=== PATIENT | male | born 1940 | race Caucasian/White ===

== ENCOUNTER → 2021-06-18 12:19 | Outpatient (CLI) | payer MEDICARE, SELFPAY ==
--- NOTE | ~2021-06-18 | MR_ITS ---
EXAMINATION: MR lumbar spine wo con EXAM DATE: 06/18/2021 13:03 INDICATION: Radiculopathy, lumbar region radiculopathy, lumbar region. Low back pain. TECHNIQUE: Multi-sequential, multiplanar MR images of the lumbar spine were obtained without contrast . Sagittal T1, T2, T2 fat saturation images. Axial T2 weighted images. Correlation is made to CT ab domen 2016. FINDINGS: There is lower abdominal aortic aneurysm which may measure up to about 5 cm (was about 3.7 in 2016. Size may indicate prophylactic treatment. There are left renal lesions, imaged portions are fluid signal intensity consistent with cysts. Rudimentary S1-2 disc. Mild lumbar dextroscoliosis. There is severe disc disease L4-5 and L5-S1, mode rate to severe at the 2 levels above. The conus medullaris terminates at the L1/2 level and has meghan l signal intensity and morphology. There is nerve root redundancy above the severe central canal sten osis at the L3-4 level. There is 2 mm anterolisthesis L2 on L3. Level by level evaluation: T12-L1: Disc does not extend beyond the endplate margin. Facet arthropathy: Mild. Neural foraminal stenosis: No stenosis. Central canal stenosis: No stenosis. L1-L2: There is a mild diffuse disc bulge. Facet arthropathy: Mild. Neural foraminal stenosis: No stenosis. Central canal stenosis: No stenosis. L2-L3: There is a moderate diffuse disc bulge. Facet arthropathy: Mild to moderate. Neural foraminal stenosis: Moderate left, mild right. Central canal stenosis: Mild to moderate. L3-L4: There is a moderate to large diffuse disc bulge. Facet arthropathy: Severe. Neural foraminal stenosis: Moderate bilateral. Central canal stenosis: Severe, nerve root redundancy above this level. L4-L5: There is a moderate to large diffuse disc bulge. Facet arthropathy: Moderate. Neural foraminal stenosis: Mild to moderate bilateral. Central canal stenosis: Moderate. L5-S1: Partially fused. Mild to moderate diffuse disc bulge. Facet arthropathy: Mild to moderate. Neural foraminal stenosis: Moderate right, mild to moderate left. Central canal stenosis: Mild. IMPRESSION: 1. Increase in size of lower abdominal aortic aneurysm which may be up to 5 cm; consider CT angiogra m, vascular consult. 2. L3-4 severe central canal stenosis with nerve root redundancy above. 3. Mild dextroscoliosis. Reviewed, dictated and finalized at location A. IMPRESSION: 1. Increase in size of lower abdominal aortic aneurysm which may be up to 5 cm ; consider CT angiogram, vascular consult. 2. L3-4 severe central canal stenosis with nerve root redundancy above. 3. Mild dextroscoliosis.
== END ==
PROVIDERS: PCP Emergency Medicine; Visit Provider Nurse Practitioner Adult Health
DX: M54.16 Radiculopathy, lumbar region (principal); I71.4 Abdominal aortic aneurysm, without rupture
CPT/HCPCS: 72148

== ENCOUNTER → 2021-07-30 08:01 | Outpatient (CLI) | payer MEDICARE, SELFPAY ==
--- NOTE | ~2021-07-30 | US_ITS ---
EXAMINATION: US abdomen limited EXAM DATE: 07/30/2021 08:45 INDICATION: I71.4 - Abdominal aortic aneurysm, without rupture. TECHNIQUE: Multiple grayscale and Doppler images of the abdomen right upper quadrant were obtained (b y a technologist who performed the scan) and subsequently reviewed. There is no prior study for nanda dumont. FINDINGS: Mid abdominal aorta measures 5.4 cm. Please note that on a CT in 2016 this measured 3.5 cm . The pancreatic head and body are normal in appearance. The pancreatic tail is not visualized. There is echogenic liver parenchyma, hepatic steatosis. There are no focal liver lesions identified. Th ere is no evidence of intrahepatic biliary duct dilation. Portal venous flow was seen in the hepatop edal, normal direction and has normal Doppler waveform. No right-sided hydronephrosis. Common bile duct measures 6 mm, which is normal. The gallbladder fossa is unremarkable. IMPRESSION: 1. Abdominal aortic aneurysm measuring up to 5.4 cm. 2. Hepatic steatosis. Reviewed, dictated and finalized at location B.
== END ==
PROVIDERS: PCP Emergency Medicine; Visit Provider Emergency Medicine
DX: I71.4 Abdominal aortic aneurysm, without rupture (principal); K76.0 Fatty (change of) liver, not elsewhere classified
CPT/HCPCS: 76705

== ENCOUNTER 2021-08-23 10:06 | Outpatient (CLI) | payer MEDICARE, SELFPAY ==
--- NOTE | ~2021-08-23 | CT_ITS ---
EXAMINATION: CTA abdomen pelvis EXAM DATE: 08/23/2021 11:13 INDICATION: AAA w/o rupture . TECHNIQUE: Spiral CT of the abdomen and pelvis was performed following intravenous injection of 100 m L Omnipaque 350. Axial, coronal and sagittal images of the abdomen and pelvis were reviewed. Maximum intensity projection 3-D reconstructions of the arteries were created by the technologist on [employer] workstation. The dose-length product (DLP) for this examination was 1541.15 mGy-cm. The exposu re was tailored according to patient size (auto mA exposure control), and iterative reconstruction (A SIR) was used as additional dose reduction technique. Comparison is made to prior examination from . 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 The liver, spleen, adrenal glands and pancreas are unremarkable. Ga llbladder is unremarkable. No biliary obstruction. Portal and splenic veins are patent. Kidneys en mitzy symmetrically. There is no hydronephrosis. Left renal cysts. Mild bilateral renal atrophy. Th e prostate is unremarkable. The bladder is unremarkable. There is no retroperitoneal or pelvic lymp hadenopathy. Small umbilical fat-containing hernia. The appendix is normal. There is mild scattered colonic diverticulosis. There is no adjacent inflamm atory change to suggest diverticulitis. The stomach and small bowel are unremarkable. There is expec dina amount of colonic stool. No free intraperitoneal gas. Mild cardiomegaly. The lung bases are unremarkable. There are no osteoblastic or osteolytic lesions identified. IMPRESSION: 1. 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 2. Mild renal atrophy. 3. Small umbilical hernia. 4. Mild colonic diverticulosis. Reviewed, dictated and finalized at location B. IMPRESSION: 1. 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 2. Mild renal atrophy. 3. Small umbilical hernia. 4. Mild colonic diverticulosis.
[2021-08-23 10:55] LABS: Estimated Glomerular Filt Rate 45
== END 2021-08-23 10:07 | disposition home or self-care (01) ==
PROVIDERS: PCP Emergency Medicine; Visit Provider Specialist
DX: I71.4 Abdominal aortic aneurysm, without rupture (principal); K42.9 Umbilical hernia without obstruction or gangrene; K57.30 Diverticulosis of large intestine without perforation or abscess without bleeding
CPT/HCPCS: 74174; Q9967

== ENCOUNTER 2021-10-15 08:19 | Outpatient (CLI) | payer MEDICARE, SELFPAY ==
--- NOTE | ~2021-10-15 | NM_ITS ---
EXAMINATION: NM jim stress w perfusion DATE: 10/15/2021 12:52 INDICATION: Encounter for preprocedural cardiovascular exam. Atherosclerotic coronary artery calcific ations. TECHNIQUE: Rest images were obtained following intravenous administration of 10.7 mCi Tc99m tetrofosm in (Myoview). The patient was infused intravenously with Lexiscan (Regadenoson). Then, 33.6 mCi Tc99m tetrofosmin (Myoview) was administered intravenously, and stress images were obtained. Data was marlen nstructed into short axis and horizontal and vertical long axis SPECT images. Gated SPECT images were also obtained. COMPARISON: None. FINDINGS: There is no definite reversible or fixed perfusion abnormality to suggest ischemia or infar ction. There is normal left ventricular chamber size, wall motion and ejection fraction. Left ventr icular ejection fraction measures 68%. IMPRESSION: 1. Normal myocardial perfusion at rest and during stress. 2. Left ventricular ejection fraction measuring 68%. Reviewed, dictated and finalized at location A. Y MAN
--- NOTE | 2021-10-15 08:35 | EST_ITS ---
Patient Info Name: Mike Michel Age: 80 years : 1940 Gender: Male Ht: 67 in Wt: 303 lbs BSA: 2.63 m2 Exam Date: 10/15/2021 10:43 AM Exam Location: [facility] Stress Patient Status: Outpatient Admit Date: 10/15/2021 Staff Ordering Physician: Timur Sheldon DO Attending Provider: Timur Sheldon DO Exercise Technologist: Brie Mckeon RDCS Exercise Physician: Timur Sheldon DO Exam Type: CA stress jim w NM Study Info Indications Z01.810 - Encounter for preprocedural cardiovascular examination A regadenoson stress test was performed. Summary 1. 1. Negative lexiscan stress test for ischemic ST changes by ECG criteria. 2. 2. Stable hemodynamics throughout the test. 3. 3. Nuclear scan to follow and will be reported separately. Please correlate with it. 4. 4. Patient informed of the above results. Protocol: Lexiscan Stress ECG Details Stage: REST Duration (min): 1 min : 33 sec HR (bpm): 55 SBP (mmHg): 136 DBP (mmHg): 79 Stage: REST Duration (min): 13 min : 47 sec HR (bpm): 53 SBP (mmHg): 136 DBP (mmHg): 79 Stage: STAGE 1 Duration (min): 1 min : 0 sec HR (bpm): 49 SBP (mmHg): 136 DBP (mmHg): 79 Stage: RECOVERY Duration (min): 1 min : 0 sec HR (bpm): 63 SBP (mmHg): 121 DBP (mmHg): 63 Stage: RECOVERY Duration (min): 2 min : 0 sec HR (bpm): 63 SBP (mmHg): 121 DBP (mmHg): 63 Stage: RECOVERY Duration (min): 3 min : 0 sec HR (bpm): 63 SBP (mmHg): 126 DBP (mmHg): 58 Stage: RECOVERY Duration (min): 4 min : 0 sec HR (bpm): 63 SBP (mmHg): 126 DBP (mmHg): 58 Stage: RECOVERY Duration (min): 5 min : 0 sec HR (bpm): 63 SBP (mmHg): 122 DBP (mmHg): 71 Stage: RECOVERY Duration (min): 6 min : 0 sec HR (bpm): 62 SBP (mmHg): 122 DBP (mmHg): 71 Stage: RECOVERY Duration (min): 6 min : 51 sec HR (bpm): 62 SBP (mmHg): 132 DBP (mmHg): 75 Rest HR: 53 bpm Peak HR: 64 bpm Rest Sys BP: 136 mmHg Peak Sys BP: 132 mmHg Max Pred HR: 142 bpm % Max Pred HR: 45 % Target HR: 121 bpm Max RPP: 8,448 bpm*mmHg Termination Reason: Completed protocol Cardiac Symptoms: Shortness of breath Total Time: 1 min : 0 sec Rest Quijano BP: 79 mmHg Peak Quijano BP: 75 mmHg Total Dose: 0.4 mg Resting ECG Sinus rhythm. Stress ECG No ST changes. Arrhythmias None. Report Signatures
--- NOTE | 2021-10-15 08:35 | ECHO_ITS ---
Patient Info Name: Mike Michel Age: 80 years : 1940 Gender: Male Ht: 67 in Wt: 303 lbs BSA: 2.63 m2 HR: 60 bpm BP: 136 / 79 mmHg Technical Quality: Poor Exam Date: 10/15/2021 8:52 AM Exam Location: [facility] Patient Status: Outpatient Admit Date: 10/15/2021 Staff Ordering Physician: Timur Sheldon DO Flue Cleaner: Brie Mckeon RDCS Attending Provider: Timur Sheldon DO Referring Physician: Pito PUGH; Exam Type: CA echo dop color flow w con Study Info Indications Z01.810 - Encounter for preprocedural cardiovascular examination Complete two-dimensional, color flow and Doppler transthoracic echocardiogram is performed with contrast to opacify the left ventricle and to improve the deliniation of the left ventricle endocardial borders. Contrast/Agitated Saline Contrast/Ag. Saline: Definity Amount: 2.00 ml Administered By: Alexis Benoit RN New IV Access: Antecubital Space and Right Site Condition: No extravasation Reason for Poor Study: patient body habitus Summary 1. Technically suboptimal study due to poor sonographic images. 2. Definity contrast administered improved wall motion interpretation. 3. Left ventricular chamber dimension is normal. 4. Left ventricular systolic function is normal, estimated at 60-65%. 5. The left ventricular diastolic function is grade I diastolic dysfunction. 6. No pulmonary hypertension, estimated pulmonary arterial systolic pressure is 13 mmHg. Left Ventricle Technically suboptimal study due to poor sonographic images. Definity contrast administered improved wall motion interpretation. Left ventricular chamber dimension is normal. Left ventricular systolic function is normal, estimated at 60-65%. The left ventricular diastolic function is grade I diastolic dysfunction. Tissue doppler is not performed. Right Ventricle Right ventricular chamber dimension is not well visualized. Left Atria Left atrial chamber dimension is normal. Right Atria Right atrial chamber dimension is normal. Aortic Valve The aortic valve is trileaflet. There is no aortic valve stenosis. There is no aortic valve regurgitation. Pulmonic Valve There is no pulmonic regurgitation. Mitral Valve There is no mitral valve stenosis. There is no mitral valve regurgitation. Tricuspid Valve There is no tricuspid valve regurgitation. No pulmonary hypertension, estimated pulmonary arterial systolic pressure is 13 mmHg. Pericardium/Pleural There is no pericardial effusion. Inferior Vena Cava Normal inferior vena cava with >50% collapse upon inspiration consistent with normal right atrial pressure, 5 mmHg. Aorta The aortic root size at the sinus of Valsalva is not well visualized. Left Ventricular Outflow Tract Name Value Normal LVOT 2D LVOT Diameter 2.02 cm LVOT Doppler LVOT Peak Gradient 6 mmHg LVOT Mean Gradient 3 mmHg LVOT VTI 28.36 cm LVOT VTI/AV VTI Ratio 0.85 LVOT Stro
== END 2021-10-15 08:20 | disposition home or self-care (01) ==
LOC: ANHCARD 08:22
PROVIDERS: PCP Emergency Medicine; Visit Provider Internal Medicine Cardiovascular Disease
DX: Z01.810 Encounter for preprocedural cardiovascular examination (principal)
CPT/HCPCS: 78452; 93017; A9502; C8929; J2785

== ENCOUNTER 2021-10-19 14:19 | Inpatient (IN) | payer MEDICARE, SELFPAY ==
[2021-10-19] VITALS (39 sets, daily range): BP systolic 90–176; BP diastolic 53–102; PULSE 52–80; RESP 12–24; TEMP 37–37.1; O2SAT 90–100; BMI 43.1
--- NOTE | ~2021-10-19 | XR_ITS ---
EXAMINATION: XR chest 1V portable DATE: 11/02/2021 06:20 INDICATION: Respiratory failure TECHNIQUE: frontal view of the chest was obtained. COMPARISON: Chest radiograph dated 11/01/2021 FINDINGS: Endotracheal tube tip 5.5 cm above the shanti. Right upper extremity peripherally inserted central ve nous catheter (PICC) tip at the mid superior vena cava. No significant change in mild opacities in the bilateral lower lung zones. No pneumothorax or pleural effusion. The cardiomediastinal silhouette is normal. IMPRESSION: 1. No significant change in opacities in the bilateral lower lung zones consistent with atelectasis, pneumonia, pulmonary edema or some combination thereof. Reviewed, dictated and finalized at location A. ING MACHINE OPERATOR IMPRESSION: 1. No significant change in opacities in the bilateral lower lung zones consist ent with atelectasis, pneumonia, pulmonary edema or some combination thereof.
--- NOTE | ~2021-10-19 | XR_ITS ---
EXAMINATION: XR chest 1V portable EXAM DATE: 10/24/2021 05:16 INDICATION: Respiratory failure. TECHNIQUE: Portable AP frontal chest x-ray was obtained. Comparison is made to prior examination from 10/23/2021. FINDINGS: Endotracheal tube tip is 4 centimeters above the shanti, adequate. There is a nasogastric t ube seen with tip collimated off the study, but below the left hemidiaphragm. There is cardiomegaly and pulmonary vascular congestion. Moderate amount of bilateral airspace diseas e, could be edema, ARDS, pneumonia or combination thereof. Please clinically correlate. Small to mode rate pleural effusions. There is no pneumothorax suspected. The bones and soft tissues are unremar kable. There is no significant interval change. IMPRESSION: 1. ET, NG tube in position. 2. Findings consistent with CHF exacerbation. Pneumonia not excludable. ER PROFESSIONAL Reviewed, dictated and finalized at location A.
--- NOTE | ~2021-10-19 | XR_ITS ---
EXAMINATION: XR chest 1V portable EXAM DATE: 10/21/2021 05:54 INDICATION: Respiratory failure . TECHNIQUE: Portable AP frontal chest x-ray was obtained. Comparison is made to prior examination from 10/20. FINDINGS: Endotracheal tube tip is 5 centimeters above the shanti, adequate. There is a nasogastric tube seen with tip collimated off the study, but below the left hemidiaphragm. There is cardiomegaly and pulmonary vascular congestion. Moderate amount of bilateral airspace diseas e, could be edema, ARDS, pneumonia or combination thereof. Please clinically correlate. Small to mode rate pleural effusions. There is no pneumothorax suspected. The bones and soft tissues are unremar kable. There is no significant interval change. IMPRESSION: 1. ET, NG tube in position. 2. Findings consistent with CHF exacerbation. Pneumonia not excludable. Reviewed, dictated and finalized at location A. NG II INSTRUCTOR
--- NOTE | ~2021-10-19 | XR_ITS ---
EXAMINATION: XR chest 1V portable INDICATION: Respiratory failure TECHNIQUE: Portable AP chest at 0518 hours COMPARISON: 10/25/2021 FINDINGS: The endotracheal tube ends approximately 2.6 cm above the shanti. Nasogastric tube is in th e stomach. A right upper extremity PICC ends with its tip in the distal superior vena cava. Small ple ural effusions are unchanged. There are stable bibasilar airspace opacities. No pneumothorax is ident ified. The cardiomediastinal silhouette is stable. IMPRESSION: 1. Small pleural effusions. 2. Stable bibasilar airspace opacities, consistent with atelectasis versus pneumonia. Reviewed, dictated and finalized at location A. AND SCIENCES DEAN IMPRESSION: 1. Small pleural effusions. 2. Stable bibasilar airspace opacities, consistent with atelectasis versus pneu monia.
--- NOTE | ~2021-10-19 | XR_ITS ---
EXAMINATION: XR chest 1V portable DATE: 10/29/2021 05:43 INDICATION: Respiratory failure TECHNIQUE: frontal view of the chest was obtained. COMPARISON: Chest radiograph dated 10/28/2021 FINDINGS: Nasogastric tube extends into the stomach with distal tip collimated off the study. The tip of the e ndotracheal tube is obscured by the superimposed nasogastric tube in his positioned between 4.5 and 6 .5 cm above the level of the shanti. Right upper extremity peripherally inserted central venous wan ter (PICC) tip at the mid superior vena cava. Opacities in bilateral mid and lower lung zones consistent with small bilateral pleural effusions and associated atelectasis and/or pneumonia. Calcified nodule in the right lower lung zone consistent wi th old granulomatous disease. The cardiomediastinal silhouette is normal. Visualized bones and soft t issues are unremarkable. IMPRESSION: 1. Small bilateral pleural effusions with associated basilar atelectasis and/or pneumonia. Reviewed, dictated and finalized at location A. OELECTRIC PLANT OPERATOR
--- NOTE | ~2021-10-19 | XR_ITS ---
EXAMINATION: XR chest 1V portable EXAM DATE: 10/20/2021 05:26 INDICATION: Respiratory failure. TECHNIQUE: Portable AP frontal chest x-ray was obtained. Comparison is made to prior examination from 10/19/2021. FINDINGS: Endotracheal tube tip is 5 centimeters above the shanti, adequate. There is a nasogastric t ube seen with tip collimated off the study, but below the left hemidiaphragm. There is cardiomegaly and pulmonary vascular congestion. Moderate amount of bilateral airspace diseas e, could be edema, ARDS, pneumonia or combination thereof. Please clinically correlate. Small to mode rate pleural effusions. There is no pneumothorax suspected. The bones and soft tissues are unremar kable. There may be slight progression in the pleural effusions compared to yesterday, airspace disease and heart size appear unchanged. IMPRESSION: 1. ET, NG tube in position. 2. Findings consistent with CHF exacerbation. Pneumonia not excludable. Reviewed, dictated and finalized at location A. CTOR OF VOCATIONAL GUIDANCE
--- NOTE | ~2021-10-19 | XR_ITS ---
EXAMINATION: XR chest 1V portable EXAM DATE: 10/22/2021 05:23 INDICATION: Respiratory failure TECHNIQUE: Portable AP frontal chest x-ray was obtained. Comparison is made to prior examination from 10/21/2021. FINDINGS: Endotracheal tube tip is 4 centimeters above the shanti, adequate. There is a nasogastric t ube seen with tip collimated off the study, but below the left hemidiaphragm. There is cardiomegaly and pulmonary vascular congestion. Moderate amount of bilateral airspace diseas e, could be edema, ARDS, pneumonia or combination thereof. Please clinically correlate. Small to mode rate pleural effusions. There is no pneumothorax suspected. The bones and soft tissues are unremar kable. There is no significant interval change. IMPRESSION: 1. ET, NG tube in position. 2. Findings consistent with CHF exacerbation. Pneumonia not excludable. Reviewed, dictated and finalized at location A. JOURNEYMAN
--- NOTE | ~2021-10-19 | XR_ITS ---
EXAMINATION: XR abdomen NG/feed tube insert DATE: 10/19/2021 16:52 INDICATION: Orogastric tube placement. TECHNIQUE: A supine view of the abdomen on 2 radiographs was obtained. COMPARISON: CT abdomen and pelvis 08/23/2021 FINDINGS: There are no dilated loops of bowel. The nasogastric tube tip is in the stomach. Surgical c lips in the right upper quadrant are likely from cholecystectomy. There is a small right pleural effu ida. IMPRESSION: 1. Nasogastric tube tip in the stomach. 2. Small right pleural effusion. Reviewed, dictated and finalized at location A. RAL AGENT
--- NOTE | ~2021-10-19 | XR_ITS ---
XR chest PICC line 10/25/2021 15:21 Indication: PICC line placement Procedure: AP portable chest Comparison: Comparison to multiple prior studies sequentially, with oldest reviewed study dated 10/02. Findings: Endotracheal tube tip 3.9 cm above the shanti. PICC line tip mass cc. NG tube tip not visua lized. Cardiomegaly. Mild interstitial edema. Small pleural effusions. No pneumothorax. Impression: 1: Cardiomegaly with interstitial edema. 2: Small pleural effusions. Reviewed, dictated and finalized at location A. SURGERY ICU Impression: 1: Cardiomegaly with interstitial edema. 2: Small pleural effusions.
--- NOTE | ~2021-10-19 | US_ITS ---
EXAMINATION:US venous doppler LE BI INDICATION:Leg swelling TECHNIQUE: Multiple grayscale, color flow and Doppler images of the right and left lower extremity de ep venous systems were obtained and reviewed. COMPARISON:08/11/2009 FINDINGS: The common femoral, superficial femoral and popliteal veins demonstrate normal respiratory variation, augmentation and compressibility. Color flow is also seen within the posterior tibial, pe roneal, greater saphenous and profunda veins. IMPRESSION: 1: No lower extremity deep venous thrombosis. Reviewed, dictated and finalized at location B. DENT PHYSICIAN
--- NOTE | ~2021-10-19 | XR_ITS ---
XR chest 1V portable 10/28/2021 18:26 Indication: Labored breathing. Procedure: AP portable chest Comparison: Comparison to multiple prior studies sequentially, with oldest reviewed study dated 10/02. Findings: Endotracheal tube tip approximately 5.7 cm above the shanti. NG tube in the stomach. PICC l ine tip in SVC. Bibasilar airspace disease. Heart size is normal for technique. No pneumothorax. Impression: 1: Bibasilar airspace disease may represent atelectasis and/or pneumonia. Reviewed, dictated and finalized at location A. TIATOR SALES Impression: 1: Bibasilar airspace disease may represent atelectasis and/or pneumonia.
--- NOTE | ~2021-10-19 | XR_ITS ---
EXAMINATION: XR chest 1V portable INDICATION: Respiratory failure TECHNIQUE: Portable AP chest at 0511 hours COMPARISON: 10/26/2021 FINDINGS: The endotracheal tube ends approximately 3.4 cm above the shanti. The nasogastric tube is f ollowed as far as the stomach. Its tip is beyond the inferior margin of the radiograph. A right upper extremity PICC ends with its tip in the distal superior vena cava. Bibasilar airspace opacities pers ist without significant change. There are small, stable pleural effusions. The cardiomediastinal silh ouette is stable. IMPRESSION: 1. Stable bibasilar airspace opacities, consistent with atelectasis versus pneumonia. 2. Small pleural effusions. Reviewed, dictated and finalized at location A. INE OPERATOR IMPRESSION: 1. Stable bibasilar airspace opacities, consistent with atelectasis versus pneu monia. 2. Small pleural effusions.
--- NOTE | ~2021-10-19 | XR_ITS ---
EXAMINATION: XR chest 1V portable DATE: 11/04/2021 06:11 INDICATION: Respiratory failure. Mechanical ventilation. TECHNIQUE: frontal view of the chest was obtained. COMPARISON: Chest radiograph dated 11/03/2021 FINDINGS: Unchanged tracheostomy tube which remains in expected position at the thoracic inlet. Right upper ext remity peripherally inserted central venous catheter (PICC) tip at the mid superior vena cava. Persistent opacities in the bilateral mid to lower lung zones with some increase on the left. No pneu mothorax or evident pleural effusion. The left costophrenic angle is however excluded from the field- of-view. The cardiomediastinal silhouette is normal. IMPRESSION: 1. Opacities at the bilateral mid to lower lung zones with interval increase on the left which could represent atelectasis, pneumonia, pulmonary edema or some combination thereof. Reviewed, dictated and finalized at location A. AGE MAKER
--- NOTE | ~2021-10-19 | US_ITS ---
EXAMINATION: US renal BI DATE: 10/28/2021 08:53 INDICATION: Acute on chronic kidney disease TECHNIQUE: Multiple grayscale and Doppler ultrasound images of the kidneys were obtained. COMPARISON: None. FINDINGS: The right kidney measures 11.4 x 4.1 x 5.5 cm. The left kidney measures 13.5 x 6.9 x 6.7 cm and contains cysts measuring up to 5.1 cm. The kidneys demonstrate normal parenchymal echogenicity. There is no hydronephrosis. The bladder is decompressed by Cat catheter. IMPRESSION: 1. Unremarkable kidneys without hydronephrosis. Reviewed, dictated and finalized at location A. FORM REMOVER
--- NOTE | ~2021-10-19 | XR_ITS ---
EXAMINATION: XR chest 1V portable DATE: 10/23/2021 07:49 INDICATION: Shortness of breath. TECHNIQUE: A single frontal view of the chest was obtained. COMPARISON: Chest single view 10/22/2021, CT abdomen and pelvis 08/23/2021 FINDINGS: There are small pleural effusions. There are airspace opacities in the mid and lower lung z ones with a basilar predominance. No pneumothorax. Cardiomegaly is noted. The endotracheal tube tip i s 4.1 cm above the shanti. The nasogastric tube is not well visualized beyond the mid esophagus. IMPRESSION: 1. Stable small pleural effusions. 2. Airspace opacities in the mid and lower lung zones with a basilar predominance with worsening on t he right, consistent with atelectasis versus pneumonia. 3. Cardiomegaly. Reviewed, dictated and finalized at location B. T WORKER IMPRESSION: 1. Stable small pleural effusions. 2. Airspace opacities in the mid and lower lung zones with a basilar predominan ce with worsening on the right, consistent with atelectasis versus pneumonia. 3. Cardiomegaly.
--- NOTE | ~2021-10-19 | CT_ITS ---
EXAMINATION: CT brain wo con EXAM DATE: 10/24/2021 10:53 INDICATION: Encephalopathy. TECHNIQUE: Spiral CT of the head was performed without contrast. Axial, coronal and sagittal images were reviewed. The dose-length product (DLP) for this examination was 681.00 mGy-cm. The exposure w as tailored according to patient size, and iterative reconstruction (ASIR) was used as additional dos e reduction technique. There is no prior study for comparison. FINDINGS: Patient is intubated. 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 There is no acute intraparenchymal hemorrhage. No evidence of intraparenchymal brain mass lesion. No evidence of acut e infarction. Please note that initial head CT has limited sensitivity for small or acute infarction s. There is moderate periventricular and subcortical hypodensity, nonspecific but probably related t o small vessel ischemic disease. There is moderate prominence of the sulci and ventricles related t o cerebral atrophy. There is intracranial carotid arteriosclerosis. There are no extra-axial colle ctions. There is no mass effect or midline shift. The orbits are unremarkable. Soft tissue is unre markable. The visualized sinuses and mastoid air cells are well aerated. IMPRESSION: 1. No acute intracranial findings. 2. Chronic age related findings. Reviewed, dictated and finalized at location A. STIC SPECIALIST
--- NOTE | ~2021-10-19 | XR_ITS ---
EXAMINATION: XR chest 1V portable DATE: 11/01/2021 05:54 INDICATION: Respiratory failure TECHNIQUE: frontal view of the chest was obtained. COMPARISON: Chest radiograph dated 10/30/2021 FINDINGS: Endotracheal tube tip 4.1 cm above the shanti. Nasogastric tube extends below the left hemidiaphragm with distal tip collimated off the study. Right upper extremity peripherally inserted central venous catheter (PICC) tip at the mid superior vena cava. No significant change in opacities in the bilateral mid to lower lung zones. No pleural effusion or p neumothorax. Calcified nodule in the right lower lung zone. The cardiomediastinal silhouette is meghan l. IMPRESSION: 1. No significant change in opacities in the bilateral lower lung zones consistent with atelectasis, pneumonia, pulmonary edema or combination thereof. Reviewed, dictated and finalized at location A. CHEMICALS OPERATOR IMPRESSION: 1. No significant change in opacities in the bilateral lower lung zones consist ent with atelectasis, pneumonia, pulmonary edema or combination thereof.
--- NOTE | ~2021-10-19 | XR_ITS ---
EXAMINATION: XR chest 1V portable DATE: 11/03/2021 07:31 INDICATION: Respiratory failure TECHNIQUE: frontal view of the chest was obtained. COMPARISON: Chest radiograph dated 11/02/2021 FINDINGS: Tracheostomy tube at the thoracic inlet with distal tip tip 5.8 cm above the shanti. Right upper extr emity peripherally inserted central venous catheter (PICC) tip at the cephalad superior vena cava. Persistent mild opacities at the bilateral lung bases. Small region of chronic increased subpleural f at along the right costophrenic angle. Calcified nodules in the right lower lung zone consistent with old granulomatous disease. No pleural effusion or pneumothorax. The cardiomediastinal silhouette is normal. IMPRESSION: 1. Unchanged mild opacities in bilateral lower lung zones consistent with atelectasis, pneumonia, pul monary edema or some combination thereof. Reviewed, dictated and finalized at location A. TRIC POWER LINE EXAMINER IMPRESSION: 1. Unchanged mild opacities in bilateral lower lung zones consistent with atele ctasis, pneumonia, pulmonary edema or some combination thereof.
--- NOTE | ~2021-10-19 | XR_ITS ---
EXAMINATION: XR chest 1V portable INDICATION: Respiratory failure TECHNIQUE: Portable AP chest at 0504 hours COMPARISON: 10/28/2021 FINDINGS: The endotracheal tube ends approximately 3.3 cm above the shanti. The nasogastric tube is f ollowed as far as the stomach. Its tip is beyond the inferior margin of the radiograph. A right upper extremity PICC ends with its tip in the midsuperior vena cava. Patchy opacities of the lung bases pe rsist without significant change. There is no pneumothorax. Small pleural effusions are unchanged. Th e cardiomediastinal silhouette is stable. IMPRESSION: 1. Stable bibasilar airspace opacities, consistent with atelectasis versus pneumonia. Reviewed, dictated and finalized at location A. TER HAND IMPRESSION: 1. Stable bibasilar airspace opacities, consistent with atelectasis versus pneu monia.
--- NOTE | ~2021-10-19 | XR_ITS ---
EXAMINATION: XR chest 1V portable DATE: 10/30/2021 05:36 INDICATION: Respiratory failure TECHNIQUE: frontal view of the chest was obtained. COMPARISON: Chest radiograph dated 10/29/2021 FINDINGS: Endotracheal tube tip 5 cm above the shanti. Nasogastric tube extends below the left hemidiaphragm w ith distal tip collimated off the study. Right upper extremity peripherally inserted central venous c atheter (PICC) tip at the mid superior vena cava. Opacities in the bilateral lower lung zones, left greater than right superimposed over small bilatera l pleural effusions. No pneumothorax. Calcified nodules in the right lower lung zone consistent with old granulomatous disease. The cardiomediastinal silhouette is normal. Moderate thoracic spondylosis. IMPRESSION: 1. No significant change in small bilateral pleural effusions with associated bibasilar atelectasis a nd/or pneumonia. Reviewed, dictated and finalized at location A. AMAKER IMPRESSION: 1. No significant change in small bilateral pleural effusions with associated b ibasilar atelectasis and/or pneumonia.
--- NOTE | ~2021-10-19 | XR_ITS ---
EXAMINATION: XR chest 1V portable DATE: 10/19/2021 14:33 INDICATION: Shortness of breath. TECHNIQUE: A single frontal view of the chest was obtained. COMPARISON: Chest 2 views 09/14/2015, CT abdomen and pelvis 08/23/2021 FINDINGS: Sensitivity is decreased by obesity. The patient is rotated to his right. There are airspac e opacities in the mid and lower lung zones with a basilar predominance. No pleural effusion or pneum othorax. Cardiomegaly is noted. IMPRESSION: 1. Airspace opacities in the mid and lower lung zones, consistent with atelectasis versus pneumonia. 2. Cardiomegaly. Reviewed, dictated and finalized at location A. IGERATOR CRATER IMPRESSION: 1. Airspace opacities in the mid and lower lung zones, consistent with atelecta sis versus pneumonia. 2. Cardiomegaly.
--- NOTE | ~2021-10-19 | XR_ITS ---
EXAMINATION: XR chest ET placement EXAM DATE: 10/19/2021 16:33 INDICATION: respiratory failure, ET tube placement. TECHNIQUE: Portable AP frontal chest x-ray was obtained. Compared to x-ray from earlier same date FINDINGS: Endotracheal tube tip is 4-5 centimeters above the shanti, adequate. There is cardiomegaly and pulmonary vascular congestion. Moderate amount of bilateral airspace diseas e, could be edema, ARDS, pneumonia. Please clinically correlate. Small pleural effusions. There is n o pneumothorax suspected. The bones and soft tissues are unremarkable. Suspect mild progression in airspace disease compared to several hours earlier. IMPRESSION: 1. ET tube in position. 2. Findings consistent with CHF exacerbation. Pneumonia not excludable. Reviewed, dictated and finalized at location B. UTER TECHNOLOGY INSTRUCTOR
--- NOTE | ~2021-10-19 | CT_ITS ---
EXAMINATION: CT chest high resolution wo me DATE: 10/25/2021 09:16 INDICATION: Pleural effusions and infiltrates, shortness of breath TECHNIQUE: Computed tomography (CT) of the chest was performed without intravenous contrast. The dose -length product (DLP) was 933.25 mGy-cm. Automated exposure control and iterative reconstruction tech [employer] were employed. COMPARISON: None FINDINGS: There are small pleural effusions. There is dependent atelectasis, particularly in in the l ower lobes. There is no pneumothorax. No pathologically enlarged thoracic lymph nodes are identified. The heart size is normal. The endotracheal tube ends approximately 3.9 cm above the shanti. The naso gastric tube is in stomach. There is severe lumbar spondylosis. IMPRESSION: 1. Bilateral pleural effusions. 2. Atelectasis of the lower lobes. Reviewed, dictated and finalized at location A. R
--- NOTE | 2021-10-19 14:12 | PC.NURSE ---
Respiratory at bedside
--- NOTE | 2021-10-19 14:20 | ECG_ITS ---
Measurements Intervals [place] Rate: 72 P: 62 RI: 204 QRS: 33 QRSD: 111 T: 48 QT: 389 QTc: 428 Interpretive Statements SINUS RHYTHM BORDERLINE AV CONDUCTION DELAY INTRAVENTRICULAR CONDUCTION DELAY ANTEROSEPTAL INFARCT, AGE INDETERMINATE BASELINE ARTIFACT- I, II, III, AVR, AVL, AVF, V1-V6 ABNORMAL ECG Electronically Signed On 10-23-2021 13:04:10 [employer] by Timur Sheldon D.O.
[2021-10-19 14:32] LABS: Alveolar/Arterial O2 Gradient 316.7 mmHg; Base Excess ABG 3.2 mEq/l (+/-2.0); Fractional Inspired Oxygen 100 %; HCO3 ABG 35.8 mEq/l (22.0-26.0); Oxygen Content ABG 21.3 %vol (16.0-22.0); Oxygen Saturation ABG 99.5 % (95.0-100.0); Oxyhemoglobin 97.3 % THb (90.0-100.0); PO2 ABG 294.6 mmHg (80.0-100.0); PO2 FiO2 Ratio Arterial Blood 2.95 %; Total Hemoglobin 15.1 g/dL (12.0-18.0)
[2021-10-19 14:33] LABS: pH ABG 7.164 (7.350-7.450)
[2021-10-19 14:34] LABS: Device BIPAP; Modified Allen's Test Pass; PCO2 ABG 101.7 mmHg (35.0-45.0); Site Drawn LEFT RADIAL
[2021-10-19 14:35] LABS: Expiratory Pressure 8 cmH2O; Inspiratory Pressure 16 cmH2O
[2021-10-19] MEDS: IPRATROPIUM BR 0.02% INH SOLN 0.5 MG/2.5 ML VIAL 1 MG INHALATION (14:41)
[2021-10-19] MEDS: ALBUTEROL SULFATE NEB 2.5 MG/0.5 ML INH 10 MG INHALATION (14:41)
[2021-10-19 14:45] LABS: Basophils Absolute Auto 0.1 K/mm3 (0.0-0.1); Basophils Percent Auto 0.6 % (0.2-1.2); Eosinophils Absolute Auto 0.2 K/mm3 (0-0.3); Eosinophils Percent Auto 1.8 % (0-4.4); Hematocrit 48.5 % (42.0-52.0); Hemoglobin 14.6 g/dL (14.0-18.0); Immature Granulocyte Absolute 0.42 K/mm3 (0.00-0.031); Immature Granulocyte Percent A 3.9 % (0-0.5); Lymphocytes Absolute Auto 2.14 K/mm3 (0.9-3.2); Lymphocytes Percent Auto 19.7 % (18.3-44.2); Mean Corpuscular HGB Conc 30.1 g/dl (32-36); Mean Corpuscular Hemoglobin 29.9 pg (26-34); Mean Corpuscular Volume 99.4 fl (80-100); Mean Platelet Volume 10.9 fl (7.4-10.4); Monocytes Absolute Auto 0.6 K/mm3 (0.1-0.6); Monocytes Percent Auto 5.8 % (2.6-8.5); Neutrophils Absolute Auto 7.4 K/mm3 (1.3-6.7); Neutrophils Percent Auto 68.2 % (45.5-73.1); Nucleated Red Blood Cells Perc 0.4 % (0.0-0.2); Platelet Count Result 145 k/mm3 (150-375); Red Blood Count 4.88 M/mm3 (4.6-6.20); Red Cell Distribution Width 14.1 % (11.5-14.5); White Blood Count 10.9 K/mm3 (4.5-10.0)
[2021-10-19 14:54] LABS: Prothrombin Time 13.2 Seconds (11.1-14.7)
[2021-10-19 14:55] LABS: Partial Thromboplastin Time 27.5 SECONDS (22.3-36.8)
[2021-10-19 14:58] LABS: Alanine Aminotransferase 24 U/L (4-50); Albumin Level 4.3 g/dL (3.5-5.1); Alkaline Phosphatase 97 U/L (38-126); Anion Gap 4 mmol/L (8-16); Aspartate Amino Transferase 27 U/L (17-59); Bilirubin,Total 0.6 mg/dL (0.2-1.3); Blood Urea Nitrogen 24 mg/dL (9-20); Calcium 8.7 mg/dL (8.4-10.2); Carbon Dioxide 37 mmol/L (22-30); Chloride 98 mmol/L (98-107); Estimated CRCL calculation 37 ml/min; Estimated Glomerular Filt Rate 42; Glucose 116 mg/dL (65-110); Potassium 4.5 mmol/L (3.4-5.0); Sodium 139 mmol/L (137-145)
[2021-10-19 15:06] LABS: NT Pro B Type Natriuretic Pept 803 pg/mL (5-100)
[2021-10-19] MEDS: ONDANSETRON INJ 4 MG/2 ML VIAL IV PUSH (15:22)
--- NOTE | 2021-10-19 15:25 | ED.SOB ---
HPI - SOB/Dyspnea General Chief Complaint: Shortness of Breath/Dyspnea Stated Complaint: SOB History of Present Illness HPI Narrative: Patient is a 81-year-old male who presents ER with shortness of breath. Told EMS he has been short of breath for months. [facility] initial O2 sat was in the 50s. Patient arrived here and is more comfortable on BiPAP. He has lower extremity edema. He has difficulty giving history due to his dyspnea. He has poor air movement and diffuse wheezing. Daughter reports history of AAA that is going to undergo repair in the future. Patient had a normal Lexiscan on 10/15/2021. Related Data Home Medications Medication Instructions Recorded Confirmed acetaminophen 500 mg capsule 500 mg PO QPM PRN cap 12/26/20 09/27/21 ascorbic acid (vitamin C) 500 mg 500 mg PO QAM tablet 12/26/20 09/27/21 tablet finasteride 5 mg tablet 5 mg PO QPM tablet 12/26/20 09/27/21 Allergies Allergy/AdvReac Type Severity Reaction Status Date / Time adhesive tape Allergy Intermediate Blisters Verified 09/27/21 13:18 iodine Allergy Mild Unknown Verified 09/27/21 13:18 Review of Systems Review of Systems: ROS unobtainable: Yes unobtainable due to medical condition [facility] Past Medical History Medical History (Updated 10/19/21 @ 18:02 by Rodrigo Patino MD) AAA (abdominal aortic aneurysm) BPH (benign prostatic hyperplasia) Cholecystectomy planned (~1990) COPD (chronic obstructive pulmonary disease) Dyslipidemia Gout Hypertension Kidney disease Nervousness Varicocele (~1976) Surgical History Surgical History H/O knee surgery H/O repair of rotator cuff (~2008) Family History Family History Father , 56 Appendicitis Pulmonary embolism Mother , 66--Choked to on peanuts Choking due to food (regurgitated) Sibling Diabetes mellitus Social History Social History Social History: Patient drinks 2-3 cups of coffee daily Years smoked: 50 Smoking status: Former smoker Smoking end date: 12/01/14 Alcohol intake: current Alcohol use details: Patient drinks alcohol once to twice yearly Substance use: never Substance use type: does not use Gender identity (if verbalized by the patient): Male Sexual Orientation (if Verbalized by the Patient): Straight or Heterosexual Exam Narrative: GENERAL: Chronically ill-appearing, morbidly obese, and in moderate distress. HEAD: Normocephalic, atraumatic. EYES: PERRL and EOMI. ENT: Mucous membranes moist. CHEST: Diminished throughout with scattered wheezing. Tachypneic with moderate respiratory distress. HEART: Regular rate and rhythm. Normal peripheral pulses. ABDOMEN: Soft, nontender, nondistended. EXTREMITIES: Normal range of motion. 2+ edema. SKIN: Warm, dry, no rash. NEURO: Alert, oriented x1. Course Reevaluation(s) Reevaluation #1: Patient spit up some bile in his BiPAP. Patient given Zofran. Still confused. Discussed with daughter complications of being confused with BiPAP. Discussed intubation and daughter unable to make a decision. We will see how patient responds with Zofran. We have also increased the rate on the BiPAP since that was not performed after an order was placed. Date: 10/19/21 Time: 15:27 Reevaluation #2: Patient obtunded, no longer responding to sternal rub, and in need of intubation. Daughter is spoken with patient's and they would like patient to be intubated as well. Date: 10/19/21 Time: 16:10 Reevaluation #3: Discussed case with cycle specialist and hospitalist. Accepted for mission. Consulting Technical Manager recommends treating as COPD exacerbation as patient is vaccinated against Covid. Patient may tolerate 20 mg of Lasix but did not initially present as CHF. Date: 10/19/21 Time: 17:00 Vital Signs Vital signs: Vital Signs T
--- NOTE | 2021-10-19 15:30 | PC.NURSE ---
Pt vomited small amount of bile in mask, cleaned out mask, RT called, Dr. Bassett at bedside
--- NOTE | 2021-10-19 15:43 | PC.NURSE ---
RT stated she fixed a leak in pt mask, pt O2 sat 93%
--- NOTE | 2021-10-19 16:21 | PC.NURSE ---
EDP Sukumar in room for intubation. Per EDP, give 30mg Etomidate and 100mgSuccinylcholine IVP 7.5 size ETT 23 at the lip Bilateral breath sounds, equal rise and fall of chest good color change of ETCO2
[2021-10-19] MEDS: MIDAZOLAM 100MG/NS 100ML(*CRX) 100 MG/100 ML BAG IV CONT (16:35)
[2021-10-19] MEDS: FENTANYL 2,500MCG/NS250ML(*CRX 2,500 MCG/250 ML BAG IV CONT (16:36)
--- NOTE | 2021-10-19 16:54 | PC.NURSE ---
Per EDP Sukumar via verbal order read-back, increase Fentanyl drip to 100mcg/hr and increase Versed to 3mgs/hr and give 2mg Versed IVP. Patient attempting to pull ETT tube out.
[2021-10-19 17:02] LABS: Alveolar/Arterial O2 Gradient 430.6 mmHg; Base Excess ABG 1.4 mEq/l (+/-2.0); Carboxyhemoglobin 1.2 % THb (0-2.0); Fractional Inspired Oxygen 100 %; HCO3 ABG 33.8 mEq/l (22.0-26.0); Methemoglobin ABG 0.4 %THb (0-1.5); Oxygen Content ABG 20.5 %vol (16.0-22.0); Oxygen Saturation ABG 98.8 % (95.0-100.0); Oxyhemoglobin 96.9 % THb (90.0-100.0); PO2 ABG 183.7 mmHg (80.0-100.0); PO2 FiO2 Ratio Arterial Blood 1.84 %; Reduced Hemoglobin 1.5 %THb (0-5.0); Total Hemoglobin 14.8 g/dL (12.0-18.0)
[2021-10-19 17:03] LABS: pH ABG 7.152 (7.350-7.450)
[2021-10-19 17:04] LABS: PCO2 ABG 98.7 mmHg (35.0-45.0)
[2021-10-19 17:05] LABS: Site Drawn RIGHT RADIAL
[2021-10-19 17:06] LABS: Modified Allen's Test Pass
[2021-10-19 17:07] LABS: Arterial Blood Gas Vent Mode CMV; Arterial Blood Gas Ventilator rate 24 /MIN; Device VENTILATOR
[2021-10-19 17:08] LABS: Arterial Blood Gas PEEP 8 cmH2O; Arterial Blood Gas Tidal Volume 450 ml
--- NOTE | 2021-10-19 18:00 | PC.NURSE ---
Pt no longer biting on tube, reaching for cords,restraints removed
--- NOTE | 2021-10-19 18:31 | PC.NURSE ---
Called report to Radha BOBBY, no further questions or concerns
[2021-10-19] MEDS: FUROSEMIDE INJ 40 MG/4 ML VIAL 20 MG IV PUSH (18:36)
[2021-10-19] MEDS: methylPREDNISolone SOD SUCC 125 MG VIAL IV PUSH (18:36)
--- NOTE | 2021-10-19 19:05 | ADMGEN ---
This patient, Mike Michel, was admitted to Intensive Care Unit-5. Patient/family oriented to hospital policies and general routines including ID bracelet, bed and alarms, visiting hours, pain management, procedures, bathroom and other care routines, personal items, smoking policy, room service/diet, and visiting hours. Information on how to activate the Rapid Response Team has been discussed. Patient/Family are encouraged to report perceived risks to care and to ask questions if they do not understand what they are told or what they should do.
[2021-10-19] MEDS: ALBUTEROL SULFATE NEB 2.5 MG/0.5 ML INH 5 MG INHALATION (19:30)
[2021-10-19] MEDS: IPRATROPIUM BR 0.02% INH SOLN 0.5 MG/2.5 ML VIAL INHALATION (19:30)
--- NOTE | 2021-10-19 19:42 | PM.IMHP ---
H&P: HPI History of Present Illness Date/Time: 10/19/21 19:42 [facility] Past Medical History Medical History (Updated 10/19/21 @ 18:02 by Rodrigo Patino MD) AAA (abdominal aortic aneurysm) BPH (benign prostatic hyperplasia) Cholecystectomy planned (~1990) COPD (chronic obstructive pulmonary disease) Dyslipidemia Gout Hypertension Kidney disease Nervousness Varicocele (~1976) Surgical History Surgical History H/O knee surgery H/O repair of rotator cuff (~2008) Family History Family History Father , 56 Appendicitis Pulmonary embolism Mother , 66--Choked to on peanuts Choking due to food (regurgitated) Sibling Diabetes mellitus Social History Social History Social History: Patient drinks 2-3 cups of coffee daily Years smoked: 50 Smoking status: Former smoker Smoking end date: 12/01/14 Alcohol intake: current Alcohol use details: Patient drinks alcohol once to twice yearly Substance use: never Substance use type: does not use Gender identity (if verbalized by the patient): Male Sexual Orientation (if Verbalized by the Patient): Straight or Heterosexual Meds Home Medications and Allergies Home Medications Medication Instructions Recorded Confirmed Type acetaminophen 500 mg capsule 500 mg PO QPM PRN cap 12/26/20 10/19/21 History ascorbic acid (vitamin C) 500 mg 500 mg PO QAM tablet 12/26/20 10/19/21 History tablet finasteride 5 mg tablet 5 mg PO QPM tablet 12/26/20 10/19/21 History amlodipine 5 mg tablet 5 mg PO QAM #90 tablet 03/09/21 10/19/21 Rx meloxicam 15 mg tablet 15 mg PO QPM #90 tablet 03/09/21 10/19/21 Rx atenolol 50 mg tablet 100 mg PO QPM #90 tablet 09/27/21 10/19/21 Rx pravastatin 10 mg tablet 10 mg PO DAILY #30 tablet 09/27/21 10/19/21 Rx furosemide 20 mg PO DAILY 10/19/21 10/19/21 History quinapril 40 mg PO DAILY 10/19/21 10/19/21 History Allergies Allergy/AdvReac Type Severity Reaction Status Date / Time adhesive tape Allergy Intermediate Blisters Verified 09/27/21 13:18 iodine Allergy Mild Unknown Verified 09/27/21 13:18 Vital Signs Vital Signs - 24 hr 10/19/21 14:09 10/19/21 14:22 10/19/21 14:23 Temperature 37.0 C Pulse Rate 73 72 72 Respiratory Rate 18 Blood Pressure 158/102 H 158/102 H Pulse Oximetry 96 100 10/19/21 14:24 10/19/21 14:32 10/19/21 14:33 Temperature Pulse Rate 80 71 Respiratory Rate 17 18 Blood Pressure 172/73 H Pulse Oximetry 100 99 98 10/19/21 14:45 10/19/21 15:00 10/19/21 15:02 Temperature Pulse Rate 71 68 70 Respiratory Rate 14 12 12 Blood Pressure 160/78 H Pulse Oximetry 92 10/19/21 15:24 10/19/21 15:57 10/19/21 16:00 Temperature Pulse Rate 74 76 75 Respiratory Rate 14 20 Blood Pressure Pulse Oximetry 90 96 90 10/19/21 16:01 10/19/21 16:17 10/19/21 16:35 Temperature Pulse Rate 78 73 67 Respiratory Rate 20 20 Blood Pressure 176/89 H Pulse Oximetry 96 98 10/19/21 16:36 10/19/21 16:42 10/19/21 16:52 Temperature Pulse Rate 76 78 62 Respiratory Rate 16 20 Blood Pressure Pulse Oximetry 98 100 10/19/21 16:53 10/19/21 17:00 10/19/21 17:01 Temperature Pulse Rate 72 76 72 Respiratory Rate 19 20 20 Blood Pressure 109/62 Pulse Oximetry 99 99 10/19/21 17:15 10/19/21 17:16 10/19/21 17:20 Temperature Pulse Rate 64 64 67 Respiratory Rate 20 20 20 Blood Pressure 90/53 L 95/57 L Pulse Oximetry 99 100 100 10/19/21 17:21 10/19/21 17:30 10/19/21 17:31 Temperature Pulse Rate 65 62 62 Respiratory Rate 16 21 H 18 Blood Pressure 93/53 L Pulse Oximetry 100 96 10/19/21 17:46 10/19/21 17:47 10/19/21 18:00 Temperature Pulse Rate 62 61 59 L Respiratory Rate 20 20 12 Blood Pressure 91/56 L Pulse Oximetry 99 99 99 10/19/
[2021-10-19 20:24] LABS: Alveolar/Arterial O2 Gradient 346.7 mmHg; Base Excess ABG 5.3 mEq/l (+/-2.0); Carboxyhemoglobin 0.5 % THb (0-2.0); Fractional Inspired Oxygen 70 %; HCO3 ABG 32.7 mEq/l (22.0-26.0); Methemoglobin ABG 0.4 %THb (0-1.5); Oxygen Content ABG 19.4 %vol (16.0-22.0); Oxygen Saturation ABG 96.1 % (95.0-100.0); Oxyhemoglobin 95.6 % THb (90.0-100.0); PO2 ABG 87.8 mmHg (80.0-100.0); PO2 FiO2 Ratio Arterial Blood 1.25 %; Reduced Hemoglobin 3.5 %THb (0-5.0); Total Hemoglobin 14.4 g/dL (12.0-18.0); pH ABG 7.354 (7.350-7.450)
[2021-10-19 20:27] LABS: Arterial Blood Gas PEEP 8 cmH2O; Arterial Blood Gas Vent Mode CMV; Arterial Blood Gas Ventilator rate 24 /MIN; Device VENTILATOR; Modified Allen's Test Pass; PCO2 ABG 60.1 mmHg (35.0-45.0); Site Drawn RIGHT RADIAL
[2021-10-19 20:28] LABS: Arterial Blood Gas Tidal Volume 450 ml
[2021-10-19 21:08] LABS: D Dimer 2.03 ug/mL (<0.48)
[2021-10-19 21:09] LABS: Lactic Acid Reflex 1.5 mmol/L (0.7-2.1)
--- NOTE | 2021-10-19 21:12 | PM.IMHP ---
H&P: HPI History of Present Illness Date/Time: 10/19/21 20:10 Chief Complaint: Shortness of breath Narrative: 81-year-old male with past medical history of abdominal aortic aneurysm, hyper lipidemia, hypertension, untreated obstructive sleep apnea and COPD who presented to the ER from home via EMS due to shortness of breath. The patient arrived to the ER initially on CPAP and was alert oriented x4 but during his ER stay the patient become obtunded and vomited well on BiPAP. Patient was subsequently intubated. Thusly, information has been obtained from family report in ER records. The patient has had intermittent shortness of breath occurring for months. The shortness of breath that acutely worsened over the last couple of days. The family denies the patient having any recent cough. The patient has been afebrile since presentation. The patient did receive a dose of [employer] COVID vaccine in January 2021. The patient does have chronic lower extremity edema but is unclear if this is changed from baseline. He had a recent outpatient echocardiogram 10/15/2021 that demonstrated grade 1 diastolic dysfunction with normal EF and no evidence of pulmonary hypertension. However, he had an echocardiogram in 2014 that demonstrated right ventricular enlargement and hypokinesis. He had a Lexiscan stress the same day that was normal. He does have a significant heavy smoking history but quit smoking 5 years ago. The patient initially arrived in the ER on CPAP. He was transition to BiPAP on arrival to the ER. A stat ABG was performed which demonstrated significant hypercapnic hypoxic respiratory failure with respiratory acidosis. The patient condition continued to worsen despite BiPAP and the patient became obtunded. He also developed some nausea and had some vomiting and subsequently aspirated some bile while on the BiPAP. Initially the daughter did not know of the patient will want to be intubated and Ailyn patient remained on BiPAP for about half an hour prior to intubation. ABG performed post intubation demonstrated minimal improvement in ABG. The patient was initially fighting the vent had high peak pressures. He was started on fentanyl and Versed. When he was brought up to the ICU he was maintaining his oxygen saturations with tidal volume 450 peep of 870% FiO2 with a rate of 24. Patient was still learning high peak pressures with adequate sedation. Subsequently peep was dropped to 5. Repeat ABG demonstrated significant improvement in hypercapnia and acidosis subsequently tidal volume was dropped to 400. The patient's peak pressures improved significantly down to the mid 20s. The patient has had about 200 mL of dark yellow urine. Patient's blood pressures were initially soft but have improved to the 110 systolic. Repeat x-ray following intubation demonstrated worsening infiltrates. Subsequently blood cultures, lactic acid and D-dimer were ordered. Empiric antibiotic therapy was started with Unasyn due to witnessed aspiration. Review of Systems Review of Systems: ROS unobtainable: Yes unobtainable due to endotracheal tube PMFSH Past Medical History Medical History (Updated 10/19/21 @ 21:39 by Darling Oconnor, DO) AAA (abdominal aortic aneurysm) CTA of abdomen pelvis 08/23/2021: Aortoiliac ectasias with increased size the distal aortic aneurysm 5 cm, mild renal atrophy, small umbilical hernia, mild colonic diverticulosis BPH (benign prostatic hyperplasia) CKD (chronic kidney disease), stage III COPD (chronic obstructive pulmonary disease) Dyslipidemia Erectile dysfunction Gout Hypertension Lumbar spinal stenosis Severe central canal stenosis L3-L4 MRI May 2021 Nervousness Right ventricular dysfunction Echocardiogram January 2015 demonstrated significant right ventricular enlargement and hypokinesis with diastolic dysfunction. Echocardiogram 10/2021 did not mention right ventricular function but grade 1 diastolic dysfunction again noted.
[2021-10-19] MEDS: AMPICILLIN SULB 3 GM/NS 100 ML 3 GM/100 ML VIAL IVPB (22:14)
[2021-10-19] MEDS: MINERAL OIL/WHITE PETROLATUM OINTMENT 1 APPLIC EACH EYE (22:14)
[2021-10-19] MEDS: FAMOTIDINE 20 MG/2 ML VIAL IV PUSH (22:14)
[2021-10-20] VITALS (37 sets, daily range): BP systolic 101–136; BP diastolic 56–87; PULSE 47–70; RESP 22–33; TEMP 36–37.1; O2SAT 92–98
[2021-10-20] MEDS: methylPREDNISolone SOD SUCC 125 MG VIAL 60 MG IV PUSH ×4 (00:04→17:54)
[2021-10-20 00:19] LABS: Glucose Point of Care 132 mg/dl (65-105)
[2021-10-20] MEDS: ALBUTEROL SULFATE NEB 2.5 MG/0.5 ML INH 5 MG INHALATION ×4 (02:24→20:46)
[2021-10-20] MEDS: IPRATROPIUM BR 0.02% INH SOLN 0.5 MG/2.5 ML VIAL INHALATION ×4 (02:24→20:46)
[2021-10-20] MEDS: AMPICILLIN SULB 3 GM/NS 100 ML 3 GM/100 ML VIAL IVPB ×4 (04:10→21:03)
[2021-10-20 05:51] LABS: Alveolar/Arterial O2 Gradient 286.3 mmHg; Base Excess ABG 6.2 mEq/l (+/-2.0); Carboxyhemoglobin 0.2 % THb (0-2.0); Fractional Inspired Oxygen 60 %; HCO3 ABG 32.5 mEq/l (22.0-26.0); Methemoglobin ABG 0.3 %THb (0-1.5); Oxygen Content ABG 18.6 %vol (16.0-22.0); Oxygen Saturation ABG 95.9 % (95.0-100.0); Oxyhemoglobin 94.8 % THb (90.0-100.0); PCO2 ABG 53.7 mmHg (35.0-45.0); PO2 ABG 82.4 mmHg (80.0-100.0); PO2 FiO2 Ratio Arterial Blood 1.37 %; Reduced Hemoglobin 4.7 %THb (0-5.0); Total Hemoglobin 13.9 g/dL (12.0-18.0)
[2021-10-20 05:52] LABS: Device VENTILATOR; Modified Allen's Test Pass; Site Drawn RIGHT RADIAL
[2021-10-20 05:53] LABS: Arterial Blood Gas PEEP 5 cmH2O; Arterial Blood Gas Tidal Volume 400 ml; Arterial Blood Gas Vent Mode CMV; Arterial Blood Gas Ventilator rate 24 /MIN
[2021-10-20 06:05] LABS: Hematocrit 42.4 % (42.0-52.0); Hemoglobin 13.2 g/dL (14.0-18.0); Mean Corpuscular HGB Conc 31.1 g/dl (32-36); Mean Corpuscular Hemoglobin 30.3 pg (26-34); Mean Corpuscular Volume 97.5 fl (80-100); Platelet Count Result 157 k/mm3 (150-375); Red Blood Count 4.35 M/mm3 (4.6-6.20); Red Cell Distribution Width 14.1 % (11.5-14.5); White Blood Count 9.1 K/mm3 (4.5-10.0)
[2021-10-20 06:55] LABS: Alanine Aminotransferase 27 U/L (4-50); Albumin Level 3.5 g/dL (3.5-5.1); Alkaline Phosphatase 74 U/L (38-126); Anion Gap 6 mmol/L (8-16); Aspartate Amino Transferase 76 U/L (17-59); Bilirubin,Total 0.6 mg/dL (0.2-1.3); Blood Urea Nitrogen 33 mg/dL (9-20); Calcium 8.3 mg/dL (8.4-10.2); Carbon Dioxide 32 mmol/L (22-30); Chloride 101 mmol/L (98-107); Estimated CRCL calculation 43 ml/min; Estimated Glomerular Filt Rate 39; Glucose 157 mg/dL (65-110); Magnesium 1.9 mg/dL (1.6-2.3); Phosphorus 3.5 mg/dL (2.5-4.5); Potassium 3.9 mmol/L (3.4-5.0); Sodium 139 mmol/L (137-145)
[2021-10-20 07:49] LABS: Thyroid Stimulating Hormone Reflex 0.361 uIU/mL (0.465-4.68)
--- NOTE | 2021-10-20 08:48 | PM.IMPN ---
Progress Note: A&P Assessment and Plan (1) Acute respiratory failure with hypoxia and hypercapnia: Code(s): J96.01 - Acute respiratory failure with hypoxia; J96.02 - Acute respiratory failure with hypercapnia Status: Acute Assessment and Plan: Acute on chronic Respiratory failure secondary to COPD, congestive heart failure, aspiration pneumonia, obesity hypoventilation syndrome, now intubated and on mechanical ventilation Continue full mechanical ventilation support to prevent hypoxemia/hypercarbia and end organ damage. ABG reviewed -decrease tidal volume to 380 and rate to 22 PCXR reviewed and will repeat in am. Continue Solu-Medrol and Bronchodilators Blood culture sent and will order sputum culture Patient was empirically started on Unasyn after witnessed aspiration.Continue IV unasyn. Continue intermittent doses of IV Lasix. (2) Pneumonia: Qualifiers: Laterality: bilateral Lung location: unspecified part of lung Pneumonia type: due to unspecified organism Qualified Code(s): J18.9 - Pneumonia, unspecified organism Code(s): J18.9 - Pneumonia, unspecified organism Status: Acute (3) Right ventricular dysfunction: Code(s): I51.9 - Heart disease, unspecified Status: Acute Assessment and Plan: Patient has evidence of right heart failure which was confirmed on echo in the past. His most recent echo not visualize RV Cautious diuresis as patient is overall volume overloaded but may be sensitive to intravascular volume depletion (4) CKD (chronic kidney disease), stage III: Qualifiers: Chronic kidney disease stage 3 subtype: stage 3b (GFR 30-44) Qualified Code(s): N18.32 - Chronic kidney disease, stage 3b Code(s): N18.30 - Chronic kidney disease, stage 3 unspecified Status: Acute Assessment and Plan: Baseline creatinine unknown. Creatinine was documented as 1.4 as early as 2018. This current creatinine likely represent the natural evolution of chronic kidney disease. Patient is clinically fluid overloaded. Electrolytes are within acceptable range. There is no emergent indication for renal replacement therapy. Will continue close monitoring of his urine output, electrolytes and creatinine level. May use intermittent IV doses of Lasix as needed for volume overload. (5) CHF (congestive heart failure): Code(s): I50.9 - Heart failure, unspecified Status: Acute Assessment and Plan: Patient has cor pulmonale as he has diffuse significant bilateral lower extremity edema and had RV dysfunction on his echo done in the past Continue intermittent Lasix IV (6) Aspiration pneumonia: Code(s): J69.0 - Pneumonitis due to inhalation of food and vomit Status: Acute Assessment and Plan: See above (7) COPD (chronic obstructive pulmonary disease): Code(s): J44.9 - Chronic obstructive pulmonary disease, unspecified Status: Inactive Assessment and Plan: See above (8) Suspected COVID-19 virus infection: Code(s): Z20.822 - Contact with and (suspected) exposure to COVID-19 Status: Acute Assessment and Plan: COVID-19 suspected. SARS-CoV-2 PCR sent and results pending at the time of this dictation. Patient is in Airborne, Droplet and Contact Isolation precautions. Subjective Date/time seen: Narrative. Mike Michel is a 81 year old male with past medical history abdominal aortic aneurysm, hyper lipidemia, hypertension, untreated obstructive sleep apnea and COPD who presented to the ER from home via EMS on 10/19/2021 due to shortness of breath. The patient arrived to the ER initially on CPAP and was alert oriented x4 but during his ER stay the patient become obtunded and vomited well on BiPAP. Patient was subsequently intubated. Patient was admitted to ICU for further evaluation management. History obtained from chart and Physician sign out. Pt intubated and sedated and unable to provid
--- NOTE | 2021-10-20 08:56 | WPDCNINT ---
Assessment and Plan Assessment and plan (1) Acute respiratory failure with hypoxia and hypercapnia: Code(s): J96.01 - Acute respiratory failure with hypoxia; J96.02 - Acute respiratory failure with hypercapnia Status: Acute Assessment and Plan: Acute on chronic Respiratory failure secondary to COPD, congestive heart failure, aspiration pneumonia, obesity hypoventilation syndrome Patient now intubated and on mechanical ventilation Continue full mechanical ventilation support to prevent hypoxemia/hypercarbia and end organ damage. ABG reviewed -decrease tidal volume to 380 and rate to 22 PCXR reviewed and will repeat in am. Continue Solu-Medrol and Bronchodilators Blood culture sent and will order sputum culture Continue empiric Unasyn Lasix IV (2) CKD (chronic kidney disease), stage III: Qualifiers: Chronic kidney disease stage 3 subtype: stage 3b (GFR 30-44) Qualified Code(s): N18.32 - Chronic kidney disease, stage 3b Code(s): N18.30 - Chronic kidney disease, stage 3 unspecified Status: Acute Assessment and Plan: Creatinine appears close to baseline Monitor urine output electrolytes and creatinine Lasix IV for volume overload (3) CHF (congestive heart failure): Code(s): I50.9 - Heart failure, unspecified Status: Acute Assessment and Plan: Patient has cor pulmonale as he has diffuse significant bilateral lower extremity edema and had RV dysfunction on his echo done in the past Lasix IV (4) Aspiration pneumonia: Code(s): J69.0 - Pneumonitis due to inhalation of food and vomit Status: Acute Assessment and Plan: See above (5) COPD (chronic obstructive pulmonary disease): Code(s): J44.9 - Chronic obstructive pulmonary disease, unspecified Status: Inactive Assessment and Plan: See above (6) Right ventricular dysfunction: Code(s): I51.9 - Heart disease, unspecified Status: Acute Assessment and Plan: Patient has evidence of right heart failure which was confirmed on echo in the past. His most recent echo not visualize RV Cautious diuresis as patient is overall volume overloaded but may be sensitive to intravascular volume depletion (7) Suspected COVID-19 virus infection: Code(s): Z20.822 - Contact with and (suspected) exposure to COVID-19 Status: Acute Assessment and Plan: COVID-19 suspected. SARS-CoV-2 PCR sent and results pending Patient is in Airborne, Droplet and Contact Isolation Additional Plan DVT prophylaxis -Lovenox Stress ulcer prophylaxis -Pap Nutrition -start Tube Feeds Code Status - Full Code Total Critical Care Time - 35 minutes Due to a high probability of clinically significant, life threatening deterioration, the patient required my highest level of preparedness to intervene emergently and I personally spent this critical care time directly and personally managing the patient. This critical care time included obtaining a history; examining the patient; pulse oximetry; ordering and review of studies; arranging urgent treatment with development of a management plan; evaluation of patient's response to treatment; frequent reassessment; and discussions with other providers. It was exclusive of separately billable procedures and treating other patients and teaching time. Please see Assessment and Plan section and the rest of the note for further information on patient assessment and treatment Hardware Technician Consult Note Consult date: 10/20/21 HPI: Mike Michel is a 81 year old male with past medical history abdominal aortic aneurysm, hyper lipidemia, hypertension, untreated obstructive sleep apnea and COPD who presented to the ER from home via EMS yesterday due to shortness of breath. The patient arrived to the ER initially on CPAP and was alert oriented x4 but during his ER stay the patient become obtunded and vomited well on BiPAP. Patient was subsequently intubated. Melissa
[2021-10-20] MEDS: FAMOTIDINE 20 MG/2 ML VIAL IV PUSH ×2 (09:17→21:04)
[2021-10-20] MEDS: ENOXAPARIN 40 MG/0.4 ML SYRINGE SUB-Q (09:17)
[2021-10-20] MEDS: FUROSEMIDE INJ 40 MG/4 ML VIAL IV PUSH (09:17)
[2021-10-20] MEDS: MINERAL OIL/WHITE PETROLATUM OINTMENT 1 APPLIC EACH EYE ×2 (09:17→21:04)
[2021-10-20 11:14] LABS: Glucose Point of Care 142 mg/dl (65-105)
[2021-10-20 18:14] LABS: SARS-CoV-2 RNA PCR Negative
[2021-10-20 18:45] LABS: Glucose Point of Care 137 mg/dl (65-105)
[2021-10-21] VITALS (39 sets, daily range): BP systolic 107–132; BP diastolic 61–80; PULSE 50–95; RESP 19–34; TEMP 36.6–36.8; O2SAT 91–96
[2021-10-21] MEDS: methylPREDNISolone SOD SUCC 125 MG VIAL 60 MG IV PUSH ×3 (00:35→18:10)
[2021-10-21 00:49] LABS: Glucose Point of Care 173 mg/dl (65-105)
[2021-10-21] MEDS: MIDAZOLAM 100MG/NS 100ML(*CRX) 100 MG/100 ML BAG IV CONT (02:06)
[2021-10-21] MEDS: FENTANYL 2,500MCG/NS250ML(*CRX 2,500 MCG/250 ML BAG 7.5 MCG IV CONT (02:11)
[2021-10-21] MEDS: AMPICILLIN SULB 3 GM/NS 100 ML 3 GM/100 ML VIAL IVPB ×4 (02:12→20:30)
[2021-10-21] MEDS: IPRATROPIUM BR 0.02% INH SOLN 0.5 MG/2.5 ML VIAL INHALATION ×4 (02:24→21:07)
[2021-10-21] MEDS: ALBUTEROL SULFATE NEB 2.5 MG/0.5 ML INH 5 MG INHALATION ×4 (02:24→21:06)
[2021-10-21 04:37] LABS: Hemoglobin 13.6 g/dL (14.0-18.0); Mean Corpuscular HGB Conc 31.6 g/dl (32-36); Mean Corpuscular Hemoglobin 30.1 pg (26-34); Mean Corpuscular Volume 95.1 fl (80-100); Mean Platelet Volume 12.3 fl (7.4-10.4); Platelet Count Result 161 k/mm3 (150-375); Red Blood Count 4.52 M/mm3 (4.6-6.20); Red Cell Distribution Width 14.3 % (11.5-14.5); White Blood Count 12.2 K/mm3 (4.5-10.0)
[2021-10-21 05:49] LABS: Alveolar/Arterial O2 Gradient 140.8 mmHg; Carboxyhemoglobin 0.3 % THb (0-2.0); Fractional Inspired Oxygen 40 %; Methemoglobin ABG 0.3 %THb (0-1.5); Oxygen Content ABG 19.3 %vol (16.0-22.0); Oxyhemoglobin 92.5 % THb (90.0-100.0); PO2 ABG 71.6 mmHg (80.0-100.0); PO2 FiO2 Ratio Arterial Blood 1.79 %; Reduced Hemoglobin 6.9 %THb (0-5.0); Total Hemoglobin 14.8 g/dL (12.0-18.0); pH ABG 7.335 (7.350-7.450)
[2021-10-21 05:51] LABS: Arterial Blood Gas PEEP 5 cmH2O; Arterial Blood Gas Vent Mode CMV; Arterial Blood Gas Ventilator rate 22 /MIN; Device VENTILATOR; Modified Allen's Test Pass; PCO2 ABG 63.3 mmHg (35.0-45.0); Site Drawn LEFT RADIAL
[2021-10-21 05:52] LABS: Arterial Blood Gas Tidal Volume 380 ml
[2021-10-21 08:20] LABS: Alanine Aminotransferase 26 U/L (4-50); Albumin Level 3.3 g/dL (3.5-5.1); Alkaline Phosphatase 69 U/L (38-126); Anion Gap 4 mmol/L (8-16); Aspartate Amino Transferase 80 U/L (17-59); Bilirubin,Total 0.5 mg/dL (0.2-1.3); Blood Urea Nitrogen 45 mg/dL (9-20); Calcium 8.5 mg/dL (8.4-10.2); Carbon Dioxide 36 mmol/L (22-30); Chloride 104 mmol/L (98-107); Estimated CRCL calculation 44 ml/min; Estimated Glomerular Filt Rate 39; Glucose 166 mg/dL (65-110); Magnesium 2.4 mg/dL (1.6-2.3); Potassium 3.8 mmol/L (3.4-5.0); Sodium 144 mmol/L (137-145)
[2021-10-21] MEDS: FUROSEMIDE INJ 40 MG/4 ML VIAL IV PUSH (08:42)
[2021-10-21] MEDS: FAMOTIDINE 20 MG/2 ML VIAL IV PUSH ×2 (08:42→20:31)
[2021-10-21] MEDS: MINERAL OIL/WHITE PETROLATUM OINTMENT 1 APPLIC EACH EYE ×2 (08:42→20:31)
[2021-10-21] MEDS: ENOXAPARIN 40 MG/0.4 ML SYRINGE SUB-Q (08:42)
--- NOTE | 2021-10-21 08:51 | WPDINTPN ---
Progress Note: A&P Assessment and Plan (1) Acute respiratory failure with hypoxia and hypercapnia: Code(s): J96.01 - Acute respiratory failure with hypoxia; J96.02 - Acute respiratory failure with hypercapnia Status: Acute Assessment and Plan: Acute on chronic Respiratory failure secondary to COPD, congestive heart failure, aspiration pneumonia, obesity hypoventilation syndrome Patient now intubated and on mechanical ventilation Continue full mechanical ventilation support to prevent hypoxemia/hypercarbia and end organ damage. ABG reviewed and PCXR reviewed I will perform sedation holiday and a weaning trial to see if patient could be extubated Continue Solu-Medrol but will decrease dose to twice a day Bronchodilators Blood culture sent and pending Continue empiric Unasyn Continue Lasix IV (2) CKD (chronic kidney disease), stage III: Qualifiers: Chronic kidney disease stage 3 subtype: stage 3b (GFR 30-44) Qualified Code(s): N18.32 - Chronic kidney disease, stage 3b Code(s): N18.30 - Chronic kidney disease, stage 3 unspecified Status: Acute Assessment and Plan: Creatinine appears close to baseline Monitor urine output electrolytes and creatinine Lasix IV for volume overload (3) CHF (congestive heart failure): Code(s): I50.9 - Heart failure, unspecified Status: Acute Assessment and Plan: Patient has cor pulmonale as he has diffuse significant bilateral lower extremity edema and had RV dysfunction on his echo done in the past Lasix IV (4) Aspiration pneumonia: Code(s): J69.0 - Pneumonitis due to inhalation of food and vomit Status: Acute Assessment and Plan: See above (5) COPD (chronic obstructive pulmonary disease): Code(s): J44.9 - Chronic obstructive pulmonary disease, unspecified Status: Inactive Assessment and Plan: See above (6) Right ventricular dysfunction: Code(s): I51.9 - Heart disease, unspecified Status: Acute Assessment and Plan: Patient has evidence of right heart failure which was confirmed on echo in the past. His most recent echo not visualize RV Cautious diuresis as patient is overall volume overloaded but may be sensitive to intravascular volume depletion (7) Suspected COVID-19 virus infection: Code(s): Z20.822 - Contact with and (suspected) exposure to COVID-19 Status: Acute Assessment and Plan: COVID-19 suspected. SARS-CoV-2 PCR was negative isolation DC Additional Plan DVT prophylaxis -Lovenox Stress ulcer prophylaxis - Pepcid Nutrition - Tube Feeds are on hold for weaning trial Code Status - Full Code Total Critical Care Time - 32 minutes Due to a high probability of clinically significant, life threatening deterioration, the patient required my highest level of preparedness to intervene emergently and I personally spent this critical care time directly and personally managing the patient. This critical care time included obtaining a history; examining the patient; pulse oximetry; ordering and review of studies; arranging urgent treatment with development of a management plan; evaluation of patient's response to treatment; frequent reassessment; and discussions with other providers. It was exclusive of separately billable procedures and treating other patients and teaching time. Please see Assessment and Plan section and the rest of the note for further information on patient assessment and treatment Subjective Date/time seen: 10/21/21 08:51 Review of Systems Review of Systems: ROS unobtainable: Yes unobtainable due to endotracheal tube, unobtainable due to medical condition and unobtainable due to mental status Exam Narrative: General: Pt is sedated, intubated and on mechanical ventilation Lungs/Chest: Trachea central Coarse BS B/L, No crackles or wheezing. Cardiac: RRR. Normal S1 S2. No murmurs Abdomen: Decreased bowel sounds. Obese. Soft. NT
--- NOTE | 2021-10-21 10:01 | PM.IMPN ---
Progress Note: A&P Assessment and Plan (1) Acute respiratory failure with hypoxia and hypercapnia: Code(s): J96.01 - Acute respiratory failure with hypoxia; J96.02 - Acute respiratory failure with hypercapnia Status: Acute Assessment and Plan: Acute on chronic Respiratory failure likely multifactorial, secondary to COPD, congestive heart failure, aspiration pneumonia, obesity hypoventilation syndrome Patient now intubated and on mechanical ventilation. currently sedation is of and the patient is fully awake and alert. Currently undergoing spontaneous breathing trial. Continue full mechanical ventilation support to prevent hypoxemia/hypercarbia and end organ damage. ABG reviewed and PCXR reviewed I will perform sedation holiday and a weaning trial to see if patient could be extubated Continue Solu-Medrol but will decrease dose to twice a day Bronchodilators Blood culture sent and pending Continue empiric Unasyn Continue intermittent Lasix IV in consideration for impending extubation. (2) CKD (chronic kidney disease), stage III: Qualifiers: Chronic kidney disease stage 3 subtype: stage 3b (GFR 30-44) Qualified Code(s): N18.32 - Chronic kidney disease, stage 3b Code(s): N18.30 - Chronic kidney disease, stage 3 unspecified Status: Acute Assessment and Plan: Creatinine appears close to baseline Monitor urine output electrolytes and creatinine Lasix IV for volume overload (3) CHF (congestive heart failure): Code(s): I50.9 - Heart failure, unspecified Status: Acute Assessment and Plan: Patient has cor pulmonale as he has diffuse significant bilateral lower extremity edema and had RV dysfunction on his echo done in the past Lasix IV (4) Aspiration pneumonia: Code(s): J69.0 - Pneumonitis due to inhalation of food and vomit Status: Acute Assessment and Plan: See above (5) COPD (chronic obstructive pulmonary disease): Code(s): J44.9 - Chronic obstructive pulmonary disease, unspecified Status: Inactive Assessment and Plan: See above (6) Right ventricular dysfunction: Code(s): I51.9 - Heart disease, unspecified Status: Acute Assessment and Plan: Patient has evidence of right heart failure which was confirmed on echo in the past. His most recent echo not visualize RV Cautious diuresis as patient is overall volume overloaded but may be sensitive to intravascular volume depletion (7) Suspected COVID-19 virus infection: Code(s): Z20.822 - Contact with and (suspected) exposure to COVID-19 Status: Acute Assessment and Plan: COVID-19 suspected. SARS-CoV-2 PCR was negative isolation DC Additional Plan DVT prophylaxis -Lovenox Stress ulcer prophylaxis - Pepcid Nutrition - Tube Feeds are on hold for weaning trial Code Status - Full Code Total Critical Care Time - 31 minutes Subjective Date/time seen: 10/21/21 10:01 S: Patient is intubated on mechanical ventilation. Sedation is on hold and is fully awake, alert and following commands. There is spontaneous eye opening. Review of Systems Review of Systems: ROS unobtainable: Yes unobtainable due to endotracheal tube Exam Narrative: General: Pt is sedated, intubated and on mechanical ventilation Lungs/Chest: Trachea central Coarse BS B/L, No crackles or wheezing. Cardiac: RRR. Normal S1 S2. No murmurs Abdomen: Decreased bowel sounds. Obese. Soft. NT. ND. Extremities: No clubbing, cyanosis. Warm. Bilateral legs have extensive bilateral pitting edema with chronic venous stasis changes : Cat in place Neurologic: He opens his eyes on calling his name despite low sedation and follows commands with all 4 extremities, PERRL Objective Data Vital Signs Vital Signs: Vital Signs - 24 hr 10/20/21 11:02 10/20/21 11:08 10/20/21 11:16 Temperature Pulse Rate 48 L 53 L Respiratory Rate 22 H Blood Pressure Pulse Ox
[2021-10-21 10:13] LABS: Alveolar/Arterial O2 Gradient 132.5 mmHg; Base Excess ABG 7.1 mEq/l (+/-2.0); Fractional Inspired Oxygen 40 %; HCO3 ABG 34.7 mEq/l (22.0-26.0); Oxygen Content ABG 19.7 %vol (16.0-22.0); Oxygen Saturation ABG 95.5 % (95.0-100.0); Oxyhemoglobin 94.3 % THb (90.0-100.0); PO2 FiO2 Ratio Arterial Blood 2.05 %; Total Hemoglobin 14.8 g/dL (12.0-18.0); pH ABG 7.369 (7.350-7.450)
[2021-10-21 10:15] LABS: Device VENTILATOR; Modified Allen's Test Pass; PCO2 ABG 61.5 mmHg (35.0-45.0); Site Drawn LEFT RADIAL
[2021-10-21 10:16] LABS: Arterial Blood Gas PEEP 5 cmH2O; Arterial Blood Gas Pressure Support 5 cmH2O; Arterial Blood Gas Vent Mode SPONTANEOUS
[2021-10-21 11:27] LABS: Glucose Point of Care 167 mg/dl (65-105)
[2021-10-21 13:14] LABS: Free T4 Free Thyroxine Reflex 1.59 ng/dL (0.78-2.19)
[2021-10-21 14:19] LABS: Total Triiodothyronine (T3) 1.03 NG/ML (0.97-1.69)
[2021-10-21 17:42] LABS: Glucose Point of Care 166 mg/dl (65-105)
[2021-10-22] VITALS (43 sets, daily range): BP systolic 106–168; BP diastolic 60–94; PULSE 56–108; RESP 19–32; TEMP 36.6–37; O2SAT 92–96; BMI 45.5
[2021-10-22 00:07] LABS: Glucose Point of Care 147 mg/dl (65-105)
[2021-10-22] MEDS: ALBUTEROL SULFATE NEB 2.5 MG/0.5 ML INH 5 MG INHALATION ×4 (02:23→20:38)
[2021-10-22] MEDS: IPRATROPIUM BR 0.02% INH SOLN 0.5 MG/2.5 ML VIAL INHALATION ×4 (02:23→20:38)
[2021-10-22] MEDS: FENTANYL 2,500MCG/NS250ML(*CRX 2,500 MCG/250 ML BAG 15 MCG IV CONT (03:01)
[2021-10-22] MEDS: AMPICILLIN SULB 3 GM/NS 100 ML 3 GM/100 ML VIAL IVPB ×4 (03:02→19:57)
[2021-10-22 04:15] LABS: Hematocrit 42.2 % (42.0-52.0); Hemoglobin 13.1 g/dL (14.0-18.0); Immature Platelet Fraction Pct 7.2 % (0.9-11.2); Mean Corpuscular Hemoglobin 30.2 pg (26-34); Mean Corpuscular Volume 97.2 fl (80-100); Mean Platelet Volume 10.9 fl (7.4-10.4); Platelet Count Result 146 k/mm3 (150-375); Red Blood Count 4.34 M/mm3 (4.6-6.20); Red Cell Distribution Width 14.6 % (11.5-14.5); White Blood Count 10.9 K/mm3 (4.5-10.0)
[2021-10-22 04:25] LABS: Alanine Aminotransferase 26 U/L (4-50); Albumin Level 3.2 g/dL (3.5-5.1); Alkaline Phosphatase 60 U/L (38-126); Aspartate Amino Transferase 51 U/L (17-59); Bilirubin,Total 0.4 mg/dL (0.2-1.3); Blood Urea Nitrogen 50 mg/dL (9-20); Calcium 8.4 mg/dL (8.4-10.2); Carbon Dioxide > 40 mmol/L (22-30); Chloride 102 mmol/L (98-107); Estimated CRCL calculation 50 ml/min; Estimated Glomerular Filt Rate 45; Glucose 161 mg/dL (65-110); Magnesium 2.6 mg/dL (1.6-2.3); Potassium 3.9 mmol/L (3.4-5.0); Sodium 143 mmol/L (137-145)
[2021-10-22] MEDS: methylPREDNISolone SOD SUCC 125 MG VIAL 60 MG IV PUSH (05:14)
[2021-10-22 05:22] LABS: Alveolar/Arterial O2 Gradient 141.2 mmHg; Base Excess ABG 6.7 mEq/l (+/-2.0); Carboxyhemoglobin 0.4 % THb (0-2.0); Fractional Inspired Oxygen 40 %; HCO3 ABG 34.3 mEq/l (22.0-26.0); Methemoglobin ABG 0.3 %THb (0-1.5); Oxygen Saturation ABG 93.7 % (95.0-100.0); Oxyhemoglobin 92.9 % THb (90.0-100.0); PO2 ABG 72.7 mmHg (80.0-100.0); PO2 FiO2 Ratio Arterial Blood 1.82 %; Reduced Hemoglobin 6.4 %THb (0-5.0); Total Hemoglobin 14.5 g/dL (12.0-18.0); pH ABG 7.361 (7.350-7.450)
[2021-10-22 05:25] LABS: Device VENTILATOR; Modified Allen's Test Pass; Site Drawn LEFT RADIAL
[2021-10-22 05:26] LABS: Arterial Blood Gas PEEP 5 cmH2O; Arterial Blood Gas Tidal Volume 380 ml; Arterial Blood Gas Vent Mode CMV; Arterial Blood Gas Ventilator rate 22 /MIN
--- NOTE | 2021-10-22 07:10 | P.CDI_ITS ---
CDI Query Clarification Request 1) -CHF, unspecified on problem list - Patient has cor pulmonale as he has diffuse significant bilateral lower extremity edema and had RV dysfunction on his echo done in the past- Lasix IV documented -Lasix 20mg IV given 10/19 and Lasix 40mg IV given 10/20 -Most recent echo on the record performed 10/15/21 prior to admission Please further specify type and acuity of CHF: * Systolic *Acute * Diastolic * Chronic * Both systolic and diastolic *Acute on Chronic * Unable to determine *Unable to determine 2) -COPD exacerbation documented by EDP -COPD status inactive documented on problem list -Pt on Solu Medrol 60mg IV q 12 hrs - Acute on chronic Respiratory failure secondary to COPD, congestive heart failure, aspiration pneumonia, obesity hypoventilation syndrome documented Please clarify status of COPD: * Exacerbated * Stable * Unable to determine
--- NOTE | 2021-10-22 08:05 | WPDINTPN ---
Progress Note: A&P Assessment and Plan (1) Acute respiratory failure with hypoxia and hypercapnia: Code(s): J96.01 - Acute respiratory failure with hypoxia; J96.02 - Acute respiratory failure with hypercapnia Status: Acute Assessment and Plan: Acute on chronic Respiratory failure secondary to COPD, congestive heart failure, aspiration pneumonia, obesity hypoventilation syndrome Patient now intubated and on mechanical ventilation He failed his weaning trial yesterday due to high RSBI although his ABG was acceptable. I will try weaning trial again today Continue full mechanical ventilation support to prevent hypoxemia/hypercarbia and end organ damage. ABG reviewed and PCXR reviewed Continue Solu-Medrol but will decrease dose to q.day Bronchodilators Blood culture sent and and are negative to now Continue empiric Unasyn Continue Lasix IV (2) CKD (chronic kidney disease), stage III: Qualifiers: Chronic kidney disease stage 3 subtype: stage 3b (GFR 30-44) Qualified Code(s): N18.32 - Chronic kidney disease, stage 3b Code(s): N18.30 - Chronic kidney disease, stage 3 unspecified Status: Acute Assessment and Plan: Creatinine appears close to baseline Monitor urine output electrolytes and creatinine Lasix IV for volume overload (3) CHF (congestive heart failure): Code(s): I50.9 - Heart failure, unspecified Status: Acute Assessment and Plan: Patient has cor pulmonale as he has diffuse significant bilateral lower extremity edema and had RV dysfunction on his echo done in the past Lasix IV (4) Aspiration pneumonia: Code(s): J69.0 - Pneumonitis due to inhalation of food and vomit Status: Acute Assessment and Plan: See above (5) COPD (chronic obstructive pulmonary disease): Code(s): J44.9 - Chronic obstructive pulmonary disease, unspecified Status: Inactive Assessment and Plan: See above (6) Right ventricular dysfunction: Code(s): I51.9 - Heart disease, unspecified Status: Acute Assessment and Plan: Patient has evidence of right heart failure which was confirmed on echo in the past. His most recent echo not visualize RV Cautious diuresis as patient is overall volume overloaded but may be sensitive to intravascular volume depletion (7) Suspected COVID-19 virus infection: Code(s): Z20.822 - Contact with and (suspected) exposure to COVID-19 Status: Acute Assessment and Plan: COVID-19 suspected. SARS-CoV-2 PCR was negative isolation DC Additional Plan DVT prophylaxis -Lovenox Stress ulcer prophylaxis - Pepcid Nutrition - Tube Feeds will be held for weaning trial Code Status - Full Code Total Critical Care Time - 30 minutes Due to a high probability of clinically significant, life threatening deterioration, the patient required my highest level of preparedness to intervene emergently and I personally spent this critical care time directly and personally managing the patient. This critical care time included obtaining a history; examining the patient; pulse oximetry; ordering and review of studies; arranging urgent treatment with development of a management plan; evaluation of patient's response to treatment; frequent reassessment; and discussions with other providers. It was exclusive of separately billable procedures and treating other patients and teaching time. Please see Assessment and Plan section and the rest of the note for further information on patient assessment and treatment Subjective Date/time seen: 10/22/21 08:05 Overnight events reviewed . Afebrile Continues to be on mechanical ventilation any failed his weaning trial yesterday due to high RSBI Continues to be on sedation Vitals acceptable Review of Systems Review of Systems: ROS unobtainable: Yes unobtainable due to endotracheal tube, unobtainable due to medical condition and unobtainable due to mental status Exam
[2021-10-22] MEDS: ENOXAPARIN 40 MG/0.4 ML SYRINGE SUB-Q (08:38)
[2021-10-22] MEDS: FAMOTIDINE 20 MG/2 ML VIAL IV PUSH ×2 (08:39→19:57)
[2021-10-22] MEDS: FUROSEMIDE INJ 40 MG/4 ML VIAL IV PUSH ×2 (08:39→17:08)
--- NOTE | 2021-10-22 09:02 | PM.IMPN ---
Progress Note: A&P Assessment and Plan (1) Acute respiratory failure with hypoxia and hypercapnia: Code(s): J96.01 - Acute respiratory failure with hypoxia; J96.02 - Acute respiratory failure with hypercapnia Status: Acute Assessment and Plan: Acute on chronic Respiratory failure secondary to COPD, congestive heart failure, aspiration pneumonia, obesity hypoventilation syndrome Patient now intubated and sedated on mechanical ventilation He failed his weaning trial yesterday due to high RSBI although his ABG was acceptable. Currently sedation is on hold for another weaning trial today. Continue full mechanical ventilation support to prevent hypoxemia/hypercarbia and end organ damage. ABG reviewed and PCXR reviewed Down titrate Solu-Medrol Bronchodilators Blood culture sent and and remain negative to date. Continue empiric Unasyn Continue Lasix IV (2) CKD (chronic kidney disease), stage III: Qualifiers: Chronic kidney disease stage 3 subtype: stage 3b (GFR 30-44) Qualified Code(s): N18.32 - Chronic kidney disease, stage 3b Code(s): N18.30 - Chronic kidney disease, stage 3 unspecified Status: Acute Assessment and Plan: Unknown baseline creatinine. However creatinine has been 1.4 was early as October 2018. Admission creatinine was 1.6. Creatinine is improving slowly down to 1.5 today. Creatinine appears close to baseline Monitor urine output electrolytes and creatinine Lasix IV for volume overload (3) CHF (congestive heart failure): Code(s): I50.9 - Heart failure, unspecified Status: Acute Assessment and Plan: Patient has cor pulmonale as he has diffuse significant bilateral lower extremity edema and had RV dysfunction on his echo done in the past. Continue IV Lasix in the setting of weaning trial. (4) Aspiration pneumonia: Code(s): J69.0 - Pneumonitis due to inhalation of food and vomit Status: Acute Assessment and Plan: See above (5) COPD (chronic obstructive pulmonary disease): Code(s): J44.9 - Chronic obstructive pulmonary disease, unspecified Status: Inactive Assessment and Plan: See above (6) Right ventricular dysfunction: Code(s): I51.9 - Heart disease, unspecified Status: Acute Assessment and Plan: Patient has evidence of right heart failure which was confirmed on echo in the past. His most recent echo not visualize RV Cautious diuresis as patient is overall volume overloaded but may be sensitive to intravascular volume depletion Additional Plan DVT prophylaxis -Lovenox Stress ulcer prophylaxis - Pepcid Nutrition - Tube Feeds on hold for weaning trial Code Status - Full Code Total Critical Care Time - 31 minutes Subjective Date/time seen: 10/22/21 08:02 S: Patient is currently intubated and sedated. He is awake, alert and follows command. Due to agitation he had to be started on restraints. Mental status is adequate and sedation is currently being held to start a weaning trial. No evidence of distress. Review of Systems Review of Systems: ROS unobtainable: Yes unobtainable due to endotracheal tube, unobtainable due to medical condition and unobtainable due to mental status Exam Narrative: General: Pt is sedated, intubated and on mechanical ventilation CMV mode 380 5 40% Lungs/Chest: Trachea central Coarse BS B/L, No crackles or wheezing. Cardiac: RRR. Normal S1 S2. No murmurs Abdomen: Decreased bowel sounds. Obese. Soft. NT. ND. Extremities: No clubbing, cyanosis. Warm. Bilateral legs have extensive bilateral pitting edema with chronic venous stasis changes : Cat in place Neurologic: He opens his eyes on calling his name despite low sedation and follows commands with all 4 extremities, PERRL Objective Data Vital Signs Vital Signs: Vital Signs - 24 hr 10/21/21 09:09 10/21/21 10:00 10/21/21 10:13 Temperature Pulse Rate 78 89 84 Respiratory Rate 32 H
[2021-10-22 09:35] LABS: Alveolar/Arterial O2 Gradient 137.1 mmHg; Base Excess ABG 8.6 mEq/l (+/-2.0); Carboxyhemoglobin 0.2 % THb (0-2.0); Device VENTILATOR; Fractional Inspired Oxygen 40 %; HCO3 ABG 35.3 mEq/l (22.0-26.0); Methemoglobin ABG 0.3 %THb (0-1.5); Modified Allen's Test Pass; Oxygen Content ABG 19.8 %vol (16.0-22.0); Oxyhemoglobin 95.2 % THb (90.0-100.0); PO2 ABG 82.6 mmHg (80.0-100.0); PO2 FiO2 Ratio Arterial Blood 2.07 %; Reduced Hemoglobin 4.3 %THb (0-5.0); Site Drawn RIGHT RADIAL; Total Hemoglobin 14.8 g/dL (12.0-18.0)
[2021-10-22 09:36] LABS: Arterial Blood Gas PEEP 5 cmH2O; Arterial Blood Gas Pressure Support 5 cmH2O; Arterial Blood Gas Vent Mode SPONTANEOUS
[2021-10-22] MEDS: dexmedeTOMIDine 400 MCG/100 ML 400 MCG/100 ML BAG 6.99 MCG IV CONT (11:26)
[2021-10-22 13:08] LABS: Glucose Point of Care 178 mg/dl (65-105)
[2021-10-22] MEDS: dexmedeTOMIDine 400 MCG/100 ML 400 MCG/100 ML BAG 20.97 MCG IV CONT (16:27)
[2021-10-22 18:09] LABS: Glucose Point of Care 144 mg/dl (65-105)
[2021-10-22] MEDS: dexmedeTOMIDine 400 MCG/100 ML 400 MCG/100 ML BAG 31.46 MCG IV CONT ×2 (19:48→21:56)
[2021-10-22] MEDS: MINERAL OIL/WHITE PETROLATUM OINTMENT 1 APPLIC EACH EYE (19:57)
[2021-10-22] MEDS: FENTANYL 2,500MCG/NS250ML(*CRX 2,500 MCG/250 ML BAG 20 MCG IV CONT (21:40)
[2021-10-22 23:16] LABS: Glucose Point of Care 149 mg/dl (65-105)
[2021-10-23] VITALS (50 sets, daily range): BP systolic 125–177; BP diastolic 70–101; PULSE 50–96; RESP 18–35; TEMP 35.8–36.7; O2SAT 93–97
[2021-10-23] MEDS: dexmedeTOMIDine 400 MCG/100 ML 400 MCG/100 ML BAG 31.46 MCG IV CONT ×3 (01:02→16:03)
[2021-10-23] MEDS: IPRATROPIUM BR 0.02% INH SOLN 0.5 MG/2.5 ML VIAL INHALATION ×4 (02:18→20:20)
[2021-10-23] MEDS: ALBUTEROL SULFATE NEB 2.5 MG/0.5 ML INH 5 MG INHALATION ×4 (02:18→20:20)
[2021-10-23] MEDS: AMPICILLIN SULB 3 GM/NS 100 ML 3 GM/100 ML VIAL IVPB ×4 (03:36→20:55)
[2021-10-23 04:41] LABS: Alveolar/Arterial O2 Gradient 159.1 mmHg; Base Excess ABG 9.1 mEq/l (+/-2.0); Carboxyhemoglobin 0.2 % THb (0-2.0); Fractional Inspired Oxygen 40 %; Methemoglobin ABG 0.4 %THb (0-1.5); Oxygen Content ABG 21.2 %vol (16.0-22.0); Oxygen Saturation ABG 95.5 % (95.0-100.0); Oxyhemoglobin 93.7 % THb (90.0-100.0); PCO2 ABG 46.4 mmHg (35.0-45.0); PO2 ABG 72.7 mmHg (80.0-100.0); PO2 FiO2 Ratio Arterial Blood 1.82 %; Reduced Hemoglobin 5.7 %THb (0-5.0); Total Hemoglobin 16.1 g/dL (12.0-18.0); pH ABG 7.483 (7.350-7.450)
[2021-10-23 04:43] LABS: Device VENTILATOR; Modified Allen's Test Unable to perform; Site Drawn RIGHT RADIAL
[2021-10-23 04:44] LABS: Arterial Blood Gas PEEP 5 cmH2O; Arterial Blood Gas Tidal Volume 380 ml; Arterial Blood Gas Vent Mode CMV; Arterial Blood Gas Ventilator rate 22 /MIN
[2021-10-23 05:21] LABS: Hematocrit 49.7 % (42.0-52.0); Hemoglobin 15.6 g/dL (14.0-18.0); Immature Platelet Fraction Pct 8.1 % (0.9-11.2); Mean Corpuscular HGB Conc 31.4 g/dl (32-36); Mean Corpuscular Hemoglobin 29.9 pg (26-34); Mean Corpuscular Volume 95.4 fl (80-100); Mean Platelet Volume 11.4 fl (7.4-10.4); Platelet Count Result 140 k/mm3 (150-375); Red Blood Count 5.21 M/mm3 (4.6-6.20); Red Cell Distribution Width 14.5 % (11.5-14.5); White Blood Count 8.6 K/mm3 (4.5-10.0)
[2021-10-23 05:23] LABS: Alanine Aminotransferase 57 U/L (4-50); Albumin Level 3.8 g/dL (3.5-5.1); Alkaline Phosphatase 62 U/L (38-126); Anion Gap 7 mmol/L (8-16); Aspartate Amino Transferase 66 U/L (17-59); Bilirubin,Total 1.1 mg/dL (0.2-1.3); Blood Urea Nitrogen 45 mg/dL (9-20); Calcium 8.6 mg/dL (8.4-10.2); Carbon Dioxide 36 mmol/L (22-30); Chloride 100 mmol/L (98-107); Estimated CRCL calculation 56 ml/min; Estimated Glomerular Filt Rate 53; Glucose 130 mg/dL (65-110); Magnesium 2.4 mg/dL (1.6-2.3); Potassium 3.7 mmol/L (3.4-5.0); Sodium 143 mmol/L (137-145)
[2021-10-23] MEDS: dexmedeTOMIDine 400 MCG/100 ML 400 MCG/100 ML BAG 38.45 MCG IV CONT (06:08)
--- NOTE | 2021-10-23 07:27 | PM.IMPN ---
Progress Note: A&P Assessment and Plan (1) Acute respiratory failure with hypoxia and hypercapnia: Code(s): J96.01 - Acute respiratory failure with hypoxia; J96.02 - Acute respiratory failure with hypercapnia Status: Acute Assessment and Plan: Acute on chronic Respiratory failure secondary to COPD, congestive heart failure, aspiration pneumonia, obesity hypoventilation syndrome Patient remains intubated and sedated on mechanical ventilation He failed his weaning trial yesterday due to high RSBI although his ABG was acceptable. He had become diaphoretic and tachypneic. Currently sedation is on hold for another weaning trial today. Continue full mechanical ventilation support to prevent hypoxemia/hypercarbia and end organ damage. ABG reviewed and PCXR reviewed Down titrate Solu-Medrol Bronchodilators Blood culture sent and and remain negative to date. Continue empiric Unasyn Continue Lasix IV (2) CKD (chronic kidney disease), stage III: Qualifiers: Chronic kidney disease stage 3 subtype: stage 3b (GFR 30-44) Qualified Code(s): N18.32 - Chronic kidney disease, stage 3b Code(s): N18.30 - Chronic kidney disease, stage 3 unspecified Status: Acute Assessment and Plan: Unknown baseline creatinine. However creatinine has been 1.4 was early as October 2018. Admission creatinine was 1.6. Creatinine is improving slowly down to 1.3 today. Urinary output is robust with over 3. L urinary output overnight. Creatinine appears close to baseline Monitor urine output electrolytes and creatinine Lasix IV for volume overload (3) CHF (congestive heart failure): Code(s): I50.9 - Heart failure, unspecified Status: Acute Assessment and Plan: Patient has cor pulmonale as he has diffuse significant bilateral lower extremity edema and had RV dysfunction on his echo done in the past. Continue IV Lasix in the setting of weaning trial. (4) Aspiration pneumonia: Code(s): J69.0 - Pneumonitis due to inhalation of food and vomit Status: Acute Assessment and Plan: Continue empiric Unasyn. (5) COPD (chronic obstructive pulmonary disease): Code(s): J44.9 - Chronic obstructive pulmonary disease, unspecified Status: Inactive Assessment and Plan: Currently in no acute exacerbation. (6) Right ventricular dysfunction: Code(s): I51.9 - Heart disease, unspecified Status: Acute Assessment and Plan: Patient has evidence of right heart failure which was confirmed on echo in the past. His most recent echo right ventricle is not well visualized. Patient has had robust response to Lasix 40 mg IV daily, producing close to 4 L of urine overnight. Monitor daily intake and output and creatinine trend. Additional Plan DVT prophylaxis -Lovenox Stress ulcer prophylaxis - Pepcid Nutrition - Tube Feeds on hold for weaning trial Code Status - Full Code Total Critical Care Time - 31 minutes Subjective Date/time seen: 10/23/21 07:27 S: Patient was examined at the bedside. Patient remains intubated on mechanical ventilation. He failed SBT yesterday after becoming tachypneic and diaphoretic. Currently sedation is on hold for another extubation trial. Review of Systems Review of Systems: ROS unobtainable: Yes unobtainable due to endotracheal tube Exam Narrative: General: Pt is sedated, intubated and on mechanical ventilation CMV mode 380 5 40% Blood pressure 175/90, pulse rate 55, respiratory 22, T-max 98.4?. Total intake 2.4 L; total output 3.9 L. Balance -4 L. Gastric drainage 200 ccs. Lungs/Chest: Trachea central Coarse BS B/L, No crackles or wheezing. Cardiac: RRR. Normal S1 S2. No murmurs Abdomen: Decreased bowel sounds. Obese. Soft. NT. ND. Extremities: No clubbing, cyanosis. Warm. Bilateral legs have extensive bilateral pitting edema with chronic venous stasis changes : Cat in place Neurologic: He opens his eyes on calling hi
[2021-10-23] MEDS: POTASSIUM CHLORIDE 20 MEQ PACKET (FOR LIQUID) 40 MEQ FEED TUBE (07:56)
[2021-10-23] MEDS: ENOXAPARIN 40 MG/0.4 ML SYRINGE SUB-Q (07:56)
[2021-10-23] MEDS: FAMOTIDINE 20 MG/2 ML VIAL IV PUSH ×2 (07:57→20:56)
[2021-10-23] MEDS: MINERAL OIL/WHITE PETROLATUM OINTMENT 1 APPLIC EACH EYE ×2 (07:57→20:56)
[2021-10-23] MEDS: methylPREDNISolone SOD SUCC 125 MG VIAL 60 MG IV PUSH (07:57)
[2021-10-23] MEDS: QUEtiapine FUMARATE 12.5 MG TABLET PO (07:57)
--- NOTE | 2021-10-23 08:57 | WPDINTPN ---
Progress Note: A&P Assessment and Plan (1) Acute respiratory failure with hypoxia and hypercapnia: Code(s): J96.01 - Acute respiratory failure with hypoxia; J96.02 - Acute respiratory failure with hypercapnia Status: Acute Assessment and Plan: Acute on chronic Respiratory failure secondary to COPD, congestive heart failure, aspiration pneumonia, obesity hypoventilation syndrome Patient intubated on 10/19 He failed his weaning trial for the last 2 days due to high RSBI although his ABG was acceptable. Continue full mechanical ventilation support to prevent hypoxemia/hypercarbia and end organ damage. ABG reviewed and PCXR reviewed Continue Solu-Medrol q.day Bronchodilators 10/20/2021: Blood cultures negative x2 Continue empiric Unasyn Continue Lasix IV Sedated with fentanyl and Precedex infusion, patient does have some anxiety when fentanyl is decreased, will add Seroquel (2) CKD (chronic kidney disease), stage III: Qualifiers: Chronic kidney disease stage 3 subtype: stage 3b (GFR 30-44) Qualified Code(s): N18.32 - Chronic kidney disease, stage 3b Code(s): N18.30 - Chronic kidney disease, stage 3 unspecified Status: Acute Assessment and Plan: Creatinine improving Monitor urine output electrolytes and creatinine Lasix IV for volume overload (3) CHF (congestive heart failure): Code(s): I50.9 - Heart failure, unspecified Status: Acute Assessment and Plan: Patient has cor pulmonale as he has diffuse significant bilateral lower extremity edema and had RV dysfunction on his echo done in the past -echocardiogram 10/15/2021: EF 60-65% diastolic dysfunction grade 1, no pulmonary hypertension a RVSP of 13 mmHg Lasix IV (4) Aspiration pneumonia: Code(s): J69.0 - Pneumonitis due to inhalation of food and vomit Status: Acute Assessment and Plan: See above (5) COPD (chronic obstructive pulmonary disease): Code(s): J44.9 - Chronic obstructive pulmonary disease, unspecified Status: Inactive Assessment and Plan: See above (6) Right ventricular dysfunction: Code(s): I51.9 - Heart disease, unspecified Status: Acute Assessment and Plan: Patient has evidence of right heart failure which was confirmed on echo in the past. His most recent echo not visualize RV Cautious diuresis as patient is overall volume overloaded but may be sensitive to intravascular volume depletion (7) Suspected COVID-19 virus infection: Code(s): Z20.822 - Contact with and (suspected) exposure to COVID-19 Status: Acute Assessment and Plan: COVID-19 suspected. SARS-CoV-2 PCR was negative isolation DC Additional Plan DVT prophylaxis -Lovenox Stress ulcer prophylaxis - Pepcid Nutrition - Tube Feeds, added MiraLax Code Status - Full Code Total Critical Care Time - 33 minutes Due to a high probability of clinically significant, life threatening deterioration, the patient required my highest level of preparedness to intervene emergently and I personally spent this critical care time directly and personally managing the patient. This critical care time included obtaining a history; examining the patient; pulse oximetry; ordering and review of studies; arranging urgent treatment with development of a management plan; evaluation of patient's response to treatment; frequent reassessment; and discussions with other providers. It was exclusive of separately billable procedures and treating other patients and teaching time. Please see Assessment and Plan section and the rest of the note for further information on patient assessment and treatment Subjective Date/time seen: 10/23/21 08:57 Interval history: 81-year-old male with history of abdominal aortic aneurysm, essential hypertension, untreated obstructive sleep apnea, COPD, CHF, hyperlipidemia presented the ED on 10/19 with shortness of breath, was initially on CPAP in the ER but L min
[2021-10-23] MEDS: FENTANYL 2,500MCG/NS250ML(*CRX 2,500 MCG/250 ML BAG 15 MCG IV CONT (09:05)
[2021-10-23] MEDS: dexmedeTOMIDine 400 MCG/100 ML 400 MCG/100 ML BAG 34.95 MCG IV CONT ×2 (09:07→19:00)
[2021-10-23] MEDS: polyethylene glycoL 3350 17 GM POWD.PACK PO (10:28)
[2021-10-23] MEDS: FUROSEMIDE INJ 40 MG/4 ML VIAL IV PUSH (10:28)
[2021-10-23] MEDS: METOCLOPRAMIDE HCL INJ 10 MG/2 ML VIAL 5 MG IV PUSH ×3 (11:50→23:35)
[2021-10-23 11:59] LABS: Glucose Point of Care 154 mg/dl (65-105)
--- NOTE | 2021-10-23 12:02 | PCNFU ---
Nutrition Follow-Up Complete: Inadequate Oral Intake as related to mechanical ventilation as evidenced by NPO Goal: Patient to meet estimated caloric needs. Patient is progressing towards goal. We will continue current goal. Pt current nutrition is Jevity 1.2 at 70 ml/hr over 22 hours. Last recorded weight is 135.8 kg, down from 139.8 kg on admit. Bowel Motility:No BM to report. Labs Reviewed:Mg 2.4, BUN 45 Meds Noted:Solu Medrol, Fentanyl, Reglan, Precedex, Seroquel, Atrovent, Lasix, Miralax Skin:WNL Additional Notes: Patient remains on mechanical vent. Failed weaning trail. Tube feedings currently on hold for 600 ml residual. Reglan added, plans for tube feedings to restart. Jevity 1.2 at 70 ml/hr providing 1848 kcals/85 gm protein/1243 ml water. Agree with current diet orders. Monitoring: Will monitor every Friday and Friday.
[2021-10-23] MEDS: dexmedeTOMIDine 400 MCG/100 ML 400 MCG/100 ML BAG 27.96 MCG IV CONT (12:29)
[2021-10-23] MEDS: BUDESONIDE RESPULE NEB 0.5 MG/2 ML AMP INHALATION ×2 (14:32→20:20)
[2021-10-23] MEDS: MORPHINE SULFATE (*CRX) 4 MG/ML INJ IV PUSH (16:22)
[2021-10-23] MEDS: MIDAZOLAM HCL (*CRX) 2 MG/2 ML VIAL IV PUSH ×2 (16:50→22:18)
[2021-10-23 17:36] LABS: Glucose Point of Care 132 mg/dl (65-105)
--- NOTE | 2021-10-23 20:34 | PC.NURSE ---
Updated Dr. Wheatley regarding prolonged QT of 0.52. Hold seroquel, monitor for further prolongation
[2021-10-23] MEDS: hydrALAZINE HCL 20 MG/ML VIAL 10 MG IV PUSH (21:03)
[2021-10-23] MEDS: dexmedeTOMIDine 400 MCG/100 ML 400 MCG/100 ML BAG 41.94 MCG IV CONT (21:58)
[2021-10-23] MEDS: FENTANYL 2,500MCG/NS250ML(*CRX 2,500 MCG/250 ML BAG 20 MCG IV CONT (23:18)
[2021-10-23 23:33] LABS: Glucose Point of Care 125 mg/dl (65-105)
[2021-10-24] VITALS (50 sets, daily range): BP systolic 84–160; BP diastolic 55–104; PULSE 53–135; RESP 18–34; TEMP 35.8–37.1; O2SAT 90–98
[2021-10-24] MEDS: dexmedeTOMIDine 400 MCG/100 ML 400 MCG/100 ML BAG 41.94 MCG IV CONT (00:03)
[2021-10-24] MEDS: AMPICILLIN SULB 3 GM/NS 100 ML 3 GM/100 ML VIAL IVPB ×4 (02:16→20:02)
[2021-10-24] MEDS: hydrALAZINE HCL 20 MG/ML VIAL 10 MG IV PUSH (02:17)
[2021-10-24] MEDS: dexmedeTOMIDine 400 MCG/100 ML 400 MCG/100 ML BAG 38.45 MCG IV CONT (02:21)
[2021-10-24] MEDS: ALBUTEROL SULFATE NEB 2.5 MG/0.5 ML INH 5 MG INHALATION ×4 (02:43→21:03)
[2021-10-24] MEDS: IPRATROPIUM BR 0.02% INH SOLN 0.5 MG/2.5 ML VIAL INHALATION ×4 (02:43→21:03)
[2021-10-24 04:40] LABS: Hematocrit 48.8 % (42.0-52.0); Hemoglobin 15.8 g/dL (14.0-18.0); Mean Corpuscular HGB Conc 32.4 g/dl (32-36); Mean Corpuscular Hemoglobin 29.8 pg (26-34); Mean Corpuscular Volume 91.9 fl (80-100); Platelet Count Result 112 k/mm3 (150-375); Red Blood Count 5.31 M/mm3 (4.6-6.20); Red Cell Distribution Width 14.5 % (11.5-14.5); White Blood Count 10.2 K/mm3 (4.5-10.0)
[2021-10-24 04:56] LABS: Alveolar/Arterial O2 Gradient 160.8 mmHg; Base Excess ABG 7.3 mEq/l (+/-2.0); Carboxyhemoglobin 0.5 % THb (0-2.0); Fractional Inspired Oxygen 40 %; HCO3 ABG 32.1 mEq/l (22.0-26.0); Methemoglobin ABG 0.5 %THb (0-1.5); Oxygen Content ABG 21.3 %vol (16.0-22.0); Oxygen Saturation ABG 95.3 % (95.0-100.0); Oxyhemoglobin 93.4 % THb (90.0-100.0); PCO2 ABG 45.1 mmHg (35.0-45.0); PO2 ABG 72.5 mmHg (80.0-100.0); PO2 FiO2 Ratio Arterial Blood 1.81 %; Reduced Hemoglobin 5.6 %THb (0-5.0); Site Drawn RIGHT RADIAL; Total Hemoglobin 16.2 g/dL (12.0-18.0)
[2021-10-24 04:57] LABS: Device VENTILATOR
[2021-10-24 04:58] LABS: Arterial Blood Gas PEEP 5 cmH2O; Arterial Blood Gas Tidal Volume 380 ml; Arterial Blood Gas Vent Mode CMV; Arterial Blood Gas Ventilator rate 22 /MIN
[2021-10-24 05:18] LABS: Alanine Aminotransferase 132 U/L (4-50); Albumin Level 3.7 g/dL (3.5-5.1); Alkaline Phosphatase 60 U/L (38-126); Anion Gap 10 mmol/L (8-16); Aspartate Amino Transferase 100 U/L (17-59); Bilirubin,Total 1.4 mg/dL (0.2-1.3); Blood Urea Nitrogen 43 mg/dL (9-20); Calcium 8.3 mg/dL (8.4-10.2); Carbon Dioxide 30 mmol/L (22-30); Chloride 102 mmol/L (98-107); Estimated CRCL calculation 61 ml/min; Estimated Glomerular Filt Rate 58; Glucose 114 mg/dL (65-110); Magnesium 2.4 mg/dL (1.6-2.3); Potassium 3.9 mmol/L (3.4-5.0); Sodium 142 mmol/L (137-145)
[2021-10-24] MEDS: dexmedeTOMIDine 400 MCG/100 ML 400 MCG/100 ML BAG 34.95 MCG IV CONT (05:19)
[2021-10-24] MEDS: METOCLOPRAMIDE HCL INJ 10 MG/2 ML VIAL 5 MG IV PUSH ×2 (05:30→11:51)
[2021-10-24] MEDS: dexmedeTOMIDine 400 MCG/100 ML 400 MCG/100 ML BAG 27.96 MCG IV CONT (08:45)
[2021-10-24] MEDS: MIDAZOLAM HCL (*CRX) 2 MG/2 ML VIAL IV PUSH ×5 (08:45→22:41)
[2021-10-24] MEDS: MINERAL OIL/WHITE PETROLATUM OINTMENT 1 APPLIC EACH EYE ×2 (09:02→20:05)
[2021-10-24] MEDS: FAMOTIDINE 20 MG/2 ML VIAL IV PUSH ×2 (09:03→20:04)
[2021-10-24] MEDS: ENOXAPARIN 40 MG/0.4 ML SYRINGE SUB-Q (09:03)
[2021-10-24] MEDS: polyethylene glycoL 3350 17 GM POWD.PACK PO (09:03)
[2021-10-24] MEDS: FUROSEMIDE INJ 40 MG/4 ML VIAL IV PUSH (09:03)
[2021-10-24] MEDS: methylPREDNISolone SOD SUCC 125 MG VIAL 60 MG IV PUSH (09:04)
[2021-10-24] MEDS: BUDESONIDE RESPULE NEB 0.5 MG/2 ML AMP INHALATION ×2 (09:08→21:02)
[2021-10-24] MEDS: FENTANYL 2,500MCG/NS250ML(*CRX 2,500 MCG/250 ML BAG 20 MCG IV CONT ×2 (10:33→23:41)
--- NOTE | 2021-10-24 10:50 | PCFNICU ---
ICU Rounding Note: Pt current nutrition is Jevity 1.2 at 30 mls per hour over 22 hours per day with a goal rate of 70 mls per hour. 30 ml water flush q4. Last recorded weight is 133.5 kg. Bowel Motility: No BM documented in chart. Pt. on Miralax and Reglan. Labs Reviewed: GFR 58, BUN 43, Glu 114 Meds Noted: Albuterol, Lovenox, Budesonide, Furosemide, Glucose, Novolog, Atrovent neb, Reglan, Seroquel, Miralax Skin: No skin breakdown at this time. WNL. Additional Notes: Advancing tube feeding rate as tolerated. Residuals were 150 this am, 10/24/2021, and rate was advanced to 30 mls per hour. Goal rate of Jevity 1.2 at 70 mls per hour over 22 hours per day will provide pt. with a total of 1848 calories, 85 grams of protein and 1242 mls of water. Following daily in ICU rounds. Assessing/reassessing every Friday and Friday.
--- NOTE | 2021-10-24 11:46 | WPDINTPN ---
Progress Note: A&P Assessment and Plan (1) Encephalopathy: Code(s): G93.40 - Encephalopathy, unspecified Status: Acute Assessment and Plan: Multifactorial - sedation, anxiety, acute critical care illness -patient with anxiety, agitation, restless, trying to climb out of the bed, did open his eyes and nodded to understanding that we will take the breathing tube out - CT Brain 10/24: No acute intracranial findings, chronic age-related findings -could be related to medications -will discontinue Precedex, add Seroquel (2) Acute respiratory failure with hypoxia and hypercapnia: Code(s): J96.01 - Acute respiratory failure with hypoxia; J96.02 - Acute respiratory failure with hypercapnia Status: Acute Assessment and Plan: Acute on chronic Respiratory failure secondary to COPD, congestive heart failure, aspiration pneumonia, obesity hypoventilation syndrome Patient intubated on 10/19 He failed his weaning trial due to high RSBI although his ABG was acceptable. Continue full mechanical ventilation support to prevent hypoxemia/hypercarbia and end organ damage. ABG reviewed and PCXR reviewed Continue Solu-Medrol q.day Bronchodilators 10/20/2021: Blood cultures negative x2 Continue empiric Unasyn Continue Lasix IV Patient is sedated with fentanyl and Versed infusion, patient gets agitated and climbing out of bed. Clearly Precedex not helping, will discontinue -add Seroquel -obtain sputum culture (3) CKD (chronic kidney disease), stage III: Qualifiers: Chronic kidney disease stage 3 subtype: stage 3b (GFR 30-44) Qualified Code(s): N18.32 - Chronic kidney disease, stage 3b Code(s): N18.30 - Chronic kidney disease, stage 3 unspecified Status: Acute Assessment and Plan: Creatinine improving Monitor urine output electrolytes and creatinine Lasix IV for volume overload (4) CHF (congestive heart failure): Code(s): I50.9 - Heart failure, unspecified Status: Acute Assessment and Plan: Patient has cor pulmonale as he has diffuse significant bilateral lower extremity edema and had RV dysfunction on his echo done in the past -echocardiogram 10/15/2021: EF 60-65% diastolic dysfunction grade 1, no pulmonary hypertension a RVSP of 13 mmHg Lasix IV (5) Aspiration pneumonia: Code(s): J69.0 - Pneumonitis due to inhalation of food and vomit Status: Acute Assessment and Plan: See above (6) COPD (chronic obstructive pulmonary disease): Code(s): J44.9 - Chronic obstructive pulmonary disease, unspecified Status: Inactive Assessment and Plan: Continue bronchodilators, Solu-Medrol daily, mechanical ventilation -ABG did not reveal hypercapnia (7) Right ventricular dysfunction: Code(s): I51.9 - Heart disease, unspecified Status: Acute Assessment and Plan: Patient has evidence of right heart failure which was confirmed on echo in the past. His most recent echo not visualize RV Cautious diuresis as patient is overall volume overloaded but may be sensitive to intravascular volume depletion (8) Suspected COVID-19 virus infection: Code(s): Z20.822 - Contact with and (suspected) exposure to COVID-19 Status: Acute Assessment and Plan: COVID-19 suspected. SARS-CoV-2 PCR was negative isolation DC Additional Plan DVT prophylaxis -Lovenox Stress ulcer prophylaxis - Pepcid Nutrition - Tube Feeds, added MiraLax Code Status - Full Code Total Critical Care Time - 33 minutes Due to a high probability of clinically significant, life threatening deterioration, the patient required my highest level of preparedness to intervene emergently and I personally spent this critical care time directly and personally managing the patient. This critical care time included obtaining a history; examining the patient; pulse oximetry; ordering and review of studies; arranging urgent treatment with development of a managemen
[2021-10-24 12:40] LABS: Glucose Point of Care 119 mg/dl (65-105)
[2021-10-24] MEDS: MIDAZOLAM 100MG/NS 100ML(*CRX) 100 MG/100 ML BAG IV CONT (14:55)
--- NOTE | 2021-10-24 15:52 | PM.CNPUL ---
Assessment and Plan Assessment and plan (1) Acute respiratory failure with hypoxia and hypercapnia: Code(s): J96.01 - Acute respiratory failure with hypoxia; J96.02 - Acute respiratory failure with hypercapnia Status: Acute Assessment and Plan: 81-year-old man with history of morbid obesity presented with acute on chronic hypercapnic respiratory failure, currently intubated and on mechanical ventilation, , with bilateral pleural effusions, and bilateral lower lobe infiltrates possibly due to aspiration pneumonitis. Patient's chronic hypercapnic respiratory failure is most likely related to untreated sleep disordered breathing as there is no evidence of COPD at least by radiographic criteria on CTs and patient was not receiving any treatment for COPD. Furthermore two echocardiograms have not showed evidence of elevated pulmonary artery systolic pressure. I could not interpret the right ventricular dilatation in the absence of elevated pulmonary artery systolic pressure reported in the echocardiogram done in January of 2015. I would suggest to lower steroids or even discontinue them as they may interfere with the patient's agitations. Would recommend CTPA of the chest to assess size of bilateral pleural effusions and extent of pulmonary infiltrates. Given his morbid obesity you may want to increase the PEEP to 8-10 cm to keep lung bases inflated and avoid atelectasis. (2) Acute hypercapnic respiratory failure: Code(s): J96.02 - Acute respiratory failure with hypercapnia Status: Acute (3) Aspiration pneumonia: Qualifiers: Aspiration pneumonia type: unspecified Laterality: unspecified laterality Lung location: unspecified part of lung Qualified Code(s): J69.0 - Pneumonitis due to inhalation of food and vomit Code(s): J69.0 - Pneumonitis due to inhalation of food and vomit Status: Acute (4) Obesity: Qualifiers: Obesity classification: adult class 3 (BMI >= 40) Serious obesity comorbidity presence: unspecified whether serious comorbidity present Obesity type: due to excess calories Body mass index: BMI 40.0-44.9 Qualified Code(s): E66.01 - Morbid (severe) obesity due to excess calories; Z68.41 - Body mass index [BMI] 40.0-44.9, adult Code(s): E66.9 - Obesity, unspecified Status: Acute History of Present Illness History of Present Illness Consult date: 10/24/21 Chief complaint: Hypercapnic respiratory failure/COPD exacerbation Narrative: this 81-year-old man was admitted into the hospital with acute on chronic hypercapnic respiratory failure approximately 6 days ago. the patient presented to the emergency room complaining of shortness of breath. Evaluation in the emergency room showed acute on chronic hypercapnic respiratory failure and the patient was initially placed on noninvasive ventilatory support via BiPAP. The patient did not tolerate BiPAP and reportedly had an episode of vomiting with possible aspiration. The patient was then intubated and placed on mechanical ventilation. He remains intubated with inability to wean from ventilator. Past medical history is significant for hypertension, morbid obesity and possibly untreated sleep disordered breathing. No sleep studies are available. In addition the patient carries the diagnosis of COPD although he was not on any medications for COPD. No previous pulmonary function testing is available. Review of chest imaging studies and especially abdominal CTs over the last 5 years showed no clear-cut evidence of COPD in the lower lung lobes by radiological criteria. Current regimen includes antibiotics IV steroids for possible COPD exacerbation. Chest imaging studies over the last few days showed pleural effusions bilaterally and possible infiltrates at bases. Review of previous echocardiograms, one in January of 2015 and most recent one done approximately 10 days ago showed no evidence of elevated pulmonary artery systolic
--- NOTE | 2021-10-24 16:47 | PCNSR ---
On 10/24/21, the student, Sheryl Hinojosa, provided care and completed [facility] documentation on this patient. I have reviewed the student's documentation and agree with the findings.
[2021-10-24 17:14] LABS: Glucose Point of Care 157 mg/dl (65-105)
[2021-10-24] MEDS: QUEtiapine FUMARATE 25 MG TABLET PO (20:04)
[2021-10-24 23:51] LABS: Glucose Point of Care 102 mg/dl (65-105)
[2021-10-25] VITALS (36 sets, daily range): BP systolic 60–152; BP diastolic 36–95; PULSE 56–104; RESP 12–24; TEMP 36.7–37.6; O2SAT 88–95
[2021-10-25] MEDS: ALBUTEROL SULFATE NEB 2.5 MG/0.5 ML INH 5 MG INHALATION ×4 (02:34→20:10)
[2021-10-25] MEDS: IPRATROPIUM BR 0.02% INH SOLN 0.5 MG/2.5 ML VIAL INHALATION ×4 (02:35→20:10)
[2021-10-25] MEDS: AMPICILLIN SULB 3 GM/NS 100 ML 3 GM/100 ML VIAL IVPB ×4 (03:59→20:16)
[2021-10-25 04:34] LABS: Alveolar/Arterial O2 Gradient 130.9 mmHg; Base Excess ABG 5.5 mEq/l (+/-2.0); Carboxyhemoglobin 0.7 % THb (0-2.0); Fractional Inspired Oxygen 35 %; HCO3 ABG 31.7 mEq/l (22.0-26.0); Methemoglobin ABG 0.3 %THb (0-1.5); Oxygen Content ABG 19.1 %vol (16.0-22.0); Oxygen Saturation ABG 90.1 % (95.0-100.0); PCO2 ABG 51.8 mmHg (35.0-45.0); PO2 ABG 58.4 mmHg (80.0-100.0); PO2 FiO2 Ratio Arterial Blood 1.67 %; Reduced Hemoglobin 11.8 %THb (0-5.0); Total Hemoglobin 15.6 g/dL (12.0-18.0); pH ABG 7.404 (7.350-7.450)
[2021-10-25 04:36] LABS: Modified Allen's Test Pass; Oxyhemoglobin 87.2 % THb (90.0-100.0); Site Drawn LEFT RADIAL
[2021-10-25 04:37] LABS: Arterial Blood Gas PEEP 5 cmH2O; Arterial Blood Gas Tidal Volume 400 ml; Arterial Blood Gas Vent Mode CMV; Arterial Blood Gas Ventilator rate 22 /MIN; Device VENTILATOR
[2021-10-25 05:03] LABS: Hematocrit 48.8 % (42.0-52.0); Hemoglobin 14.9 g/dL (14.0-18.0); Mean Corpuscular HGB Conc 30.5 g/dl (32-36); Mean Corpuscular Hemoglobin 29.4 pg (26-34); Mean Corpuscular Volume 96.4 fl (80-100); Mean Platelet Volume 12.1 fl (7.4-10.4); Platelet Count Result 129 k/mm3 (150-375); Red Blood Count 5.06 M/mm3 (4.6-6.20); White Blood Count 14.7 K/mm3 (4.5-10.0)
[2021-10-25] MEDS: MIDAZOLAM 100MG/NS 100ML(*CRX) 100 MG/100 ML BAG 6 MG IV CONT ×2 (05:18→18:25)
[2021-10-25 07:58] LABS: Alanine Aminotransferase 176 U/L (4-50); Albumin Level 2.9 g/dL (3.5-5.1); Alkaline Phosphatase 68 U/L (38-126); Anion Gap 4 mmol/L (8-16); Aspartate Amino Transferase 85 U/L (17-59); Blood Urea Nitrogen 66 mg/dL (9-20); Calcium 8.2 mg/dL (8.4-10.2); Carbon Dioxide 37 mmol/L (22-30); Chloride 103 mmol/L (98-107); Estimated CRCL calculation 35 ml/min; Estimated Glomerular Filt Rate 31; Glucose 106 mg/dL (65-110); Magnesium 2.8 mg/dL (1.6-2.3); Potassium 3.8 mmol/L (3.4-5.0); Sodium 144 mmol/L (137-145)
[2021-10-25] MEDS: ENOXAPARIN 40 MG/0.4 ML SYRINGE SUB-Q (08:36)
[2021-10-25] MEDS: polyethylene glycoL 3350 17 GM POWD.PACK PO (08:36)
[2021-10-25] MEDS: FAMOTIDINE 20 MG/2 ML VIAL IV PUSH ×2 (08:37→21:08)
[2021-10-25] MEDS: MINERAL OIL/WHITE PETROLATUM OINTMENT 1 APPLIC EACH EYE ×2 (08:37→20:16)
[2021-10-25] MEDS: BUDESONIDE RESPULE NEB 0.5 MG/2 ML AMP INHALATION ×2 (08:46→20:10)
[2021-10-25] MEDS: MIDAZOLAM HCL (*CRX) 2 MG/2 ML VIAL IV PUSH ×4 (08:51→20:14)
--- NOTE | 2021-10-25 09:28 | WPDINTPN ---
Progress Note: A&P Assessment and Plan (1) Encephalopathy: Code(s): G93.40 - Encephalopathy, unspecified Status: Acute Assessment and Plan: Multifactorial - sedation, anxiety, acute critical care illness -patient with anxiety, agitation, restless, trying to climb out of the bed, did open his eyes and nodded to understanding that we will take the breathing tube out - CT Brain 10/24: No acute intracranial findings, chronic age-related findings -will discontinue steroids, could be causing his agitation -Precedex was discontinued on 10/24 -will increase Seroquel (2) Acute respiratory failure with hypoxia and hypercapnia: Code(s): J96.01 - Acute respiratory failure with hypoxia; J96.02 - Acute respiratory failure with hypercapnia Status: Acute Assessment and Plan: Acute on chronic Respiratory failure secondary to COPD, congestive heart failure, aspiration pneumonia, obesity hypoventilation syndrome Patient intubated on 10/19 He failed his weaning trial due to high RSBI although his ABG was acceptable. Continue full mechanical ventilation support to prevent hypoxemia/hypercarbia and end organ damage. ABG reviewed and PCXR reviewed Discontinue Solu-Medrol Bronchodilators 10/20/2021: Blood cultures negative x2 Continue empiric Unasyn ( started 10/22) continue for 7 days Patient is sedated with fentanyl and Versed infusion, OFF Precedex infusion Continue Seroquel 10/24/2021: Sputum cultures pending 10/24/2021 CT scan the chest has been ordered (3) CKD (chronic kidney disease), stage III: Qualifiers: Chronic kidney disease stage 3 subtype: stage 3b (GFR 30-44) Qualified Code(s): N18.32 - Chronic kidney disease, stage 3b Code(s): N18.30 - Chronic kidney disease, stage 3 unspecified Status: Acute Assessment and Plan: Creatinine worsened this morning, creatinine 2.1 this morning (1.2 on 10/24) -be related to over diuresis, -diuretics were discontinued on 10/24 Monitor urine output, electrolytes and creatinine (4) CHF (congestive heart failure): Code(s): I50.9 - Heart failure, unspecified Status: Acute Assessment and Plan: Patient has cor pulmonale as he has diffuse significant bilateral lower extremity edema and had RV dysfunction on his echo done in the past -echocardiogram 10/15/2021: EF 60-65% diastolic dysfunction grade 1, no pulmonary hypertension a RVSP of 13 mmHg (5) Aspiration pneumonia: Qualifiers: Aspiration pneumonia type: unspecified Laterality: unspecified laterality Lung location: unspecified part of lung Qualified Code(s): J69.0 - Pneumonitis due to inhalation of food and vomit Code(s): J69.0 - Pneumonitis due to inhalation of food and vomit Status: Acute Assessment and Plan: See above (6) COPD (chronic obstructive pulmonary disease): Code(s): J44.9 - Chronic obstructive pulmonary disease, unspecified Status: Inactive Assessment and Plan: Continue bronchodilators, Solu-Medrol daily, mechanical ventilation -ABG did not reveal hypercapnia (7) Right ventricular dysfunction: Code(s): I51.9 - Heart disease, unspecified Status: Acute Assessment and Plan: Patient has evidence of right heart failure which was confirmed on echo in the past. His most recent echo not visualize RV Cautious diuresis as patient is overall volume overloaded but may be sensitive to intravascular volume depletion (8) Suspected COVID-19 virus infection: Code(s): Z20.822 - Contact with and (suspected) exposure to COVID-19 Status: Acute Assessment and Plan: COVID-19 suspected. SARS-CoV-2 PCR was negative Isolation discontinued Additional Plan DVT prophylaxis -Lovenox Stress ulcer prophylaxis - Pepcid Nutrition - Tube Feeds, added MiraLax Code Status - Full Code Total Critical Care Time - 34 minutes Due to a high probability of clinically significant, life threatening
[2021-10-25] MEDS: QUEtiapine FUMARATE 25 MG TABLET 50 MG PO ×2 (11:08→20:17)
[2021-10-25] MEDS: ALPRAZolam (*CRX) 0.25 MG TABLET PO ×3 (11:11→21:10)
[2021-10-25] MEDS: FENTANYL 2,500MCG/NS250ML(*CRX 2,500 MCG/250 ML BAG 20 MCG IV CONT (11:29)
--- NOTE | 2021-10-25 11:32 | PM.IMPN ---
Progress Note: A&P Assessment and Plan (1) Encephalopathy: Code(s): G93.40 - Encephalopathy, unspecified Status: Acute Assessment and Plan: Multifactorial - sedation, anxiety, acute critical care illness, side effect of steroids. -patient with anxiety, agitation, restless, trying to climb out of the bed, did open his eyes and nodded to understanding that we will take the breathing tube out - CT Brain 10/24: No acute intracranial findings, chronic age-related findings -will discontinue steroids, could be causing his agitation -Precedex was discontinued on 10/24 -Seroquel was increased. (2) Acute respiratory failure with hypoxia and hypercapnia: Code(s): J96.01 - Acute respiratory failure with hypoxia; J96.02 - Acute respiratory failure with hypercapnia Status: Acute Assessment and Plan: Acute on chronic Respiratory failure secondary to COPD, congestive heart failure, aspiration pneumonia, obesity hypoventilation syndrome Patient intubated on 10/19 He failed his weaning trial due to high RSBI although his ABG was acceptable. Continue full mechanical ventilation support to prevent hypoxemia/hypercarbia and end organ damage. ABG reviewed and PCXR reviewed Discontinue Solu-Medrol Bronchodilators 10/20/2021: Blood cultures negative x2 Continue empiric Unasyn ( started 10/22) continue for 7 days Patient is sedated with fentanyl and Versed infusion, OFF Precedex infusion Continue Seroquel 10/24/2021: Sputum cultures pending 10/24/2021 CT scan the chest has been ordered: Bilateral pleural effusions. (3) CKD (chronic kidney disease), stage III: Qualifiers: Chronic kidney disease stage 3 subtype: stage 3b (GFR 30-44) Qualified Code(s): N18.32 - Chronic kidney disease, stage 3b Code(s): N18.30 - Chronic kidney disease, stage 3 unspecified Status: Acute Assessment and Plan: Acute nonoliguric kidney injury. Baseline state stage III CKD with a creatinine of 1.4 on admission. Likely pre renal acute kidney injury in the setting of over-diuresis. Creatinine worsened this morning, creatinine 2.1 this morning (1.2 on 10/24) -be related to over diuresis, -diuretics were discontinued on 10/24 Monitor urine output, electrolytes and creatinine (4) CHF (congestive heart failure): Code(s): I50.9 - Heart failure, unspecified Status: Acute Assessment and Plan: Patient has cor pulmonale as he has diffuse significant bilateral lower extremity edema and had RV dysfunction on his echo done in the past -echocardiogram 10/15/2021: EF 60-65% diastolic dysfunction grade 1, no pulmonary hypertension a RVSP of 13 mmHg (5) Aspiration pneumonia: Qualifiers: Aspiration pneumonia type: unspecified Laterality: unspecified laterality Lung location: unspecified part of lung Qualified Code(s): J69.0 - Pneumonitis due to inhalation of food and vomit Code(s): J69.0 - Pneumonitis due to inhalation of food and vomit Status: Acute Assessment and Plan: See above Continue Unasyn for 7 days. (6) COPD (chronic obstructive pulmonary disease): Code(s): J44.9 - Chronic obstructive pulmonary disease, unspecified Status: Inactive Assessment and Plan: Currently no evidence of acute exacerbation. Solu-Medrol was stopped. Continue bronchodilators, mechanical ventilation -ABG did not reveal hypercapnia (7) Right ventricular dysfunction: Code(s): I51.9 - Heart disease, unspecified Status: Acute Assessment and Plan: Patient has evidence of right heart failure which was confirmed on echo in the past. His most recent echo not visualize RV Cautious diuresis as patient is overall volume overloaded but may be sensitive to intravascular volume depletion (8) Suspected COVID-19 virus infection: Code(s): Z20.822 - Contact with and (suspected) exposure to COVID-19 Status: Acute Assessment and Plan: COVID-19 suspected.
--- NOTE | 2021-10-25 12:16 | PM.PNPUL ---
Progress Note: A&P Assessment and Plan (1) Acute respiratory failure with hypoxia and hypercapnia: Code(s): J96.01 - Acute respiratory failure with hypoxia; J96.02 - Acute respiratory failure with hypercapnia Status: Acute Assessment and Plan: Chest CT showed bilateral pleural effusions with associated small atelectasis. No significant consolidations to suggest lower respiratory tract infection. Patient's acute mental status changes are the limiting factor of inability to wean. Case was discussed with the intensive care unit team. (2) Obesity: Qualifiers: Obesity type: due to excess calories Obesity classification: adult class 3 (BMI >= 40) Serious obesity comorbidity presence: unspecified whether serious comorbidity present Body mass index: BMI 40.0-44.9 Qualified Code(s): E66.01 - Morbid (severe) obesity due to excess calories; Z68.41 - Body mass index [BMI] 40.0-44.9, adult Code(s): E66.9 - Obesity, unspecified Status: Acute (3) Pleural effusion: Code(s): J90 - Pleural effusion, not elsewhere classified Status: Acute Subjective Date/time seen: 10/25/21 12:16 no significant change in patient's respiratory status. He remains sedated on mechanical ventilation. Still agitated. Review of Systems Review of Systems: ROS unobtainable: Yes unobtainable due to endotracheal tube, unobtainable due to medical condition and unobtainable due to mental status Exam Narrative: GENERAL APPEARANCE: Well developed, well nourished, morbidly obese individual, sedated and mechanically ventilated SKIN: Inspection of the skin reveals no rashes, ulcerations or petechiae. HEENT: Sclerae anicteric and conjunctivae pink and moist. NECK: Supple. There were no masses felt.. LUNGS: Auscultation of the lungs revealed decreased breath sounds and crackles at bases posteriorly no wheezing. CARDIAC: There was a regular rate and rhythm without any murmurs, gallops, rubs. ABDOMEN: Soft with normal bowel sounds. There was no organomegaly. LYMPH NODES: No lymphadenopathy was appreciated in the neck. EXTREMITIES: No clubbing or edema. Objective Data Vital Signs Vital Signs: Vital Signs - 24 hr 10/24/21 12:51 10/24/21 14:00 10/24/21 14:10 Temperature Pulse Rate 75 85 102 H Respiratory Rate 22 H 23 H 24 H Blood Pressure 142/79 H Pulse Oximetry 92 10/24/21 14:12 10/24/21 14:17 10/24/21 14:55 Temperature Pulse Rate 124 H 127 H 119 H Respiratory Rate 18 34 H Blood Pressure Pulse Oximetry 93 10/24/21 16:00 10/24/21 16:12 10/24/21 16:15 Temperature 37.1 C Pulse Rate 124 H 124 H 126 H Respiratory Rate 34 H 34 H Blood Pressure 129/90 Pulse Oximetry 96 91 10/24/21 16:37 10/24/21 16:38 10/24/21 17:10 Temperature Pulse Rate 135 H 135 H 101 H Respiratory Rate 34 H 34 H 22 H Blood Pressure 101/67 Pulse Oximetry 91 10/24/21 18:00 10/24/21 18:10 10/24/21 20:00 Temperature 36.9 C Pulse Rate 70 70 81 Respiratory Rate 23 H 22 H 22 H Blood Pressure 84/55 L 86/67 L Pulse Oximetry 90 90 10/24/21 20:06 10/24/21 20:07 10/24/21 21:05 Temperature Pulse Rate 71 72 70 Respiratory Rate 22 H 22 H 22 H Blood Pressure Pulse Oximetry 10/24/21 21:06 10/24/21 21:23 10/24/21 21:41 Temperature Pulse Rate 70 79 69 Respiratory Rate 22 H 22 H Blood Pressure 86/67 L Pulse Oximetry 91 90 10/24/21 22:34 10/24/21 23:01 10/24/21 23:41 Temperature Pulse Rate 91 94 94 Respiratory Rate 22 H 22 H 22 H Blood Pressure Pulse Oximetry 10/25/21 00:00 10/25/21 00:24 10/25/21 02:00 Temperature Pulse Rate 104 H 89 75 Respiratory Rate 22 H 20 Blood Pressure 91/56 L 101/67 Pulse Oximetry 92 88 L 94 10/25/21 02:37 10/25/21 02:38 10/25/21 02:47 Temperature Pulse Rate 88 88 91 Respiratory Rate 23 H 23 H Blood Pressure Pulse Oximetry 91 10/25/21 04:00 10/25/21 04:15 10/25/21 05:18 Temperature
[2021-10-25] MEDS: SODIUM CHLORIDE 0.9% IV 1,000 ML 999 ML IV CONT (12:55)
[2021-10-25 13:46] LABS: Glucose Point of Care 103 mg/dl (65-105)
[2021-10-25] MEDS: PHENYLEPHRINE 1,000 MCG/10 ML SYRINGE 20 MCG IV PUSH (14:40)
[2021-10-25] MEDS: hetaSTARCH 6%/NACL 500 ML 250 ML IV CONT (15:51)
[2021-10-25] MEDS: METOCLOPRAMIDE HCL INJ 10 MG/2 ML VIAL 5 MG IV PUSH ×2 (15:59→17:09)
[2021-10-25] MEDS: NOREPINEPHRINE 8 MG/D5W 250 ML 8 MG/250 ML BAG 9.38 MG IV CONT (16:00)
[2021-10-25] MEDS: CENTRAL LINE FLUSH 10 ML IV PUSH ×2 (17:10→21:10)
[2021-10-25 17:37] LABS: Glucose Point of Care 147 mg/dl (65-105)
[2021-10-26] VITALS (35 sets, daily range): BP systolic 86–137; BP diastolic 51–76; PULSE 56–99; RESP 12–22; TEMP 36.6–37.7; O2SAT 90–95
[2021-10-26 00:10] LABS: Glucose Point of Care 104 mg/dl (65-105)
[2021-10-26] MEDS: FENTANYL 2,500MCG/NS250ML(*CRX 2,500 MCG/250 ML BAG 20 MCG IV CONT ×4 (00:12→23:29)
[2021-10-26] MEDS: METOCLOPRAMIDE HCL INJ 10 MG/2 ML VIAL 5 MG IV PUSH ×5 (00:23→23:44)
[2021-10-26] MEDS: ALBUTEROL SULFATE NEB 2.5 MG/0.5 ML INH 5 MG INHALATION ×4 (02:28→20:07)
[2021-10-26] MEDS: IPRATROPIUM BR 0.02% INH SOLN 0.5 MG/2.5 ML VIAL INHALATION ×4 (02:29→20:07)
[2021-10-26] MEDS: MIDAZOLAM HCL (*CRX) 2 MG/2 ML VIAL IV PUSH (03:14)
[2021-10-26] MEDS: AMPICILLIN SULB 3 GM/NS 100 ML 3 GM/100 ML VIAL IVPB ×4 (03:28→19:52)
[2021-10-26 05:03] LABS: Alveolar/Arterial O2 Gradient 144.1 mmHg; Base Excess ABG 5.5 mEq/l (+/-2.0); Carboxyhemoglobin 0.5 % THb (0-2.0); Device VENTILATOR; Fractional Inspired Oxygen 35 %; HCO3 ABG 29.5 mEq/l (22.0-26.0); Methemoglobin ABG 0.3 %THb (0-1.5); Modified Allen's Test Pass; Oxygen Content ABG 18.1 %vol (16.0-22.0); PCO2 ABG 40.6 mmHg (35.0-45.0); PO2 ABG 58.3 mmHg (80.0-100.0); PO2 FiO2 Ratio Arterial Blood 1.67 %; Reduced Hemoglobin 10.2 %THb (0-5.0); Site Drawn LEFT RADIAL; Total Hemoglobin 14.5 g/dL (12.0-18.0); pH ABG 7.479 (7.350-7.450)
[2021-10-26 05:04] LABS: Arterial Blood Gas PEEP 5 cmH2O; Arterial Blood Gas Vent Mode PRESSURE CONTROL; Arterial Blood Gas Ventilator rate 22 /MIN
[2021-10-26 05:05] LABS: Arterial Blood Gas Pressure Support 35 cmH2O
[2021-10-26] MEDS: ALPRAZolam (*CRX) 0.25 MG TABLET PO (05:16)
[2021-10-26] MEDS: CENTRAL LINE FLUSH 10 ML IV PUSH ×4 (05:17→19:53)
[2021-10-26 05:58] LABS: Hematocrit 40.4 % (42.0-52.0); Hemoglobin 12.6 g/dL (14.0-18.0); Immature Platelet Fraction Pct 9.5 % (0.9-11.2); Mean Corpuscular HGB Conc 31.2 g/dl (32-36); Mean Corpuscular Hemoglobin 29.9 pg (26-34); Mean Corpuscular Volume 95.7 fl (80-100); Platelet Count Result 98 k/mm3 (150-375); Red Blood Count 4.22 M/mm3 (4.6-6.20)
[2021-10-26 05:59] LABS: Glucose Point of Care 84 mg/dl (65-105)
[2021-10-26 06:11] LABS: Alanine Aminotransferase 122 U/L (4-50); Albumin Level 2.4 g/dL (3.5-5.1); Alkaline Phosphatase 59 U/L (38-126); Anion Gap 3 mmol/L (8-16); Aspartate Amino Transferase 46 U/L (17-59); Bilirubin,Total 1.1 mg/dL (0.2-1.3); Blood Urea Nitrogen 56 mg/dL (9-20); Calcium 7.1 mg/dL (8.4-10.2); Carbon Dioxide 30 mmol/L (22-30); Chloride 110 mmol/L (98-107); Estimated CRCL calculation 39 ml/min; Estimated Glomerular Filt Rate 34; Glucose 140 mg/dL (65-110); Magnesium 2.4 mg/dL (1.6-2.3); Phosphorus 3.3 mg/dL (2.5-4.5); Potassium 3.3 mmol/L (3.4-5.0); Sodium 143 mmol/L (137-145)
[2021-10-26] MEDS: BUDESONIDE RESPULE NEB 0.5 MG/2 ML AMP INHALATION ×2 (08:01→20:07)
[2021-10-26] MEDS: MIDAZOLAM 100MG/NS 100ML(*CRX) 100 MG/100 ML BAG 6 MG IV CONT ×2 (08:10→23:28)
--- NOTE | 2021-10-26 08:46 | P.PNINT_ITS ---
Progress Note: A&P Assessment and Plan (1) Encephalopathy: Code(s): G93.40 - Encephalopathy, unspecified Status: Acute Assessment and Plan: Multifactorial - sedation, anxiety, acute critical care illness -patient with anxiety, agitation, restless, trying to climb out of the bed, did open his eyes and nodded to understanding that we will take the breathing tube out - CT Brain 10/24: No acute intracranial findings, chronic age-related findings -will discontinue steroids, could be causing his agitation -Precedex was discontinued on 10/24 -will increase Seroquel Multifactorial - sedation, anxiety, acute critical care illness -patient with anxiety, agitation, restless, trying to climb out of the bed, did open his eyes and nodded to understanding that we will take the breathing tube out - CT Brain 10/24: No acute intracranial findings, chronic age-related findings -will discontinue steroids, could be causing his agitation -Precedex was discontinued on 10/24 as it did not help him -patient had severe hypotension which could be related to Seroquel -which was discontinued (2) Acute respiratory failure with hypoxia and hypercapnia: Code(s): J96.01 - Acute respiratory failure with hypoxia; J96.02 - Acute respiratory failure with hypercapnia Status: Acute Assessment and Plan: Acute on chronic Respiratory failure secondary to COPD, congestive heart failure, aspiration pneumonia, obesity hypoventilation syndrome Patient intubated on 10/19 He failed his weaning trial due to high RSBI although his ABG was acceptable. Continue full mechanical ventilation support to prevent hypoxemia/hypercarbia and end organ damage. ABG reviewed and PCXR reviewed Discontinue Solu-Medrol Bronchodilators 10/20/2021: Blood cultures negative x2 Continue empiric Unasyn ( started 10/22) continue for 7 days 10/24/2021: Sputum cultures: No growth 10/24/2021 bilateral pleural effusions and atelectasis Patient is sedated with fentanyl and Versed infusion, OFF Precedex infusion. Off Seroquel due to possible hypotension 10/24/2021: Sputum cultures pending 10/24/2021 CT scan the chest has been ordered (3) CKD (chronic kidney disease), stage III: Qualifiers: Chronic kidney disease stage 3 subtype: stage 3b (GFR 30-44) Qualified Code(s): N18.32 - Chronic kidney disease, stage 3b Code(s): N18.30 - Chronic kidney disease, stage 3 unspecified Status: Acute Assessment and Plan: Creatinine worsened this morning, creatinine 2.1 this morning (1.2 on 10/24) -be related to over diuresis, -diuretics were discontinued on 10/24 -patient received IV fluids for hypotension, creatinine 1.9 this morning (from 2.1 yesterday) Monitor urine output, electrolytes and creatinine (4) CHF (congestive heart failure): Code(s): I50.9 - Heart failure, unspecified Status: Acute Assessment and Plan: Patient has cor pulmonale as he has diffuse significant bilateral lower extremity edema and had RV dysfunction on his echo done in the past -echocardiogram 10/15/2021: EF 60-65% diastolic dysfunction grade 1, no pulmonary hypertension a RVSP of 13 mmHg (5) Aspiration pneumonia: Qualifiers: Aspiration pneumonia type: unspecified Laterality: unspecified laterality Lung location: unspecified part of lung Qualified Code(s): J69.0 - Pneumonitis due to inhalation of food and vomit Code(s): J69.0 - Pneumonitis due to inhalation of food and vomit Status: Acute Assessment and Plan: See above (6) COPD (chronic obstructive pulmonary disease):
[2021-10-26] MEDS: ENOXAPARIN 40 MG/0.4 ML SYRINGE SUB-Q (09:15)
[2021-10-26] MEDS: FAMOTIDINE 20 MG/2 ML VIAL IV PUSH ×2 (09:15→19:53)
[2021-10-26] MEDS: MINERAL OIL/WHITE PETROLATUM OINTMENT 1 APPLIC EACH EYE ×2 (09:15→19:53)
--- NOTE | 2021-10-26 09:15 | PM.IMPN ---
Progress Note: A&P Additional Plan Assessment and Plan (1) Encephalopathy: Code(s): G93.40 - Encephalopathy, unspecified Status: Acute Assessment and Plan: Multifactorial - sedation, anxiety, acute critical care illness -patient with anxiety, agitation, restless, trying to climb out of the bed, did open his eyes and nodded to understanding that we will take the breathing tube out - CT Brain 10/24: No acute intracranial findings, chronic age-related findings -will discontinue steroids, could be causing his agitation -Precedex was discontinued on 10/24 -will increase Seroquel Multifactorial - sedation, anxiety, acute critical care illness -patient with anxiety, agitation, restless, trying to climb out of the bed, did open his eyes and nodded to understanding that we will take the breathing tube out - CT Brain 10/24: No acute intracranial findings, chronic age-related findings -will discontinue steroids, could be causing his agitation -Precedex was discontinued on 10/24 as it did not help him -patient had severe hypotension which could be related to Seroquel -which was discontinued (2) Acute respiratory failure with hypoxia and hypercapnia: Code(s): J96.01 - Acute respiratory failure with hypoxia; J96.02 - Acute respiratory failure with hypercapnia Status: Acute Assessment and Plan: Acute on chronic Respiratory failure secondary to COPD, congestive heart failure, aspiration pneumonia, obesity hypoventilation syndrome Patient intubated on 10/19 He failed his weaning trial due to high RSBI although his ABG was acceptable. Continue full mechanical ventilation support to prevent hypoxemia/hypercarbia and end organ damage. ABG reviewed and PCXR reviewed Discontinue Solu-Medrol Bronchodilators 10/20/2021: Blood cultures negative x2 Continue empiric Unasyn ( started 10/22) continue for 7 days 10/24/2021: Sputum cultures: No growth 10/24/2021 bilateral pleural effusions and atelectasis Patient is sedated with fentanyl and Versed infusion, OFF Precedex infusion. Off Seroquel due to possible hypotension 10/24/2021: Sputum cultures pending 10/24/2021 CT scan the chest has been ordered (3) CKD (chronic kidney disease), stage III: Qualifiers: Chronic kidney disease stage 3 subtype: stage 3b (GFR 30-44) Qualified Code(s): N18.32 - Chronic kidney disease, stage 3b Code(s): N18.30 - Chronic kidney disease, stage 3 unspecified Status: Acute Assessment and Plan: Creatinine worsened this morning, creatinine 2.1 this morning (1.2 on 10/24) -be related to over diuresis, -diuretics were discontinued on 10/24 -patient received IV fluids for hypotension, creatinine 1.9 this morning (from 2.1 yesterday) Monitor urine output, electrolytes and creatinine (4) CHF (congestive heart failure): Code(s): I50.9 - Heart failure, unspecified Status: Acute Assessment and Plan: Patient has cor pulmonale as he has diffuse significant bilateral lower extremity edema and had RV dysfunction on his echo done in the past -echocardiogram 10/15/2021: EF 60-65% diastolic dysfunction grade 1, no pulmonary hypertension a RVSP of 13 mmHg (5) Aspiration pneumonia: Qualifiers: Aspiration pneumonia type: unspecified Laterality: unspecified laterality Lung location: unspecified part of lung Qualified Code(s): J69.0 - Pneumonitis due to inhalation of food and vomit Code(s): J69.0 - Pneumonitis due to inhalation of food and vomit Status: Acute Assessment and Plan: See above (6) COPD (chronic obstructive pulmonary disease): Code(s): J44.9 - Chronic obstructive pulmonary disease, unspecified Status: Inactive Assessment and Plan: Continue bronchodilators, Solu-Medrol daily, mechanical ventilation -ABG did not reveal hypercapnia (7) Right ventricular dysfunction: Code(s): I51.9 - Heart disease, unspecified Status: Acute Assess
[2021-10-26] MEDS: QUEtiapine FUMARATE 25 MG TABLET 50 MG PO ×2 (09:16→19:53)
[2021-10-26] MEDS: polyethylene glycoL 3350 17 GM POWD.PACK PO (09:16)
[2021-10-26 12:26] LABS: Glucose Point of Care 111 mg/dl (65-105)
[2021-10-26] MEDS: ALPRAZolam (*CRX) 0.5 MG TABLET PO ×2 (14:27→19:53)
[2021-10-26 18:20] LABS: Glucose Point of Care 95 mg/dl (65-105)
[2021-10-26 23:34] LABS: Glucose Point of Care 103 mg/dl (65-105)
[2021-10-27] VITALS (30 sets, daily range): BP systolic 100–137; BP diastolic 56–95; PULSE 77–106; RESP 22–88; TEMP 36.8–38.2; O2SAT 91–97
[2021-10-27] MEDS: AMPICILLIN SULB 3 GM/NS 100 ML 3 GM/100 ML VIAL IVPB (02:38)
[2021-10-27] MEDS: IPRATROPIUM BR 0.02% INH SOLN 0.5 MG/2.5 ML VIAL INHALATION ×3 (02:56→19:58)
[2021-10-27] MEDS: ALBUTEROL SULFATE NEB 2.5 MG/0.5 ML INH 5 MG INHALATION ×3 (02:56→19:58)
[2021-10-27 04:58] LABS: Hematocrit 38.3 % (42.0-52.0); Hemoglobin 12.1 g/dL (14.0-18.0); Mean Corpuscular HGB Conc 31.6 g/dl (32-36); Mean Corpuscular Hemoglobin 29.7 pg (26-34); Mean Corpuscular Volume 94.1 fl (80-100); Mean Platelet Volume 12.2 fl (7.4-10.4); Platelet Count Result 88 k/mm3 (150-375); Red Blood Count 4.07 M/mm3 (4.6-6.20); Red Cell Distribution Width 15.1 % (11.5-14.5); White Blood Count 10.1 K/mm3 (4.5-10.0)
[2021-10-27] MEDS: CENTRAL LINE FLUSH 10 ML IV PUSH ×4 (05:06→22:18)
[2021-10-27] MEDS: METOCLOPRAMIDE HCL INJ 10 MG/2 ML VIAL 5 MG IV PUSH (05:07)
[2021-10-27] MEDS: ALPRAZolam (*CRX) 0.5 MG TABLET PO (05:16)
[2021-10-27 05:17] LABS: Alanine Aminotransferase 82 U/L (4-50); Albumin Level 2.6 g/dL (3.5-5.1); Alkaline Phosphatase 57 U/L (38-126); Anion Gap 3 mmol/L (8-16); Aspartate Amino Transferase 28 U/L (17-59); Bilirubin,Total 1.2 mg/dL (0.2-1.3); Blood Urea Nitrogen 56 mg/dL (9-20); Calcium 7.6 mg/dL (8.4-10.2); Carbon Dioxide 30 mmol/L (22-30); Chloride 114 mmol/L (98-107); Estimated CRCL calculation 35 ml/min; Estimated Glomerular Filt Rate 31; Glucose 102 mg/dL (65-110); Magnesium 2.5 mg/dL (1.6-2.3); Potassium 3.8 mmol/L (3.4-5.0); Sodium 147 mmol/L (137-145)
[2021-10-27 06:07] LABS: Base Excess ABG 3.8 mEq/l (+/-2.0); Carboxyhemoglobin 0.3 % THb (0-2.0); Fractional Inspired Oxygen 40 %; HCO3 ABG 25.9 mEq/l (22.0-26.0); Methemoglobin ABG 0.2 %THb (0-1.5); Oxygen Content ABG 17.5 %vol (16.0-22.0); Oxygen Saturation ABG 95.8 % (95.0-100.0); Oxyhemoglobin 93.3 % THb (90.0-100.0); PCO2 ABG 31.6 mmHg (35.0-45.0); PO2 ABG 69.9 mmHg (80.0-100.0); PO2 FiO2 Ratio Arterial Blood 1.75 %; Reduced Hemoglobin 6.2 %THb (0-5.0); Total Hemoglobin 13.3 g/dL (12.0-18.0)
[2021-10-27 06:11] LABS: pH ABG 7.532 (7.350-7.450)
[2021-10-27 06:12] LABS: Arterial Blood Gas Ventilator rate 22 /MIN; Device VENTILATOR; Modified Allen's Test Pass; Site Drawn RIGHT RADIAL
[2021-10-27 06:13] LABS: Arterial Blood Gas PEEP 8 cmH2O; Arterial Blood Gas Vent Mode PRESSURE CONTROL; Peak Inspiratory Pressure 35 cmH2O
[2021-10-27] MEDS: BUDESONIDE RESPULE NEB 0.5 MG/2 ML AMP INHALATION ×2 (08:20→19:58)
--- NOTE | 2021-10-27 08:55 | PCNFU ---
Nutrition Follow-Up Complete: Inadequate Oral Intake as related to mechanical ventilation as evidenced by NPO Goal: Patient to meet estimated caloric needs. Pt. is progressing towards goal. No new goal at this time. Pt current nutrition is Jevity 1.2 at 60 mls per hour over 22 hours per day. Goal rate of 70 mls per hour. Last recorded weight is 133.9 kg. Recommend re-weighing prior to discharge. Bowel Motility: + BM 10/27/2021 Labs Reviewed: Hgb 12.1, Hct 38.3, Alb 2.6, Na 147, GFR 31, BUN 56, Cr 1.10, Mg 2.5 Meds Noted: Albuterol, Xanax, Novolog, Atrovent neb, Versed, Seroquel, Miralax Skin: No skin breakdown at this time. WNL. Additional Notes: Patient is on Jevity 1.2 at 60 mls per hour over 22 hours per day providing pt. with 1584 calories, 73 grams of protein and 1065 mls of water with a 30 ml water flush q4. Pt. is tolerating tube feeding. Will continue to closely monitor residuals and electrolytes. Will monitor every Friday and Friday.
[2021-10-27] MEDS: QUEtiapine FUMARATE 25 MG TABLET 75 MG PO ×2 (08:56→20:17)
[2021-10-27] MEDS: FAMOTIDINE 20 MG/2 ML VIAL IV PUSH ×2 (08:56→20:17)
[2021-10-27] MEDS: MINERAL OIL/WHITE PETROLATUM OINTMENT 1 APPLIC EACH EYE ×2 (08:56→20:17)
[2021-10-27] MEDS: FONDAPARINUX SODIUM 2.5 MG/0.5 ML SYRINGE SUB-Q (09:14)
--- NOTE | 2021-10-27 10:42 | PCNSR ---
On 10/27/21, the student, Sheryl Hinojosa, provided care and completed [facility] documentation on this patient. I have reviewed the student's documentation and agree with the findings.
[2021-10-27 12:02] LABS: Glucose Point of Care 128 mg/dl (65-105)
--- NOTE | 2021-10-27 12:52 | WPDINTPN ---
Progress Note: A&P Assessment and Plan (1) Encephalopathy: Code(s): G93.40 - Encephalopathy, unspecified Status: Acute Assessment and Plan: Multifactorial - sedation, anxiety, acute critical care illness -patient with anxiety, agitation, restless, trying to climb out of the bed, did open his eyes and nodded to understanding that we will take the breathing tube out - CT Brain 10/24: No acute intracranial findings, chronic age-related findings -will discontinue steroids, could be causing his agitation -Precedex was discontinued on 10/24 -will increase Seroquel Multifactorial - sedation, anxiety, acute critical care illness -patient with anxiety, agitation, restless, trying to climb out of the bed, did open his eyes and nodded to understanding that we will take the breathing tube out - CT Brain 10/24: No acute intracranial findings, chronic age-related findings -will discontinue steroids, could be causing his agitation -Precedex was discontinued on 10/24 as it did not help him -will increase dose off Seroquel and Xanax, this will enable us to continue to wean down fentanyl and Versed to off (2) Acute respiratory failure with hypoxia and hypercapnia: Code(s): J96.01 - Acute respiratory failure with hypoxia; J96.02 - Acute respiratory failure with hypercapnia Status: Acute Assessment and Plan: Acute on chronic Respiratory failure secondary to COPD, congestive heart failure, aspiration pneumonia, obesity hypoventilation syndrome Patient intubated on 10/19 He failed his weaning trial due to high RSBI although his ABG was acceptable. Continue full mechanical ventilation support to prevent hypoxemia/hypercarbia and end organ damage. ABG reviewed and PCXR reviewed Discontinue Solu-Medrol Bronchodilators 10/20/2021: Blood cultures negative x2 Completed empiric Unasyn for 7 days 10/24/2021: Sputum cultures: No growth 10/24/2021 bilateral pleural effusions and atelectasis Patient is sedated with fentanyl and Versed infusion, OFF Precedex infusion. -increase Seroquel and Xanax 10/24/2021: Growth of normal oropharyngeal wyatt 10/24/2021 CT scan the chest has been ordered (3) CKD (chronic kidney disease), stage III: Qualifiers: Chronic kidney disease stage 3 subtype: stage 3b (GFR 30-44) Qualified Code(s): N18.32 - Chronic kidney disease, stage 3b Code(s): N18.30 - Chronic kidney disease, stage 3 unspecified Status: Acute Assessment and Plan: Creatinine worsened this morning, creatinine 2.1 this morning -be related to over diuresis, -diuretics were discontinued on 10/24 -patient received IV fluids for hypotension, -creatinine stable at 2.1, continue to monitor Monitor urine output, electrolytes and creatinine (4) CHF (congestive heart failure): Code(s): I50.9 - Heart failure, unspecified Status: Acute Assessment and Plan: Patient has cor pulmonale as he has diffuse significant bilateral lower extremity edema and had RV dysfunction on his echo done in the past -echocardiogram 10/15/2021: EF 60-65% diastolic dysfunction grade 1, no pulmonary hypertension a RVSP of 13 mmHg (5) Aspiration pneumonia: Qualifiers: Aspiration pneumonia type: unspecified Laterality: unspecified laterality Lung location: unspecified part of lung Qualified Code(s): J69.0 - Pneumonitis due to inhalation of food and vomit Code(s): J69.0 - Pneumonitis due to inhalation of food and vomit Status: Acute Assessment and Plan: See above (6) COPD (chronic obstructive pulmonary disease): Code(s): J44.9 - Chronic obstructive pulmonary disease, unspecified Status: Inactive Assessment and Plan: Continue bronchodilators, Solu-Medrol daily, mechanical ventilation -ABG did not reveal hypercapnia (7) Right ventricular dysfunction: Code(s): I51.9 - Heart disease, unspecified Status: Acute Assessment and Plan:
[2021-10-27] MEDS: FENTANYL 2,500MCG/NS250ML(*CRX 2,500 MCG/250 ML BAG 12.5 MCG IV CONT (13:07)
[2021-10-27] MEDS: ALPRAZolam (*CRX) 0.5 MG TABLET 1 MG PO ×2 (13:09→22:17)
[2021-10-27] MEDS: MIDAZOLAM 100MG/NS 100ML(*CRX) 100 MG/100 ML BAG IV CONT (17:11)
[2021-10-27] MEDS: ACETAMINOPHEN ELIXIR 325 MG/10.15 ML UDC 650 MG PO (17:11)
[2021-10-27 18:19] LABS: Glucose Point of Care 161 mg/dl (65-105)
[2021-10-28] VITALS (35 sets, daily range): BP systolic 71–118; BP diastolic 46–77; PULSE 78–106; RESP 22–51; TEMP 37.1–37.7; O2SAT 93–98
[2021-10-28 00:03] LABS: Glucose Point of Care 109 mg/dl (65-105)
[2021-10-28] MEDS: ALBUTEROL SULFATE NEB 2.5 MG/0.5 ML INH 5 MG INHALATION ×5 (02:34→20:00)
[2021-10-28] MEDS: IPRATROPIUM BR 0.02% INH SOLN 0.5 MG/2.5 ML VIAL INHALATION ×5 (02:34→20:00)
[2021-10-28 04:53] LABS: Hematocrit 39.1 % (42.0-52.0); Hemoglobin 12.1 g/dL (14.0-18.0); Immature Platelet Fraction Pct 12.9 % (0.9-11.2); Mean Corpuscular HGB Conc 30.9 g/dl (32-36); Mean Corpuscular Hemoglobin 30.1 pg (26-34); Mean Corpuscular Volume 97.3 fl (80-100); Mean Platelet Volume 12.9 fl (7.4-10.4); Platelet Count Result 98 k/mm3 (150-375); Red Blood Count 4.02 M/mm3 (4.6-6.20); Red Cell Distribution Width 15.2 % (11.5-14.5); White Blood Count 11.7 K/mm3 (4.5-10.0)
[2021-10-28 05:10] LABS: Alanine Aminotransferase 61 U/L (4-50); Albumin Level 2.8 g/dL (3.5-5.1); Alkaline Phosphatase 62 U/L (38-126); Anion Gap 5 mmol/L (8-16); Aspartate Amino Transferase 25 U/L (17-59); Bilirubin,Total 1.6 mg/dL (0.2-1.3); Blood Urea Nitrogen 56 mg/dL (9-20); Carbon Dioxide 27 mmol/L (22-30); Chloride 114 mmol/L (98-107); Estimated CRCL calculation 31 ml/min; Estimated Glomerular Filt Rate 26; Glucose 126 mg/dL (65-110); Magnesium 2.7 mg/dL (1.6-2.3); Phosphorus 3.2 mg/dL (2.5-4.5); Potassium 3.8 mmol/L (3.4-5.0); Sodium 146 mmol/L (137-145)
[2021-10-28 05:28] LABS: Alveolar/Arterial O2 Gradient 102.9 mmHg; Base Excess ABG 1.5 mEq/l (+/-2.0); Carboxyhemoglobin 0.2 % THb (0-2.0); Fractional Inspired Oxygen 35 %; HCO3 ABG 26.6 mEq/l (22.0-26.0); Methemoglobin ABG 0.3 %THb (0-1.5); Oxygen Content ABG 18.2 %vol (16.0-22.0); Oxygen Saturation ABG 97.3 % (95.0-100.0); Oxyhemoglobin 95.6 % THb (90.0-100.0); PCO2 ABG 43.7 mmHg (35.0-45.0); PO2 ABG 95.9 mmHg (80.0-100.0); PO2 FiO2 Ratio Arterial Blood 2.74 %; Reduced Hemoglobin 3.9 %THb (0-5.0); Total Hemoglobin 13.5 g/dL (12.0-18.0); pH ABG 7.402 (7.350-7.450)
[2021-10-28 05:29] LABS: Device VENTILATOR; Site Drawn RIGHT RADIAL
[2021-10-28 05:30] LABS: Arterial Blood Gas PEEP 8 cmH2O; Arterial Blood Gas Vent Mode PRESSURE CONTROL; Arterial Blood Gas Ventilator rate 22 /MIN; Peak Inspiratory Pressure 35 cmH2O
[2021-10-28] MEDS: ALPRAZolam (*CRX) 0.5 MG TABLET 1 MG PO ×3 (06:17→21:10)
[2021-10-28] MEDS: CENTRAL LINE FLUSH 10 ML IV PUSH ×4 (06:18→22:42)
[2021-10-28] MEDS: FAMOTIDINE 20 MG/2 ML VIAL IV PUSH ×2 (08:24→21:18)
[2021-10-28] MEDS: QUEtiapine FUMARATE 25 MG TABLET 75 MG PO (08:24)
[2021-10-28] MEDS: polyethylene glycoL 3350 17 GM POWD.PACK PO (08:24)
[2021-10-28] MEDS: FONDAPARINUX SODIUM 2.5 MG/0.5 ML SYRINGE SUB-Q (08:25)
[2021-10-28] MEDS: MINERAL OIL/WHITE PETROLATUM OINTMENT 1 APPLIC EACH EYE ×2 (09:00→22:42)
--- NOTE | 2021-10-28 09:32 | PM.CNNEP ---
Assessment and Plan Assessment and plan (1) Chronic kidney disease, stage 3b: Code(s): N18.32 - Chronic kidney disease, stage 3b Status: Acute Assessment and Plan: Mike has chronic kidney disease. His baseline creatinine seems to be around 1.5-1.8. His creatinine has been up and down during the hospitalization. This is most likely related to fluid status, protein intake, blood pressure, and acute event such as hypotension and sepsis. Today the creatinine is higher than it has been at 2.4. Renal ultrasound is unremarkable. Will check urine electrolytes and urinalysis. Etiology of the renal insufficiency could be: Variation in creatinine. Number can go up and down, however this time it is higher than usual. Obstruction. He does have a Cat catheter in his renal ultrasound rules this out. Parenchymal renal disease: The patient could have ATN. However his respiratory status has been improving. His blood pressure is a little bit soft today. He has been getting diuretics to improve his swelling which has helped. The patient might have a bit of pre renal azotemia. However we want to keep fluid status optimized to help wean him from the ventilator. At this point we will just observe this. He is not currently on any antihypertensives or diuretics. Pre renal issues: He does have significant right ventricular dysfunction. So he probably does have chronic pre renal azotemia even when he is not this sick. So this is probably in the background at all times. Under these circumstances, mildly it is necessary for her creatinine to be higher in order to achieve proper volume status. (2) Acute respiratory failure with hypoxia and hypercapnia: Code(s): J96.01 - Acute respiratory failure with hypoxia; J96.02 - Acute respiratory failure with hypercapnia Status: Acute Assessment and Plan: The patient is on the ventilator. O2 settings are doing pretty well. (3) Pneumonia: Qualifiers: Pneumonia type: due to unspecified organism Laterality: bilateral Lung location: unspecified part of lung Qualified Code(s): J18.9 - Pneumonia, unspecified organism Code(s): J18.9 - Pneumonia, unspecified organism Status: Acute Assessment and Plan: He received antibiotics. (4) Hypertension: Code(s): I10 - Essential (primary) hypertension Status: Acute Assessment and Plan: Blood pressure is a bit soft. (5) BPH (benign prostatic hyperplasia): Qualifiers: Lower urinary tract symptom presence: symptoms present Lower urinary tract symptom detail: weak urinary stream Qualified Code(s): N40.1 - Benign prostatic hyperplasia with lower urinary tract symptoms; R39.12 - Poor urinary stream Code(s): N40.0 - Benign prostatic hyperplasia without lower urinary tract symptoms Status: Acute Assessment and Plan: He has a Cat catheter in (6) Right ventricular dysfunction: Code(s): I51.9 - Heart disease, unspecified Status: Acute Assessment and Plan: This is probably due to COPD and sleep apnea. History of Present Illness Reason for Consult Consult date: 10/28/21 Chief Complaint Chief complaint: Hypercapnic respiratory failure/COPD exacerbation History of Present Illness Narrative: Mike is an unfortunate 81-year-old gentleman who has multiple medical problems including sleep apnea, COPD, hyperlipidemia, hypertension, abdominal aortic aneurysm, anxiety, BPH, chronic kidney disease stage 3, gout, and right ventricular dysfunction. The patient came in the hospital on the with shortness of breath. He was seen in the emergency room. He worsened over the few hours he was there and ended up being intubated and admitted to the ICU. He has been on supportive care since then. His initial chest x-ray showed cardiomegaly and by basilar pulmonary infiltrates. This seems to have been unchanged. During the last 7 days respiratory statu
[2021-10-28] MEDS: BUDESONIDE RESPULE NEB 0.5 MG/2 ML AMP INHALATION ×2 (09:52→20:00)
[2021-10-28 10:06] LABS: Creatinine Urine 151.9 mg/dL
[2021-10-28 10:07] LABS: Potassium Urine Random 63.9 meq/L; Sodium Urine Random 38 meq/L
[2021-10-28 10:11] LABS: Eosinophil Urine None Seen % (None Seen)
--- NOTE | 2021-10-28 11:15 | P.PNIM_ITS ---
Progress Note: A&P Assessment and Plan (1) Encephalopathy: Code(s): G93.40 - Encephalopathy, unspecified Status: Acute Assessment and Plan: Multifactorial - sedation, anxiety, acute critical care illness -patient with anxiety, agitation, restless, trying to climb out of the bed, did open his eyes and nodded to understanding that we will take the breathing tube out - CT Brain 10/24: No acute intracranial findings, chronic age-related findings -will discontinue steroids, could be causing his agitation -Precedex was discontinued on 10/24 -will increase Seroquel Multifactorial - sedation, anxiety, acute critical care illness -patient with anxiety, agitation, restless, trying to climb out of the bed, did open his eyes and nodded to understanding that we will take the breathing tube out - CT Brain 10/24: No acute intracranial findings, chronic age-related findings -will discontinue steroids, could be causing his agitation -Precedex was discontinued on 10/24 as it did not help him -will increase dose off Seroquel and Xanax, this will enable us to continue to wean down fentanyl and Versed to off (2) Acute respiratory failure with hypoxia and hypercapnia: Code(s): J96.01 - Acute respiratory failure with hypoxia; J96.02 - Acute respiratory failure with hypercapnia Status: Acute Assessment and Plan: Acute on chronic Respiratory failure secondary to COPD, congestive heart failure, aspiration pneumonia, obesity hypoventilation syndrome Patient intubated on 10/19 He failed his weaning trial due to high RSBI although his ABG was acceptable. Continue full mechanical ventilation support to prevent hypoxemia/hypercarbia and end organ damage. ABG reviewed and PCXR reviewed Discontinue Solu-Medrol Bronchodilators 10/20/2021: Blood cultures negative x2 Completed empiric Unasyn for 7 days 10/24/2021: Sputum cultures: No growth 10/24/2021 bilateral pleural effusions and atelectasis Patient is sedated with fentanyl and Versed infusion, OFF Precedex infusion. -increase Seroquel and Xanax 10/24/2021: Growth of normal oropharyngeal wyatt 10/24/2021 CT scan the chest has been ordered (3) CKD (chronic kidney disease), stage III: Qualifiers: Chronic kidney disease stage 3 subtype: stage 3b (GFR 30-44) Qualified Code(s): N18.32 - Chronic kidney disease, stage 3b Code(s): N18.30 - Chronic kidney disease, stage 3 unspecified Status: Acute Assessment and Plan: Creatinine worsened this morning, creatinine 2.1 this morning -be related to over diuresis, -diuretics were discontinued on 10/24 -patient received IV fluids for hypotension, -creatinine stable at 2.1, continue to monitor Monitor urine output, electrolytes and creatinine (4) CHF (congestive heart failure): Code(s): I50.9 - Heart failure, unspecified Status: Acute Assessment and Plan: Patient has cor pulmonale as he has diffuse significant bilateral lower extremity edema and had RV dysfunction on his echo done in the past -echocardiogram 10/15/2021: EF 60-65% diastolic dysfunction grade 1, no pulmonary hypertension a RVSP of 13 mmHg (5) Aspiration pneumonia: Qualifiers: Aspiration pneumonia type: unspecified Laterality: unspecified laterality Lung location: unspecified part of lung Qualified Code(s): J69.0 - Pneumonitis due to inhalation of food and vomit Code(s): J69.0 - Pneumonitis due to inhalation of food and vomit Status: Acute Assessment and Plan: See above (6) COPD (chronic obstructive pulmonary disease): Cod
[2021-10-28 11:46] LABS: Creatine Kinase 42 U/L (55-170)
[2021-10-28 11:53] LABS: Complement C3 103 mg/dL (88-165)
[2021-10-28 12:07] LABS: Glucose Point of Care 119 mg/dl (65-105)
[2021-10-28 12:26] LABS: Parathyroid Intact 317.6 pg/mL (7.5-53.5)
[2021-10-28 12:52] LABS: Erythrocyte Sedimentation Rate 41 mm/hr (0-20)
--- NOTE | 2021-10-28 13:41 | WPDINTPN ---
Progress Note: A&P Assessment and Plan (1) Encephalopathy: Code(s): G93.40 - Encephalopathy, unspecified Status: Acute Assessment and Plan: Multifactorial - sedation, anxiety, acute critical care illness -patient with anxiety, agitation, restless, trying to climb out of the bed, did open his eyes and nodded to understanding that we will take the breathing tube out - CT Brain 10/24: No acute intracranial findings, chronic age-related findings -will discontinue steroids, could be causing his agitation -Precedex was discontinued on 10/24 -will increase Seroquel Multifactorial - sedation, anxiety, acute critical care illness -patient with anxiety, agitation, restless, trying to climb out of the bed, did open his eyes and nodded to understanding that we will take the breathing tube out - CT Brain 10/24: No acute intracranial findings, chronic age-related findings -will discontinue steroids, could be causing his agitation -Precedex was discontinued on 10/24 as it did not help him -Versed has been weaned off, currently on fentanyl at 50 mcg/hr infusion. On scheduled Seroquel 75 mg q.12 hours and scheduled Xanax 1 mg Q 8 hours. -patient does not get agitated or climbing out of bed even after his Versed has been discontinued. -will wean Seroquel. (2) Acute respiratory failure with hypoxia and hypercapnia: Code(s): J96.01 - Acute respiratory failure with hypoxia; J96.02 - Acute respiratory failure with hypercapnia Status: Acute Assessment and Plan: Acute on chronic Respiratory failure secondary to COPD, congestive heart failure, aspiration pneumonia, obesity hypoventilation syndrome Patient intubated on 10/19 He failed his weaning trial due to high RSBI although his ABG was acceptable. Continue full mechanical ventilation support to prevent hypoxemia/hypercarbia and end organ damage. ABG reviewed and PCXR reviewed Discontinue Solu-Medrol Bronchodilators 10/20/2021: Blood cultures negative x2 Completed empiric Unasyn for 7 days 10/24/2021: Sputum cultures: No growth 10/24/2021 bilateral pleural effusions and atelectasis Patient currently on fentanyl infusion, off Versed. Decrease dose of Seroquel, continue Xanax -once patient is more awake will try patient on SBT and evaluate for extubation 10/24/2021: Growth of normal oropharyngeal wyatt 10/24/2021 CT scan the chest has been ordered (3) CKD (chronic kidney disease), stage III: Qualifiers: Chronic kidney disease stage 3 subtype: stage 3b (GFR 30-44) Qualified Code(s): N18.32 - Chronic kidney disease, stage 3b Code(s): N18.30 - Chronic kidney disease, stage 3 unspecified Status: Acute Assessment and Plan: Creatinine worsened this morning, creatinine 241 this morning -be related to over diuresis, -diuretics were discontinued on 10/24 -patient received IV fluids for hypotension, -creatinine stable at 2.1, continue to monitor -will give 500 cc of LR -nephrology has been consulted -renal ultrasound is unremarkable for hydronephrosis -urine lytes have been obtained and pending Monitor urine output, electrolytes and creatinine (4) CHF (congestive heart failure): Code(s): I50.9 - Heart failure, unspecified Status: Acute Assessment and Plan: Patient has cor pulmonale as he has diffuse significant bilateral lower extremity edema and had RV dysfunction on his echo done in the past -echocardiogram 10/15/2021: EF 60-65% diastolic dysfunction grade 1, no pulmonary hypertension a RVSP of 13 mmHg (5) Aspiration pneumonia: Qualifiers: Aspiration pneumonia type: unspecified Laterality: unspecified laterality Lung location: unspecified part of lung Qualified Code(s): J69.0 - Pneumonitis due to inhalation of food and vomit Code(s): J69.0 - Pneumonitis due to inhalation of food and vomit Status: Acute Assessment and Plan: See above (6) COPD (chronic obstructive pulmonary d
[2021-10-28] MEDS: LACTATED RINGERS 500 ML 999 ML IV CONT (14:15)
[2021-10-28 15:53] LABS: Creatinine Urine 113.3 mg/dL; Total Protein Urine Random 55 mg/dL; Ur Ttl Prot Creatinine Ratio 0.49 mg/mg (0-0.20)
[2021-10-28 16:06] LABS: Sodium Urine Random 22 meq/L
[2021-10-28] MEDS: MIDAZOLAM HCL (*CRX) 2 MG/2 ML VIAL IV PUSH (16:28)
[2021-10-28] MEDS: FUROSEMIDE INJ 40 MG/4 ML VIAL IV PUSH (16:45)
[2021-10-28 18:37] LABS: Glucose Point of Care 117 mg/dl (65-105)
[2021-10-28] MEDS: FENTANYL 2,500MCG/NS250ML(*CRX 2,500 MCG/250 ML BAG 20 MCG IV CONT (20:30)
[2021-10-28] MEDS: NOREPINEPHRINE 8 MG/D5W 250 ML 8 MG/250 ML BAG 9.38 MG IV CONT (20:33)
[2021-10-28] MEDS: ROCURONIUM BROMIDE 50 MG/5 ML VIAL IV PUSH (20:33)
[2021-10-28] MEDS: QUEtiapine FUMARATE 12.5 MG TABLET 37.5 MG PO (21:13)
[2021-10-29] VITALS (35 sets, daily range): BP systolic 84–134; BP diastolic 54–79; PULSE 54–89; RESP 19–31; TEMP 36.7–37.2; O2SAT 92–98
[2021-10-29 00:03] LABS: Glucose Point of Care 119 mg/dl (65-105)
[2021-10-29] MEDS: IPRATROPIUM BR 0.02% INH SOLN 0.5 MG/2.5 ML VIAL INHALATION ×4 (02:10→21:27)
[2021-10-29] MEDS: ALBUTEROL SULFATE NEB 2.5 MG/0.5 ML INH 5 MG INHALATION ×4 (02:10→21:27)
[2021-10-29] MEDS: MIDAZOLAM 100MG/NS 100ML(*CRX) 100 MG/100 ML BAG IV CONT (02:22)
[2021-10-29 02:48] LABS: Add Urine Microscopic? YES; Appearance Urine Cloudy (Clear); Bilirubin Urine Negative (Negative); Blood Urine 1+ (Negative); Color Urine Amber (Yellow); Glucose Urine UA Negative (Negative); Ketones Urine Negative (Negative); Leukocyte Esterase Ur Negative LEU/UL (NEGATIVE); Mucus Urine Rare /lpf; Nitrate Urine Negative (Negative); Protein Urine 1+ mg/dL (Negative); RBC Urine 21-50 /hpf (0-2); Specific Grav Ur 1.019 (1.001-1.035); Squamous Epithelial Cell Urine Rare /hpf (Few)
[2021-10-29 04:43] LABS: Hematocrit 37.2 % (42.0-52.0); Hemoglobin 11.6 g/dL (14.0-18.0); Mean Corpuscular HGB Conc 31.2 g/dl (32-36); Mean Corpuscular Hemoglobin 30.4 pg (26-34); Mean Corpuscular Volume 97.4 fl (80-100); Platelet Count Result 94 k/mm3 (150-375); Red Blood Count 3.82 M/mm3 (4.6-6.20); White Blood Count 12.7 K/mm3 (4.5-10.0)
[2021-10-29 05:36] LABS: Base Excess ABG 0.7 mEq/l (+/-2.0); Carboxyhemoglobin 0.3 % THb (0-2.0); Device VENTILATOR; Fractional Inspired Oxygen 30 %; HCO3 ABG 23.3 mEq/l (22.0-26.0); Methemoglobin ABG 0.3 %THb (0-1.5); Modified Allen's Test Unable to perform; Oxygen Content ABG 17.8 %vol (16.0-22.0); Oxygen Saturation ABG 98.1 % (95.0-100.0); Oxyhemoglobin 96.7 % THb (90.0-100.0); PO2 ABG 102.5 mmHg (80.0-100.0); PO2 FiO2 Ratio Arterial Blood 3.42 %; Reduced Hemoglobin 2.7 %THb (0-5.0); Site Drawn LEFT RADIAL; pH ABG 7.493 (7.350-7.450)
[2021-10-29 05:37] LABS: Arterial Blood Gas Ventilator rate 22 /MIN
[2021-10-29 05:38] LABS: Arterial Blood Gas PEEP 8 cmH2O; Arterial Blood Gas Vent Mode PRESSURE CONTROL
[2021-10-29 05:39] LABS: Arterial Blood Gas Pressure Support 30 cmH2O
[2021-10-29 05:50] LABS: Alanine Aminotransferase 57 U/L (4-50); Albumin Level 2.9 g/dL (3.5-5.1); Alkaline Phosphatase 63 U/L (38-126); Anion Gap 8 mmol/L (8-16); Aspartate Amino Transferase 31 U/L (17-59); Blood Urea Nitrogen 63 mg/dL (9-20); Calcium 8.6 mg/dL (8.4-10.2); Carbon Dioxide 23 mmol/L (22-30); Chloride 113 mmol/L (98-107); Estimated CRCL calculation 28 ml/min; Estimated Glomerular Filt Rate 23; Glucose 162 mg/dL (65-110); Magnesium 2.8 mg/dL (1.6-2.3); Phosphorus 3.8 mg/dL (2.5-4.5); Potassium 4.1 mmol/L (3.4-5.0); Sodium 144 mmol/L (137-145)
[2021-10-29] MEDS: CENTRAL LINE FLUSH 10 ML IV PUSH ×4 (07:25→22:17)
[2021-10-29] MEDS: ALPRAZolam (*CRX) 0.5 MG TABLET 1 MG PO ×3 (07:25→22:14)
--- NOTE | 2021-10-29 07:30 | PM.PNNEP ---
Progress Note: A&P Assessment and Plan (1) Chronic kidney disease, stage 3b: Code(s): N18.32 - Chronic kidney disease, stage 3b Status: Acute Assessment and Plan: Late entry Mike has chronic kidney disease. His baseline creatinine seems to be around 1.5-1.8. He has acute kidney injury. Creatinine has been up and down through the hospital stay. Yesterday was 2.4 and today it is 2.7. Renal ultrasound is unremarkable with normal size kidneys. Urine electrolytes are pre renal. Urinalysis shows some protein and some blood. He has a Cat catheter in. He could have pre renal azotemia. He was getting diuretics earlier in the hospital stay. However he is still swollen. Because of his rising creatinine, pre renal azotemia coupled with his edema and some fluid on the chest x-ray, will get an echocardiogram. He could have nephrotic syndrome as well leading to swelling and pre renal azotemia. Liver disease could do this as well. However his liver enzymes and bilirubin are doing pretty well. His creatinine has been up and down during the hospitalization. This is most likely related to fluid status, protein intake, blood pressure, and acute event such as hypotension and sepsis. At this point will get a renal ultrasound in see what his urine protein shows. (2) Acute respiratory failure with hypoxia and hypercapnia: Code(s): J96.01 - Acute respiratory failure with hypoxia; J96.02 - Acute respiratory failure with hypercapnia Status: Acute Assessment and Plan: The patient is on the ventilator. O2 settings are doing pretty well. (3) Pneumonia: Qualifiers: Pneumonia type: due to unspecified organism Laterality: bilateral Lung location: unspecified part of lung Qualified Code(s): J18.9 - Pneumonia, unspecified organism Code(s): J18.9 - Pneumonia, unspecified organism Status: Acute Assessment and Plan: He received antibiotics. (4) Hypertension: Code(s): I10 - Essential (primary) hypertension Status: Acute Assessment and Plan: Blood pressure is a bit soft. (5) BPH (benign prostatic hyperplasia): Qualifiers: Lower urinary tract symptom presence: symptoms present Lower urinary tract symptom detail: weak urinary stream Qualified Code(s): N40.1 - Benign prostatic hyperplasia with lower urinary tract symptoms; R39.12 - Poor urinary stream Code(s): N40.0 - Benign prostatic hyperplasia without lower urinary tract symptoms Status: Acute Assessment and Plan: He has a Cat catheter in (6) Right ventricular dysfunction: Code(s): I51.9 - Heart disease, unspecified Status: Acute Assessment and Plan: This is probably due to COPD and sleep apnea. Subjective Date/time seen: 10/29/21 0730 Interval history: Patient is sedated and on the ventilator. Exam Narrative: WDWN in NAD skin no rash head ncat lungs mildly coarse cor reg no rub abd BS+ nontender and soft ext 1 to2+ bilateral edema. Objective Data Vital Signs Vital Signs: Vital Signs - 24 hr 10/29/21 08:00 10/29/21 08:14 10/29/21 08:15 Temperature 36.7 C Pulse Rate 81 79 79 Respiratory Rate 22 H 22 H Blood Pressure 134/67 Pulse Oximetry 96 96 10/29/21 08:31 10/29/21 10:00 10/29/21 10:23 Temperature Pulse Rate 81 80 80 Respiratory Rate 22 H 22 H 22 H Blood Pressure 105/57 L Pulse Oximetry 94 10/29/21 10:24 10/29/21 11:00 10/29/21 12:00 Temperature 36.7 C Pulse Rate 80 77 70 Respiratory Rate 22 H 20 Blood Pressure 96/62 L Pulse Oximetry 94 94 10/29/21 13:22 10/29/21 13:33 10/29/21 13:35 Temperature Pulse Rate 70 64 64 Respiratory Rate 22 H 22 H Blood Pressure Pulse Oximetry 93 10/29/21 14:00 10/29/21 16:00 10/29/21 16:45 Temperature 36.9 C Pulse Rate 66 68 68 Respiratory Rate 22 H 22 H Blood Pressure 94/60 L 102/63 Pulse Oximetry 92 94 93 10/29/21 18:00 1
[2021-10-29] MEDS: BUDESONIDE RESPULE NEB 0.5 MG/2 ML AMP INHALATION ×2 (08:09→21:27)
[2021-10-29] MEDS: FAMOTIDINE 20 MG/2 ML VIAL IV PUSH ×2 (09:09→22:14)
[2021-10-29] MEDS: polyethylene glycoL 3350 17 GM POWD.PACK PO (09:09)
[2021-10-29] MEDS: QUEtiapine FUMARATE 12.5 MG TABLET 37.5 MG PO (09:09)
[2021-10-29] MEDS: MINERAL OIL/WHITE PETROLATUM OINTMENT 1 APPLIC EACH EYE ×2 (09:09→22:14)
[2021-10-29] MEDS: FONDAPARINUX SODIUM 2.5 MG/0.5 ML SYRINGE SUB-Q (09:13)
[2021-10-29] MEDS: dexmedeTOMIDine 400 MCG/100 ML 400 MCG/100 ML BAG 6.75 MCG IV CONT (10:19)
[2021-10-29] MEDS: QUEtiapine FUMARATE 12.5 MG TABLET PO (10:23)
--- NOTE | 2021-10-29 11:54 | PCFNICU ---
ICU Rounding Note: Pt current nutrition is Jevity 1.2 at 70 ml/hr over 22 hours. Last recorded weight of 135 kg, down from 139.8 kg on admit. Bowel Motility:+BM reported 10/27 Labs Reviewed:Glu 161, Cr 2.7,BUN 63,GFR 23, Alb 2.9 Meds Noted:Versed, Precedex, Fentanyl, Levophed, Miralax Skin:WNL Additional Notes: Patient remains on mechanical vent and tube feedings of Jevity 1.2 at 70 ml/hr over 22 hours and tolerating per nursing. Free water flush 100 ml q 4 hours. Agree with diet orders. Following daily in ICU rounds. Assessing/reassessing every Friday and Friday.
--- NOTE | 2021-10-29 12:47 | WPDINTPN ---
Progress Note: A&P Assessment and Plan (1) Encephalopathy: Code(s): G93.40 - Encephalopathy, unspecified Status: Acute Assessment and Plan: Multifactorial - sedation, anxiety, acute critical care illness -patient with anxiety, agitation, restless, trying to climb out of the bed, did open his eyes and nodded to understanding that we will take the breathing tube out - CT Brain 10/24: No acute intracranial findings, chronic age-related findings -will discontinue steroids, could be causing his agitation -10/28/2021: Patient was tachypneic, agitated and was restarted on fentanyl and Versed infusion, also received 1 dose of rocuronium. -10/29/2021: Patient is sedated continue scheduled Seroquel and Xanax, will start weaning fentanyl Versed infusion and restart Precedex -continue Seroquel and schedule Xanax. (2) Acute respiratory failure with hypoxia and hypercapnia: Code(s): J96.01 - Acute respiratory failure with hypoxia; J96.02 - Acute respiratory failure with hypercapnia Status: Acute Assessment and Plan: Acute on chronic Respiratory failure secondary to COPD, congestive heart failure, aspiration pneumonia, obesity hypoventilation syndrome Patient intubated on 10/19 He failed his weaning trial due to high RSBI although his ABG was acceptable. Continue full mechanical ventilation support to prevent hypoxemia/hypercarbia and end organ damage. ABG reviewed and PCXR reviewed Discontinue Solu-Medrol Bronchodilators 10/20/2021: Blood cultures negative x2 Completed empiric Unasyn for 7 days 10/24/2021: Sputum cultures: No growth 10/24/2021 bilateral pleural effusions and atelectasis Patient currently on fentanyl infusion, off Versed. Continue Seroquel and Xanax, decrease fentanyl Versed infusion, will retry Precedex infusion -has been difficult to maintain patient's mentation, high they is completely sedated or agitated, bears down, causing vasovagal symptoms 10/24/2021: Growth of normal oropharyngeal wyatt 10/24/2021 CT scan the chest has been ordered (3) CKD (chronic kidney disease), stage III: Qualifiers: Chronic kidney disease stage 3 subtype: stage 3b (GFR 30-44) Qualified Code(s): N18.32 - Chronic kidney disease, stage 3b Code(s): N18.30 - Chronic kidney disease, stage 3 unspecified Status: Acute Assessment and Plan: Creatinine worsened this morning, creatinine 241 this morning -be related to over diuresis, -diuretics were discontinued on 10/24 -patient received IV fluids for hypotension, -creatinine increased to 2.7, -appreciate nephrology following the patient -renal ultrasound is unremarkable for hydronephrosis -urine lytes not prerenal Monitor urine output, electrolytes and creatinine (4) CHF (congestive heart failure): Code(s): I50.9 - Heart failure, unspecified Status: Acute Assessment and Plan: Patient has cor pulmonale as he has diffuse significant bilateral lower extremity edema and had RV dysfunction on his echo done in the past -echocardiogram 10/15/2021: EF 60-65% diastolic dysfunction grade 1, no pulmonary hypertension a RVSP of 13 mmHg (5) Aspiration pneumonia: Qualifiers: Aspiration pneumonia type: unspecified Laterality: unspecified laterality Lung location: unspecified part of lung Qualified Code(s): J69.0 - Pneumonitis due to inhalation of food and vomit Code(s): J69.0 - Pneumonitis due to inhalation of food and vomit Status: Acute Assessment and Plan: See above (6) COPD (chronic obstructive pulmonary disease): Code(s): J44.9 - Chronic obstructive pulmonary disease, unspecified Status: Inactive Assessment and Plan: Continue bronchodilators, Solu-Medrol daily, mechanical ventilation -ABG did not reveal hypercapnia (7) Right ventricular dysfunction: Code(s): I51.9 - Heart disease, unspecified Status: Acute Assessment and Plan: Patient h
[2021-10-29 13:31] LABS: Glucose Point of Care 107 mg/dl (65-105)
[2021-10-29] MEDS: dexmedeTOMIDine 400 MCG/100 ML 400 MCG/100 ML BAG 10.13 MCG IV CONT (16:57)
--- NOTE | 2021-10-29 17:00 | PM.IMPN ---
Progress Note: A&P Assessment and Plan (1) Encephalopathy: Code(s): G93.40 - Encephalopathy, unspecified Status: Acute Assessment and Plan: Multifactorial - sedation, anxiety, acute critical care illness -patient with anxiety, agitation, restless, trying to climb out of the bed, did open his eyes and nodded to understanding that we will take the breathing tube out - CT Brain 10/24: No acute intracranial findings, chronic age-related findings -will discontinue steroids, could be causing his agitation -10/28/2021: Patient was tachypneic, agitated and was restarted on fentanyl and Versed infusion, also received 1 dose of rocuronium. -10/29/2021 Interval history Patient is sedated continue scheduled Seroquel and Xanax, seen by net application architect started weaning fentanyl Versed infusion and restart Precedex -continue Seroquel and schedule Xanax. appreciate net application architect, Nephrology and engineering faculty. (2) Acute respiratory failure with hypoxia and hypercapnia: Code(s): J96.01 - Acute respiratory failure with hypoxia; J96.02 - Acute respiratory failure with hypercapnia Status: Acute Assessment and Plan: Acute on chronic Respiratory failure secondary to COPD, congestive heart failure, aspiration pneumonia, obesity hypoventilation syndrome Patient intubated on 10/19 He failed his weaning trial due to high RSBI although his ABG was acceptable. Continue full mechanical ventilation support to prevent hypoxemia/hypercarbia and end organ damage. ABG reviewed and PCXR reviewed Discontinue Solu-Medrol Bronchodilators 10/20/2021: Blood cultures negative x2 Completed empiric Unasyn for 7 days 10/24/2021: Sputum cultures: No growth 10/24/2021 bilateral pleural effusions and atelectasis Patient currently on fentanyl infusion, off Versed. Continue Seroquel and Xanax, decrease fentanyl Versed infusion, will retry Precedex infusion -has been difficult to maintain patient's mentation, high they is completely sedated or agitated, bears down, causing vasovagal symptoms 10/24/2021: Growth of normal oropharyngeal wyatt 10/24/2021 CT scan the chest has been ordered (3) CKD (chronic kidney disease), stage III: Qualifiers: Chronic kidney disease stage 3 subtype: stage 3b (GFR 30-44) Qualified Code(s): N18.32 - Chronic kidney disease, stage 3b Code(s): N18.30 - Chronic kidney disease, stage 3 unspecified Status: Acute Assessment and Plan: Creatinine worsened this morning, creatinine 241 this morning -be related to over diuresis, -diuretics were discontinued on 10/24 -patient received IV fluids for hypotension, -creatinine increased to 2.7, -appreciate nephrology following the patient -renal ultrasound is unremarkable for hydronephrosis -urine lytes not prerenal Monitor urine output, electrolytes and creatinine (4) CHF (congestive heart failure): Code(s): I50.9 - Heart failure, unspecified Status: Acute Assessment and Plan: Patient has cor pulmonale as he has diffuse significant bilateral lower extremity edema and had RV dysfunction on his echo done in the past -echocardiogram 10/15/2021: EF 60-65% diastolic dysfunction grade 1, no pulmonary hypertension a RVSP of 13 mmHg (5) Aspiration pneumonia: Qualifiers: Aspiration pneumonia type: unspecified Laterality: unspecified laterality Lung location: unspecified part of lung Qualified Code(s): J69.0 - Pneumonitis due to inhalation of food and vomit Code(s): J69.0 - Pneumonitis due to inhalation of food and vomit Status: Acute Assessment and Plan: See above (6) COPD (chronic obstructive pulmonary disease): Code(s): J44.9 - Chronic obstructive pulmonary disease, unspecified Status: Inactive Assessment and Plan: Continue bronchodilators, Solu-Medrol daily, mechanical ventilation -ABG did not reveal hypercapnia (7) Right ventricular dysfunction: Code(s): I51.
[2021-10-29 18:27] LABS: Glucose Point of Care 130 mg/dl (65-105)
[2021-10-29 22:11] LABS: Heparin Induced Platelet Antib Negative (Negative)
[2021-10-29] MEDS: QUEtiapine FUMARATE 25 MG TABLET 50 MG PO (22:14)
[2021-10-29] MEDS: dexmedeTOMIDine 400 MCG/100 ML 400 MCG/100 ML BAG 23.63 MCG IV CONT (22:43)
[2021-10-30] VITALS (35 sets, daily range): BP systolic 87–122; BP diastolic 61–81; PULSE 61–92; RESP 12–45; TEMP 36.8–37.3; O2SAT 94–98
[2021-10-30 00:34] LABS: Glucose Point of Care 109 mg/dl (65-105)
[2021-10-30] MEDS: ALBUTEROL SULFATE NEB 2.5 MG/0.5 ML INH 5 MG INHALATION ×4 (02:17→21:40)
[2021-10-30] MEDS: IPRATROPIUM BR 0.02% INH SOLN 0.5 MG/2.5 ML VIAL INHALATION ×4 (02:17→21:40)
[2021-10-30] MEDS: dexmedeTOMIDine 400 MCG/100 ML 400 MCG/100 ML BAG 23.63 MCG IV CONT (02:54)
[2021-10-30 04:39] LABS: Alveolar/Arterial O2 Gradient 84.5 mmHg; Base Excess ABG 0.3 mEq/l (+/-2.0); Carboxyhemoglobin 0.6 % THb (0-2.0); Fractional Inspired Oxygen 30 %; Methemoglobin ABG 0.4 %THb (0-1.5); Oxygen Content ABG 23.5 %vol (16.0-22.0); Oxygen Saturation ABG 96.1 % (95.0-100.0); Oxyhemoglobin 94.5 % THb (90.0-100.0); PCO2 ABG 40.8 mmHg (35.0-45.0); PO2 ABG 81.5 mmHg (80.0-100.0); PO2 FiO2 Ratio Arterial Blood 2.72 %; Reduced Hemoglobin 4.5 %THb (0-5.0); Total Hemoglobin 17.7 g/dL (12.0-18.0); pH ABG 7.405 (7.350-7.450)
[2021-10-30 04:40] LABS: Arterial Blood Gas PEEP 8 cmH2O; Arterial Blood Gas Tidal Volume 450 ml; Arterial Blood Gas Vent Mode CMV; Arterial Blood Gas Ventilator rate 22 /MIN; Device VENTILATOR; Modified Allen's Test Pass; Site Drawn RIGHT RADIAL
--- NOTE | 2021-10-30 06:14 | PM.PNNEP ---
Progress Note: A&P Assessment and Plan (1) Chronic kidney disease, stage 3b: Code(s): N18.32 - Chronic kidney disease, stage 3b Status: Acute Assessment and Plan: Mike has chronic kidney disease. His baseline creatinine seems to be around 1.5-1.8. He has acute kidney injury. Creatinine has been up and down through the hospital stay. It was up to 2.7 yesterday. Today is pending. Renal ultrasound is unremarkable with normal size kidneys. Urine electrolytes are pre renal. Urinalysis shows some protein and some blood. He has a Cat catheter in. He could have pre renal azotemia. He was getting diuretics earlier in the hospital stay. However he is still swollen. Echocardiogram shows good LV function. No tricuspid regurgitation and no pulmonary hypertension. Urine protein is only about 500 mg per g of creatinine so this is not nephrotic syndrome. His albumin is 2.9. This could possibly be contributing to some swelling. The higher creatinine could be from increased metabolic rate I suppose but usually this would be present throughout the hospital stay rather than just now. His blood pressure does rise and fall. During the hospital stay was quite dramatic ranging from 80-160. Perhaps a higher blood pressure would help. He is off antihypertensives. Will see how his creatinine does over the next couple of days. (2) Acute respiratory failure with hypoxia and hypercapnia: Code(s): J96.01 - Acute respiratory failure with hypoxia; J96.02 - Acute respiratory failure with hypercapnia Status: Acute Assessment and Plan: The patient is on the ventilator. O2 settings are doing pretty well. Main barrier to extubation has been his anxiety. (3) Pneumonia: Qualifiers: Pneumonia type: due to unspecified organism Laterality: bilateral Lung location: unspecified part of lung Qualified Code(s): J18.9 - Pneumonia, unspecified organism Code(s): J18.9 - Pneumonia, unspecified organism Status: Acute Assessment and Plan: He received antibiotics. (4) Hypertension: Code(s): I10 - Essential (primary) hypertension Status: Acute Assessment and Plan: Blood pressure is a bit soft at times. Currently pretty good in the low 100s. (5) BPH (benign prostatic hyperplasia): Qualifiers: Lower urinary tract symptom presence: symptoms present Lower urinary tract symptom detail: weak urinary stream Qualified Code(s): N40.1 - Benign prostatic hyperplasia with lower urinary tract symptoms; R39.12 - Poor urinary stream Code(s): N40.0 - Benign prostatic hyperplasia without lower urinary tract symptoms Status: Acute Assessment and Plan: He has a Cat catheter in (6) Right ventricular dysfunction: Code(s): I51.9 - Heart disease, unspecified Status: Acute Assessment and Plan: This is probably due to COPD and sleep apnea. He is on the ventilator. Subjective Date/time seen: 10/30/21 06:14 Interval history: Patient is sedated and on the ventilator. Still on 30% FiO2. Exam Narrative: WDWN in NAD skin no rash or subQ nodules head ncat lungs mildly coarse cor reg no rub or gallop abd BS+ nontender and soft ext 1 to2+ bilateral edema. Objective Data Vital Signs Vital Signs: Vital Signs - 24 hr 10/29/21 08:00 10/29/21 08:14 10/29/21 08:15 Temperature 36.7 C Pulse Rate 81 79 79 Respiratory Rate 22 H 22 H Blood Pressure 134/67 Pulse Oximetry 96 96 10/29/21 08:31 10/29/21 10:00 10/29/21 10:23 Temperature Pulse Rate 81 80 80 Respiratory Rate 22 H 22 H 22 H Blood Pressure 105/57 L Pulse Oximetry 94 10/29/21 10:24 10/29/21 11:00 10/29/21 12:00 Temperature 36.7 C Pulse Rate 80 77 70 Respiratory Rate 22 H 20 Blood Pressure 96/62 L Pulse Oximetry 94 94 10/29/21 13:22 10/29/21 13:33 10/29/21 13:35 Temperature Pulse Rate 70 64 64 Respiratory Rate 22 H 22 H Bl
[2021-10-30 06:48] LABS: Glucose Point of Care 81 mg/dl (65-105)
[2021-10-30] MEDS: ALPRAZolam (*CRX) 0.5 MG TABLET 1 MG PO (07:25)
[2021-10-30] MEDS: CENTRAL LINE FLUSH 10 ML IV PUSH ×4 (07:26→22:50)
[2021-10-30 08:15] LABS: Hematocrit 38.5 % (42.0-52.0); Hemoglobin 11.5 g/dL (14.0-18.0); Immature Platelet Fraction Pct 15.2 % (0.9-11.2); Mean Corpuscular HGB Conc 29.9 g/dl (32-36); Mean Corpuscular Hemoglobin 29.6 pg (26-34); Mean Platelet Volume 13.1 fl (7.4-10.4); Platelet Count Result 116 k/mm3 (150-375); Red Blood Count 3.89 M/mm3 (4.6-6.20); Red Cell Distribution Width 15.1 % (11.5-14.5)
--- NOTE | 2021-10-30 08:31 | P.CDI_ITS ---
CDI Query Clarification Request - Encephalopathy, multifactorial- sedation, anxiety, acute critical care illness has been documented. Please further specify type of encephalopathy: * Metabolic * Toxic * Hepatic * Hypertensive * Anoxic * Other * Unable to determine
--- NOTE | 2021-10-30 08:31 | WPDCDIQUERY2 ---
CDI Query Clarification Request - Encephalopathy, multifactorial- sedation, anxiety, acute critical care illness has been documented. Please further specify type of encephalopathy: Metabolic Toxic Hepatic Hypertensive Anoxic Other Unable to determine
[2021-10-30] MEDS: BUDESONIDE RESPULE NEB 0.5 MG/2 ML AMP INHALATION ×2 (09:06→21:40)
[2021-10-30] MEDS: FONDAPARINUX SODIUM 2.5 MG/0.5 ML SYRINGE SUB-Q (09:39)
[2021-10-30] MEDS: FAMOTIDINE 20 MG/2 ML VIAL IV PUSH ×2 (09:39→20:31)
[2021-10-30] MEDS: MINERAL OIL/WHITE PETROLATUM OINTMENT 1 APPLIC EACH EYE ×2 (09:40→20:31)
[2021-10-30] MEDS: QUEtiapine FUMARATE 25 MG TABLET 50 MG PO ×2 (09:40→20:31)
[2021-10-30] MEDS: polyethylene glycoL 3350 17 GM POWD.PACK PO (09:40)
[2021-10-30 10:06] LABS: Alanine Aminotransferase 64 U/L (4-50); Alkaline Phosphatase 68 U/L (38-126); Anion Gap 6 mmol/L (8-16); Aspartate Amino Transferase 45 U/L (17-59); Bilirubin,Total 0.8 mg/dL (0.2-1.3); Blood Urea Nitrogen 59 mg/dL (9-20); Calcium 8.8 mg/dL (8.4-10.2); Carbon Dioxide 26 mmol/L (22-30); Chloride 112 mmol/L (98-107); Estimated CRCL calculation 33 ml/min; Estimated Glomerular Filt Rate 29; Glucose 114 mg/dL (65-110); Magnesium 2.6 mg/dL (1.6-2.3); Phosphorus 4.9 mg/dL (2.5-4.5); Potassium 4.7 mmol/L (3.4-5.0); Sodium 144 mmol/L (137-145)
[2021-10-30] MEDS: FUROSEMIDE INJ 40 MG/4 ML VIAL IV PUSH (10:09)
[2021-10-30 11:51] LABS: Glucose Point of Care 91 mg/dl (65-105)
[2021-10-30] MEDS: METOCLOPRAMIDE HCL 10 MG TABLET PO ×3 (11:51→20:31)
--- NOTE | 2021-10-30 11:52 | PCNFU ---
Nutrition Follow-Up Complete: Inadequate Oral Intake as related to mechanical ventilation as evidenced by NPO goal: Patient to meet estimated caloric needs. Patient is progressing towards goal. We will continue with current goal. Pt current nutrition is Jevity 1.2 at 70 ml/hr over 22 hours. Last recorded weight is 131 kg, down from 139.8 kg on admit. Bowel Motility:Last reported BM 10/27 Labs Reviewed:GFR 29, BUN 59, Cr 2.2,Glu 114, Alb 3.0 Meds Noted:Precedex, Reglan,Seroquel, Atrovent, Miralax, Pepcid,Arixtra. Skin:WNL Additional Notes: Patient remains on mechanical vent. Nursing reporting high residuals, currently at 40ml/hr on tube feedings. Reglan started. Recommend goal rate of Jevity 1.2 at 70 ml/hr providing 1848 kcals/85 gm protein/1243 ml fluid. Free water flush 100 ml q 4 hours. Agree with diet orders. Will monitor daily in ICU rounds. Reassessing every Friday and Friday.
--- NOTE | 2021-10-30 12:03 | WPDINTPN ---
Progress Note: A&P Assessment and Plan (1) Encephalopathy: Code(s): G93.40 - Encephalopathy, unspecified Status: Acute Assessment and Plan: Multifactorial - sedation, anxiety, acute critical care illness -patient with anxiety, agitation, restless, trying to climb out of the bed, did open his eyes and nodded to understanding that we will take the breathing tube out - CT Brain 10/24: No acute intracranial findings, chronic age-related findings -will discontinue steroids, could be causing his agitation -10/28/2021: Patient was tachypneic, agitated and was restarted on fentanyl and Versed infusion, also received 1 dose of rocuronium. -10/29/2021: Patient is sedated continue scheduled Seroquel and Precedex -continue Seroquel but will discontinue Xanax (2) Acute respiratory failure with hypoxia and hypercapnia: Code(s): J96.01 - Acute respiratory failure with hypoxia; J96.02 - Acute respiratory failure with hypercapnia Status: Acute Assessment and Plan: Acute on chronic Respiratory failure secondary to COPD, congestive heart failure, aspiration pneumonia, obesity hypoventilation syndrome Patient intubated on 10/19 He failed his weaning trial due to high RSBI although his ABG has been acceptable. I placed patient on pressure support and was able to get adequate RSBI with pressure support of 16/8. Continue full mechanical ventilation support to prevent hypoxemia/hypercarbia and end organ damage. Patient may need tracheostomy if unable to be extubated in next few days ABG reviewed and PCXR reviewed Off Solu-Medrol now Bronchodilators 10/20/2021: Blood cultures negative x2 Completed empiric Unasyn for 7 days 10/24/2021: Sputum cultures: No growth 10/24/2021 bilateral pleural effusions and atelectasis 10/29-lower extremity Dopplers were negative for DVT - Off fentanyl and Versed infusion now - Continue Seroquel and Precedex infusion -has been difficult to maintain patient's mentation, high they is completely sedated or agitated, bears down, causing vasovagal symptoms 10/24/2021: Growth of normal oropharyngeal wyatt 10/24/2021 CT scan the chest has been ordered (3) CKD (chronic kidney disease), stage III: Qualifiers: Chronic kidney disease stage 3 subtype: stage 3b (GFR 30-44) Qualified Code(s): N18.32 - Chronic kidney disease, stage 3b Code(s): N18.30 - Chronic kidney disease, stage 3 unspecified Status: Acute Assessment and Plan: Creatinine worsened this morning, creatinine 241 this morning -be related to over diuresis, -diuretics were discontinued on 10/24 -patient received IV fluids for hypotension, -creatinine 2.2 today, -appreciate nephrology following the patient -renal ultrasound is unremarkable for hydronephrosis -urine lytes not prerenal Monitor urine output, electrolytes and creatinine (4) CHF (congestive heart failure): Code(s): I50.9 - Heart failure, unspecified Status: Acute Assessment and Plan: Patient has cor pulmonale as he has diffuse significant bilateral lower extremity edema and had RV dysfunction on his echo done in the past -echocardiogram 10/15/2021: EF 60-65% diastolic dysfunction grade 1, no pulmonary hypertension a RVSP of 13 mmHg (5) Aspiration pneumonia: Qualifiers: Aspiration pneumonia type: unspecified Laterality: unspecified laterality Lung location: unspecified part of lung Qualified Code(s): J69.0 - Pneumonitis due to inhalation of food and vomit Code(s): J69.0 - Pneumonitis due to inhalation of food and vomit Status: Acute Assessment and Plan: See above (6) COPD (chronic obstructive pulmonary disease): Code(s): J44.9 - Chronic obstructive pulmonary disease, unspecified Status: Inactive Assessment and Plan: Continue bronchodilators, Solu-Medrol daily, mechanical ventilation -ABG did not reveal hypercapnia (7) Right ventricular dysfunction: Code(s):
[2021-10-30] MEDS: dexmedeTOMIDine 400 MCG/100 ML 400 MCG/100 ML BAG 10.13 MCG IV CONT (13:20)
[2021-10-30 13:43] LABS: UFH SRA Result Interpretation Negative (Negative)
--- NOTE | 2021-10-30 14:00 | PM.IMPN ---
Progress Note: A&P Assessment and Plan (1) Encephalopathy: Code(s): G93.40 - Encephalopathy, unspecified Status: Acute Assessment and Plan: -10/29/2021 Interval history Patient is sedated continue scheduled Seroquel and Xanax, seen by billboard poster helper started weaning fentanyl Versed infusion and restart Precedex -continue Seroquel and schedule Xanax. appreciate billboard poster helper, Nephrology and financial operations consultant. (2) Acute respiratory failure with hypoxia and hypercapnia: Code(s): J96.01 - Acute respiratory failure with hypoxia; J96.02 - Acute respiratory failure with hypercapnia Status: Acute Assessment and Plan: Acute on chronic Respiratory failure secondary to COPD, congestive heart failure, aspiration pneumonia, obesity hypoventilation syndrome Patient intubated on 10/19 He failed his weaning trial due to high RSBI although his ABG was acceptable. Continue full mechanical ventilation support to prevent hypoxemia/hypercarbia and end organ damage. ABG reviewed and PCXR reviewed Discontinue Solu-Medrol Bronchodilators 10/20/2021: Blood cultures negative x2 Completed empiric Unasyn for 7 days 10/24/2021: Sputum cultures: No growth 10/24/2021 bilateral pleural effusions and atelectasis Patient currently on fentanyl infusion, off Versed. Continue Seroquel and Xanax, decrease fentanyl Versed infusion, will retry Precedex infusion -has been difficult to maintain patient's mentation, high they is completely sedated or agitated, bears down, causing vasovagal symptoms 10/24/2021: Growth of normal oropharyngeal wyatt 10/24/2021 CT scan the chest has been ordered 10/30/2021 Difficult to wean off the ventilator, tracheostomy being considered by family, continue tube feeding and icu care (3) CKD (chronic kidney disease), stage III: Qualifiers: Chronic kidney disease stage 3 subtype: stage 3b (GFR 30-44) Qualified Code(s): N18.32 - Chronic kidney disease, stage 3b Code(s): N18.30 - Chronic kidney disease, stage 3 unspecified Status: Acute Assessment and Plan: Continue to monitor urine output, electrolytes and creatinine (4) CHF (congestive heart failure): Code(s): I50.9 - Heart failure, unspecified Status: Acute Assessment and Plan: Patient has cor pulmonale as he has diffuse significant bilateral lower extremity edema and had RV dysfunction on his echo done in the past -echocardiogram 10/15/2021: EF 60-65% diastolic dysfunction grade 1, no pulmonary hypertension a RVSP of 13 mmHg (5) Aspiration pneumonia: Qualifiers: Aspiration pneumonia type: unspecified Laterality: unspecified laterality Lung location: unspecified part of lung Qualified Code(s): J69.0 - Pneumonitis due to inhalation of food and vomit Code(s): J69.0 - Pneumonitis due to inhalation of food and vomit Status: Acute Assessment and Plan: See above (6) COPD (chronic obstructive pulmonary disease): Code(s): J44.9 - Chronic obstructive pulmonary disease, unspecified Status: Inactive Assessment and Plan: Continue bronchodilators, mechanical ventilation (7) Right ventricular dysfunction: Code(s): I51.9 - Heart disease, unspecified Status: Acute Assessment and Plan: Patient has evidence of right heart failure which was confirmed on echo in the past. (8) Suspected COVID-19 virus infection: Code(s): Z20.822 - Contact with and (suspected) exposure to COVID-19 Status: Ruled-out Assessment and Plan: SARS-CoV-2 PCR was negative Subjective Date/time seen: 10/30/21 14:00 Interval history: 81-year-old male with history of abdominal aortic aneurysm, essential hypertension, untreated obstructive sleep apnea, COPD, CHF, hyperlipidemia presented the ED on 10/19 with shortness of breath, was initially on CPAP in the ER but L min, 100 and had an emesis on BiPAP and was subsequently intubated
[2021-10-30] MEDS: MIDAZOLAM HCL (*CRX) 2 MG/2 ML VIAL IV PUSH (16:10)
--- NOTE | 2021-10-30 16:12 | PC.NURSE ---
RESPIRATIONS 48/MIN. TIDAL VOLUMES LOW. GAVE 1
--- NOTE | 2021-10-30 16:13 | PC.NURSE ---
RESPIRATIONS 45/MIN. LOW TIDAL VOLUMES ON VENTILATOR. GAVE VERSED 2 MG IV ORDERED. WILL CONTINUE TO MONITOR.
[2021-10-30 16:42] LABS: Kappa\\Lambda Light Chains 1.68 (0.26-1.65); Lambda Light Chain 45.9 mg/L (5.7-26.3)
[2021-10-30 18:43] LABS: Glucose Point of Care 94 mg/dl (65-105)
[2021-10-30] MEDS: dexmedeTOMIDine 400 MCG/100 ML 400 MCG/100 ML BAG 6.75 MCG IV CONT (22:39)
[2021-10-31] VITALS (24 sets, daily range): BP systolic 96–125; BP diastolic 68–76; PULSE 82–104; RESP 11–26; TEMP 36.8–38.2; O2SAT 93–97
[2021-10-31] MEDS: ALBUTEROL SULFATE NEB 2.5 MG/0.5 ML INH 5 MG INHALATION ×2 (02:57→20:11)
[2021-10-31] MEDS: IPRATROPIUM BR 0.02% INH SOLN 0.5 MG/2.5 ML VIAL INHALATION ×2 (02:57→20:11)
[2021-10-31 05:54] LABS: Hematocrit 36.9 % (42.0-52.0); Mean Corpuscular HGB Conc 29.8 g/dl (32-36); Mean Corpuscular Volume 97.4 fl (80-100); Mean Platelet Volume 12.9 fl (7.4-10.4); Platelet Count Result 118 k/mm3 (150-375); Red Blood Count 3.79 M/mm3 (4.6-6.20); Red Cell Distribution Width 15.3 % (11.5-14.5); White Blood Count 10.5 K/mm3 (4.5-10.0)
[2021-10-31 07:43] LABS: Anion Gap 7 mmol/L (8-16); Blood Urea Nitrogen 66 mg/dL (9-20); Calcium 9.2 mg/dL (8.4-10.2); Carbon Dioxide 22 mmol/L (22-30); Chloride 117 mmol/L (98-107); Estimated CRCL calculation 33 ml/min; Estimated Glomerular Filt Rate 29; Glucose 118 mg/dL (65-110); Potassium 5.4 mmol/L (3.4-5.0); Sodium 146 mmol/L (137-145)
[2021-10-31] MEDS: METOCLOPRAMIDE HCL 10 MG TABLET PO ×4 (07:54→21:00)
[2021-10-31] MEDS: CENTRAL LINE FLUSH 10 ML IV PUSH ×3 (07:54→21:00)
[2021-10-31] MEDS: DEXTROSE 5% IN WATER 500 ML 100 ML IV CONT (08:40)
[2021-10-31] MEDS: MINERAL OIL/WHITE PETROLATUM OINTMENT 1 APPLIC EACH EYE ×2 (08:42→21:00)
[2021-10-31] MEDS: QUEtiapine FUMARATE 25 MG TABLET 50 MG PO ×2 (08:42→21:00)
[2021-10-31] MEDS: polyethylene glycoL 3350 17 GM POWD.PACK PO (08:43)
[2021-10-31] MEDS: FONDAPARINUX SODIUM 2.5 MG/0.5 ML SYRINGE SUB-Q (08:43)
[2021-10-31] MEDS: FAMOTIDINE 20 MG/2 ML VIAL IV PUSH ×2 (08:43→21:00)
--- NOTE | 2021-10-31 11:22 | WPDINTPN ---
Progress Note: A&P Assessment and Plan (1) Encephalopathy: Code(s): G93.40 - Encephalopathy, unspecified Status: Acute Assessment and Plan: Multifactorial - sedation, anxiety, acute critical care illness -patient with anxiety, agitation, restless, trying to climb out of the bed, did open his eyes and nodded to understanding that we will take the breathing tube out - CT Brain 10/24: No acute intracranial findings, chronic age-related findings -will discontinue steroids, could be causing his agitation -10/28/2021: Patient was tachypneic, agitated and was restarted on fentanyl and Versed infusion, also received 1 dose of rocuronium. -10/29/2021: Patient is sedated continue scheduled Seroquel and low-dose Precedex -continue Seroquel but off of Xanax (2) Acute respiratory failure with hypoxia and hypercapnia: Code(s): J96.01 - Acute respiratory failure with hypoxia; J96.02 - Acute respiratory failure with hypercapnia Status: Acute Assessment and Plan: Acute on chronic Respiratory failure secondary to COPD, congestive heart failure, aspiration pneumonia, obesity hypoventilation syndrome Patient intubated on 10/19 He failed his weaning trial yesterday due to high RSBI and required high pressure support of 14/8 to obtain adequate RSBI. I placed patient on pressure support again today and will try to wean down pressure support Continue full mechanical ventilation support to prevent hypoxemia/hypercarbia and end organ damage. Patient will likely need tracheostomy if unable to be extubated in next few days as today is day 13 of patient intubation ABG reviewed and PCXR reviewed Off Solu-Medrol now Bronchodilators 10/20/2021: Blood cultures negative x2 Completed empiric Unasyn for 7 days 10/24/2021: Sputum cultures: No growth 10/24/2021 bilateral pleural effusions and atelectasis 10/29-lower extremity Dopplers were negative for DVT - Off fentanyl and Versed infusion now - Continue Seroquel and Precedex infusion -has been difficult to maintain patient's mentation, high they is completely sedated or agitated, bears down, causing vasovagal symptoms 10/24/2021: Growth of normal oropharyngeal wyatt 10/24/2021 CT scan the chest has been ordered (3) CKD (chronic kidney disease), stage III: Qualifiers: Chronic kidney disease stage 3 subtype: stage 3b (GFR 30-44) Qualified Code(s): N18.32 - Chronic kidney disease, stage 3b Code(s): N18.30 - Chronic kidney disease, stage 3 unspecified Status: Acute Assessment and Plan: Creatinine worsened this morning, creatinine 241 this morning -be related to over diuresis, -diuretics were discontinued on 10/24 -patient received IV fluids for hypotension, -creatinine 2.2 today, -appreciate nephrology following the patient -renal ultrasound is unremarkable for hydronephrosis -urine lytes not prerenal -increase free water for elevated sodium chloride and potassium as per discussion with Nephrology Monitor urine output, electrolytes and creatinine (4) CHF (congestive heart failure): Code(s): I50.9 - Heart failure, unspecified Status: Acute Assessment and Plan: Patient has cor pulmonale as he has diffuse significant bilateral lower extremity edema and had RV dysfunction on his echo done in the past -echocardiogram 10/15/2021: EF 60-65% diastolic dysfunction grade 1, no pulmonary hypertension a RVSP of 13 mmHg (5) Aspiration pneumonia: Qualifiers: Aspiration pneumonia type: unspecified Laterality: unspecified laterality Lung location: unspecified part of lung Qualified Code(s): J69.0 - Pneumonitis due to inhalation of food and vomit Code(s): J69.0 - Pneumonitis due to inhalation of food and vomit Status: Acute Assessment and Plan: See above (6) COPD (chronic obstructive pulmonary disease): Code(s): J44.9 - Chronic obstructive pulmonary disease, unspecified Status: Inactive Asses
[2021-10-31 11:39] LABS: Glucose Point of Care 104 mg/dl (65-105)
--- NOTE | 2021-10-31 12:31 | PCFNICU ---
ICU Rounding Note: Pt current nutrition is Jevity 1.2 at 50 ml/hr over 22 hours. Last recorded weight is 131 kg, down from 139.8 kg on admit. Bowel Motility:Last BMI reported 10/27 Labs Reviewed:Glu 118, GFR 29, K 5.4,Na 146, Hct 36.9,Hgb 11.0 Meds Noted:Reglan, Seroquel, Atrovent, Miralax, Arixtra, Pepcid, Versed, Levophed Skin: WNL Additional Notes: Patient remains on mechanical vent. Tube feedings of Jevity 1.2 at 50 ml/hr. Elevated residuals reported, 200s last night. Reglan started. Tube feedings continue at this time, goal rate at 70 ml/hr over 22 hours. Free water flush 50 ml q 4 hours. Following daily in ICU rounds. Assessing/reassessing every Friday and Friday.
[2021-10-31 12:38] LABS: Complement Total CH50 >60 U/mL (31-60)
--- NOTE | 2021-10-31 13:29 | PM.PNNEP ---
Progress Note: A&P Assessment and Plan (1) Chronic kidney disease, stage 3b: Code(s): N18.32 - Chronic kidney disease, stage 3b Status: Acute Assessment and Plan: Mike has chronic kidney disease. His baseline creatinine seems to be around 1.5-1.8. He has acute kidney injury. Creatinine has been up and down through the hospital stay. It was up to 2.7 then 2.2 and today 2.2 again. Renal ultrasound is unremarkable with normal size kidneys. Urine electrolytes are pre renal. Urinalysis shows some protein and some blood. He has a Cat catheter in. this is most likely prerenal azotemia due to right sided issues and relative hypotension from time to time stay off antihypertensives I agree with nilsa and watch the creatinine Will see how his creatinine does over the next couple of days. (2) Acute respiratory failure with hypoxia and hypercapnia: Code(s): J96.01 - Acute respiratory failure with hypoxia; J96.02 - Acute respiratory failure with hypercapnia Status: Acute Assessment and Plan: The patient is on the ventilator. O2 settings are doing pretty well. Main barrier to extubation has been his anxiety. (3) Pneumonia: Qualifiers: Pneumonia type: due to unspecified organism Laterality: bilateral Lung location: unspecified part of lung Qualified Code(s): J18.9 - Pneumonia, unspecified organism Code(s): J18.9 - Pneumonia, unspecified organism Status: Acute Assessment and Plan: He received antibiotics. (4) Hypertension: Code(s): I10 - Essential (primary) hypertension Status: Acute Assessment and Plan: Blood pressure is a bit soft at times. Currently pretty good in the low 100s. (5) BPH (benign prostatic hyperplasia): Qualifiers: Lower urinary tract symptom presence: symptoms present Lower urinary tract symptom detail: weak urinary stream Qualified Code(s): N40.1 - Benign prostatic hyperplasia with lower urinary tract symptoms; R39.12 - Poor urinary stream Code(s): N40.0 - Benign prostatic hyperplasia without lower urinary tract symptoms Status: Acute Assessment and Plan: He has a Cat catheter in (6) Right ventricular dysfunction: Code(s): I51.9 - Heart disease, unspecified Status: Acute Assessment and Plan: This is probably due to COPD and sleep apnea. He is on the ventilator. Subjective Date/time seen: 10/31/21 13:29 Interval history: Patient is sedated and on the ventilator. Still on 30% FiO2. Exam Narrative: WDWN in NAD skin no rash or subQ nodules head ncat lungs mildly coarse bilaterally cor reg no rub or gallop abd BS+ nontender and soft ext 1 to 2+ bilateral edema. Objective Data Vital Signs Vital Signs: Vital Signs - 24 hr 10/30/21 14:00 10/30/21 15:50 10/30/21 15:53 Temperature Pulse Rate 69 68 67 Respiratory Rate 16 12 Blood Pressure 116/69 Pulse Oximetry 97 97 10/30/21 16:00 10/30/21 17:40 10/30/21 18:00 Temperature 37.2 C Pulse Rate 77 90 86 Respiratory Rate 45 H 22 H Blood Pressure 97/67 L 87/61 L Pulse Oximetry 96 96 94 10/30/21 18:18 10/30/21 20:00 10/30/21 20:04 Temperature Pulse Rate 86 92 89 Respiratory Rate 22 H 22 H Blood Pressure Pulse Oximetry 95 10/30/21 20:10 10/30/21 21:41 10/30/21 21:43 Temperature 36.8 C Pulse Rate 92 90 84 Respiratory Rate 22 H 22 H Blood Pressure 122/81 Pulse Oximetry 95 97 10/30/21 21:48 10/30/21 22:00 10/30/21 22:39 Temperature Pulse Rate 88 91 91 Respiratory Rate 22 H 22 H 22 H Blood Pressure 105/73 Pulse Oximetry 95 10/31/21 00:00 10/31/21 02:00 10/31/21 02:59 Temperature Pulse Rate 93 94 91 Respiratory Rate 20 24 H Blood Pressure 96/68 L 109/76 Pulse Oximetry 97 94 96 10/31/21 04:00 10/31/21 08:00 10/31/21 08:15 Temperature 37.4 C 38.0 C H Pulse Rate 94 95 96 Respiratory Rate 24 H 22 H Blood Pressure 112/69 1
--- NOTE | 2021-10-31 15:10 | WPDGICN ---
Assessment and Plan Assessment and plan (1) Acute respiratory failure with hypoxia and hypercapnia: Code(s): J96.01 - Acute respiratory failure with hypoxia; J96.02 - Acute respiratory failure with hypercapnia Status: Acute Assessment and Plan: because he remains intubated has not been able to be weaned, he is unable to eat. Percutaneous endoscopic gastrostomy will place tomorrow. Anticoagulant will be held. (2) Chronic kidney disease, stage 3b: Code(s): N18.32 - Chronic kidney disease, stage 3b Status: Acute Assessment and Plan: This is followed by Nephrology and is stable at this time GI Consult Note Consult date/time: 10/31/21 15:10 HPI: Mike Michel is a 81 year old male Was been on a ventilator for several days due to respiratory failure. He is receiving nasogastric tube feedings and we are asked to see him for placement of a percutaneous gastrostomy tube. he was initially intubated on the femoral 19. He failed attempted weaning from respirator. Review of Systems Review of Systems: All systems reviewed & are unremarkable except as noted in HPI and below PMFSH Past Medical History Medical History AAA (abdominal aortic aneurysm) CTA of abdomen pelvis 08/23/2021: Aortoiliac ectasias with increased size the distal aortic aneurysm 5 cm, mild renal atrophy, small umbilical hernia, mild colonic diverticulosis BPH (benign prostatic hyperplasia) Chronic kidney disease, stage 3b CKD (chronic kidney disease), stage III COPD (chronic obstructive pulmonary disease) Dyslipidemia Erectile dysfunction Gout Hypertension Lumbar spinal stenosis Severe central canal stenosis L3-L4 MRI May 2021 Nervousness Right ventricular dysfunction Echocardiogram January 2015 demonstrated significant right ventricular enlargement and hypokinesis with diastolic dysfunction. Echocardiogram 10/2021 did not mention right ventricular function but grade 1 diastolic dysfunction again noted. EF 60-65 %. Varicocele (~1976) Surgical History Surgical History H/O knee surgery History of repair of left rotator cuff (~2008) Hx of cholecystectomy (~1990) Family History Family History Father , 56 Appendicitis Pulmonary embolism Mother , 66--Choked to on peanuts Choking due to food (regurgitated) Sibling Diabetes mellitus Social History Social History Social History: He and his live at home alone. He smoked heavily starting as a teenager but quit smoking approximately 2014. He drinks 2-3 cups of coffee a day. Code status: Full code Years smoked: 50 Smoking status: Former smoker Smoking end date: 12/01/14 Alcohol intake: unknown Alcohol use details: Patient drinks alcohol once to twice yearly Substance use: unknown Substance use type: does not use Gender identity (if verbalized by the patient): Male Sexual Orientation (if Verbalized by the Patient): Straight or Heterosexual Spiritual care concerns: No Meds Home Medications and Allergies Home Medications Medication Instructions Recorded Confirmed Type acetaminophen 500 mg capsule 500 mg PO QPM PRN cap 12/26/20 10/19/21 History ascorbic acid (vitamin C) 500 mg 500 mg PO QAM tablet 12/26/20 10/19/21 History tablet finasteride 5 mg tablet 5 mg PO QPM tablet 12/26/20 10/19/21 History amlodipine 5 mg tablet 5 mg PO QAM #90 tablet 03/09/21 10/19/21 Rx meloxicam 15 mg tablet 15 mg PO QPM #90 tablet 03/09/21 10/19/21 Rx atenolol 50 mg tablet 100 mg PO QPM #90 tablet 09/27/21 10/19/21 Rx pravastatin 10 mg tablet 10 mg PO DAILY #30 tablet 09/27/21 10/19/21 Rx furosemide 20 mg PO DAILY 10/19/21 10/19/21 History quinapril 40 mg PO DAILY 10/19/21 10/19/21 History A
[2021-10-31 15:39] LABS: Anion Gap 9 mmol/L (8-16); Blood Urea Nitrogen 57 mg/dL (9-20); Calcium 8.8 mg/dL (8.4-10.2); Carbon Dioxide 25 mmol/L (22-30); Chloride 112 mmol/L (98-107); Estimated CRCL calculation 33 ml/min; Estimated Glomerular Filt Rate 29; Glucose 122 mg/dL (65-110); Potassium 3.9 mmol/L (3.4-5.0); Sodium 146 mmol/L (137-145)
[2021-10-31] MEDS: DEXTROSE 5% 1,000 ML 1,000 ML 75 ML IV CONT (16:30)
--- NOTE | 2021-10-31 17:11 | WPDCN ---
Assessment and Plan Assessment and plan (1) Acute respiratory failure with hypoxia and hypercapnia: Code(s): J96.01 - Acute respiratory failure with hypoxia; J96.02 - Acute respiratory failure with hypercapnia Status: Acute Assessment and Plan: Plan is for the OR for tracheostomy, Wes, afternoon. Please hold vte prophylaxis midnight prior. Thank you. (2) Acute hypercapnic respiratory failure: Code(s): J96.02 - Acute respiratory failure with hypercapnia Status: Acute HPI Data of Consult Date/Time: 10/31/21 17:11 Requesting Physician: Janette Flores MD Primary Care Provider: Levy More MD Consult Narrative Narrative: Mike Michel is a 81 year old male with respiratory failure. ENT consulted for placement of tracheostomy. Review of Systems Review of Systems: ROS unobtainable: Yes unobtainable due to endotracheal tube PMFSH Past Medical History Medical History AAA (abdominal aortic aneurysm) CTA of abdomen pelvis 08/23/2021: Aortoiliac ectasias with increased size the distal aortic aneurysm 5 cm, mild renal atrophy, small umbilical hernia, mild colonic diverticulosis BPH (benign prostatic hyperplasia) Chronic kidney disease, stage 3b CKD (chronic kidney disease), stage III COPD (chronic obstructive pulmonary disease) Dyslipidemia Erectile dysfunction Gout Hypertension Lumbar spinal stenosis Severe central canal stenosis L3-L4 MRI May 2021 Nervousness Right ventricular dysfunction Echocardiogram January 2015 demonstrated significant right ventricular enlargement and hypokinesis with diastolic dysfunction. Echocardiogram 10/2021 did not mention right ventricular function but grade 1 diastolic dysfunction again noted. EF 60-65 %. Varicocele (~1976) Surgical History Surgical History H/O knee surgery History of repair of left rotator cuff (~2008) Hx of cholecystectomy (~1990) Family History Family History Father , 56 Appendicitis Pulmonary embolism Mother , 66--Choked to on peanuts Choking due to food (regurgitated) Sibling Diabetes mellitus Social History Social History Social History: He and his live at home alone. He smoked heavily starting as a teenager but quit smoking approximately 2014. He drinks 2-3 cups of coffee a day. Code status: Full code Years smoked: 50 Smoking status: Former smoker Smoking end date: 12/01/14 Alcohol intake: unknown Alcohol use details: Patient drinks alcohol once to twice yearly Substance use: unknown Substance use type: does not use Gender identity (if verbalized by the patient): Male Sexual Orientation (if Verbalized by the Patient): Straight or Heterosexual Spiritual care concerns: No Meds Home Medications and Allergies Home Medications Medication Instructions Recorded Confirmed Type acetaminophen 500 mg capsule 500 mg PO QPM PRN cap 12/26/20 10/19/21 History ascorbic acid (vitamin C) 500 mg 500 mg PO QAM tablet 12/26/20 10/19/21 History tablet finasteride 5 mg tablet 5 mg PO QPM tablet 12/26/20 10/19/21 History amlodipine 5 mg tablet 5 mg PO QAM #90 tablet 03/09/21 10/19/21 Rx meloxicam 15 mg tablet 15 mg PO QPM #90 tablet 03/09/21 10/19/21 Rx atenolol 50 mg tablet 100 mg PO QPM #90 tablet 09/27/21 10/19/21 Rx pravastatin 10 mg tablet 10 mg PO DAILY #30 tablet 09/27/21 10/19/21 Rx furosemide 20 mg PO DAILY 10/19/21 10/19/21 History quinapril 40 mg PO DAILY 10/19/21 10/19/21 History Allergies Allergy/AdvReac Type Severity Reaction Status Date / Time adhesive tape Allergy Intermediate Blisters Verified 09/27/21 13:18 iodine Allergy Mild Unknown Verified 09/27/21 13:18 Vital Signs Vital Signs - 24 hr 10/30/21 1
[2021-10-31] MEDS: BUDESONIDE RESPULE NEB 0.5 MG/2 ML AMP INHALATION (20:11)
[2021-11-01] VITALS (36 sets, daily range): BP systolic 74–140; BP diastolic 60–100; PULSE 82–113; RESP 11–35; TEMP 37.2–38; O2SAT 93–98
[2021-11-01 00:36] LABS: Glucose Point of Care 94 mg/dl (65-105)
[2021-11-01] MEDS: IPRATROPIUM BR 0.02% INH SOLN 0.5 MG/2.5 ML VIAL INHALATION ×4 (02:00→21:59)
[2021-11-01] MEDS: ALBUTEROL SULFATE NEB 2.5 MG/0.5 ML INH 5 MG INHALATION ×4 (02:02→21:59)
[2021-11-01 05:35] LABS: Hemoglobin 10.6 g/dL (14.0-18.0); Mean Corpuscular HGB Conc 30.3 g/dl (32-36); Mean Corpuscular Hemoglobin 29.8 pg (26-34); Mean Corpuscular Volume 98.3 fl (80-100); Mean Platelet Volume 12.4 fl (7.4-10.4); Platelet Count Result 120 k/mm3 (150-375); Red Blood Count 3.56 M/mm3 (4.6-6.20); Red Cell Distribution Width 14.7 % (11.5-14.5); White Blood Count 10.7 K/mm3 (4.5-10.0)
[2021-11-01] MEDS: CENTRAL LINE FLUSH 10 ML IV PUSH ×4 (05:40→22:00)
[2021-11-01] MEDS: METOCLOPRAMIDE HCL 10 MG TABLET PO ×2 (05:40→20:12)
[2021-11-01 05:44] LABS: Alanine Aminotransferase 164 U/L (4-50); Albumin Level 2.9 g/dL (3.5-5.1); Alkaline Phosphatase 128 U/L (38-126); Anion Gap 9 mmol/L (8-16); Aspartate Amino Transferase 113 U/L (17-59); Bilirubin,Total 1.4 mg/dL (0.2-1.3); Blood Urea Nitrogen 55 mg/dL (9-20); Calcium 8.8 mg/dL (8.4-10.2); Carbon Dioxide 24 mmol/L (22-30); Chloride 112 mmol/L (98-107); Estimated CRCL calculation 33 ml/min; Estimated Glomerular Filt Rate 29; Glucose 119 mg/dL (65-110); Magnesium 2.7 mg/dL (1.6-2.3); Potassium 3.7 mmol/L (3.4-5.0); Sodium 145 mmol/L (137-145)
[2021-11-01 06:47] LABS: Alveolar/Arterial O2 Gradient 91.1 mmHg; Base Excess ABG 0.2 mEq/l (+/-2.0); Carboxyhemoglobin 0.3 % THb (0-2.0); Fractional Inspired Oxygen 30 %; HCO3 ABG 24.2 mEq/l (22.0-26.0); Methemoglobin ABG 0.5 %THb (0-1.5); Oxygen Content ABG 15.8 %vol (16.0-22.0); Oxygen Saturation ABG 96.1 % (95.0-100.0); Oxyhemoglobin 94.2 % THb (90.0-100.0); PCO2 ABG 37.2 mmHg (35.0-45.0); PO2 ABG 79.1 mmHg (80.0-100.0); PO2 FiO2 Ratio Arterial Blood 2.64 %; Total Hemoglobin 11.9 g/dL (12.0-18.0); pH ABG 7.432 (7.350-7.450)
[2021-11-01 06:48] LABS: Device VENTILATOR; Modified Allen's Test Unable to perform; Site Drawn LEFT RADIAL
[2021-11-01 06:49] LABS: Arterial Blood Gas PEEP 8 cmH2O; Arterial Blood Gas Tidal Volume 450 ml; Arterial Blood Gas Vent Mode CMV; Arterial Blood Gas Ventilator rate 22 /MIN
[2021-11-01] MEDS: FAMOTIDINE 20 MG/2 ML VIAL IV PUSH ×2 (08:40→20:12)
[2021-11-01] MEDS: MINERAL OIL/WHITE PETROLATUM OINTMENT 1 APPLIC EACH EYE ×2 (08:40→20:13)
--- NOTE | 2021-11-01 08:57 | PM.IMHP ---
H&P: HPI History of Present Illness Date/Time: 11/01/21 08:57 Chief Complaint: Respiratory failure, respiratory insufficiency. Narrative: Patient presents for planned surgical procedure tracheostomy. No change in symptoms no change in history per nursing. Review of Systems Review of Systems: ROS unobtainable: Yes unobtainable due to endotracheal tube PMFSH Past Medical History Medical History AAA (abdominal aortic aneurysm) CTA of abdomen pelvis 08/23/2021: Aortoiliac ectasias with increased size the distal aortic aneurysm 5 cm, mild renal atrophy, small umbilical hernia, mild colonic diverticulosis BPH (benign prostatic hyperplasia) Chronic kidney disease, stage 3b CKD (chronic kidney disease), stage III COPD (chronic obstructive pulmonary disease) Dyslipidemia Erectile dysfunction Gout Hypertension Lumbar spinal stenosis Severe central canal stenosis L3-L4 MRI May 2021 Nervousness Right ventricular dysfunction Echocardiogram January 2015 demonstrated significant right ventricular enlargement and hypokinesis with diastolic dysfunction. Echocardiogram 10/2021 did not mention right ventricular function but grade 1 diastolic dysfunction again noted. EF 60-65 %. Varicocele (~1976) Surgical History Surgical History H/O knee surgery History of repair of left rotator cuff (~2008) Hx of cholecystectomy (~1990) Family History Family History Father , 56 Appendicitis Pulmonary embolism Mother , 66--Choked to on peanuts Choking due to food (regurgitated) Sibling Diabetes mellitus Social History Social History Social History: He and his live at home alone. He smoked heavily starting as a teenager but quit smoking approximately 2014. He drinks 2-3 cups of coffee a day. Code status: Full code Years smoked: 50 Smoking status: Former smoker Smoking end date: 12/01/14 Alcohol intake: unknown Alcohol use details: Patient drinks alcohol once to twice yearly Substance use: unknown Substance use type: does not use Gender identity (if verbalized by the patient): Male Sexual Orientation (if Verbalized by the Patient): Straight or Heterosexual Spiritual care concerns: No Meds Home Medications and Allergies Home Medications Medication Instructions Recorded Confirmed Type acetaminophen 500 mg capsule 500 mg PO QPM PRN cap 12/26/20 10/19/21 History ascorbic acid (vitamin C) 500 mg 500 mg PO QAM tablet 12/26/20 10/19/21 History tablet finasteride 5 mg tablet 5 mg PO QPM tablet 12/26/20 10/19/21 History amlodipine 5 mg tablet 5 mg PO QAM #90 tablet 03/09/21 10/19/21 Rx meloxicam 15 mg tablet 15 mg PO QPM #90 tablet 03/09/21 10/19/21 Rx atenolol 50 mg tablet 100 mg PO QPM #90 tablet 09/27/21 10/19/21 Rx pravastatin 10 mg tablet 10 mg PO DAILY #30 tablet 09/27/21 10/19/21 Rx furosemide 20 mg PO DAILY 10/19/21 10/19/21 History quinapril 40 mg PO DAILY 10/19/21 10/19/21 History Allergies Allergy/AdvReac Type Severity Reaction Status Date / Time adhesive tape Allergy Intermediate Blisters Verified 09/27/21 13:18 iodine Allergy Mild Unknown Verified 09/27/21 13:18 Vital Signs Vital Signs - 24 hr 10/31/21 10:00 10/31/21 10:49 10/31/21 12:00 Temperature 38.2 C H Pulse Rate 98 99 98 Respiratory Rate 14 12 Blood Pressure 106/73 107/70 Pulse Oximetry 95 96 96 10/31/21 14:00 10/31/21 14:02 10/31/21 14:04 Temperature Pulse Rate 82 83 82 Respiratory Rate 14 13 Blood Pressure 104/68 Pulse Oximetry 96 96 10/31/21 14:10 10/31/21 16:00 10/31/21 16:31 Temperature 36.8 C Pulse Rate 83 89 91 Respiratory Rate 12 20 Blood Pressure 99/73 L Pulse Oximetry 95 96 10/31/21 18:00 10/31/21 20:00 10/31/21 20:11
[2021-11-01] MEDS: FUROSEMIDE INJ 40 MG/4 ML VIAL IV PUSH (09:00)
[2021-11-01] MEDS: BUDESONIDE RESPULE NEB 0.5 MG/2 ML AMP INHALATION ×2 (09:04→21:59)
--- NOTE | 2021-11-01 11:38 | PCFNICU ---
ICU Rounding Note: Pt current nutrition is NPO. Last recorded weight is 132 kg, down from 139.8 kg on admit. Bowel Motility: Last BM reported 10/27 Labs Reviewed:Mg 1.4,GFR 29, Cr 2.2,BUN 55, Hgb 10.6, Hct 35.0,Alb 2.9 Meds Noted:Pepcid,Lasix, Reglan, Atrovent, Albuterol. Skin: WNL Additional Notes: Tube feedings are currently on hold for PEG today. Plans for Trach tomorrow 11/02. Following daily in ICU rounds. Assessing/reassessing every Friday and Friday.
[2021-11-01 12:17] LABS: Glucose Point of Care 91 mg/dl (65-105)
--- NOTE | 2021-11-01 12:46 | PM.PNNEP ---
Progress Note: A&P Assessment and Plan (1) Chronic kidney disease, stage 3b: Code(s): N18.32 - Chronic kidney disease, stage 3b Status: Acute Assessment and Plan: Mike has chronic kidney disease. His baseline creatinine seems to be around 1.5-1.8. He has acute kidney injury. Creatinine has been up and down through the hospital stay. it has been stable at 2.2 for the last few days. Renal ultrasound is unremarkable with normal size kidneys. Urine electrolytes are pre renal. Urinalysis shows some protein and some blood. He has a Cat catheter in. this is most likely prerenal azotemia due to right sided issues and relative hypotension from time to time stay off antihypertensives His creatinine is tolerating diuresis. (2) Acute respiratory failure with hypoxia and hypercapnia: Code(s): J96.01 - Acute respiratory failure with hypoxia; J96.02 - Acute respiratory failure with hypercapnia Status: Acute Assessment and Plan: The patient is on the ventilator. O2 settings are doing pretty well. Main barrier to extubation has been his anxiety. (3) Pneumonia: Qualifiers: Pneumonia type: due to unspecified organism Laterality: bilateral Lung location: unspecified part of lung Qualified Code(s): J18.9 - Pneumonia, unspecified organism Code(s): J18.9 - Pneumonia, unspecified organism Status: Acute Assessment and Plan: He received antibiotics. (4) Hypertension: Code(s): I10 - Essential (primary) hypertension Status: Acute Assessment and Plan: Blood pressure is a bit soft at times. Currently the blood pressure is running between 110 and 120. (5) BPH (benign prostatic hyperplasia): Qualifiers: Lower urinary tract symptom presence: symptoms present Lower urinary tract symptom detail: weak urinary stream Qualified Code(s): N40.1 - Benign prostatic hyperplasia with lower urinary tract symptoms; R39.12 - Poor urinary stream Code(s): N40.0 - Benign prostatic hyperplasia without lower urinary tract symptoms Status: Acute Assessment and Plan: He has a Cat catheter in (6) Right ventricular dysfunction: Code(s): I51.9 - Heart disease, unspecified Status: Acute Assessment and Plan: This is probably due to COPD and sleep apnea. He is on the ventilator. Subjective Date/time seen: 11/01/21 12:46 Interval history: Patient is sedated and on the ventilator. He looks comfortable Still on 30% FiO2. Exam Narrative: WDWN in NAD skin no rash head ncat lungs mildly coarse bilaterally cor reg no rub or gallop abd BS+ nontender ext 1 to 2+ bilateral edema. Objective Data Vital Signs Vital Signs: Vital Signs - 24 hr 10/31/21 14:00 10/31/21 14:02 10/31/21 14:04 Temperature Pulse Rate 82 83 82 Respiratory Rate 14 13 Blood Pressure 104/68 Pulse Oximetry 96 96 10/31/21 14:10 10/31/21 16:00 10/31/21 16:31 Temperature 36.8 C Pulse Rate 83 89 91 Respiratory Rate 12 20 Blood Pressure 99/73 L Pulse Oximetry 95 96 10/31/21 18:00 10/31/21 20:00 10/31/21 20:11 Temperature 37.9 C H Pulse Rate 90 89 85 Respiratory Rate 20 24 H 22 H Blood Pressure 108/73 125/71 Pulse Oximetry 95 94 10/31/21 20:12 10/31/21 20:20 10/31/21 22:00 Temperature Pulse Rate 86 87 90 Respiratory Rate 24 H 23 H Blood Pressure 118/68 Pulse Oximetry 95 94 10/31/21 23:15 11/01/21 00:00 11/01/21 02:00 Temperature 37.2 C Pulse Rate 92 92 93 Respiratory Rate 22 H 24 H Blood Pressure 116/65 121/71 Pulse Oximetry 95 95 96 11/01/21 02:50 11/01/21 04:00 11/01/21 06:00 Temperature 37.2 C Pulse Rate 92 91 95 Respiratory Rate 23 H 35 H 26 H Blood Pressure 123/66 126/70 Pulse Oximetry 95 96 11/01/21 06:33 11/01/21 07:17 11/01/21 08:00 Temperature 38.0 C H Pulse Rate 93 110 H 108 H Respiratory Rate 26 H Blood Pressure 111/92 H Pulse Oximetr
--- NOTE | 2021-11-01 13:03 | WPDINTPN ---
Progress Note: A&P Assessment and Plan (1) Acute respiratory failure with hypoxia and hypercapnia: Code(s): J96.01 - Acute respiratory failure with hypoxia; J96.02 - Acute respiratory failure with hypercapnia Status: Acute Assessment and Plan: Acute on chronic Respiratory failure secondary to COPD, congestive heart failure, aspiration pneumonia, obesity hypoventilation syndrome Patient intubated on 10/19 He failed his weaning trial daily due to high RSBI and requires high pressure support of >14/8 to obtain adequate RSBI. I placed patient on pressure support again today and will try to wean down pressure support. Continue full mechanical ventilation support to prevent hypoxemia/hypercarbia and end organ damage. Patient has been on ventilator for more than 2 weeks and is no where close to extubation. He is scheduled for tracheostomy tomorrow ABG reviewed and PCXR reviewed Off Solu-Medrol now Bronchodilators 10/20/2021: Blood cultures negative x2 Completed empiric Unasyn for 7 days 10/24/2021: Sputum cultures: No growth 10/24/2021 bilateral pleural effusions and atelectasis 10/29-lower extremity Dopplers were negative for DVT - Continue Seroquel and Precedex infusion as needed -has been difficult to maintain patient's mentation, high they is completely sedated or agitated, bears down, causing vasovagal symptoms -continue diuresis (2) Encephalopathy: Code(s): G93.40 - Encephalopathy, unspecified Status: Acute Assessment and Plan: Multifactorial - sedation, anxiety, acute critical care illness -patient with anxiety, agitation, restless, trying to climb out of the bed, did open his eyes and nodded to understanding that we will take the breathing tube out - CT Brain 10/24: No acute intracranial findings, chronic age-related findings -will discontinue steroids, could be causing his agitation -10/28/2021: Patient was tachypneic, agitated and was restarted on fentanyl and Versed infusion, also received 1 dose of rocuronium. Currently off of Precedex -continue Seroquel but off of Xanax (3) CKD (chronic kidney disease), stage III: Qualifiers: Chronic kidney disease stage 3 subtype: stage 3b (GFR 30-44) Qualified Code(s): N18.32 - Chronic kidney disease, stage 3b Code(s): N18.30 - Chronic kidney disease, stage 3 unspecified Status: Acute Assessment and Plan: Creatinine stable at this time Nephrology following -renal ultrasound is unremarkable for hydronephrosis - continue increased free water for elevated sodium chloride and potassium and diuresis Monitor urine output, electrolytes and creatinine (4) CHF (congestive heart failure): Code(s): I50.9 - Heart failure, unspecified Status: Acute Assessment and Plan: Patient has cor pulmonale as he has diffuse significant bilateral lower extremity edema and had RV dysfunction on his echo done in the past -echocardiogram 10/15/2021: EF 60-65% diastolic dysfunction grade 1, no pulmonary hypertension a RVSP of 13 mmHg (5) Aspiration pneumonia: Qualifiers: Aspiration pneumonia type: unspecified Laterality: unspecified laterality Lung location: unspecified part of lung Qualified Code(s): J69.0 - Pneumonitis due to inhalation of food and vomit Code(s): J69.0 - Pneumonitis due to inhalation of food and vomit Status: Acute Assessment and Plan: See above (6) COPD (chronic obstructive pulmonary disease): Code(s): J44.9 - Chronic obstructive pulmonary disease, unspecified Status: Inactive Assessment and Plan: Continue bronchodilators, Solu-Medrol daily, mechanical ventilation -ABG did not reveal hypercapnia (7) Right ventricular dysfunction: Code(s): I51.9 - Heart disease, unspecified Status: Acute Assessment and Plan: Patient has evidence of right heart failure which was confirmed on echo in the past. His most recent echo not visualize RV
[2021-11-01] MEDS: PROPOFOL IV EMULSION 100 ML 7.92 MG IV CONT (13:42)
[2021-11-01 15:56] LABS: Chloride Rand Ur <20 mmol/L (32-290); Creatinine Random Urine 108 mg/dL (20-320)
[2021-11-01] MEDS: dexmedeTOMIDine 400 MCG/100 ML 400 MCG/100 ML BAG 10.13 MCG IV CONT (17:02)
[2021-11-01 17:23] LABS: Glucose Point of Care 88 mg/dl (65-105)
[2021-11-01] MEDS: QUEtiapine FUMARATE 25 MG TABLET 50 MG PO (20:13)
[2021-11-01] MEDS: MIDAZOLAM HCL (*CRX) 2 MG/2 ML VIAL IV PUSH (23:32)
[2021-11-02] VITALS (33 sets, daily range): BP systolic 92–128; BP diastolic 60–93; PULSE 56–94; RESP 19–33; TEMP 36.6–37.7; O2SAT 91–100
[2021-11-02] MEDS: dexmedeTOMIDine 400 MCG/100 ML 400 MCG/100 ML BAG 13.5 MCG IV CONT ×3 (00:22→15:39)
[2021-11-02 01:02] LABS: Glucose Point of Care 92 mg/dl (65-105)
[2021-11-02] MEDS: ALBUTEROL SULFATE NEB 2.5 MG/0.5 ML INH 5 MG INHALATION ×3 (02:00→21:46)
[2021-11-02] MEDS: IPRATROPIUM BR 0.02% INH SOLN 0.5 MG/2.5 ML VIAL INHALATION ×3 (02:00→21:46)
[2021-11-02 04:28] LABS: Hematocrit 35.9 % (42.0-52.0); Hemoglobin 10.6 g/dL (14.0-18.0); Mean Corpuscular HGB Conc 29.5 g/dl (32-36); Mean Corpuscular Hemoglobin 29.9 pg (26-34); Mean Corpuscular Volume 101.1 fl (80-100); Mean Platelet Volume 12.6 fl (7.4-10.4); Platelet Count Result 121 k/mm3 (150-375); Red Blood Count 3.55 M/mm3 (4.6-6.20); Red Cell Distribution Width 14.6 % (11.5-14.5); White Blood Count 9.9 K/mm3 (4.5-10.0)
[2021-11-02] MEDS: CENTRAL LINE FLUSH 10 ML IV PUSH ×4 (05:13→21:46)
[2021-11-02 05:15] LABS: Glucose Point of Care 93 mg/dl (65-105)
[2021-11-02 06:21] LABS: Alanine Aminotransferase 127 U/L (4-50); Albumin Level 3.1 g/dL (3.5-5.1); Alkaline Phosphatase 119 U/L (38-126); Anion Gap 7 mmol/L (8-16); Aspartate Amino Transferase 64 U/L (17-59); Blood Urea Nitrogen 55 mg/dL (9-20); Calcium 9.1 mg/dL (8.4-10.2); Carbon Dioxide 28 mmol/L (22-30); Chloride 111 mmol/L (98-107); Estimated CRCL calculation 31 ml/min; Estimated Glomerular Filt Rate 28; Glucose 110 mg/dL (65-110); Magnesium 2.7 mg/dL (1.6-2.3); Potassium 3.5 mmol/L (3.4-5.0); Sodium 146 mmol/L (137-145)
[2021-11-02 06:37] LABS: Alveolar/Arterial O2 Gradient 80.3 mmHg; Base Excess ABG -2.5 mEq/l (+/-2.0); Carboxyhemoglobin 0.3 % THb (0-2.0); Device VENTILATOR; Fractional Inspired Oxygen 30 %; HCO3 ABG 22.1 mEq/l (22.0-26.0); Methemoglobin ABG 0.2 %THb (0-1.5); Modified Allen's Test Pass; Oxygen Content ABG 15.3 %vol (16.0-22.0); Oxygen Saturation ABG 96.8 % (95.0-100.0); PCO2 ABG 37.6 mmHg (35.0-45.0); PO2 ABG 89.4 mmHg (80.0-100.0); PO2 FiO2 Ratio Arterial Blood 2.98 %; Reduced Hemoglobin 4.5 %THb (0-5.0); Site Drawn RIGHT RADIAL; Total Hemoglobin 11.4 g/dL (12.0-18.0); pH ABG 7.387 (7.350-7.450)
[2021-11-02 06:38] LABS: Arterial Blood Gas PEEP 8 cmH2O; Arterial Blood Gas Tidal Volume 450 ml; Arterial Blood Gas Vent Mode CMV; Arterial Blood Gas Ventilator rate 22 /MIN
--- NOTE | 2021-11-02 07:16 | WPDHPUPDATE1 ---
History and Physical Update Update Date/Time: 11/02/21 07:16 History and Physical has been reviewed, including an updated exam of the patient. There are NO changes in the patient's condition. Risks, benefits, and alternatives have been discussed and questions answered. Patient agrees to proceed with procedure.
[2021-11-02] MEDS: QUEtiapine FUMARATE 25 MG TABLET 50 MG PO ×2 (08:07→21:46)
[2021-11-02] MEDS: BUDESONIDE RESPULE NEB 0.5 MG/2 ML AMP INHALATION ×2 (08:17→21:46)
[2021-11-02] MEDS: FAMOTIDINE 20 MG/2 ML VIAL IV PUSH ×2 (09:48→21:46)
[2021-11-02] MEDS: MINERAL OIL/WHITE PETROLATUM OINTMENT 1 APPLIC EACH EYE ×2 (09:48→21:46)
[2021-11-02] MEDS: POTASSIUM CHLORIDE 20 MEQ PACKET (FOR LIQUID) 40 MEQ FEED TUBE (09:48)
--- NOTE | 2021-11-02 11:30 | PCNFU ---
Nutrition Follow-Up Complete: Inadequate Oral Intake as related to mechanical ventilation as evidenced by NPO Goal: Patient to meet estimated caloric needs. Patient is progressing towards goal. We will continue current goal. Pt current nutrition is NPO. Last recorded weight is 126.4 kg, up from 139.8 kg on admit. Bowel Motility:+BM reported 11/02 Labs Reviewed:BUN 55, Cr 2.3,GFR 28, Na 146, Alb 3.1,Hct 35.9,Hgb 10.6 Meds Noted:Versed, Seroquel,Pepcid, Precedex Skin: WNL Additional Notes: Patient had PEG placed 11/01, plans for Trach today. Tube feeding are currently on hold. Recommend tube feedings of Jevity 1.2 goal rate at 70 ml/hr providing 1848 kcals/85 gm protein/1243 ml fluid. Monitoring: Will monitor every Friday and Friday.
--- NOTE | 2021-11-02 12:03 | WPDINTPN ---
Progress Note: A&P Assessment and Plan (1) Acute respiratory failure with hypoxia and hypercapnia: Code(s): J96.01 - Acute respiratory failure with hypoxia; J96.02 - Acute respiratory failure with hypercapnia Status: Acute Assessment and Plan: Acute on chronic Respiratory failure secondary to COPD, congestive heart failure, aspiration pneumonia, obesity hypoventilation syndrome Patient intubated on 10/19 He failed his weaning trial daily due to high RSBI and requires high pressure support of >14/8 to obtain adequate RSBI. He is scheduled for tracheostomy today Continue full mechanical ventilation support to prevent hypoxemia/hypercarbia and end organ damage. ABG reviewed PCXR reviewed -advanced ET tube by 2 cm Off Solu-Medrol now Bronchodilators Completed empiric Unasyn for 7 days 10/20/2021: Blood cultures negative x2 10/24/2021: Sputum cultures: No growth 10/24/2021 bilateral pleural effusions and atelectasis 10/29-lower extremity Dopplers were negative for DVT - Continue Seroquel and Precedex infusion as needed -has been difficult to maintain patient's mentation, high they is completely sedated or agitated, bears down, causing vasovagal symptoms -continue diuresis as tolerated (2) Encephalopathy: Code(s): G93.40 - Encephalopathy, unspecified Status: Acute Assessment and Plan: Multifactorial - sedation, anxiety, acute critical care illness -patient with anxiety, agitation, restless, trying to climb out of the bed, did open his eyes and nodded to understanding that we will take the breathing tube out - CT Brain 10/24: No acute intracranial findings, chronic age-related findings -will discontinue steroids, could be causing his agitation -10/28/2021: Patient was tachypneic, agitated and was restarted on fentanyl and Versed infusion, also received 1 dose of rocuronium. Currently off of Precedex -continue Seroquel but off of Xanax (3) CKD (chronic kidney disease), stage III: Qualifiers: Chronic kidney disease stage 3 subtype: stage 3b (GFR 30-44) Qualified Code(s): N18.32 - Chronic kidney disease, stage 3b Code(s): N18.30 - Chronic kidney disease, stage 3 unspecified Status: Acute Assessment and Plan: Creatinine stable at this time Nephrology following -renal ultrasound is unremarkable for hydronephrosis - continue increased free water for elevated sodium chloride and potassium and hold diuresis Monitor urine output, electrolytes and creatinine (4) CHF (congestive heart failure): Code(s): I50.9 - Heart failure, unspecified Status: Acute Assessment and Plan: Patient has cor pulmonale as he has diffuse significant bilateral lower extremity edema and had RV dysfunction on his echo done in the past -echocardiogram 10/15/2021: EF 60-65% diastolic dysfunction grade 1, no pulmonary hypertension a RVSP of 13 mmHg (5) Aspiration pneumonia: Qualifiers: Aspiration pneumonia type: unspecified Laterality: unspecified laterality Lung location: unspecified part of lung Qualified Code(s): J69.0 - Pneumonitis due to inhalation of food and vomit Code(s): J69.0 - Pneumonitis due to inhalation of food and vomit Status: Acute Assessment and Plan: See above (6) COPD (chronic obstructive pulmonary disease): Code(s): J44.9 - Chronic obstructive pulmonary disease, unspecified Status: Inactive Assessment and Plan: Continue bronchodilators, Solu-Medrol daily, mechanical ventilation -ABG did not reveal hypercapnia (7) Right ventricular dysfunction: Code(s): I51.9 - Heart disease, unspecified Status: Acute Assessment and Plan: Patient has evidence of right heart failure which was confirmed on echo in the past. His most recent echo not visualize RV Cautious diuresis as patient is overall volume overloaded but may be sensitive to intravascular volume depletion (8) Suspected COVID-19 virus
--- NOTE | 2021-11-02 12:24 | PM.PNNEP ---
Progress Note: A&P Assessment and Plan (1) Chronic kidney disease, stage 3b: Code(s): N18.32 - Chronic kidney disease, stage 3b Status: Acute Assessment and Plan: Mike has chronic kidney disease. His baseline creatinine seems to be around 1.5-1.8. He has acute kidney injury. Creatinine has been up and down through the hospital stay. it has been stable for the last few draws. Renal ultrasound is unremarkable with normal size kidneys. Urine electrolytes are pre renal. Urinalysis shows some protein and some blood. He has a Cat catheter in. this is most likely prerenal azotemia due to right sided issues and relative hypotension from time to time stay off antihypertensives His creatinine is tolerating diuresis. He is on furosemide 40mg daily IV (2) Acute respiratory failure with hypoxia and hypercapnia: Code(s): J96.01 - Acute respiratory failure with hypoxia; J96.02 - Acute respiratory failure with hypercapnia Status: Acute Assessment and Plan: The patient is on the ventilator. O2 settings are doing pretty well. Main barrier to extubation has been his anxiety. he is going to get a trach today (3) Pneumonia: Qualifiers: Pneumonia type: due to unspecified organism Laterality: bilateral Lung location: unspecified part of lung Qualified Code(s): J18.9 - Pneumonia, unspecified organism Code(s): J18.9 - Pneumonia, unspecified organism Status: Acute Assessment and Plan: He received antibiotics. (4) Hypertension: Code(s): I10 - Essential (primary) hypertension Status: Acute Assessment and Plan: Blood pressure is running between 90 and 112. (5) BPH (benign prostatic hyperplasia): Qualifiers: Lower urinary tract symptom presence: symptoms present Lower urinary tract symptom detail: weak urinary stream Qualified Code(s): N40.1 - Benign prostatic hyperplasia with lower urinary tract symptoms; R39.12 - Poor urinary stream Code(s): N40.0 - Benign prostatic hyperplasia without lower urinary tract symptoms Status: Acute Assessment and Plan: He has a Cat catheter in (6) Right ventricular dysfunction: Code(s): I51.9 - Heart disease, unspecified Status: Acute Assessment and Plan: This is probably due to COPD and sleep apnea. He is on the ventilator. Subjective Date/time seen: 11/02/21 12:24 Interval history: daughter Veronica is in the room. We discussed the renal aspects of the case. Patient is sedated and on the ventilator. He looks comfortable Still on 30% FiO2. The patient is a little more awake today. He makes eye contact. Exam Narrative: WDWN in NAD skin no rash Or subQ nodules head ncat lungs mildly coarse bilaterally cor reg no rub or gallop abd BS+ nontender and soft ext 1 to 2+ bilateral edema. Objective Data Vital Signs Vital Signs: Vital Signs - 24 hr 11/01/21 13:42 11/01/21 13:54 11/01/21 14:00 Temperature Pulse Rate 92 90 99 Respiratory Rate 20 30 H 17 Blood Pressure 123/80 Pulse Oximetry 96 11/01/21 14:11 11/01/21 14:15 11/01/21 14:20 Temperature Pulse Rate 90 88 89 Respiratory Rate 23 H 20 24 H Blood Pressure 95/73 L 109/63 74/61 L Pulse Oximetry 96 96 94 11/01/21 14:25 11/01/21 14:30 11/01/21 14:35 Temperature Pulse Rate 87 87 87 Respiratory Rate 28 H 22 H 20 Blood Pressure 112/68 112/68 122/65 Pulse Oximetry 95 96 95 11/01/21 15:06 11/01/21 15:09 11/01/21 15:12 Temperature Pulse Rate 86 86 87 Respiratory Rate 22 H 23 H Blood Pressure Pulse Oximetry 98 11/01/21 15:45 11/01/21 16:00 11/01/21 17:02 Temperature 37.9 C H Pulse Rate 88 92 89 Respiratory Rate 22 H 23 H Blood Pressure 95/60 L Pulse Oximetry 97 11/01/21 17:23 11/01/21 18:00 11/01/21 20:00 Temperature Pulse Rate 91 88 82 Respiratory Rate 26 H Blood Pressure 115/62 Pulse Oximetry 96 96
[2021-11-02 12:48] LABS: Glucose Point of Care 100 mg/dl (65-105)
[2021-11-02] MEDS: ceFAZolin SODIUM 1 GM VIAL 3 GM IV PUSH (13:35)
[2021-11-02] MEDS: LIDO 1%/EPINEPHRINE/PF 1:200,000 30 ML VIAL XX (13:39)
--- NOTE | 2021-11-02 14:52 | PCRCNOTE ---
Pat window of tx time.
--- NOTE | 2021-11-02 15:13 | P.OP_ITS ---
Procedure Note - Detailed Date of Procedure 11/02/21 Pre-op Diagnosis Hypercapnic respiratory failure/COPD exacerbation Post-op Diagnosis same Procedure Performed Tracheostomy Surgeon Jericho Toney MD Nurses Aide Javier Anesthesia general Indications See above Findings Large thyroid isthmus 8 proximal XLT cuffed Shiley placed successfully. Description of Procedure Consent and identity verified in ICU. Patient brought to operating room time- out performed. Patient prepped and draped for the aforementioned procedure. Second time-out performed. Surgical incision drawn with a marking pen, 2 cc of 1% lidocaine with 1 100 supple 1000 parts epinephrine drawn earlier injected deep to the pre drawn surgical incision. Patient prepped after this was performed. Bovie electrocautery set of 10 utilized to dissect through the skin blunt dissection as well as Bovie utilized to dissect down to the thyroid isthmus thyroid isthmus undermined and cauterized with Bovie electrocautery some veins cauterized with bipolar electrocautery cricoid hook placed laryngeal framework elevated Anesthesia alerted the lowered there ET 2 1 cm. Tracheotomy performed 15 blade trach nanny/household manager placed very wide tracheotomy created large trachea. Anesthesia slowly remove their tube until the tip was no longer visible within the tracheotomy trach placed. Anesthesia hooked up their circuit. End-tidal CO2 confirmed. Cricoid hook as well as [place] is removed. For trach sutures placed. Trach ties placed. Blood loss approximately 20 cc. No complications. Care the patient turned over to Anesthesiology. I performed all dictated portions of the procedure. Estimated Blood Loss 20 Urine Output 575 Drains No Packing No Pathology none sent Complications No immediate complications Condition stable Disposition ICU
[2021-11-02 17:35] LABS: Glucose Point of Care 91 mg/dl (65-105)
[2021-11-02] MEDS: METOCLOPRAMIDE HCL 10 MG TABLET PO ×2 (18:35→21:45)
[2021-11-02] MEDS: MIDAZOLAM HCL (*CRX) 2 MG/2 ML VIAL IV PUSH (22:00)
[2021-11-02] MEDS: dexmedeTOMIDine 400 MCG/100 ML 400 MCG/100 ML BAG 23.63 MCG IV CONT (22:22)
[2021-11-02 23:43] LABS: Glucose Point of Care 100 mg/dl (65-105)
[2021-11-03] VITALS (34 sets, daily range): BP systolic 96–136; BP diastolic 60–82; PULSE 71–127; RESP 12–35; TEMP 36.8–39.4; O2SAT 91–97
[2021-11-03] MEDS: IPRATROPIUM BR 0.02% INH SOLN 0.5 MG/2.5 ML VIAL INHALATION ×4 (01:47→21:05)
[2021-11-03] MEDS: ALBUTEROL SULFATE NEB 2.5 MG/0.5 ML INH 5 MG INHALATION ×4 (01:47→21:05)
[2021-11-03] MEDS: dexmedeTOMIDine 400 MCG/100 ML 400 MCG/100 ML BAG 23.63 MCG IV CONT (02:56)
[2021-11-03 05:15] LABS: Alveolar/Arterial O2 Gradient 107.8 mmHg; Base Excess ABG 1.6 mEq/l (+/-2.0); Carboxyhemoglobin 0.8 % THb (0-2.0); Fractional Inspired Oxygen 30 %; HCO3 ABG 25.8 mEq/l (22.0-26.0); Methemoglobin ABG 0.4 %THb (0-1.5); Oxygen Content ABG 19.8 %vol (16.0-22.0); Oxygen Saturation ABG 91.9 % (95.0-100.0); Oxyhemoglobin 89.7 % THb (90.0-100.0); PCO2 ABG 39.2 mmHg (35.0-45.0); Reduced Hemoglobin 9.1 %THb (0-5.0); Total Hemoglobin 15.7 g/dL (12.0-18.0); pH ABG 7.436 (7.350-7.450)
[2021-11-03 05:16] LABS: Device VENTILATOR; Modified Allen's Test Pass; Site Drawn LEFT RADIAL
[2021-11-03 05:43] LABS: Arterial Blood Gas PEEP 8 cmH2O; Arterial Blood Gas Tidal Volume 450 ml; Arterial Blood Gas Vent Mode CMV; Arterial Blood Gas Ventilator rate 22 /MIN
[2021-11-03] MEDS: CENTRAL LINE FLUSH 10 ML IV PUSH ×4 (05:53→22:38)
[2021-11-03] MEDS: MIDAZOLAM HCL (*CRX) 2 MG/2 ML VIAL IV PUSH (05:54)
[2021-11-03 06:13] LABS: Hematocrit 35.3 % (42.0-52.0); Hemoglobin 10.6 g/dL (14.0-18.0); Mean Corpuscular Hemoglobin 29.9 pg (26-34); Mean Corpuscular Volume 99.7 fl (80-100); Mean Platelet Volume 12.3 fl (7.4-10.4); Platelet Count Result 104 k/mm3 (150-375); Red Blood Count 3.54 M/mm3 (4.6-6.20); Red Cell Distribution Width 14.2 % (11.5-14.5); White Blood Count 8.5 K/mm3 (4.5-10.0)
[2021-11-03 06:24] LABS: Alanine Aminotransferase 79 U/L (4-50); Albumin Level 2.9 g/dL (3.5-5.1); Alkaline Phosphatase 108 U/L (38-126); Anion Gap 10 mmol/L (8-16); Aspartate Amino Transferase 41 U/L (17-59); Bilirubin,Total 0.9 mg/dL (0.2-1.3); Blood Urea Nitrogen 48 mg/dL (9-20); Calcium 8.7 mg/dL (8.4-10.2); Carbon Dioxide 22 mmol/L (22-30); Chloride 117 mmol/L (98-107); Estimated CRCL calculation 38 ml/min; Estimated Glomerular Filt Rate 34; Glucose 118 mg/dL (65-110); Magnesium 2.8 mg/dL (1.6-2.3); Potassium 3.7 mmol/L (3.4-5.0); Sodium 149 mmol/L (137-145)
[2021-11-03] MEDS: dexmedeTOMIDine 400 MCG/100 ML 400 MCG/100 ML BAG 20.25 MCG IV CONT (07:10)
[2021-11-03] MEDS: POTASSIUM CHLORIDE 20 MEQ PACKET (FOR LIQUID) FEED TUBE (08:49)
[2021-11-03] MEDS: FUROSEMIDE INJ 40 MG/4 ML VIAL IV PUSH (08:50)
[2021-11-03] MEDS: FAMOTIDINE 20 MG/2 ML VIAL IV PUSH (08:50)
[2021-11-03] MEDS: polyethylene glycoL 3350 17 GM POWD.PACK PO (08:50)
[2021-11-03] MEDS: MINERAL OIL/WHITE PETROLATUM OINTMENT 1 APPLIC EACH EYE ×2 (08:51→20:12)
[2021-11-03] MEDS: QUEtiapine FUMARATE 25 MG TABLET 50 MG PO ×2 (08:51→20:12)
[2021-11-03] MEDS: BUDESONIDE RESPULE NEB 0.5 MG/2 ML AMP INHALATION (09:10)
--- NOTE | 2021-11-03 10:00 | PM.PNNEP ---
Progress Note: A&P Assessment and Plan (1) Chronic kidney disease, stage 3b: Code(s): N18.32 - Chronic kidney disease, stage 3b Status: Chronic Assessment and Plan: baseline creatinine runs ~ 1.5 - 1.8mg/dl creatinine has fluctuated during hospital stay due to his ongoing medical issues however, creatinine relatively stable for the last few days... evaluation to date: renal ultrasound is unremarkable with normal size kidneys urine electrolytes are pre renal urinalysis shows some protein and some blood - has a blank catheter in suspect PÉREZ was most likely prerenal azotemia due to right sided issues and relative hypotension from time to time creatinine tolerating diuresis at this time (2) Acute respiratory failure with hypoxia and hypercapnia: Code(s): J96.01 - Acute respiratory failure with hypoxia; J96.02 - Acute respiratory failure with hypercapnia Status: Acute Assessment and Plan: s/p tracheostomy to LT[facility] for ventilator management and weaning (3) Pneumonia: Qualifiers: Laterality: bilateral Lung location: unspecified part of lung Pneumonia type: due to unspecified organism Qualified Code(s): J18.9 - Pneumonia, unspecified organism Code(s): J18.9 - Pneumonia, unspecified organism Status: Acute Assessment and Plan: completed course of antibiotics follow CXR findings (4) Hypertension: Code(s): I10 - Essential (primary) hypertension Status: Acute Assessment and Plan: reasonable control follow trend of hemodynamics (5) BPH (benign prostatic hyperplasia): Qualifiers: Lower urinary tract symptom detail: weak urinary stream Lower urinary tract symptom presence: symptoms present Qualified Code(s): N40.1 - Benign prostatic hyperplasia with lower urinary tract symptoms; R39.12 - Poor urinary stream Code(s): N40.0 - Benign prostatic hyperplasia without lower urinary tract symptoms Status: Acute Assessment and Plan: blank catheter in place follow I/Os (6) Right ventricular dysfunction: Code(s): I51.9 - Heart disease, unspecified Status: Acute Assessment and Plan: due to COPD and sleep apnea continue ventilator management Will continue to follow. Subjective Date/time seen: 11/03/21 10:01 Chart reviewed; remains on mechanical ventilation and is s/p tracheostomy; remains hemodynamically stable; per nursing, possible transfer to LTACH today for ongoing therapy/ventilator weaning...etc; no other issues/events overnight or earlier this AM. Exam Narrative: General: WD/WN male in NAD; s/p tracheostomy Heart: normal S1 and S2; no rub Lungs: coarse bilaterally Abdomen: soft, nontender, nondistended, positive bowel sounds Extremities: no cyanosis or clubbing; 1+ edema Skin: warm and dry Objective Data Vital Signs Vital Signs: Vital Signs Temp Pulse Resp BP Pulse Ox 11/03/21 10:00 78 23 H 96/63 L 93 11/03/21 09:22 77 26 H 11/03/21 09:21 74 24 H 11/03/21 09:15 71 95 11/03/21 09:11 72 24 H 11/03/21 08:00 37.3 C 94 23 H 117/71 95 11/03/21 07:10 96 22 H 11/03/21 06:00 101 H 27 H 102/64 94 11/03/21 04:49 102 H 91 11/03/21 04:00 37.2 C 101 H 12 116/68 95 11/03/21 02:00 95 25 H 116/67 95 11/03/21 01:51 71 24 H 11/03/21 01:50 71 96 11/03/21 00:00 37.1 C 73 22 H 120/64 94 11/02/21 23:30 74 95 11/02/21 22:13 72 24 H 11/02/21 22:00 70 23 H 119/88 95 11/02/21 21:53 67 28 H 11/02/21 21:50 67 98 11/02/21 20:02 37.7 C H 74 19 108/93 H 94 11/02/21 20:00 67 11/02/21 18:46 67 100 11/02/21 18:00 36.6 C 94 29 H 116/87 97 11/02/21 16:00 36.8 C 86 33 H 100/73 97 11/02/21 15:39 69 19 11/02/21 15:32 69 19 Intake/Output Intake/Output: Intake & Output 10/31/21 11/01/21 11/02/21 11/03/21 23:59 23:59 23
--- NOTE | 2021-11-03 10:00 | P.PNNP_ITS ---
Progress Note: A&P Assessment and Plan (1) Chronic kidney disease, stage 3b: Code(s): N18.32 - Chronic kidney disease, stage 3b Status: Chronic Assessment and Plan: * baseline creatinine runs ~ 1.5 - 1.8mg/dl * creatinine has fluctuated during hospital stay due to his ongoing medical issues * however, creatinine relatively stable for the last few days... * evaluation to date: * renal ultrasound is unremarkable with normal size kidneys * urine electrolytes are pre renal * urinalysis shows some protein and some blood - has a blank catheter in * suspect PÉREZ was most likely prerenal azotemia due to right sided issues and relative hypotension from time to time * creatinine tolerating diuresis at this time (2) Acute respiratory failure with hypoxia and hypercapnia: Code(s): J96.01 - Acute respiratory failure with hypoxia; J96.02 - Acute respiratory failure with hypercapnia Status: Acute Assessment and Plan: * [facility] (3) Pneumonia: Qualifiers: Laterality: bilateral Lung location: unspecified part of lung Pneumonia type: due to unspecified organism Qualified Code(s): J18.9 - Pneumonia, unspecified organism Code(s): J18.9 - Pneumonia, unspecified organism Status: Acute Assessment and Plan: * completed course of antibiotics * follow CXR findings (4) Hypertension: Code(s): I10 - Essential (primary) hypertension Status: Acute Assessment and Plan: * reasonable control * follow trend of hemodynamics (5) BPH (benign prostatic hyperplasia): Qualifiers: Lower urinary tract symptom detail: weak urinary stream Lower urinary tract symptom presence: symptoms present Qualified Code(s): N40.1 - Benign prostatic hyperplasia with lower urinary tract symptoms; R39.12 - Poor urinary s tream Code(s): N40.0 - Benign prostatic hyperplasia without lower urinary tract symptoms Status: Acute Assessment and Plan: * blank catheter in place * follow I/Os (6) Right ventricular dysfunction: Code(s): I51.9 - Heart disease, unspecified Status: Acute Assessment and Plan: * due to COPD and sleep apnea * continue ventilator management Will continue to follow. Subjective Date/time seen: 11/03/21 10:01 Chart reviewed; remains on mechanical ventilation and is s/p tracheostomy; remains hemodynamically stable; per nursing, possible transfer to LTACH today for ongoing therapy/ventilator weaning...etc; no other issues/events overnight or earlier this AM. Exam Narrative: General: WD/WN male in NAD; s/p tracheostomy Heart: normal S1 and S2; no rub Lungs: coarse bilaterally Abdomen: soft, nontender, nondistended, positive bowel sounds Extremities: no cyanosis or clubbing; 1+ edema Skin: warm and dry Objective Data Vital Signs Vital Signs: Vital Signs Temp Pulse Resp BP Pulse Ox 11/03/21 10:00 78 23 H 96/63 L 93 11/03/21 09:22 77 26 H 11/03/21 09:21 74 24 H 11/03/21 09:15 71 95 11/03/21 09:11 72 24 H 11/03/21 08:00 37.3 C 94 23 H 117/71 95 11/03/21 07:10 96 22 H 11/03/21 06:00 101 H 27 H 102/64 94 11/03/21 04:49 102 H 91 11/03/21 04:00 37.2 C 101 H 12 116/68 95 11/03/21 02:00 95 25 H 116/67 95
--- NOTE | 2021-11-03 10:07 | WPDINTPN ---
Progress Note: A&P Assessment and Plan (1) Acute respiratory failure with hypoxia and hypercapnia: Code(s): J96.01 - Acute respiratory failure with hypoxia; J96.02 - Acute respiratory failure with hypercapnia Status: Acute Assessment and Plan: Acute on chronic Respiratory failure secondary to COPD, congestive heart failure, aspiration pneumonia, obesity hypoventilation syndrome Patient intubated on 10/19 He failed his weaning trial daily due to high RSBI and requires high pressure support of >14/8 to obtain adequate RSBI. 11/02 tracheostomy was done Continue full mechanical ventilation support to prevent hypoxemia/hypercarbia and end organ damage. ABG reviewed PCXR reviewed Off Solu-Medrol now Bronchodilators Completed empiric Unasyn for 7 days 10/20/2021: Blood cultures negative x2 10/24/2021: Sputum cultures: No growth 10/24/2021 bilateral pleural effusions and atelectasis 10/29-lower extremity Dopplers were negative for DVT - Continue Seroquel wean Precedex (2) Encephalopathy: Code(s): G93.40 - Encephalopathy, unspecified Status: Acute Assessment and Plan: Multifactorial - sedation, anxiety, acute critical care illness -patient with anxiety, agitation, restless, trying to climb out of the bed, did open his eyes and nodded to understanding that we will take the breathing tube out - CT Brain 10/24: No acute intracranial findings, chronic age-related findings -will discontinue steroids, could be causing his agitation -10/28/2021: Patient was tachypneic, agitated and was restarted on fentanyl and Versed infusion, also received 1 dose of rocuronium. Wean Precedex -continue Seroquel but off of Xanax (3) CKD (chronic kidney disease), stage III: Qualifiers: Chronic kidney disease stage 3 subtype: stage 3b (GFR 30-44) Qualified Code(s): N18.32 - Chronic kidney disease, stage 3b Code(s): N18.30 - Chronic kidney disease, stage 3 unspecified Status: Acute Assessment and Plan: Creatinine stable at this time Nephrology following -renal ultrasound is unremarkable for hydronephrosis - continue increased free water for elevated sodium chloride and potassium and hold diuresis Monitor urine output, electrolytes and creatinine (4) CHF (congestive heart failure): Code(s): I50.9 - Heart failure, unspecified Status: Acute Assessment and Plan: Patient has cor pulmonale as he has diffuse significant bilateral lower extremity edema and had RV dysfunction on his echo done in the past -echocardiogram 10/15/2021: EF 60-65% diastolic dysfunction grade 1, no pulmonary hypertension a RVSP of 13 mmHg (5) Aspiration pneumonia: Qualifiers: Aspiration pneumonia type: unspecified Laterality: unspecified laterality Lung location: unspecified part of lung Qualified Code(s): J69.0 - Pneumonitis due to inhalation of food and vomit Code(s): J69.0 - Pneumonitis due to inhalation of food and vomit Status: Acute Assessment and Plan: See above (6) COPD (chronic obstructive pulmonary disease): Code(s): J44.9 - Chronic obstructive pulmonary disease, unspecified Status: Inactive Assessment and Plan: Continue bronchodilators, Solu-Medrol daily, mechanical ventilation -ABG did not reveal hypercapnia (7) Right ventricular dysfunction: Code(s): I51.9 - Heart disease, unspecified Status: Acute Assessment and Plan: Patient has evidence of right heart failure which was confirmed on echo in the past. His most recent echo not visualize RV Cautious diuresis as patient is overall volume overloaded but may be sensitive to intravascular volume depletion (8) Suspected COVID-19 virus infection: Code(s): Z20.822 - Contact with and (suspected) exposure to COVID-19 Status: Ruled-out Assessment and Plan: COVID-19 suspected. SARS-CoV-2 PCR was negative Isolation discontinued (9) Electrolyte ab
[2021-11-03] MEDS: METOCLOPRAMIDE HCL 10 MG TABLET PO ×2 (10:35→17:17)
[2021-11-03 13:04] LABS: Glucose Point of Care 99 mg/dl (65-105)
--- NOTE | 2021-11-03 13:55 | PM.DS ---
DS: Admitting Diagnosis Discharge Date 11/03/2021 Admitting Diagnosis Acute respiratory failure hypoxia and hypercapnia DS: Discharge Diagnosis Discharge Diagnosis (1) Pleural effusion: Code(s): J90 - Pleural effusion, not elsewhere classified Status: Acute (2) Encephalopathy: Code(s): G93.40 - Encephalopathy, unspecified Status: Acute (3) Right ventricular dysfunction: Code(s): I51.9 - Heart disease, unspecified Status: Acute (4) Aspiration pneumonia: Qualifiers: Aspiration pneumonia type: unspecified Laterality: unspecified laterality Lung location: unspecified part of lung Qualified Code(s): J69.0 - Pneumonitis due to inhalation of food and vomit Code(s): J69.0 - Pneumonitis due to inhalation of food and vomit Status: Acute (5) CHF (congestive heart failure): Code(s): I50.9 - Heart failure, unspecified Status: Acute (6) CKD (chronic kidney disease), stage III: Qualifiers: Chronic kidney disease stage 3 subtype: stage 3b (GFR 30-44) Qualified Code(s): N18.32 - Chronic kidney disease, stage 3b Code(s): N18.30 - Chronic kidney disease, stage 3 unspecified Status: Acute (7) Acute respiratory failure with hypoxia and hypercapnia: Code(s): J96.01 - Acute respiratory failure with hypoxia; J96.02 - Acute respiratory failure with hypercapnia Status: Acute (8) Pneumonia: Qualifiers: Pneumonia type: due to unspecified organism Laterality: bilateral Lung location: unspecified part of lung Qualified Code(s): J18.9 - Pneumonia, unspecified organism Code(s): J18.9 - Pneumonia, unspecified organism Status: Acute DS: Summary Hospital Course Hospital Course: 81-year-old obese male with past medical history of chronic kidney disease, AAA, hypertension hyperlipidemia untreated obstructive sleep apnea COPD and right heart failure was admitted on 10/19 with acute respiratory failure with hypoxia and hypercarbia. Patient was initially placed on BiPAP but failed BiPAP therapy and had episode of vomiting. Patient was intubated and placed on mechanical ventilation. Patient was treated for aspiration pneumonia with antibiotics, COPD exacerbation with steroids and bronchodilators, diuretics for congestive heart failure. He was tested for COVID-19 as PCR came back negative. And completed a 7 day course of Unasyn. Sputum and blood cultures came back negative. Lower extremity Dopplers were negative for DVT CT chest showed bilateral pleural effusions CT head was negative for any acute change Patient had increase in creatinine and his renal ultrasound was negative. Patient was seen by Nephrology. Patient was cautiously diuresed as he was overall volume overloaded. Patient was seen by Nephrology Despite optimization of his respiratory status patient failed to get extubated and failed daily weaning trial. Patient underwent PEG tube placement on 11/01 and tracheostomy placement by ENT on 11/02. Patient is being transferred to LTAC facility can read for further weaning the ventilator and continue medical care. I have spoken to physician at [facility] and given them a sign out. In regard to his home medication prior to admission his atenolol has been changed to metoprolol, amlodipine has been held due to soft blood pressure, diuretics have been held due to elevated kidney function. Statin was held due to elevated LFTs which are improving. Quinapril was held due to worsening of renal function and can be resumed once renal function has stabilized. Time Spent with Patient Time attestation: Total time spent providing and/or coordinating discharge services: Exam Narrative: General: On mechanical ventilation, intubated, Lungs/Chest: Trachea central, improvement in coarse breath sounds bilaterally,, No crackles or wheezing. Diminished sounds at bases Cardiac: RRR. Normal S1 S2. No murmurs Abdomen: Decreased bowel sounds.
[2021-11-03] MEDS: ALPRAZolam (*CRX) 0.5 MG TABLET 1 MG PO ×2 (14:02→22:38)
--- NOTE | 2021-11-03 14:26 | WPDANESPN ---
Anes - Prog Note Post-Op Date/Time: 11/03/21 14:26 Cardiovascular status: normal Respiratory status: other (patient has a trach) Airway patency: other Mental status: other (precedex gtt) Post-Op hydration status: normal Vital Signs: Last Vital Signs Temp 37.3 C 11/03/21 13:13 Pulse 81 11/03/21 12:00 Resp 25 H 11/03/21 12:00 BP 108/82 11/03/21 12:00 Pulse Ox 95 11/03/21 12:00 Pain Score (VAS): 0 I/O: Intake & Output 11/02/21 11/03/21 11/03/21 23:59 07:59 15:59 Intake Total 100 600 56 Output Total 450 1075 Balance -350 -475 56 Laboratory Tests 11/03/21 05:40 11/03/21 05:40 11/02/21 11/02/21 11/03/21 17:24 23:39 05:04 WBC RBC Hgb Hct MCV MCH MCHC RDW Plt Count MPV Puncture Site Left radial ABG pH 7.436 ABG pCO2 39.2 ABG pO2 60.0 L ABG PO2/FiO2 Ratio 2.00 ABG HCO3 25.8 ABG O2 Saturation 91.9 L ABG O2 Content 19.8 ABG Base Excess 1.6 A-a Gradient 107.8 Oxyhemoglobin 89.7 L Carboxyhemoglobin 0.8 Methemoglobin 0.4 Reduced Hemoglobin 9.1 H Total Hemoglobin 15.7 O2 Delivery Device Ventilator O2 Liters/Min Not Reportable Minute Volume Not Reportable Vent Rate 22 Vent Mode Cmv FiO2 30 Tidal Volume 450 PEEP 8 Peak Inspir Pressure Not Reportable Pressure Support Not Reportable Sodium Potassium Chloride Carbon Dioxide Anion Gap BUN Creatinine Estim Creat Clear Calc Estimated GFR Glucose POC Capillary Glucose 91 100 Calcium Magnesium Total Bilirubin AST ALT Alkaline Phosphatase Total Protein Albumin 11/03/21 11/03/21 11/03/21 05:40 05:40 11:58 WBC 8.5 RBC 3.54 L Hgb 10.6 L Hct 35.3 L MCV 99.7 MCH 29.9 MCHC 30.0 L RDW 14.2 Plt Count 104 L MPV 12.3 H Puncture Site ABG pH ABG pCO2 ABG pO2 ABG PO2/FiO2 Ratio ABG HCO3 ABG O2 Saturation ABG O2 Content ABG Base Excess A-a Gradient Oxyhemoglobin Carboxyhemoglobin Methemoglobin Reduced Hemoglobin Total Hemoglobin O2 Delivery Device O2 Liters/Min Minute Volume Vent Rate Vent Mode FiO2 Tidal Volume PEEP Peak Inspir Pressure Pressure Support Sodium 149 H Potassium 3.7 Chloride 117 H Carbon Dioxide 22 Anion Gap 10 BUN 48 H Creatinine 1.90 H Estim Creat Clear Calc 38 Estimated GFR 34 L Glucose 118 H POC Capillary Glucose 99 Calcium 8.7 Magnesium 2.8 H Total Bilirubin 0.9 AST 41 ALT 79 H Alkaline Phosphatase 108 Total Protein 6.0 L Albumin 2.9 L Post-procedural complaints: none Patient Feedback: Patient satisfied with anesthetic care.
[2021-11-03 18:03] LABS: Glucose Point of Care 96 mg/dl (65-105)
[2021-11-03] MEDS: ACETAMINOPHEN ELIXIR 325 MG/10.15 ML UDC 650 MG PO (20:09)
[2021-11-03] MEDS: FAMOTIDINE 20 MG TABLET FEED TUBE (20:11)
[2021-11-03] MEDS: METOPROLOL TARTRATE 25 MG TABLET PO (20:12)
[2021-11-04] VITALS (18 sets, daily range): BP systolic 110–141; BP diastolic 63–85; PULSE 89–125; RESP 24–31; TEMP 37.2–39; O2SAT 93–97
[2021-11-04] MEDS: MIDAZOLAM HCL (*CRX) 2 MG/2 ML VIAL IV PUSH (00:28)
[2021-11-04] MEDS: ACETAMINOPHEN ELIXIR 325 MG/10.15 ML UDC 650 MG PO ×2 (00:28→06:26)
[2021-11-04 01:20] LABS: Glucose Point of Care 94 mg/dl (65-105)
[2021-11-04] MEDS: IPRATROPIUM BR 0.02% INH SOLN 0.5 MG/2.5 ML VIAL INHALATION (02:35)
[2021-11-04] MEDS: ALBUTEROL SULFATE NEB 2.5 MG/0.5 ML INH 5 MG INHALATION (02:35)
[2021-11-04 04:23] LABS: Hemoglobin 11.1 g/dL (14.0-18.0); Mean Corpuscular HGB Conc 30.8 g/dl (32-36); Mean Corpuscular Hemoglobin 30.3 pg (26-34); Mean Corpuscular Volume 98.4 fl (80-100); Platelet Count Result 165 k/mm3 (150-375); Red Blood Count 3.66 M/mm3 (4.6-6.20); Red Cell Distribution Width 14.4 % (11.5-14.5); White Blood Count 13.1 K/mm3 (4.5-10.0)
[2021-11-04 04:41] LABS: Alanine Aminotransferase 75 U/L (4-50); Albumin Level 2.9 g/dL (3.5-5.1); Alkaline Phosphatase 125 U/L (38-126); Anion Gap 9 mmol/L (8-16); Aspartate Amino Transferase 55 U/L (17-59); Bilirubin,Total 1.6 mg/dL (0.2-1.3); Blood Urea Nitrogen 47 mg/dL (9-20); Calcium 8.9 mg/dL (8.4-10.2); Carbon Dioxide 24 mmol/L (22-30); Chloride 114 mmol/L (98-107); Estimated CRCL calculation 38 ml/min; Estimated Glomerular Filt Rate 34; Glucose 126 mg/dL (65-110); Magnesium 2.7 mg/dL (1.6-2.3); Potassium 3.5 mmol/L (3.4-5.0); Sodium 147 mmol/L (137-145)
[2021-11-04 05:35] LABS: Alveolar/Arterial O2 Gradient 101.8 mmHg; Base Excess ABG 1.7 mEq/l (+/-2.0); Carboxyhemoglobin 0.3 % THb (0-2.0); Fractional Inspired Oxygen 30 %; HCO3 ABG 25.4 mEq/l (22.0-26.0); Methemoglobin ABG 0.2 %THb (0-1.5); Oxygen Content ABG 16.3 %vol (16.0-22.0); Oxygen Saturation ABG 94.7 % (95.0-100.0); Oxyhemoglobin 92.5 % THb (90.0-100.0); PCO2 ABG 36.9 mmHg (35.0-45.0); PO2 ABG 68.7 mmHg (80.0-100.0); PO2 FiO2 Ratio Arterial Blood 2.29 %; Total Hemoglobin 12.5 g/dL (12.0-18.0); pH ABG 7.456 (7.350-7.450)
[2021-11-04 05:36] LABS: Device VENTILATOR; Modified Allen's Test Pass; Site Drawn LEFT RADIAL
[2021-11-04 05:37] LABS: Arterial Blood Gas PEEP 8 cmH2O; Arterial Blood Gas Tidal Volume 450 ml; Arterial Blood Gas Vent Mode CMV; Arterial Blood Gas Ventilator rate 22 /MIN
[2021-11-04] MEDS: CENTRAL LINE FLUSH 10 ML IV PUSH (06:27)
[2021-11-04] MEDS: ALPRAZolam (*CRX) 0.5 MG TABLET 1 MG PO (06:27)
[2021-11-04] MEDS: FAMOTIDINE 20 MG TABLET FEED TUBE (08:26)
[2021-11-04] MEDS: MINERAL OIL/WHITE PETROLATUM OINTMENT 1 APPLIC EACH EYE (08:26)
[2021-11-04] MEDS: QUEtiapine FUMARATE 25 MG TABLET 50 MG PO (08:26)
[2021-11-04] MEDS: METOPROLOL TARTRATE 25 MG TABLET PO (08:26)
--- NOTE | 2021-11-04 09:09 | PC.NURSE ---
Spoke with KANU Baca with [facility] at 0815. Bed still available and patient able to transfer to facility as soon as EMS can transport patient.
[2021-11-04 09:42] LABS: Add Urine Microscopic? YES; Appearance Urine Cloudy (Clear); Bilirubin Urine Negative (Negative); Blood Urine 2+ (Negative); Color Urine Amber (Yellow); Glucose Urine UA Negative (Negative); Ketones Urine Negative (Negative); Leukocyte Esterase Ur Trace LEU/UL (Negative); Mucus Urine Rare /lpf; Nitrate Urine Negative (Negative); Protein Urine 1+ mg/dL (Negative); Specific Grav Ur 1.017 (1.001-1.035); Squamous Epithelial Cell Urine Rare /hpf (Few)
[2021-11-04] MEDS: HYDROcodone/acetaminophen (*CRX) 5-325 MG TABLET 1 TAB FEED TUBE (10:02)
--- NOTE | 2021-11-04 11:14 | PC.NURSE ---
Report called and given to KANU Goldman with [facility] at 1044. All questions answered and plan of care reviewed. Patient to transfer via EMS to [place].
--- NOTE | 2021-11-04 12:45 | WPDINTPN ---
Progress Note: A&P Assessment and Plan (1) Acute respiratory failure with hypoxia and hypercapnia: Code(s): J96.01 - Acute respiratory failure with hypoxia; J96.02 - Acute respiratory failure with hypercapnia Status: Acute Assessment and Plan: Acute on chronic Respiratory failure secondary to COPD, congestive heart failure, aspiration pneumonia, obesity hypoventilation syndrome Patient intubated on 10/19 He failed his weaning trial daily due to high RSBI and requires high pressure support of >14/8 to obtain adequate RSBI. 11/02 tracheostomy was done Continue full mechanical ventilation support to prevent hypoxemia/hypercarbia and end organ damage. ABG reviewed PCXR reviewed Off Solu-Medrol now Bronchodilators Completed empiric Unasyn for 7 days 10/20/2021: Blood cultures negative x2 10/24/2021: Sputum cultures: No growth 10/24/2021 bilateral pleural effusions and atelectasis 10/29-lower extremity Dopplers were negative for DVT - Continue Seroquel (2) Encephalopathy: Code(s): G93.40 - Encephalopathy, unspecified Status: Acute Assessment and Plan: Multifactorial - sedation, anxiety, acute critical care illness -patient with anxiety, agitation, restless, trying to climb out of the bed, did open his eyes and nodded to understanding that we will take the breathing tube out - CT Brain 10/24: No acute intracranial findings, chronic age-related findings -will discontinue steroids, could be causing his agitation -10/28/2021: Patient was tachypneic, agitated and was restarted on fentanyl and Versed infusion, also received 1 dose of rocuronium. -continue Seroquel but off of Xanax (3) Right ventricular dysfunction: Code(s): I51.9 - Heart disease, unspecified Status: Acute Assessment and Plan: Patient has evidence of right heart failure which was confirmed on echo in the past. His most recent echo not visualize RV Cautious diuresis as patient is overall volume overloaded but may be sensitive to intravascular volume depletion (4) Aspiration pneumonia: Qualifiers: Aspiration pneumonia type: unspecified Laterality: unspecified laterality Lung location: unspecified part of lung Qualified Code(s): J69.0 - Pneumonitis due to inhalation of food and vomit Code(s): J69.0 - Pneumonitis due to inhalation of food and vomit Status: Acute Assessment and Plan: See above (5) CHF (congestive heart failure): Code(s): I50.9 - Heart failure, unspecified Status: Acute Assessment and Plan: Patient has cor pulmonale as he has diffuse significant bilateral lower extremity edema and had RV dysfunction on his echo done in the past -echocardiogram 10/15/2021: EF 60-65% diastolic dysfunction grade 1, no pulmonary hypertension a RVSP of 13 mmHg (6) CKD (chronic kidney disease), stage III: Qualifiers: Chronic kidney disease stage 3 subtype: stage 3b (GFR 30-44) Qualified Code(s): N18.32 - Chronic kidney disease, stage 3b Code(s): N18.30 - Chronic kidney disease, stage 3 unspecified Status: Acute Assessment and Plan: Creatinine stable at this time Nephrology following -renal ultrasound is unremarkable for hydronephrosis - continue increased free water for elevated sodium chloride and potassium and hold diuresis Monitor urine output, electrolytes and creatinine (7) Fever: Code(s): R50.9 - Fever, unspecified Status: Acute Assessment and Plan: patient had episode of fever overnight with slight increase in his white count no significant change in o, requirement, respiratory secretions or on chest x-ray blood cultures and sputum culture sent replace [facility] and send UA Additional Plan DVT prophylaxis -Lovenox Stress ulcer prophylaxis - Pepcid Nutrition -PEG placed yesterday. Resume tube feeds, on Reglan for high residual. P.r.n. MiraLax and Dulcolax Code Status - Full Code Patient awaits transfer
--- NOTE | 2021-12-10 22:02 | PM.IMPN ---
Progress Note: A&P Additional Plan Assessment and Plan (1) Encephalopathy: Code(s): G93.40 - Encephalopathy, unspecified Status: Acute Assessment and Plan: Multifactorial - sedation, anxiety, acute critical care illness -patient with anxiety, agitation, restless, trying to climb out of the bed, did open his eyes and nodded to understanding that we will take the breathing tube out - CT Brain 10/24: No acute intracranial findings, chronic age-related findings -could be related to medications -will discontinue Precedex, add Seroquel (2) Acute respiratory failure with hypoxia and hypercapnia: Code(s): J96.01 - Acute respiratory failure with hypoxia; J96.02 - Acute respiratory failure with hypercapnia Status: Acute Assessment and Plan: Acute on chronic Respiratory failure secondary to COPD, congestive heart failure, aspiration pneumonia, obesity hypoventilation syndrome Patient intubated on 10/19 He failed his weaning trial due to high RSBI although his ABG was acceptable. Continue full mechanical ventilation support to prevent hypoxemia/hypercarbia and end organ damage. ABG reviewed and PCXR reviewed Continue Solu-Medrol q.day Bronchodilators 10/20/2021: Blood cultures negative x2 Continue empiric Unasyn Continue Lasix IV Patient is sedated with fentanyl and Versed infusion, patient gets agitated and climbing out of bed. Clearly Precedex not helping, will discontinue -add Seroquel -obtain sputum culture (3) CKD (chronic kidney disease), stage III: Qualifiers: Chronic kidney disease stage 3 subtype: stage 3b (GFR 30-44) Qualified Code(s): N18.32 - Chronic kidney disease, stage 3b Code(s): N18.30 - Chronic kidney disease, stage 3 unspecified Status: Acute Assessment and Plan: Creatinine improving Monitor urine output electrolytes and creatinine Lasix IV for volume overload (4) CHF (congestive heart failure): Code(s): I50.9 - Heart failure, unspecified Status: Acute Assessment and Plan: Patient has cor pulmonale as he has diffuse significant bilateral lower extremity edema and had RV dysfunction on his echo done in the past -echocardiogram 10/15/2021: EF 60-65% diastolic dysfunction grade 1, no pulmonary hypertension a RVSP of 13 mmHg Lasix IV (5) Aspiration pneumonia: Code(s): J69.0 - Pneumonitis due to inhalation of food and vomit Status: Acute Assessment and Plan: See above (6) COPD (chronic obstructive pulmonary disease): Code(s): J44.9 - Chronic obstructive pulmonary disease, unspecified Status: Inactive Assessment and Plan: Continue bronchodilators, Solu-Medrol daily, mechanical ventilation -ABG did not reveal hypercapnia (7) Right ventricular dysfunction: Code(s): I51.9 - Heart disease, unspecified Status: Acute Assessment and Plan: Patient has evidence of right heart failure which was confirmed on echo in the past. His most recent echo not visualize RV Cautious diuresis as patient is overall volume overloaded but may be sensitive to intravascular volume depletion (8) Suspected COVID-19 virus infection: Code(s): Z20.822 - Contact with and (suspected) exposure to COVID-19 Status: Acute Assessment and Plan: COVID-19 suspected. SARS-CoV-2 PCR was negative isolation DC Additional Plan DVT prophylaxis -Lovenox Stress ulcer prophylaxis - Pepcid Nutrition - Tube Feeds, added MiraLax Code Status - Full Code Subjective Date/time seen: 10/24/2021 09:00 S: Patient seen and examined at the bedside. He is intubated on mechanical ventilation. Review of Systems Review of Systems: ROS unobtainable: Yes unobtainable due to endotracheal tube Exam Narrative: General: On mechanical ventilation, intubated, Lungs/Chest: Trachea central, improvement in coarse breath sounds bilaterally,, No crackles or wheezing. Diminished sounds at bases Cardiac: RRR. Normal S1 S2. No murmurs
== END 2021-11-04 11:09 | DRG 4 ==
LOC: ANHED 15:28 → ANHICU 18:02
PROVIDERS: Internal Medicine; Internal Medicine Gastroenterology; Internal Medicine Nephrology; Otolaryngology; Admitting Provider Family Medicine; Emergency Provider Emergency Medicine; PCP Emergency Medicine; Visit Provider Internal Medicine
PROC: 0DJ08ZZ Inspection of Upper Intestinal Tract, Via Natural or Artificial Opening Endoscopic (ICD-10-PCS; CPT 43235; principal; 2021-11-01 14:30)
PROC: 0DH63UZ Insertion of Feeding Device into Stomach, Percutaneous Approach (ICD-10-PCS; CPT 43246; 2021-11-01 14:30)
PROC: 0B110F4 Bypass Trachea to Cutaneous with Tracheostomy Device, Open Approach (ICD-10-PCS; principal; 2021-11-02 13:00)
DX: J96.21 Acute and chronic respiratory failure with hypoxia (principal); J69.0 Pneumonitis due to inhalation of food and vomit; I13.0 Hypertensive heart and chronic kidney disease with heart failure and stage 1 through stage 4 chronic kidney disease, or unspecified chronic kidney disease; E66.2 Morbid (severe) obesity with alveolar hypoventilation; Z68.41 Body mass index [BMI] 40.0-44.9, adult; G93.40 Encephalopathy, unspecified; N17.9 Acute kidney failure, unspecified; K22.10 Ulcer of esophagus without bleeding; I27.81 Cor pulmonale (chronic); I50.9 Heart failure, unspecified; J96.22 Acute and chronic respiratory failure with hypercapnia; N18.32 Chronic kidney disease, stage 3b; Z20.822 Contact with and (suspected) exposure to COVID-19; R13.10 Dysphagia, unspecified; J44.9 Chronic obstructive pulmonary disease, unspecified; N40.1 Benign prostatic hyperplasia with lower urinary tract symptoms; R39.12 Poor urinary stream; I71.4 Abdominal aortic aneurysm, without rupture; E78.5 Hyperlipidemia, unspecified; M48.061 Spinal stenosis, lumbar region without neurogenic claudication; M10.9 Gout, unspecified; Z79.899 Other long term (current) drug therapy; Z87.891 Personal history of nicotine dependence
CPT/HCPCS: 31500; 36415; 36569; 36600; 43246; 70450; 71045; 71250; 76775; 80048; 80053; 81001; 82375; 82436; 82550; 82570; 82805; 82948; 83050; 83605; 83735; 83880; 83883; 83970; 84100; 84133; 84156; 84300; 84439; 84443; 84480; 85025; 85027; 85055; 85380; 85610; 85652; 85730; 85999; 86022; 86038; 86160; 86162; 86334; 87040; 87070; 87077; 87186; 87205; 93005; 93970; 94002; 94003; 94640; 96365; 96368; 96375; 99291; A9270; C1751; C9803; J0295; J0330; J0360; J0690; J1650; J1652; J1940; J2250; J2270; J2370; J2405; J2704; J2765; J2930; J3010; J3480; J7030; J7060; J7070; J7120; U0003; U0005

== ENCOUNTER 2022-06-14 12:44 | Outpatient (CLI) | payer MEDICARE, SELFPAY ==
--- NOTE | 2022-05-21 10:01 | SUR.PREOP ---
Called patient's primary provider [facility] and spoke with Connor in the office. Connor pulled the patient's records and said that the patient was first seen at their office as a new patient on 05/06/22. The patient has a follow up appointment on 06/07/22. I inquired if the provider has discussed with the patient about no longer needing the Gastrotomy tube and it being removed by Dr. Beal. I mentioned that the patient called Dr Beal's office wanting it removed but since it was placed because of aspiration pneumonia we wanted to be sure he was ok to have it removed. Connor said he put a note in the patient's chart to discuss on the 06/07 visit. Patient was called with update and the need to cancel the appointment for removal on 05/22 until his office visit with his primary provider.
[2022-06-13 08:49] VITALS: BMI 47.1
--- NOTE | 2022-06-13 14:43 | WPDANESEPPF ---
Anes - Initial Pre Proc Eval Procedure: Operation Date: 06/14/22 13:00 Proposed Procedures p Removal Gastrostomy Tube - Pineda Beal MD Date/Time: 06/13/22 14:43 Surgeon: Pineda Beal MD Pre Op Diagnosis: malfunctioning G-tube Patient Data Age: 81 Gender: M Height: 1.63 m Weight: 124.5 kg Allergies Allergy/AdvReac Type Severity Reaction Status Date / Time adhesive tape Allergy Intermediate Blisters Verified 06/13/22 08:41 iodine Allergy Mild Unknown Verified 06/13/22 08:41 shellfish derived Allergy Other Verified 06/13/22 08:41 Home Medications Medication Instructions Recorded Confirmed Type acetaminophen 500 mg capsule 650 mg PO TID PRN arhtritis 05/02/22 06/13/22 History finasteride 5 mg tablet 5 mg PO DAILY 05/02/22 06/13/22 History furosemide 40 mg tablet 40 mg PO QAM #30 tabs 05/02/22 06/13/22 Rx losartan 100 mg tablet 100 mg PO DAILY #30 tabs 05/02/22 06/13/22 Rx meloxicam 15 mg tablet 15 mg PO DAILY 05/02/22 06/13/22 History pravastatin 10 mg tablet 10 mg PO DAILY 05/02/22 06/13/22 History atenolol 50 mg tablet 50 mg PO DAILY 06/13/22 06/13/22 History quinapril 40 mg tablet 40 mg PO DAILY 06/13/22 06/13/22 History Results Review: All pre-operative results and documents have been reviewed as part of the pre-operative evaluation. [facility] Past Medical History Medical History AAA (abdominal aortic aneurysm) CTA of abdomen pelvis 08/23/2021: Aortoiliac ectasias with increased size the distal aortic aneurysm 5 cm, mild renal atrophy, small umbilical hernia, mild colonic diverticulosis BPH (benign prostatic hyperplasia) Chronic kidney disease, stage 3b CKD (chronic kidney disease), stage III COPD (chronic obstructive pulmonary disease) Dyslipidemia Erectile dysfunction Gout Hypertension Lumbar spinal stenosis Severe central canal stenosis L3-L4 MRI May 2021 Nervousness Right ventricular dysfunction Echocardiogram January 2015 demonstrated significant right ventricular enlargement and hypokinesis with diastolic dysfunction. Echocardiogram 10/2021 did not mention right ventricular function but grade 1 diastolic dysfunction again noted. EF 60-65 %. Varicocele (~1976) Surgical History Surgical History H/O knee surgery History of repair of left rotator cuff (~2008) Hx of cholecystectomy (~1990) Family History Family History Father , 56 Appendicitis Pulmonary embolism Mother , 66--Choked to on peanuts Choking due to food (regurgitated) Sibling Diabetes mellitus Social History Social History Social History: He and his live at home alone. He smoked heavily starting as a teenager but quit smoking approximately 2014. He drinks 2-3 cups of coffee a day. Code status: Full code Years smoked: 50 Smoking status: Former smoker Smoking end date: 12/01/14 Alcohol intake: unknown Alcohol use details: Patient drinks alcohol once to twice yearly Substance use: unknown Substance use type: does not use Gender identity (if verbalized by the patient): Male Sexual Orientation (if Verbalized by the Patient): Straight or Heterosexual Spiritual care concerns: No Anes - Eval Final PreProcedure Day of Procedure 06/13/22 14:43 Patient weight: morbidly obese Heart: regular rate and rhythm Lungs: clear to auscultation Airway: Mallampati scale class II Neurological: alert and oriented Last oral intake: >/= 8 hours ASA classification: IV Emergent: no Anesthetic plan: proceed Anesthesia type and monitoring: general GIVS and standard monitoring Results Review: All pre-operative results and documents have been reviewed as part of the pre-operative evaluation. Informed Consent: The patient's anest
--- NOTE | 2022-06-14 12:09 | PM.HPGS ---
History of Present Illness History of Present Illness Consent: Risks, benefits, and alternatives have been discussed and questions answered. Patient agrees to proceed with procedure. Chief complaint: malfunctioning G-tube Narrative: Mike Michel is a 81 year old male Who has a percutaneous gastrostomy tube that was placed 6 months ago. At that time he was hospitalized and intubated in unable to eat. To provide nutrition gastrostomy tube was requested. He is no longer needing it and will be removed today. I explained that there is a risk of bleeding removing the tube. Review of Systems Review of Systems: All systems reviewed & are unremarkable except as noted in HPI and below PMFSH Past Medical History Medical History AAA (abdominal aortic aneurysm) CTA of abdomen pelvis 08/23/2021: Aortoiliac ectasias with increased size the distal aortic aneurysm 5 cm, mild renal atrophy, small umbilical hernia, mild colonic diverticulosis BPH (benign prostatic hyperplasia) Chronic kidney disease, stage 3b CKD (chronic kidney disease), stage III COPD (chronic obstructive pulmonary disease) Dyslipidemia Erectile dysfunction Gout Hypertension Lumbar spinal stenosis Severe central canal stenosis L3-L4 MRI May 2021 Nervousness Right ventricular dysfunction Echocardiogram January 2015 demonstrated significant right ventricular enlargement and hypokinesis with diastolic dysfunction. Echocardiogram 10/2021 did not mention right ventricular function but grade 1 diastolic dysfunction again noted. EF 60-65 %. Varicocele (~1976) Surgical History Surgical History H/O knee surgery History of repair of left rotator cuff (~2008) Hx of cholecystectomy (~1990) Family History Family History Father , 56 Appendicitis Pulmonary embolism Mother , 66--Choked to on peanuts Choking due to food (regurgitated) Sibling Diabetes mellitus Social History Social History Social History: He and his live at home alone. He smoked heavily starting as a teenager but quit smoking approximately 2014. He drinks 2-3 cups of coffee a day. Code status: Full code Years smoked: 50 Smoking status: Former smoker Smoking end date: 01/01/15 Alcohol intake: unknown Alcohol use details: Patient drinks alcohol once to twice yearly Substance use: unknown Substance use type: does not use Gender identity (if verbalized by the patient): Male Sexual Orientation (if Verbalized by the Patient): Straight or Heterosexual Spiritual care concerns: No Meds Home Medications and Allergies Home Medications Medication Instructions Recorded Confirmed Type acetaminophen 500 mg capsule 650 mg PO TID PRN arhtritis 05/02/22 06/13/22 History finasteride 5 mg tablet 5 mg PO DAILY 05/02/22 06/13/22 History furosemide 40 mg tablet 40 mg PO QAM #30 tabs 05/02/22 06/13/22 Rx losartan 100 mg tablet 100 mg PO DAILY #30 tabs 05/02/22 06/13/22 Rx meloxicam 15 mg tablet 15 mg PO DAILY 05/02/22 06/13/22 History pravastatin 10 mg tablet 10 mg PO DAILY 05/02/22 06/13/22 History atenolol 50 mg tablet 50 mg PO DAILY 06/13/22 06/13/22 History quinapril 40 mg tablet 40 mg PO DAILY 06/13/22 06/13/22 History Allergies Allergy/AdvReac Type Severity Reaction Status Date / Time adhesive tape Allergy Intermediate Blisters Verified 06/13/22 08:41 iodine Allergy Mild Unknown Verified 06/13/22 08:41 shellfish derived Allergy Other Verified 06/13/22 08:41 Exam Const: General: alert Orientation/consciousness: patient oriented x3 Resp: Auscultation: clear to auscultation bilaterally Cardio: Rhythm: regular rhythm GI: GI Palp: Yes Soft to palpation and No Tenderness to palpation present (GI) Neuro: General: patie
[2022-06-14 13:00] VITALS: BP 166/73; PULSE 53; RESP 17; TEMP 36.4; O2SAT 95
[2022-06-14 13:11] VITALS: BMI 46.0
[2022-06-14 13:35] VITALS: BP 156/62; PULSE 53; RESP 18; TEMP 36.3; O2SAT 96
--- NOTE | 2022-06-14 16:04 | OP_ITS ---
DATE OF PROCEDURE: 06/14/2022 PROCEDURE: Gastrostomy tube removal. PREOPERATIVE DIAGNOSIS: Senescent gastrostomy tube. POSTOPERATIVE DIAGNOSIS: Senescent gastrostomy tube. PROCEDURE IN DETAIL: With the patient in supine position, his gastrostomy tube site was cleansed with Betadine. The tract was lubricated with KY jelly by moving the lubricated tube in and out several times. The G-tube was then removed with the usual traction technique. The gastrostomy stoma was dressed with gauze. The patient tolerated the procedure well. RECOMMENDATIONS: N.p.o. for 2 hours, then diet as tolerated. D I MT: Herminia
--- NOTE | 2022-06-17 06:28 | SUR.PREOP ---
Dr Beal removed G tube at bedside. No acute distress noted. Vital signs stable. Discharge instructions were given and patient denies any questions.
== END 2022-06-14 13:54 | disposition home or self-care (01) ==
PROVIDERS: PCP Physician Assistant; Visit Provider Internal Medicine Gastroenterology
PROC: (CPT 43999; principal; 2022-06-14 13:00)
DX: Z43.1 Encounter for attention to gastrostomy (principal)
CPT/HCPCS: 99211; G0463

== ENCOUNTER 2022-11-16 17:02 | Inpatient (IN) | payer MEDICARE, SELFPAY ==
[2022-11-16] VITALS (19 sets, daily range): BP systolic 127–159; BP diastolic 63–105; PULSE 88–109; RESP 14–33; TEMP 36.7–37.3; O2SAT 91–99
--- NOTE | ~2022-11-16 | CT_ITS ---
Non-contrast CT scan of the Abdomen and Pelvis Clinical indication: Groin cellulitis, Rigo's gangrene Technique: 5 mm axial scans were obtained through the abdomen and pelvis without intravenous or oral contrast. Dose reduction technique was used on this scan by utilizing automated exposure control and iterative reconstruction technique. The dose-length product (DLP) was 1554.52 mGy-cm. COMPARISON: 08/23/2021 Findings: Images through the lung bases reveal right basilar subpleural reticulation and probable fo kyra honeycomb formation. Mild left hydronephrosis and distended pelvis with abrupt narrowing at the UPJ is consistent with an element of chronic UPJ obstruction, stable from prior exam. The liver, pancreas, right kidney, and adrenals appear normal. Spleen is upper limits of normal in si ze. Cholecystectomy clips noted. Aortic stent graft is in place, with underlying infrarenal abdominal aortic aneurysm. There has been apparent interval increase in the AP diameter of the aneurysm, which now measures up to 6 cm (coronal image 92 on the current exam, as compared to coronal image 94 on th e prior exam). There is no evidence of bowel obstruction. Small fat-containing umbilical hernia noted. Images through the pelvis were performed. There is no evidence of ascites or lymphadenopathy. Urinary bladder collapsed around a Cat catheter. Prostate gland minimally enlarged. There is a peripherally enhancing irregular fluid collection in the left inguinal region subcutaneous soft tissues, measuring up to approximately 5.7 x 4.2 x 7.0 cm in extent axial image 182, sagittal i mage 118 for example). There is surrounding infiltrative changes of the nearby soft tissues, but no s oft tissue gas identified. Impression: 5.7 x 4.2 x 7.0 cm abscess in the left inguinal anterior subcutaneous soft tissues, surrounding infil trative changes. 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 Aortic stent graft with underlying abdominal aortic aneurysm. Aneurysm sac appears to be increased in maximum diameter 6 cm as compared to prior exam, as detailed above. If there is concern for endoleak , then follow-up CT angiogram would be advised. 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 Reviewed, dictated and finalized at location . WALL ADMINISTRATOR Impression: 5.7 x 4.2 x 7.0 cm abscess in the left inguinal anterior subcutaneous soft tiss ues, surrounding infiltrative changes. No soft tissue gas seen to confirm Fourn ier's gangrene. Aortic stent graft with underlying abdominal aortic aneurysm. Aneurysm sac appe ars to be increased in maximum diameter 6 cm as compared to prior exam, as deta iled above. If there is concern for endoleak, then follow-up CT angiogram would be advised. 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
--- NOTE | ~2022-11-16 | XR_ITS ---
EXAMINATION: XR chest 2V DATE: 11/16/2022 18:09 INDICATION: COPD presenting with cough, shortness of breath and emesis. TECHNIQUE: frontal view of the chest was obtained. COMPARISON: Chest radiograph dated 11/04/2021 FINDINGS: Cardiomegaly with pulmonary vascular congestion. Mild increased opacities throughout the right lung a nd in the left mid to lower lung zone which could represent pulmonary edema or less likely pneumonia. No pleural effusion or pneumothorax. IMPRESSION: 1. Mild increased opacities throughout the right lung and in the left mid to lower lung zone which co uld represent pulmonary edema or pneumonia. 2. Cardiomegaly with pulmonary vascular congestion. Reviewed, dictated and finalized at location A. ROL ROOM TECHNICIAN IMPRESSION: 1. Mild increased opacities throughout the right lung and in the left mid to lo wer lung zone which could represent pulmonary edema or pneumonia. 2. Cardiomegaly with pulmonary vascular congestion.
--- NOTE | 2022-11-16 17:08 | ECG_ITS ---
Measurements Intervals [place] Rate: 103 P: -5 WY: 246 QRS: -6 QRSD: 97 T: -7 QT: 327 QTc: 429 Interpretive Statements SINUS TACHYCARDIA WITH FIRST DEGREE AV BLOCK POOR R-WAVE PROGRESSION COMPARED TO ECG 10/19/2021 14:20:50 SINUS TACHYCARDIA NOW PRESENT FIRST DEGREE AV BLOCK NOW PRESENT Electronically Signed On 11-16-2022 21:18:04 [employer] by Susan Ibarra M.D.
--- NOTE | 2022-11-16 17:09 | ED.NAVMDI ---
HPI - Nausea/Vomiting/Diarrhea General Chief complaint: Nausea/Vomiting/Diarrhea <Tennille Valverde PA-C - Last Filed: 11/17/22 03:09> Stated complaint: nausea <CHI Moreno Last Filed: 11/17/22 03:09> Time Seen by Provider: 11/16/22 19:38 <CHI Moreno Last Filed: 11/17/22 03:09> Source: patient, family, EMS and old records reviewed <CHI Moreno Last Filed: 11/17/22 03:09> Mode of arrival: EMS <CHI Moreno Last Filed: 11/17/22 03:09> Limitations: no limitations <CHI Moreno Last Filed: 11/17/22 03:09> History of Present Illness HPI Narrative: Patient is an 82-year-old male who presents the ED via EMS with report of nausea and vomiting. Per EMS report, patient reported that he had eaten some homemade potato soup today and developed nausea and vomiting a few hours later. He had 4 episodes of emesis, EMS was called. Patient denies feeling nauseous currently. He denies any abdominal pain. Patient was noted to have mild difficulty breathing and a cough by EMS. He states he has had a cough for the past couple weeks. Family at bedside reports the patient did have chills and shaking today. No known fever. Patient denies any chest pain, diarrhea, constipation, rectal bleeding. <CHI Moreno Last Filed: 11/17/22 03:09> Related Data Home medications: Home Medications Medication Instructions Recorded Confirmed acetaminophen 500 mg capsule 650 mg PO TID PRN arhtritis 05/02/22 11/16/22 finasteride 5 mg tablet 5 mg PO DAILY 05/02/22 11/16/22 pravastatin 10 mg tablet 10 mg PO DAILY 05/02/22 11/16/22 atenolol 50 mg tablet 50 mg PO DAILY 06/13/22 11/16/22 ascorbic acid (vitamin C) 500 mg 500 mg PO DAILY 11/04/22 11/16/22 capsule gabapentin 300 mg capsule 300 mg PO DAILY PRN Pain 11/04/22 11/16/22 losartan 100 mg tablet 100 mg PO DAILY 11/04/22 11/16/22 <Tennille Valverde PA-C - Last Filed: 11/17/22 03:09> Allergies/Adverse reactions: Allergies Allergy/AdvReac Type Severity Reaction Status Date / Time adhesive tape Allergy Intermediate Blisters Verified 11/13/22 13:10 iodine Allergy Mild Unknown Verified 11/13/22 13:10 shellfish derived Allergy Other Verified 11/13/22 13:10 <Tennille Valverde PA-C - Last Filed: 11/17/22 03:09> Review of Systems Review of Systems: CONSTITUTIONAL: Reports chills. Denies fever. CARDIOVASCULAR: Denies chest pain. RESPIRATORY: Reports cough and dyspnea. GASTROINTESTINAL: Reports N/V. Denies abdominal pain, nausea, vomiting, constipation, rectal bleeding, or diarrhea. GENITOURINARY: Denies dysuria or hematuria. SKIN: Denies rash or itching. MUSCULOSKELETAL: Denies back pain, joint pain, or myalgia. NEUROLOGIC: Denies headache, numbness, or weakness. <Tennille Valverde PA-C - Last Filed: 11/17/22 03:09> All systems reviewed & are unremarkable except as noted in HPI and below <Tennille Valverde PA-C - Last Filed: 11/17/22 03:09> [facility] Past Medical History Medical History: Medical History AAA (abdominal aortic aneurysm) CTA of abdomen pelvis 08/23/2021: Aortoiliac ectasias with increased size the distal aortic aneurysm 5 cm, mild renal atrophy, small umbilical hernia, mild colonic diverticulosis BPH (benign prostatic hyperplasia) Chronic low back pain CKD (chronic kidney disease), stage III COPD (chronic obstructive pulmonary disease) Dyslipidemia Erectile dysfunction Gout Lumbar spinal stenosis Severe central canal stenosis L3-L4 MRI May 2021 Lumbar spinal stenosis Nervousness Varicocele (~1976) <Tennille Valverde PA-C - Last Filed: 11/17/22 03:09> Surgical History Surgical History: Surgical History H/O knee surgery left knee when in high school History of repair of left rotator cuff (~
[2022-11-16 17:25] LABS: Basophils Percent Auto 0.1 % (0.2-1.2); Eosinophils Absolute Auto 0.1 K/mm3 (0-0.3); Eosinophils Percent Auto 0.8 % (0-4.4); Hematocrit 36.7 % (42.0-52.0); Immature Granulocyte Absolute 0.07 K/mm3 (0.00-0.031); Immature Granulocyte Percent A 0.5 % (0-0.5); Lymphocytes Percent Auto 12.2 % (18.3-44.2); Mean Corpuscular Hemoglobin 25.9 pg (26-34); Mean Corpuscular Volume 86.4 fl (80-100); Mean Platelet Volume 10.7 fl (7.4-10.4); Monocytes Absolute Auto 0.6 K/mm3 (0.1-0.6); Monocytes Percent Auto 4.1 % (2.6-8.5); Neutrophils Absolute Auto 12.2 K/mm3 (1.3-6.7); Neutrophils Percent Auto 82.3 % (45.5-73.1); Platelet Count Result 163 k/mm3 (150-375); Red Blood Count 4.25 M/mm3 (4.6-6.20); Red Cell Distribution Width 16.3 % (11.5-14.5); White Blood Count 14.8 K/mm3 (4.5-10.0)
[2022-11-16 17:38] LABS: INR 1.1; Prothrombin Time 13.6 Seconds (11.1-14.7)
[2022-11-16 17:39] LABS: Partial Thromboplastin Time 27.9 SECONDS (22.3-36.8)
[2022-11-16 17:41] LABS: Alveolar/Arterial O2 Gradient 42.8 mmHg; Carboxyhemoglobin 0.8 % THb (0-2.0); Fractional Inspired Oxygen 21 %; HCO3 ABG 26.4 mEq/l (22.0-26.0); Methemoglobin ABG 0.3 %THb (0-1.5); Oxygen Content ABG 15.2 %vol (16.0-22.0); Oxyhemoglobin 90.9 % THb (90.0-100.0); PCO2 ABG 35.9 mmHg (35.0-45.0); PO2 ABG 63.9 mmHg (80.0-100.0); PO2 FiO2 Ratio Arterial Blood 3.04 %; Total Hemoglobin 11.9 g/dL (12.0-18.0); pH ABG 7.484 (7.350-7.450)
[2022-11-16 17:42] LABS: Device ROOM AIR; Modified Allen's Test Pass; Site Drawn LEFT RADIAL
[2022-11-16 17:47] LABS: Alanine Aminotransferase 14 U/L (6-50); Alkaline Phosphatase 94 U/L (38-126); Anion Gap 4 mmol/L (8-16); Aspartate Amino Transferase 25 U/L (17-59); Bilirubin,Total 0.4 mg/dL (0.2-1.3); Blood Urea Nitrogen 27 mg/dL (9-20); Calcium 8.7 mg/dL (8.4-10.2); Carbon Dioxide 32 mmol/L (22-30); Chloride 101 mmol/L (98-107); Estimated CRCL calculation 43 ml/min; Estimated Glomerular Filt Rate 45; Glucose 109 mg/dL (65-110); Lipase 102 U/L (23-300); NT Pro B Type Natriuretic Pept 352 pg/mL (5-100); Potassium 4.2 mmol/L (3.4-5.0); Sodium 137 mmol/L (137-145); Troponin I < 0.012 ng/mL (0.000-0.034)
[2022-11-16 17:58] LABS: Lactic Acid Reflex 1.6 mmol/L (0.7-2.0)
[2022-11-16] MEDS: ONDANSETRON INJ 4 MG/2 ML VIAL IV PUSH (18:08)
[2022-11-16] MEDS: SODIUM CHLORIDE 0.9% IV 1,000 ML 999 ML IV CONT (18:08)
[2022-11-16 18:22] LABS: Influenza A QL RT-PCR Negative (Negative); Influenza B QL RT-PCR Negative (Negative); SARS-CoV-2 RNA PCR Negative
[2022-11-16 18:25] LABS: Add Urine Microscopic? YES; Appearance Urine Clear (Clear); Bilirubin Urine Negative (Negative); Blood Urine Negative (Negative); Color Urine Light Yellow (Yellow); Glucose Urine UA Negative (Negative); Ketones Urine Negative (Negative); Leukocyte Esterase Ur Negative LEU/UL (Negative); Nitrate Urine Negative (Negative); Protein Urine Trace mg/dL (Negative); Specific Grav Ur 1.015 (1.001-1.035); Urobilinogen Urine 0.2 mg/dL (<2.0)
[2022-11-16 18:30] LABS: Bacteria Urine Trace /hpf; Mucus Urine Rare /lpf; RBC Urine 0-2 /hpf (0-2); Squamous Epithelial Cell Urine Rare /hpf (Few); WBC Urine 0-3 /hpf
--- NOTE | 2022-11-16 18:30 | PC.NURSE ---
noted to be restless, warm to touch. temp taken 103.1 asked for tylenol iv 1g to be given iv
[2022-11-16] MEDS: LORazepam INJ (*CRX) 2 MG/ML VIAL 0.5 MG IV PUSH (18:35)
--- NOTE | 2022-11-16 19:17 | PC.NURSE ---
Patient report recieved from Kurt BOBBY at this time
--- NOTE | 2022-11-16 19:29 | PM.IMHP ---
H&P: HPI History of Present Illness Date/Time: 11/16/22 19:29 Chief Complaint: Shortness of breath Narrative: This is an 82-year-old male with past medical history significant for chronic kidney disease, COPD, chronic low back pain, benign prostatic hyperplasia, abdominal aortic aneurysm. Patient was brought via EMS to the emergency room after he had sudden onset of nausea and vomiting he attributes this to eating a bad potato soup. However patient became distressed with shortness of breath which prompted the to call EMS in emergency room patient had an episode of desaturation. Patient denies any fevers, rigors, chills no abdominal pain, no diarrhea, no chest pain, no shortness of breath, no sputum production. At the time of my visit patient denied any discomfort. Preliminary workup was significant for chemistry panel BUN 27 creatinine 1.5 A brain natriuretic peptide was 352 lactic acid 1.6 ABG pH of 7.48 pCO2 35 PO2 63 a chest x-ray was reported as: IMPRESSION: 1. Mild increased opacities throughout the right lung and in the left mid to lower lung zone which could represent pulmonary edema or pneumonia. 2. Cardiomegaly with pulmonary vascular congestion. Review of Systems Review of Systems: Nausea, vomiting, shortness of breath. Constitutional: Constitutional: Denies chills, Denies fatigue, Denies fever(s), Denies malaise, Denies night sweats and Denies weakness Eyes: Eyes: Denies change in vision ENT: Denies dysphagia, Denies vertigo, Denies dizziness and Denies odynophagia Cardiovascular: Cardiovascular: Denies chest pain and Denies radiating jaw, neck or arm pain Respiratory: Respiratory: Denies chest congestion, Denies excessive phlegm production, Denies pain on inspiration, Reports dyspnea and Denies wheezing Gastrointestinal: Gastrointestinal: Denies abdominal pain, Denies dyspepsia, Denies heartburn, Reports nausea and Reports vomiting Genitourinary: Genitourinary: Denies dysuria Musculoskeletal: Musculoskeletal: Reports back pain and Denies joint swelling Integumentary/Breasts: Skin/Breast: Denies rash Neurologic: Denies vertigo, Denies dizziness, Denies focal weakness and Denies Sensory deficit (Neuro) Psychiatric: Psychiatric: Reports no additional psychiatric complaints and Reports as per HPI Endocrine: Endocrine: Denies cold intolerance, Denies flushing, Denies heat intolerance, Denies polyphagia, Denies polydipsia and Denies palpitations Hematologic/Lymphatic: Hematologic/Lymphatic: Reports no additional hematologic/lymphatic complaints and Reports as per HPI Allergic/Immunologic: Allergic/Immunologic: Reports no additional allergic/immunologic complaints and Reports as per HPI [facility] Past Medical History Medical History AAA (abdominal aortic aneurysm) CTA of abdomen pelvis 08/23/2021: Aortoiliac ectasias with increased size the distal aortic aneurysm 5 cm, mild renal atrophy, small umbilical hernia, mild colonic diverticulosis BPH (benign prostatic hyperplasia) Chronic low back pain CKD (chronic kidney disease), stage III COPD (chronic obstructive pulmonary disease) Dyslipidemia Erectile dysfunction Gout Lumbar spinal stenosis Severe central canal stenosis L3-L4 MRI May 2021 Lumbar spinal stenosis Nervousness Varicocele (~1976) Surgical History Surgical History H/O knee surgery left knee when in high school History of repair of left rotator cuff (~2008) Hx of cholecystectomy (~1990) Family History Family History Father , 56 Appendicitis Pulmonary embolism Mother , 66--Choked to on peanuts Choking due to food (regurgitated) Sibling Diabetes mellitus Social History Social History Social History: He and his live
[2022-11-17] VITALS (12 sets, daily range): BP systolic 113–150; BP diastolic 58–98; PULSE 66–92; RESP 14–20; TEMP 36.6–37.7; O2SAT 92–100
[2022-11-17] MEDS: ACETAMINOPHEN 325 MG TABLET 650 MG PO ×2 (02:56→16:37)
[2022-11-17] MEDS: FUROSEMIDE INJ 40 MG/4 ML VIAL 20 MG IV PUSH (09:57)
[2022-11-17] MEDS: atenoloL 50 MG TABLET PO (09:58)
[2022-11-17] MEDS: GABAPENTIN 300 MG CAPSULE PO (09:58)
[2022-11-17] MEDS: FUROSEMIDE 40 MG TABLET PO (09:58)
[2022-11-17] MEDS: ASCORBIC ACID 500 MG TABLET PO (09:59)
[2022-11-17] MEDS: PRAVASTATIN SODIUM 10 MG TABLET PO (09:59)
[2022-11-17] MEDS: FINASTERIDE 5 MG TABLET PO (09:59)
[2022-11-17] MEDS: LOSARTAN POTASSIUM 100 MG TABLET PO (09:59)
--- NOTE | 2022-11-17 12:45 | PM.IMPN ---
Progress Note: A&P Assessment and Plan (1) Aspiration pneumonia: Code(s): J69.0 - Pneumonitis due to inhalation of food and vomit Status: Acute Assessment and Plan: ADMIT TO REGULAR MEDICAL FLOOR PATIENT RECEIVED ROCEPHIN AND ZITHROMAX IN EMERGENCY ROOM WILL DISCONTINUE ROCEPHIN AND ZITHROMAX WILL START ZOSYN CULTURES IN PROGRESS SUPPORTIVE CARE CONTINUE TO MONITOR CHEST X-RAY REVIEWED patient Is supposed to use oxygen at home. (2) Chronic low back pain: Code(s): M54.50 - Low back pain, unspecified; G89.29 - Other chronic pain Status: Acute Assessment and Plan: TYLENOL NEEDED (3) Lumbar spinal stenosis: Code(s): M48.061 - Spinal stenosis, lumbar region without neurogenic claudication Status: Acute Assessment and Plan: UNCHANGED (4) CKD (chronic kidney disease), stage III: Qualifiers: Chronic kidney disease stage 3 subtype: stage 3b (GFR 30-44) Qualified Code(s): N18.32 - Chronic kidney disease, stage 3b Code(s): N18.30 - Chronic kidney disease, stage 3 unspecified Status: Acute Assessment and Plan: BUN AND CREATININE AT PATIENT'S BASELINE CONTINUE TO MONITOR (5) AAA (abdominal aortic aneurysm): Code(s): I71.4 - Abdominal aortic aneurysm, without rupture Status: Acute Assessment and Plan: PATIENT IS ON BETA-[place]A FOLLOW-UP IN OUTPATIENT SETTING (6) Essential (primary) hypertension: Code(s): I10 - Essential (primary) hypertension Status: Acute Assessment and Plan: RESUME HOME MEDS Subjective Date/time seen: 11/17/22 12:45 breathing okay Exam Narrative: Patient is laying in bed Const: General: comfortable, no acute distress, well developed, alert, awake, average body habitus and obese Nutritional Appearance: average body habitus and obese Orientation/consciousness: patient oriented x3 Other: Well-appearing HENMT: Head: normal to inspection, normocephalic and atraumatic Ears: hearing grossly normal bilaterally Face/Nose/Sinus: normal facial exam Face and sinus: normal facial exam Eyes: General: appearance normal, both eyes and all related structures Pupils: Equal, round and reactive pupils present EOM: EOMs intact bilaterally Neck: Neck: full ROM, no lymphadenopathy and no JVD Thyroid: thyroid normal Lymphatic: no lymphadenopathy noted Resp: Effort & Inspection: normal respiratory effort and able to speak in complete sentences Auscultation: clear to auscultation bilaterally Cardio: Jugular venous distension: no JVD Rate: regular rate Rhythm: regular rhythm Heart sounds: S1 normal heart sound present and S2 normal heart sound present GI: Inspection: obesity : General: Yes deferred Skin: General skin exam: rashes (Intertrigo) Rashes: no rashes and rashes noted (Intertrigo) Wounds: no wounds Neuro: General: patient oriented x3, CN's II-XI intact bilaterally and Unable to assess gait Cranial nerves: Yes CN's II-XII intact bilaterally and Yes Equal, round and reactive pupils present Cognition (Neuro): normal cognition Speech: normal speech Gait exam (Neuro): Normal gait present and Unable to assess gait Motor exam (neuro): 5/5 motor strength present throughout Sensory Exam: No Sensory deficit (Neuro) Extrem: General: normal to inspection, full ROM, no joint enlargement, no pedal edema and edema bilateral (2+) Objective Data Vital Signs Vital Signs: Vital Signs - 24 hr 11/16/22 16:59 11/16/22 17:06 11/16/22 17:11 Temperature 98.2 F Pulse Rate 105 H 105 H 105 H Respiratory Rate 24 H 28 H 25 H Blood Pressure 157/81 H 157/81 H Pulse Oximetry 97 95 93 Oxygen Delivery Oxygen Flow Rate 11/16/22 17:22 11/16/22 17:43 11/16/22 17:45 Temperature Pulse Rate 103 H 106 H 107 H Respiratory Rate 21 H 28 H 33 H Blood Pressure Pulse Oximetry 96 91 94 Oxygen Delivery Oxygen Flow Rate 11/16/22 18:00 11/16/22 18:01 11/16/22 18:15
[2022-11-18] VITALS (11 sets, daily range): BP systolic 113–141; BP diastolic 56–60; PULSE 65–116; RESP 16–34; TEMP 36.7–37.1; O2SAT 92–97
[2022-11-18 06:50] LABS: Basophils Percent Auto 0.2 % (0.2-1.2); Eosinophils Percent Auto 0.1 % (0-4.4); Hematocrit 31.6 % (42.0-52.0); Hemoglobin 9.8 g/dL (14.0-18.0); Immature Granulocyte Absolute 0.13 K/mm3 (0.00-0.031); Immature Granulocyte Percent A 0.7 % (0-0.5); Immature Platelet Fraction Pct 6.4 % (0.9-11.2); Lymphocytes Percent Auto 10.5 % (18.3-44.2); Mean Corpuscular Hemoglobin 26.1 pg (26-34); Mean Corpuscular Volume 84.3 fl (80-100); Mean Platelet Volume 10.6 fl (7.4-10.4); Monocytes Percent Auto 5.5 % (2.6-8.5); Platelet Count Result 128 k/mm3 (150-375); Red Blood Count 3.75 M/mm3 (4.6-6.20); Red Cell Distribution Width 16.9 % (11.5-14.5)
[2022-11-18 06:57] LABS: Anion Gap 5 mmol/L (8-16); Blood Urea Nitrogen 27 mg/dL (9-20); Calcium 8.1 mg/dL (8.4-10.2); Carbon Dioxide 31 mmol/L (22-30); Chloride 99 mmol/L (98-107); Estimated CRCL calculation 33 ml/min; Estimated Glomerular Filt Rate 32; Glucose 111 mg/dL (65-110); Potassium 3.3 mmol/L (3.4-5.0); Sodium 135 mmol/L (137-145)
[2022-11-18] MEDS: ERGOCALCIFEROL 50,000 UNITS CAPSULE 50000 UNITS PO (08:25)
[2022-11-18] MEDS: GABAPENTIN 300 MG CAPSULE PO (08:26)
[2022-11-18] MEDS: atenoloL 50 MG TABLET PO (08:26)
[2022-11-18] MEDS: ASCORBIC ACID 500 MG TABLET PO (08:26)
[2022-11-18] MEDS: LOSARTAN POTASSIUM 100 MG TABLET PO (08:26)
[2022-11-18] MEDS: FINASTERIDE 5 MG TABLET PO (08:26)
[2022-11-18] MEDS: PRAVASTATIN SODIUM 10 MG TABLET PO (08:26)
[2022-11-18] MEDS: FUROSEMIDE 40 MG TABLET PO (08:26)
[2022-11-18] MEDS: POTASSIUM CHLORIDE 20 MEQ TABLET 40 MEQ PO (08:43)
--- NOTE | 2022-11-18 11:38 | PM.IMPN ---
Progress Note: A&P Assessment and Plan (1) Aspiration pneumonia: Code(s): J69.0 - Pneumonitis due to inhalation of food and vomit Status: Acute Assessment and Plan: ADMIT TO REGULAR MEDICAL FLOOR PATIENT RECEIVED ROCEPHIN AND ZITHROMAX IN EMERGENCY ROOM WILL DISCONTINUE ROCEPHIN AND ZITHROMAX WILL START ZOSYN CULTURES IN PROGRESS SUPPORTIVE CARE CONTINUE TO MONITOR CHEST X-RAY REVIEWED patient Is supposed to use oxygen at home. (2) Chronic low back pain: Code(s): M54.50 - Low back pain, unspecified; G89.29 - Other chronic pain Status: Acute Assessment and Plan: TYLENOL NEEDED (3) Lumbar spinal stenosis: Code(s): M48.061 - Spinal stenosis, lumbar region without neurogenic claudication Status: Acute Assessment and Plan: UNCHANGED (4) CKD (chronic kidney disease), stage III: Qualifiers: Chronic kidney disease stage 3 subtype: stage 3b (GFR 30-44) Qualified Code(s): N18.32 - Chronic kidney disease, stage 3b Code(s): N18.30 - Chronic kidney disease, stage 3 unspecified Status: Acute Assessment and Plan: BUN AND CREATININE AT PATIENT'S BASELINE CONTINUE TO MONITOR (5) AAA (abdominal aortic aneurysm): Code(s): I71.4 - Abdominal aortic aneurysm, without rupture Status: Acute Assessment and Plan: PATIENT IS ON BETA-[place] FOLLOW-UP IN OUTPATIENT SETTING (6) Essential (primary) hypertension: Code(s): I10 - Essential (primary) hypertension Status: Acute Assessment and Plan: RESUME HOME MEDS Subjective Date/time seen: 11/18/22 11:38 no new complaints Exam Narrative: Patient is laying in bed Const: General: comfortable, no acute distress, well developed, alert, awake, average body habitus and obese Nutritional Appearance: average body habitus and obese Orientation/consciousness: patient oriented x3 Other: Well-appearing HENMT: Head: normal to inspection, normocephalic and atraumatic Ears: hearing grossly normal bilaterally Face/Nose/Sinus: normal facial exam Face and sinus: normal facial exam Eyes: General: appearance normal, both eyes and all related structures Pupils: Equal, round and reactive pupils present EOM: EOMs intact bilaterally Neck: Neck: full ROM, no lymphadenopathy and no JVD Thyroid: thyroid normal Lymphatic: no lymphadenopathy noted Resp: Effort & Inspection: normal respiratory effort and able to speak in complete sentences Auscultation: clear to auscultation bilaterally Cardio: Jugular venous distension: no JVD Rate: regular rate Rhythm: regular rhythm Heart sounds: S1 normal heart sound present and S2 normal heart sound present GI: Inspection: obesity : General: Yes deferred Skin: General skin exam: rashes (Intertrigo) Rashes: no rashes and rashes noted (Intertrigo) Wounds: no wounds Neuro: General: patient oriented x3, CN's II-XI intact bilaterally and Unable to assess gait Cranial nerves: Yes CN's II-XII intact bilaterally and Yes Equal, round and reactive pupils present Cognition (Neuro): normal cognition Speech: normal speech Gait exam (Neuro): Normal gait present and Unable to assess gait Motor exam (neuro): 5/5 motor strength present throughout Sensory Exam: No Sensory deficit (Neuro) Extrem: General: normal to inspection, full ROM, no joint enlargement, no pedal edema and edema bilateral (2+) Objective Data Vital Signs Vital Signs: Vital Signs - 24 hr 11/17/22 14:00 11/17/22 12:00 11/17/22 16:00 Temperature 99.9 F H Pulse Rate 76 69 85 Respiratory Rate 20 Blood Pressure 150/58 H Pulse Oximetry 100 Oxygen Delivery 11/17/22 18:30 11/17/22 20:00 11/17/22 20:00 Temperature Pulse Rate 66 85 Respiratory Rate 20 Blood Pressure Pulse Oximetry 92 92 Oxygen Delivery Room Air Room Air 11/17/22 22:00 11/18/22 00:00 11/18/22 06:00 Temperature 97.8 F 98.7 F Pulse Rate 84 72 74 Respiratory Rate 20 24
[2022-11-19] VITALS (10 sets, daily range): BP systolic 107–132; BP diastolic 53–62; PULSE 59–75; RESP 20–30; TEMP 36.3–36.6; O2SAT 95–98
[2022-11-19] MEDS: PRAVASTATIN SODIUM 10 MG TABLET PO (08:37)
[2022-11-19] MEDS: atenoloL 50 MG TABLET PO (08:37)
[2022-11-19] MEDS: ASCORBIC ACID 500 MG TABLET PO (08:37)
[2022-11-19] MEDS: FINASTERIDE 5 MG TABLET PO (08:37)
[2022-11-19] MEDS: GABAPENTIN 300 MG CAPSULE PO (08:37)
[2022-11-19] MEDS: FUROSEMIDE 40 MG TABLET PO (08:40)
[2022-11-19] MEDS: LOSARTAN POTASSIUM 100 MG TABLET PO (08:40)
[2022-11-19 09:51] LABS: Basophils Percent Auto 0.1 % (0.2-1.2); Eosinophils Absolute Auto 0.2 K/mm3 (0-0.3); Eosinophils Percent Auto 1.1 % (0-4.4); Hematocrit 34.7 % (42.0-52.0); Hemoglobin 10.1 g/dL (14.0-18.0); Immature Granulocyte Absolute 0.12 K/mm3 (0.00-0.031); Immature Granulocyte Percent A 0.9 % (0-0.5); Immature Platelet Fraction Pct 6.4 % (0.9-11.2); Lymphocytes Absolute Auto 1.58 K/mm3 (0.9-3.2); Lymphocytes Percent Auto 11.8 % (18.3-44.2); Mean Corpuscular HGB Conc 29.1 g/dl (32-36); Mean Corpuscular Hemoglobin 26.2 pg (26-34); Mean Corpuscular Volume 89.9 fl (80-100); Mean Platelet Volume 10.9 fl (7.4-10.4); Monocytes Absolute Auto 0.5 K/mm3 (0.1-0.6); Monocytes Percent Auto 3.6 % (2.6-8.5); Neutrophils Percent Auto 82.5 % (45.5-73.1); Platelet Count Result 137 k/mm3 (150-375); Red Blood Count 3.86 M/mm3 (4.6-6.20); Red Cell Distribution Width 16.9 % (11.5-14.5); White Blood Count 13.3 K/mm3 (4.5-10.0)
[2022-11-19 09:56] LABS: Anion Gap 5 mmol/L (8-16); Blood Urea Nitrogen 27 mg/dL (9-20); Calcium 8.3 mg/dL (8.4-10.2); Carbon Dioxide 29 mmol/L (22-30); Chloride 102 mmol/L (98-107); Estimated CRCL calculation 36 ml/min; Estimated Glomerular Filt Rate 36; Glucose 153 mg/dL (65-110); Potassium 3.5 mmol/L (3.4-5.0); Sodium 136 mmol/L (137-145)
--- NOTE | 2022-11-19 12:38 | PM.IMPN ---
Progress Note: A&P Assessment and Plan (1) Aspiration pneumonia: Code(s): J69.0 - Pneumonitis due to inhalation of food and vomit Status: Acute Assessment and Plan: ADMIT TO REGULAR MEDICAL FLOOR PATIENT RECEIVED ROCEPHIN AND ZITHROMAX IN EMERGENCY ROOM WILL DISCONTINUE ROCEPHIN AND ZITHROMAX WILL START ZOSYN CULTURES IN PROGRESS SUPPORTIVE CARE CONTINUE TO MONITOR CHEST X-RAY REVIEWED patient Is supposed to use oxygen at home but he chooses not to. (2) Chronic low back pain: Code(s): M54.50 - Low back pain, unspecified; G89.29 - Other chronic pain Status: Acute Assessment and Plan: TYLENOL NEEDED (3) Lumbar spinal stenosis: Code(s): M48.061 - Spinal stenosis, lumbar region without neurogenic claudication Status: Acute Assessment and Plan: UNCHANGED (4) CKD (chronic kidney disease), stage III: Qualifiers: Chronic kidney disease stage 3 subtype: stage 3b (GFR 30-44) Qualified Code(s): N18.32 - Chronic kidney disease, stage 3b Code(s): N18.30 - Chronic kidney disease, stage 3 unspecified Status: Acute Assessment and Plan: BUN AND CREATININE AT PATIENT'S BASELINE CONTINUE TO MONITOR (5) AAA (abdominal aortic aneurysm): Code(s): I71.4 - Abdominal aortic aneurysm, without rupture Status: Acute Assessment and Plan: PATIENT IS ON BETA-[place] FOLLOW-UP IN OUTPATIENT SETTING (6) Essential (primary) hypertension: Code(s): I10 - Essential (primary) hypertension Status: Acute Assessment and Plan: RESUME HOME MEDS (7) Bacteremia: Code(s): R78.81 - Bacteremia Status: Acute Assessment and Plan: continue IV antibiotics. Likely related from respiratory infection. Repeat cultures pending Subjective Date/time seen: 11/19/22 12:38 no new complaints Exam Narrative: Patient is laying in bed Const: General: comfortable, no acute distress, well developed, alert, awake, average body habitus and obese Nutritional Appearance: average body habitus and obese Orientation/consciousness: patient oriented x3 Other: Well-appearing HENMT: Head: normal to inspection, normocephalic and atraumatic Ears: hearing grossly normal bilaterally Face/Nose/Sinus: normal facial exam Face and sinus: normal facial exam Eyes: General: appearance normal, both eyes and all related structures Pupils: Equal, round and reactive pupils present EOM: EOMs intact bilaterally Neck: Neck: full ROM, no lymphadenopathy and no JVD Thyroid: thyroid normal Lymphatic: no lymphadenopathy noted Resp: Effort & Inspection: normal respiratory effort and able to speak in complete sentences Auscultation: clear to auscultation bilaterally Cardio: Jugular venous distension: no JVD Rate: regular rate Rhythm: regular rhythm Heart sounds: S1 normal heart sound present and S2 normal heart sound present GI: Inspection: obesity : General: Yes deferred Skin: General skin exam: rashes (Intertrigo) Rashes: no rashes and rashes noted (Intertrigo) Wounds: no wounds Neuro: General: patient oriented x3, CN's II-XI intact bilaterally and Unable to assess gait Cranial nerves: Yes CN's II-XII intact bilaterally and Yes Equal, round and reactive pupils present Cognition (Neuro): normal cognition Speech: normal speech Gait exam (Neuro): Normal gait present and Unable to assess gait Motor exam (neuro): 5/5 motor strength present throughout Sensory Exam: No Sensory deficit (Neuro) Extrem: General: normal to inspection, full ROM, no joint enlargement, no pedal edema and edema bilateral (2+) Objective Data Vital Signs Vital Signs: Vital Signs - 24 hr 11/18/22 14:00 11/18/22 16:00 11/18/22 21:58 Temperature 98.7 F 98.1 F Pulse Rate 116 H 69 70 Respiratory Rate 16 34 H Blood Pressure 113/59 L 141/60 H Pulse Oximetry 92 95 Oxygen Delivery Oxygen Flow Rate 11/18/22 20:05 11/18/22 20:05 11/19/22
[2022-11-19] MEDS: LOPERAMIDE HCL 2 MG CAPSULE PO ×2 (16:30→18:13)
[2022-11-20] VITALS (8 sets, daily range): BP systolic 125–144; BP diastolic 67–71; PULSE 59–76; RESP 20–24; TEMP 36.2–36.6; O2SAT 96–98
[2022-11-20] MEDS: LOPERAMIDE HCL 2 MG CAPSULE PO (03:50)
[2022-11-20] MEDS: PRAVASTATIN SODIUM 10 MG TABLET PO (09:29)
[2022-11-20] MEDS: FINASTERIDE 5 MG TABLET PO (09:29)
[2022-11-20] MEDS: FUROSEMIDE 40 MG TABLET PO (09:29)
[2022-11-20] MEDS: LOSARTAN POTASSIUM 100 MG TABLET PO (09:29)
[2022-11-20] MEDS: ASCORBIC ACID 500 MG TABLET PO (09:29)
[2022-11-20] MEDS: atenoloL 50 MG TABLET PO (09:29)
--- NOTE | 2022-11-20 14:20 | PM.IMPN ---
Progress Note: A&P Assessment and Plan (1) Aspiration pneumonia: Code(s): J69.0 - Pneumonitis due to inhalation of food and vomit Status: Acute Assessment and Plan: Patient developed shortness of breath half a episode of nausea and vomiting. Chest x-ray shows mild increase opacities throughout the right lung and in the left mid and lower lung zone consistent with edema versus pneumonia. He also had pulmonary vascular congestion. He was started on Rocephin azithromycin. He was given Lasix IV x1. Antibiotics were switched to Zosyn. He has been continued on his oral Lasix. Blood culture growing group C Streptococcus in all 4 bottles. Blood cultures repeated on 11/19 and are no growth today. White count trending downward. Speech therapy evaluation. Continue Zosyn for now. (2) Cellulitis: Code(s): L03.90 - Cellulitis, unspecified Status: Acute Assessment and Plan: Groin erythema noted. Could be fungal with 2nd bacterial infection. Continue Zosyn. Add powder. Rigo's gangrene seems less likely but we will proceed with CT scan of his pelvis. May need urology or gensurg consult (3) Bacteremia: Code(s): R78.81 - Bacteremia Status: Acute Assessment and Plan: as above. Continue IV antibiotics. More likely from skin infection then from pneumonia. (4) CKD (chronic kidney disease), stage III: Qualifiers: Chronic kidney disease stage 3 subtype: stage 3b (GFR 30-44) Qualified Code(s): N18.32 - Chronic kidney disease, stage 3b Code(s): N18.30 - Chronic kidney disease, stage 3 unspecified Status: Acute Assessment and Plan: Creatinine 1.5 -2.3 range. Currently creatinine at baseline. Follow (5) Essential (primary) hypertension: Code(s): I10 - Essential (primary) hypertension Status: Acute Assessment and Plan: Patient's blood pressure was reviewed on 11/20 Blood pressure remains well controlled. Will continue current medications. (6) AAA (abdominal aortic aneurysm): Code(s): I71.4 - Abdominal aortic aneurysm, without rupture Status: Acute Assessment and Plan: Continue atenolol. (7) Chronic low back pain: Code(s): M54.50 - Low back pain, unspecified; G89.29 - Other chronic pain Status: Acute Assessment and Plan: start PT and OT. Increase activity out of bed. (8) Lumbar spinal stenosis: Code(s): M48.061 - Spinal stenosis, lumbar region without neurogenic claudication Status: Acute Assessment and Plan: as above Subjective Date/time seen: 11/20/22 14:20 Interval history: 82yo male with AAA, COPD and BPH here for n/v, diarrhea and SOB. Assuming care. Chart reviewed. Patient denies any further nausea or vomiting. He is not on home oxygen but has qualified for oxygen chooses not to wear. Lives at home with his and 5 family members. Denies chest pain. Feels short of breath still. She has a mild cough. No odynophagia or dysphagia. He complains of pain in his groin with rash as well has pain buttock. Exam Narrative: AF 97.2 132/67 59 24 96% 2L Gen - NARD lying semi-recumbent in bed Chest - left base crackles o/w distant BS, nml RR CV - RRR S1/S2. Tele showing sinus bradycardia, PVCs Abd - Soft, NT/ND, Positive BS - Cat secured draining clear yellow urine. Ext - trace pedal edema with wrinkling of the skin Psych - Nml mood and affect Skin - red erythema to the anterior groin and scrotum. indurated area along left inguinal area. tenderness to the perineum. area is damp. buttock with shallow ulcer with evicence of cellulitis (partially visualized) Objective Data Vital Signs Vital Signs: Vital Signs - 24 hr 11/19/22 16:00 11/19/22 22:00 11/20/22 04:00 Temperature 97.9 F Pulse Rate 59 L 61 61 Respiratory Rate 24 H Blood Pressure 124/56 L Pulse Oximetry 97 11/20/22 00:16 11/20/22 06:00
--- NOTE | 2022-11-20 14:51 | PCWOUND ---
CWON NOTE received 2nd referral for patient's groin maceration and friction areas on buttocks. Patient has orders for Triple Care antifungal barrier cream. Spoke with RN for patient who states that wounds are fine and that patient does not need to be seen again.
[2022-11-21] MEDS: ACETAMINOPHEN 325 MG TABLET 650 MG PO (02:35)
[2022-11-21] MEDS: LOPERAMIDE HCL 2 MG CAPSULE PO (02:37)
[2022-11-21] MEDS: TOLNAFTATE 1% POWDER 45 GM BTL 1 APPLIC TOPICAL ×3 (02:50→21:47)
[2022-11-21 06:00] VITALS: BP 158/65; PULSE 60; RESP 20; TEMP 36.1; O2SAT 98
[2022-11-21 06:35] LABS: Basophils Percent Auto 0.3 % (0.2-1.2); Eosinophils Absolute Auto 0.3 K/mm3 (0-0.3); Eosinophils Percent Auto 2.5 % (0-4.4); Hematocrit 36.3 % (42.0-52.0); Hemoglobin 10.5 g/dL (14.0-18.0); Immature Granulocyte Percent A 0.9 % (0-0.5); Lymphocytes Absolute Auto 2.01 K/mm3 (0.9-3.2); Lymphocytes Percent Auto 17.3 % (18.3-44.2); Mean Corpuscular HGB Conc 28.9 g/dl (32-36); Mean Corpuscular Hemoglobin 25.8 pg (26-34); Mean Corpuscular Volume 89.2 fl (80-100); Mean Platelet Volume 11.2 fl (7.4-10.4); Monocytes Absolute Auto 0.7 K/mm3 (0.1-0.6); Neutrophils Absolute Auto 8.5 K/mm3 (1.3-6.7); Platelet Count Result 177 k/mm3 (150-375); Red Blood Count 4.07 M/mm3 (4.6-6.20); Red Cell Distribution Width 16.5 % (11.5-14.5); White Blood Count 11.6 K/mm3 (4.5-10.0)
[2022-11-21 07:02] LABS: Albumin Level 3.2 g/dL (3.5-5.1); Anion Gap 5 mmol/L (8-16); Blood Urea Nitrogen 24 mg/dL (9-20); Calcium 8.5 mg/dL (8.4-10.2); Carbon Dioxide 34 mmol/L (22-30); Chloride 101 mmol/L (98-107); Estimated CRCL calculation 38 ml/min; Estimated Glomerular Filt Rate 39; Glucose 97 mg/dL (65-110); Magnesium 2.1 mg/dL (1.6-2.3); Phosphorus 3.1 mg/dL (2.5-4.5); Potassium 3.2 mmol/L (3.4-5.0); Sodium 140 mmol/L (137-145)
--- NOTE | 2022-11-21 10:42 | PCSTNOTE ---
Patient NPO for a procedure, unable to be completed this morning.
--- NOTE | 2022-11-21 10:44 | PM.CNGS ---
Assessment and Plan Assessment and plan (1) Abscess of left groin: Code(s): L02.214 - Cutaneous abscess of groin Status: Acute Assessment and Plan: Patient with subcutaneous left groin abscess and bacteremia. Additionally, he had an endovascular AAA repair about 4 months ago at [facility]. I did request records. No reported post-operative infection. Discussed the case with Dr. Caal, who recommends proceeding with incision and drainage of the left groin abscess. I discussed the procedure, risks, benefits, and expected outcome with the patient and his daughter for bedside I&D with local anesthetic. He agrees to proceed. Will have the nurse gather supplies and proceed this morning. Will restart his diet. Given his recent endovascular AAA repair with the bacteremia, patient will need follow-up with vascular surgery. (2) Bacteremia: Code(s): R78.81 - Bacteremia Status: Acute Assessment and Plan: Blood cx 11/16/22 growing group C streptococcus. Repeat blood cx 11/19 NGTD. Currently on IV Zosyn. Will plan on obtaining cultures during I&D. (3) Cellulitis: Code(s): L03.90 - Cellulitis, unspecified Status: Acute (4) Pneumonia: Qualifiers: Laterality: bilateral Lung location: unspecified part of lung Pneumonia type: due to unspecified organism Qualified Code(s): J18.9 - Pneumonia, unspecified organism Code(s): J18.9 - Pneumonia, unspecified organism Status: Acute Assessment and Plan: Management per Hospitalist. (5) CHF (congestive heart failure): Code(s): I50.9 - Heart failure, unspecified Status: Acute (6) CKD (chronic kidney disease), stage III: Qualifiers: Chronic kidney disease stage 3 subtype: stage 3b (GFR 30-44) Qualified Code(s): N18.32 - Chronic kidney disease, stage 3b Code(s): N18.30 - Chronic kidney disease, stage 3 unspecified Status: Acute (7) AAA (abdominal aortic aneurysm): Code(s): I71.4 - Abdominal aortic aneurysm, without rupture Status: Acute Assessment and Plan: Discussed with patient and his daughter that they need to contact vascular surgery so that they can schedule a follow-up. (8) Obesity: Qualifiers: Body mass index: BMI 40.0-44.9 Obesity classification: adult class 3 (BMI >= 40) Obesity type: due to excess calories Serious obesity comorbidity presence: unspecified whether serious comorbidity present Qualified Code(s): E66.01 - Morbid (severe) obesity due to excess calories; Z68.41 - Body mass index [BMI] 40.0-44.9, adult Code(s): E66.9 - Obesity, unspecified Status: Acute (9) Essential (primary) hypertension: Code(s): I10 - Essential (primary) hypertension Status: Acute (10) COPD (chronic obstructive pulmonary disease): Code(s): J44.9 - Chronic obstructive pulmonary disease, unspecified Status: Acute Plan I have discussed the patient's case and plan of care with Dr. Caal. Thank you for allowing us to see the patient in consultation and we will continue to follow along with you. History of Present Illness Consult details Consult date: 11/21/22 Reason for consult: other (Left groin abscess) Requesting physician: Khoa Zavala MD Narrative: This is an 82-year-old male with multiple medical problems who came into the ER 5 days ago for nausea and vomiting. He additionally had a cough x a few weeks with chills and shortness of breath. He does have a history of COPD and had acute respiratory failure requiring mechanical ventilation about 1 year ago and eventually had a tracheostomy and gastrostomy tube placement for feedings. His G-tube was removed about 5 months ago. The ED workup revealed aspiration pneumonia. He was admitted and started on IV Zosyn. He has since had positive blood cultures with the first set growing group C streptococcus. Repeat blood cultures pending. Since admission, he was
--- NOTE | 2022-11-21 12:08 | W.PM.PROC2 ---
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 The site of the abscess for required I&D was identified. Following this, the area was prepped with chlorhexidine and draped in usual sterile fashion. Then, local anesthetic was infiltrated directly over the area of swelling and abscess formation. After allowing the local anesthetic to work, a direct 1.5 cm incision was made with an #15 blade scalpel over the fluctuant area of the abscess. Immediate flow of purulent drainage was noted. A culture was obtained. The abscess cavity was probed and there was about 4 cm of tunneling inferior and slightly posterior where more flow of purulent fluid was expressed. All loculations were broken up. Following this, the area was packed with 1/4 plain nugauze packing. The area was then covered with 4x4s and tape. The patient tolerated the procedure well. Packing Yes Complications No immediate complications Condition Stable Disposition No change [facility] Billing Surgery - Charge Forward: Surgery Billing
[2022-11-21] MEDS: PRAVASTATIN SODIUM 10 MG TABLET PO (13:04)
[2022-11-21] MEDS: POTASSIUM CHLORIDE 20 MEQ TABLET 40 MEQ PO (13:04)
[2022-11-21] MEDS: atenoloL 50 MG TABLET PO (13:04)
[2022-11-21] MEDS: GABAPENTIN 300 MG CAPSULE PO (13:05)
[2022-11-21] MEDS: ASCORBIC ACID 500 MG TABLET PO (13:05)
[2022-11-21] MEDS: FUROSEMIDE 40 MG TABLET PO (13:05)
[2022-11-21] MEDS: FINASTERIDE 5 MG TABLET PO (13:05)
[2022-11-21] MEDS: LOSARTAN POTASSIUM 100 MG TABLET PO (13:05)
[2022-11-21] MEDS: LIDO 1%/EPINEPHRINE 1:100,000 20 ML VIAL INFILTRATE (13:06)
[2022-11-21 14:00] VITALS: BP 137/68; PULSE 65; RESP 20; TEMP 36.3; O2SAT 95
[2022-11-21 15:00] VITALS: O2SAT 94
--- NOTE | 2022-11-21 15:33 | PM.IMPN ---
Progress Note: A&P Assessment and Plan (1) Aspiration pneumonia: Code(s): J69.0 - Pneumonitis due to inhalation of food and vomit Status: Acute Assessment and Plan: Patient developed shortness of breath after an episode of nausea and vomiting. Chest x-ray shows mild increase opacities throughout the right lung and in the left mid and lower lung zone consistent with edema versus pneumonia. He also had pulmonary vascular congestion. He was started on Rocephin and azithromycin. He was given Lasix IV x1. Antibiotics were switched to Zosyn for possible aspiration. He has been continued on his oral Lasix. Blood culture growing group C Streptococcus in all 4 bottles with susceptibilites pending. Blood cultures repeated on 11/19 and are no growth today. White count trending downward. Speech therapy evaluation showing patient can swallow safely. Continue Zosyn for now. (2) Cellulitis: Code(s): L03.90 - Cellulitis, unspecified Status: Acute Assessment and Plan: Indurated left groin erythema noted. CT scan showing no obvious evidence for Rigo's but did show left 7cm inguinal abscess. Patient underwent I&D earlier today by General Surgery. Patient toerlated the procedure well. Continue Zosyn. Continue antifuncal powder. (3) Bacteremia: Code(s): R78.81 - Bacteremia Status: Acute Assessment and Plan: As above. More likely from skin infection then from pneumonia. Continue IV antibiotics. (4) Abscess of left groin: Code(s): L02.214 - Cutaneous abscess of groin Status: Acute Assessment and Plan: As above. Continue routine wound care. (5) CKD (chronic kidney disease), stage III: Qualifiers: Chronic kidney disease stage 3 subtype: stage 3b (GFR 30-44) Qualified Code(s): N18.32 - Chronic kidney disease, stage 3b Code(s): N18.30 - Chronic kidney disease, stage 3 unspecified Status: Acute Assessment and Plan: Creatinine 1.5 -2.3 range. Currently creatinine at baseline. Follow (6) Essential (primary) hypertension: Code(s): I10 - Essential (primary) hypertension Status: Acute Assessment and Plan: Patient's blood pressure was reviewed on 11/21 Blood pressure remains well controlled. Will continue current medications. (7) AAA (abdominal aortic aneurysm): Code(s): I71.4 - Abdominal aortic aneurysm, without rupture Status: Acute Assessment and Plan: Compared to imaging from 08/23/2021, there has been apparent interval increase in the AP diameter of the aortic aneurysm that now measures up to 6 cm. There is an aortic stent graft in place. This CT was done without contrast so endoleak cannot be determined but is felt less likely. Will continue atenolol. (8) Chronic low back pain: Code(s): M54.50 - Low back pain, unspecified; G89.29 - Other chronic pain Status: Acute Assessment and Plan: Continue PT and OT. Increase activity and out of bed as toelrated. (9) Lumbar spinal stenosis: Code(s): M48.061 - Spinal stenosis, lumbar region without neurogenic claudication Status: Acute Assessment and Plan: As above Subjective Date/time seen: 11/21/22 15:33 Interval history: 82yo male with AAA, COPD and BPH here for n/v, diarrhea and SOB. Patient has decreased pain in the groin after I and D earlier today. No chest pain or shortness of breath. He does not wear oxygen at home but currently on 2 L. eating well. Exam Narrative: AF 97.3 137/68 65 20 94% 2L Gen - NARD lying semi-recumbent in bed Chest - Lungs clear anteriorly CV - RRR S1/S2 Abd - soft. Mild diffuse tenderness but no guarding. - Cat secured draining clear yellow urine. Ext - trace pedal edema Psych - Nml mood and affect Skin - left lower inguinal area has a dressing that is clean, dry intact. Erythema to the scrotum and right Inguinal area im
[2022-11-21 22:00] VITALS: BP 136/63; PULSE 65; RESP 20; TEMP 36.4; O2SAT 94
[2022-11-22 06:00] VITALS: BP 155/68; PULSE 62; RESP 14; TEMP 36.1; O2SAT 94
[2022-11-22 07:03] LABS: Basophils Absolute Auto 0.1 K/mm3 (0.0-0.1); Basophils Percent Auto 0.5 % (0.2-1.2); Eosinophils Absolute Auto 0.3 K/mm3 (0-0.3); Eosinophils Percent Auto 2.8 % (0-4.4); Hematocrit 35.6 % (42.0-52.0); Hemoglobin 10.6 g/dL (14.0-18.0); Immature Granulocyte Absolute 0.15 K/mm3 (0.00-0.031); Immature Granulocyte Percent A 1.2 % (0-0.5); Lymphocytes Absolute Auto 2.22 K/mm3 (0.9-3.2); Lymphocytes Percent Auto 18.1 % (18.3-44.2); Mean Corpuscular HGB Conc 29.8 g/dl (32-36); Mean Corpuscular Hemoglobin 25.9 pg (26-34); Mean Corpuscular Volume 86.8 fl (80-100); Mean Platelet Volume 10.6 fl (7.4-10.4); Monocytes Absolute Auto 0.6 K/mm3 (0.1-0.6); Monocytes Percent Auto 5.1 % (2.6-8.5); Neutrophils Absolute Auto 8.9 K/mm3 (1.3-6.7); Neutrophils Percent Auto 72.3 % (45.5-73.1); Platelet Count Result 212 k/mm3 (150-375); Red Cell Distribution Width 16.6 % (11.5-14.5); White Blood Count 12.3 K/mm3 (4.5-10.0)
[2022-11-22 07:38] LABS: Anion Gap 4 mmol/L (8-16); Blood Urea Nitrogen 25 mg/dL (9-20); Calcium 8.6 mg/dL (8.4-10.2); Carbon Dioxide 35 mmol/L (22-30); Chloride 102 mmol/L (98-107); Estimated CRCL calculation 38 ml/min; Estimated Glomerular Filt Rate 39; Glucose 97 mg/dL (65-110); Potassium 3.6 mmol/L (3.4-5.0); Sodium 141 mmol/L (137-145)
[2022-11-22] MEDS: GABAPENTIN 300 MG CAPSULE PO (08:40)
[2022-11-22] MEDS: FUROSEMIDE 40 MG TABLET PO (08:40)
[2022-11-22] MEDS: ASCORBIC ACID 500 MG TABLET PO (08:40)
[2022-11-22 08:41] VITALS: PULSE 62
[2022-11-22] MEDS: PRAVASTATIN SODIUM 10 MG TABLET PO (08:41)
[2022-11-22] MEDS: LOSARTAN POTASSIUM 100 MG TABLET PO (08:41)
[2022-11-22] MEDS: atenoloL 50 MG TABLET PO (08:41)
[2022-11-22] MEDS: FINASTERIDE 5 MG TABLET PO (08:41)
[2022-11-22 09:36] LABS: Schistocytes None Seen (NORMAL)
[2022-11-22 09:37] LABS: Hypochromasia 1+ (NORMAL); Microcytosis 1+ (NORMAL); Platelet Estimate Adequate (Adequate)
--- NOTE | 2022-11-22 10:55 | PM.PNGS ---
Progress Note: A&P Assessment and Plan (1) Abscess of left groin: Code(s): L02.214 - Cutaneous abscess of groin Status: Acute Assessment and Plan: s/p drainage, cont local wound, await cx, cont abx, ok to dc from surgical standpoint c dry dressing and abx Subjective Subjective Date/Time Seen: 11/22/22 10:55 feels better, less groin pain Review of Systems Review of Systems: All systems reviewed & are unremarkable except as noted in HPI and below Exam Const: General: cooperative, comfortable and no acute distress Skin: Other: L groin - unpacked, good drainage, decreased induration/cellulitis Objective Data Vital Signs Vital Signs: Vital Signs - 24 hr 11/21/22 14:00 11/21/22 15:00 11/21/22 22:00 Temperature 36.3 C L 36.4 C L Pulse Rate 65 65 Respiratory Rate 20 20 Blood Pressure 137/68 136/63 Pulse Oximetry 95 94 94 Oxygen Delivery Room Air 11/22/22 06:00 11/22/22 08:41 Temperature 36.1 C L Pulse Rate 62 62 Respiratory Rate 14 Blood Pressure 155/68 H Pulse Oximetry 94 Oxygen Delivery Intake/Output Intake/Output: Intake & Output 11/19/22 11/20/22 11/21/22 11/22/22 23:59 23:59 23:59 23:59 Intake Total 1625 1300 540 990 Output Total 1900 3725 2900 825 [facility] -[phone] 165 Meds/Results Medications: Active Medications Generic Name Dose Route Start Last Admin Trade Name Freq PRN Reason Stop Dose Admin Acetaminophen 650 mg 11/16/22 23:08 11/21/22 02:35 Acetaminophen 325 Mg Tablet PO 650 mg TID PRN Administration arhtritis Ascorbic Acid 500 mg 11/17/22 09:00 11/22/22 08:40 Ascorbic Acid 500 Mg Tablet PO 500 mg DAILY PETERSON Administration Atenolol 50 mg 11/17/22 09:00 11/22/22 08:41 Atenolol 50 Mg Tablet PO 50 mg DAILY PETERSON Administration Ergocalciferol 50,000 units 11/18/22 09:00 11/18/22 08:25 Ergocalciferol 50,000 Units Capsule PO 50,000 units Mo@0900 PETERSON Administration Finasteride 5 mg 11/17/22 09:00 11/22/22 08:41 Finasteride 5 Mg Tablet PO 5 mg DAILY PETERSON Administration Furosemide 40 mg 11/17/22 09:00 11/22/22 08:40 Furosemide 40 Mg Tablet PO 40 mg QAM PETERSON Administration Gabapentin 300 mg 11/16/22 23:08 11/22/22 08:40 Gabapentin 300 Mg Capsule PO 300 mg DAILY PRN Administration Pain Piperacillin/Tazobactam/Dextrose 3.375 gm in 50 mls @ 100 mls/hr 11/17/22 09:00 11/22/22 10:52 Zosyn 3.375 Gm/D5w 50ml Pm IVPB Infused Q6H PETERSON Infusion Loperamide HCl 2 mg 11/19/22 15:35 11/21/22 02:37 Loperamide Hcl 2 Mg Capsule PO 2 mg PRN PRN Administration Diarrhea Losartan Potassium 100 mg 11/17/22 09:00 11/22/22 08:41 Losartan Potassium 100 Mg Tablet PO 100 mg DAILY PETERSON Administration Miconazole Nitrate 1 applic 11/18/22 09:00 11/21/22 21:48 Miconazole 2% Antifungal Ointment 56 Gm TOPICAL 1 applic Q12HR PETERSON Administration Ondansetron HCl 4 mg 11/16/22 19:32 Ondansetron Inj 4 Mg/2 Ml Vial IV PUSH Q4H PRN Nausea Pravastatin Sodium 10 mg 11/17/22 09:00 11/22/22 08:41 Pravastatin Sodium 10 Mg Tablet PO 10 mg DAILY PETERSON Administration Silver Nitrate 1 applic 11/22/22 09:00 Silvergel (Elta) 45 Ml TOPICAL DAILY PETERSON Tolnaftate 1 applic 11/20/22 21:00 11/21/22 21:47 Tolnaftate 1% Powder 45 Gm Btl TOPICAL 1 applic Q12HR PETERSON Administration Radiology Results: ITS Impressions Chest X-Ray 11/16/22 18:12 IMPRESSION: 1. Mild increased opacities throughout the right lung and in the left mid to lower lung zone which could represent pulmonary edema or pneumonia. 2. Cardiomegaly with pulmonary vascular congestion. Abdomen/Pelvis CT 11/20/22 16:26 Impression: 5.7 x 4.2 x 7.0 cm abscess in the left inguinal anterior subcutaneous soft tissues, surrounding infiltrative changes. 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 Aortic stent graft with underlying ab
--- NOTE | 2022-11-22 11:02 | PM.IMPN ---
Progress Note: A&P Assessment and Plan (1) Aspiration pneumonia: Code(s): J69.0 - Pneumonitis due to inhalation of food and vomit Status: Acute Assessment and Plan: Patient developed SOB after an episode of nausea and vomiting. Chest x-ray showed mild increase opacities throughout the right lung and in the left mid and lower lung zone consistent with edema versus pneumonia. He also had pulmonary vascular congestion. He was started on Rocephin and azithromycin. He was given Lasix IV x1. Antibiotics were switched to Zosyn for possible aspiration. Speech therapy evaluation showing patient can swallow safely. He has been continued on his oral Lasix. Blood culture growing group C Streptococcus in all 4 bottles with susceptibilities pending. Repeat BCx 11/19 are no growth today. White count about the same. Continue Zosyn (2) Cellulitis: Code(s): L03.90 - Cellulitis, unspecified Status: Acute Assessment and Plan: Indurated left groin erythema noted. CT scan showing no obvious evidence for Rigo's but did show left 7cm inguinal abscess. Patient underwent I&D 11/21 by General Surgery. Patient tolerated the procedure well. Wound culture pending. Continue Zosyn. Continue antifungal powder. (3) Bacteremia: Code(s): R78.81 - Bacteremia Status: Acute Assessment and Plan: As above. More likely from skin infection then from pneumonia. Continue IV antibiotics. (4) Abscess of left groin: Code(s): L02.214 - Cutaneous abscess of groin Status: Acute Assessment and Plan: As above. Continue routine wound care. (5) CKD (chronic kidney disease), stage III: Qualifiers: Chronic kidney disease stage 3 subtype: stage 3b (GFR 30-44) Qualified Code(s): N18.32 - Chronic kidney disease, stage 3b Code(s): N18.30 - Chronic kidney disease, stage 3 unspecified Status: Acute Assessment and Plan: Creatinine 1.5 -2.3 range. Currently creatinine at baseline. Follow (6) Essential (primary) hypertension: Code(s): I10 - Essential (primary) hypertension Status: Acute Assessment and Plan: Patient's blood pressure was reviewed on 11/22 Blood pressure remains reasonably well controlled. Will continue current medications. (7) AAA (abdominal aortic aneurysm): Code(s): I71.4 - Abdominal aortic aneurysm, without rupture Status: Acute Assessment and Plan: Compared to imaging from 08/23/2021, there has been apparent interval increase in the AP diameter of the aortic aneurysm that now measures up to 6 cm. There is an aortic stent graft in place. This CT was done without contrast so endoleak cannot be determined but is felt less likely. Will continue atenolol. (8) Chronic low back pain: Code(s): M54.50 - Low back pain, unspecified; G89.29 - Other chronic pain Status: Acute Assessment and Plan: Continue PT and OT. Increase activity and out of bed as toelrated. (9) Lumbar spinal stenosis: Code(s): M48.061 - Spinal stenosis, lumbar region without neurogenic claudication Status: Acute Assessment and Plan: As above Subjective Date/time seen: 11/22/22 11:02 Interval history: 82yo male with AAA, COPD and BPH here for n/v, diarrhea and SOB. No problems overnight. patient slept well. He denies chest pain. He feels slightly short of breath. Was up to the chair yesterday. His groin pain is much improved. Exam Narrative: AF 96.9 155/68 62 14 94% ra Gen - NARD lying semi-recumbent in bed Chest - few basilar rhonchi o/w clear CV - RRR S1/S2 Abd - soft. Mild tenderness in the LLQ - Cat secured draining clear yellow urine. Ext - trace pedal edema Psych - Nml mood and affect Skin - left lower inguinal area less erythematous but still indurated. decrease in the erythema to the scrotum and right inguinal area Objective Data Vital S
[2022-11-22] MEDS: SILVERGEL (ELTA) 45 ML 1 APPLIC TOPICAL (11:52)
[2022-11-22] MEDS: TOLNAFTATE 1% POWDER 45 GM BTL 1 APPLIC TOPICAL ×2 (11:53→20:50)
[2022-11-22 14:00] VITALS: BP 132/69; PULSE 58; RESP 16; TEMP 36.8; O2SAT 98
[2022-11-22 20:00] VITALS: PULSE 58; RESP 16; O2SAT 98
[2022-11-22 22:00] VITALS: BP 148/63; PULSE 60; RESP 16; TEMP 36.4; O2SAT 92
[2022-11-23] MEDS: LOPERAMIDE HCL 2 MG CAPSULE PO (03:49)
[2022-11-23 06:00] VITALS: BP 163/69; PULSE 64; RESP 20; TEMP 36.3; O2SAT 93
[2022-11-23 06:43] LABS: Basophils Absolute Auto 0.1 K/mm3 (0.0-0.1); Basophils Percent Auto 0.6 % (0.2-1.2); Eosinophils Absolute Auto 0.4 K/mm3 (0-0.3); Eosinophils Percent Auto 3.4 % (0-4.4); Hematocrit 36.1 % (42.0-52.0); Hemoglobin 10.7 g/dL (14.0-18.0); Immature Granulocyte Absolute 0.32 K/mm3 (0.00-0.031); Immature Granulocyte Percent A 2.7 % (0-0.5); Lymphocytes Absolute Auto 3.06 K/mm3 (0.9-3.2); Mean Corpuscular HGB Conc 29.6 g/dl (32-36); Mean Corpuscular Hemoglobin 26.3 pg (26-34); Mean Corpuscular Volume 88.7 fl (80-100); Mean Platelet Volume 10.5 fl (7.4-10.4); Monocytes Absolute Auto 0.6 K/mm3 (0.1-0.6); Monocytes Percent Auto 4.8 % (2.6-8.5); Neutrophils Absolute Auto 7.3 K/mm3 (1.3-6.7); Neutrophils Percent Auto 62.5 % (45.5-73.1); Platelet Count Result 230 k/mm3 (150-375); Red Blood Count 4.07 M/mm3 (4.6-6.20); Red Cell Distribution Width 16.7 % (11.5-14.5); White Blood Count 11.8 K/mm3 (4.5-10.0)
[2022-11-23 06:59] LABS: Albumin Level 3.4 g/dL (3.5-5.1); Anion Gap 4 mmol/L (8-16); Blood Urea Nitrogen 23 mg/dL (9-20); Calcium 8.5 mg/dL (8.4-10.2); Carbon Dioxide 34 mmol/L (22-30); Chloride 99 mmol/L (98-107); Estimated CRCL calculation 43 ml/min; Estimated Glomerular Filt Rate 45; Glucose 96 mg/dL (65-110); Magnesium 2.3 mg/dL (1.6-2.3); Phosphorus 3.4 mg/dL (2.5-4.5); Potassium 3.2 mmol/L (3.4-5.0); Sodium 137 mmol/L (137-145)
[2022-11-23 07:53] LABS: Anisocytosis 1+ (NORMAL); Platelet Estimate Adequate (Adequate)
[2022-11-23 08:32] LABS: Schistocytes None Seen (NORMAL)
[2022-11-23 08:33] VITALS: PULSE 84
[2022-11-23] MEDS: FUROSEMIDE 40 MG TABLET PO (08:33)
[2022-11-23] MEDS: PRAVASTATIN SODIUM 10 MG TABLET PO (08:33)
[2022-11-23] MEDS: LOSARTAN POTASSIUM 100 MG TABLET PO (08:33)
[2022-11-23] MEDS: atenoloL 50 MG TABLET PO (08:33)
[2022-11-23] MEDS: POTASSIUM CHLORIDE 20 MEQ TABLET PO (08:33)
[2022-11-23] MEDS: ASCORBIC ACID 500 MG TABLET PO (08:33)
[2022-11-23] MEDS: FINASTERIDE 5 MG TABLET PO (08:33)
[2022-11-23] MEDS: SILVERGEL (ELTA) 45 ML 1 APPLIC TOPICAL (08:34)
[2022-11-23] MEDS: TOLNAFTATE 1% POWDER 45 GM BTL 1 APPLIC TOPICAL (08:35)
[2022-11-23 14:00] VITALS: BP 126/64; PULSE 61; RESP 18; TEMP 36.2; O2SAT 97
--- NOTE | 2022-11-23 14:45 | PM.IMPN ---
Progress Note: A&P Assessment and Plan (1) Aspiration pneumonia: Code(s): J69.0 - Pneumonitis due to inhalation of food and vomit Status: Acute Assessment and Plan: Patient developed SOB after an episode of nausea and vomiting. Chest x-ray showed mild increase opacities throughout the right lung and in the left mid and lower lung zone consistent with edema versus pneumonia. He also had pulmonary vascular congestion. He was started on Rocephin and azithromycin. He was given Lasix IV x1. Antibiotics were switched to Zosyn for possible aspiration. Speech therapy evaluation showing patient can swallow safely. He has been continued on his oral Lasix. Blood culture growing group C Streptococcus in all 4 bottles. Repeat BCx 11/19 are no growth today. White count better. Continue Zosyn (2) Cellulitis: Code(s): L03.90 - Cellulitis, unspecified Status: Acute Assessment and Plan: Indurated left groin erythema noted. CT scan showing no obvious evidence for Rigo's but did show left 7cm inguinal abscess. Patient underwent I&D 11/21 by General Surgery. Patient tolerated the procedure well. Wound culture pending. Continue Zosyn. Continue antifungal powder. (3) Bacteremia: Code(s): R78.81 - Bacteremia Status: Acute Assessment and Plan: As above. More likely from skin infection then from pneumonia. Continue IV antibiotics. (4) Abscess of left groin: Code(s): L02.214 - Cutaneous abscess of groin Status: Acute Assessment and Plan: As above. Continue routine wound care. (5) CKD (chronic kidney disease), stage III: Qualifiers: Chronic kidney disease stage 3 subtype: stage 3b (GFR 30-44) Qualified Code(s): N18.32 - Chronic kidney disease, stage 3b Code(s): N18.30 - Chronic kidney disease, stage 3 unspecified Status: Acute Assessment and Plan: Creatinine 1.5 -2.3 range. Currently creatinine at baseline. Follow (6) Essential (primary) hypertension: Code(s): I10 - Essential (primary) hypertension Status: Acute Assessment and Plan: Patient's blood pressure was reviewed on 11/23 Blood pressure remains reasonably well controlled. Will continue current medications. (7) AAA (abdominal aortic aneurysm): Code(s): I71.4 - Abdominal aortic aneurysm, without rupture Status: Acute Assessment and Plan: Compared to imaging from 08/23/2021, there has been apparent interval increase in the AP diameter of the aortic aneurysm that now measures up to 6 cm. There is an aortic stent graft in place. This CT was done without contrast so endoleak cannot be determined but is felt less likely. Will continue atenolol. (8) Chronic low back pain: Code(s): M54.50 - Low back pain, unspecified; G89.29 - Other chronic pain Status: Acute Assessment and Plan: Continue PT and OT. Increase activity and out of bed as toelrated. (9) Lumbar spinal stenosis: Code(s): M48.061 - Spinal stenosis, lumbar region without neurogenic claudication Status: Acute Assessment and Plan: As above Subjective Date/time seen: 11/23/22 14:45 Interval history: 82yo male with AAA, COPD and BPH here for n/v, diarrhea and SOB. Slept okay. Has the senstation he has to void. He denies CP or SOB. No abd or groin pain. Exam Narrative: AF 97.2 100/49 88 18 97% ra Gen - NARD lying semi-recumbent in bed Chest - CTA bilaterally, nml RR CV - RRR S1/S2 Abd - soft. NT/ND, +BS - Cat secured draining clear yellow urine. Ext - no pedal edema Psych - Nml mood and affect Skin - left lower inguinal area much less erythematous but still indurated. No drainage from the wound. decrease in the erythema to the scrotum and right inguinal area Objective Data Vital Signs Vital Signs: Vital Signs - 24 hr 11/22/22 20:00 11/22/22 22:00 11/23/22 06:00 Temperature 97.
--- NOTE | 2022-11-23 15:15 | P.DS_ITS ---
DS: Admitting Diagnosis Discharge Date DS: Summary Time Spent with Patient Time attestation: Total time spent providing and/or coordinating discharge services: DS: Data Data Completed and Pending Labs on day of discharge: Labs from last 24 hours 11/23/22 11/23/22 06:03 06:03 WBC 11.8 H RBC 4.07 L Hgb 10.7 L Hct 36.1 L MCV 88.7 MCH 26.3 MCHC 29.6 L RDW 16.7 H Plt Count 230 MPV 10.5 H Immature Gran % (Auto) 2.7 H Neut % (Auto) 62.5 Lymph % (Auto) 26.0 [place] % (Auto) 4.8 Eos % (Auto) 3.4 Baso % (Auto) 0.6 Lymph # (Auto) 3.06 [place] # (Auto) 0.6 Eos # (Auto) 0.4 H Baso # (Auto) 0.1 Abs Immat Gran (auto) 0.32 H Absolute Neuts (auto) 7.3 H Absolute Nucleated RBC 0.0 Nucleated RBC % 0.0 Platelet Estimate Adequate Anisocytosis 1+ Schistocytes None seen Sodium 137 Potassium 3.2 L Chloride 99 Carbon Dioxide 34 H Anion Gap 4 L BUN 23 H Creatinine 1.50 H Estim Creat Clear Calc 43 Estimated GFR 45 L Glucose 96 Calcium 8.5 Phosphorus 3.4 Magnesium 2.3 Albumin 3.4 L Preliminary micro results at discharge 11/21/22 11:36 Anaerobic Culture - Preliminary Abscess Aerobic Culture - Preliminary 11/19/22 09:37 Blood Culture - Preliminary Blood 11/19/22 09:36 Blood Culture - Preliminary Blood Discharge Plan Discharge Consulting providers: Miriam Caal Patient Instructions: How to Stop Smoking (GEN), Pain Management (GEN) Discharge Medications: No Action pravastatin 10 mg tablet 10 mg PO DAILY acetaminophen 500 mg capsule 650 mg PO TID PRN (Reason: arhtritis) finasteride 5 mg tablet 5 mg PO DAILY furosemide 40 mg tablet 40 mg PO QAM Qty: 30 5RF ascorbic acid (vitamin C) 500 mg capsule 500 mg PO DAILY gabapentin 300 mg capsule 300 mg PO DAILY PRN (Reason: Pain) losartan 100 mg tablet 100 mg PO DAILY atenolol 50 mg tablet 50 mg PO DAILY cholecalciferol (vitamin D3) 1,250 mcg (50,000 unit) tablet 1,250 mcg PO WEEKLY Qty: 12 0RF Date of admission: 11/18/22 16:31 Primary Care Provider: Adams Robles Admitting Provider: Anuradha Warren V. Attending physician on admission: Anuradha Warren V. Condition: Serious
--- NOTE | 2022-11-23 16:40 | PM.DS ---
DS: Admitting Diagnosis Discharge Date 11/23/22 Admitting Diagnosis Shortness of breath DS: Discharge Diagnosis Discharge Diagnosis (1) Aspiration pneumonia: Code(s): J69.0 - Pneumonitis due to inhalation of food and vomit Status: Acute (2) Cellulitis: Code(s): L03.90 - Cellulitis, unspecified Status: Acute (3) Bacteremia: Code(s): R78.81 - Bacteremia Status: Acute (4) Abscess of left groin: Code(s): L02.214 - Cutaneous abscess of groin Status: Acute (5) CKD (chronic kidney disease), stage III: Qualifiers: Chronic kidney disease stage 3 subtype: stage 3b (GFR 30-44) Qualified Code(s): N18.32 - Chronic kidney disease, stage 3b Code(s): N18.30 - Chronic kidney disease, stage 3 unspecified Status: Acute (6) Essential (primary) hypertension: Code(s): I10 - Essential (primary) hypertension Status: Acute (7) AAA (abdominal aortic aneurysm): Code(s): I71.4 - Abdominal aortic aneurysm, without rupture Status: Acute (8) Chronic low back pain: Code(s): M54.50 - Low back pain, unspecified; G89.29 - Other chronic pain Status: Acute (9) Lumbar spinal stenosis: Code(s): M48.061 - Spinal stenosis, lumbar region without neurogenic claudication Status: Acute DS: Summary Hospital Course Reason for hospitalization: 82yo male with AAA, COPD and BPH here for n/v, diarrhea and SOB. please see H&P for detail Hospital Course: Patient developed SOB after an episode of nausea and vomiting.? Chest x-ray showed mild increase opacities throughout the right lung and in the left mid and lower lung zone consistent with edema versus pneumonia.? He also had pulmonary vascular congestion.? He was started on Rocephin and azithromycin.? He was given Lasix IV x1.? Antibiotics were switched to Zosyn for possible aspiration. Speech therapy evaluation showing patient can swallow safely. He has been continued on his oral Lasix.? Blood culture growing group C Streptococcus in all 4 bottles. Repeat BCx 11/19 are no growth to date. White count better. Also found to have an indurated left groin erythema noted. CT scan showing no obvious evidence for Rigo's but did show left 7cm inguinal abscess. Patient underwent I&D 11/21 by General Surgery. Patient tolerated the procedure well. Wound culture pending. General surgery felt patient could be discharged home. Creatinine 1.5 -2.3 range normally and he remained in this range during his hospital course. Compared to imaging from 08/23/2021, there has been apparent interval increase in the AP diameter of the aortic aneurysm that now measures up to 6 cm.? There is an aortic stent graft in place.? This CT was done without contrast so endoleak cannot be determined but is felt less likely.? We continued his atenolol. Will have patient follow up with his vascular surgeon after discharge. He worked with PT and OT.?He was minimal assistance for bed mobility and standby for bed transfer. He was able to walk 50 feet with walker. Discussed with family and they initially were reluctant to take him home unless he could at least do steps. We discussed coming home via ambulance but they decided to come get him. He is clinically stable and able to be discharged from a medical standpoint. He overall did well and was discharged home on 11/23/22. Status at Discharge Cognitive/behavioral status at discharge: Stable Time Spent with Patient Time attestation: Total time spent providing and/or coordinating discharge services:40 minutes Time spent: Greater than 30 minutes Exam Narrative: AF 97.2 100/49 88 18 97% ra Gen - NARD lying semi-recumbent in bed Chest - CTA bilaterally, nml RR CV - RRR S1/S2 Abd - soft. NT/ND, +BS - Cat secured draining clear yellow urine. Ext - no pedal edema Psych - Nml mood and affect Skin - left lower inguinal area much less erythematous but still indurated. No draina
--- NOTE | 2022-11-27 09:26 | PC.NURSE ---
Blood cx are negative. Wound cx is covered by Augmentin. Discussed with Dr. Zavala.
== END 2022-11-23 18:05 | disposition home health service (06) | DRG 178 ==
LOC: ANHED 19:38 → ANH3MEDSUR 20:58
PROVIDERS: Chiropractor; Physician Assistant; Admitting Provider Internal Medicine; Emergency Provider Emergency Medicine; PCP Family Medicine; Visit Provider Internal Medicine
DX: J69.0 Pneumonitis due to inhalation of food and vomit (principal); L02.214 Cutaneous abscess of groin; R78.81 Bacteremia; N18.32 Chronic kidney disease, stage 3b; I12.9 Hypertensive chronic kidney disease with stage 1 through stage 4 chronic kidney disease, or unspecified chronic kidney disease; I71.40 Abdominal aortic aneurysm, without rupture, unspecified; M54.50 Low back pain, unspecified; G89.29 Other chronic pain; M48.061 Spinal stenosis, lumbar region without neurogenic claudication; J44.9 Chronic obstructive pulmonary disease, unspecified; Z20.822 Contact with and (suspected) exposure to COVID-19; N40.0 Benign prostatic hyperplasia without lower urinary tract symptoms; Z83.3 Family history of diabetes mellitus; Z87.891 Personal history of nicotine dependence; Z79.899 Other long term (current) drug therapy; Z91.013 Allergy to seafood
CPT/HCPCS: 36415; 36600; 71046; 74176; 80048; 80053; 80069; 81001; 82375; 82805; 83050; 83605; 83690; 83735; 83880; 84484; 85025; 85055; 85610; 85730; 87040; 87070; 87075; 87147; 87205; 87636; 92610; 93005; 96361; 96365; 96366; 96367; 96375; 97116; 97161; 97165; 97530; 97535; 99285; A9270; G0378; J0131; J0456; J0696; J1940; J2060; J2405; J2543; J7030

== ENCOUNTER 2023-03-25 12:20 | Outpatient (CLI) | payer MEDICARE, SELFPAY ==
--- NOTE | ~2023-03-25 | MR_ITS ---
EXAMINATION: MR lumbar spine wo con DATE: 03/25/2023 13:13 INDICATION: Low back pain. TECHNIQUE: Magnetic resonance imaging (MRI) of the lumbar spine was performed without intravenous con trast. Sequences included sagittal T2-weighted FSE, sagittal T2-weighted FS FSE, sagittal T1-weighted FSE, and axial T2-weighted FSE. COMPARISON: Lumbar spine MRI 06/18/2021, chest CT 10/25/2021, CT abdomen and pelvis 11/20/2022 FINDINGS: There is 15 degrees dextroscoliosis of lumbar spine. There are small ribs at T12. There is 4 mm anterolisthesis of L2 on L3 and 3 mm anterolisthesis of L4 on L5. There is severely decreased di sc height from L1-L2 through L4-L5 with interbody fusion at L3-L4 and L4-L5. The distal spinal cord s ignal intensity is normal. The conus medullaris is at T12-L1. The following disc levels are specific ally discussed: L1-L2: The disc is bulging and has an annular fissure. There is moderate right and severe left facet joint osteoarthritis. There is mild right and moderate left neural foraminal stenosis. There is mild central canal stenosis. L2-L3: The disc is bulging and has an annular fissure. There is severe bilateral facet joint osteoart hritis. There is mild bilateral neural foraminal stenosis. There is moderate central canal stenosis. L3-L4: There is moderate bilateral facet joint hypertrophy. There is mild bilateral neural foraminal stenosis. There is mild central canal stenosis. L4-L5: There is severe bilateral facet joint hypertrophy. There is moderate right and mild left neura l foraminal stenosis. There is no central canal stenosis. L5-S1: The disc does not extend beyond the endplate margin. There is mild bilateral facet joint hyper trophy. There is no neural foraminal stenosis. There is no central canal stenosis. IMPRESSION: 1. Severe lumbar spondylosis, stable from 06/18/2021. 2. Interbody fusion at L3-L4 and L4-L5. 3. Lumbar dextroscoliosis. Reviewed, dictated and finalized at location A.
== END 2023-03-25 12:21 | disposition home or self-care (01) ==
PROVIDERS: PCP Family Medicine; Visit Provider Neurological Surgery
DX: M48.061 Spinal stenosis, lumbar region without neurogenic claudication (principal); M41.86 Other forms of scoliosis, lumbar region; Z98.1 Arthrodesis status
CPT/HCPCS: 72148

== ENCOUNTER 2023-03-28 07:50 | Outpatient (RCR) | payer MEDICARE, SELFPAY ==
[2023-03-14 10:35] VITALS: BMI 44.3
== END 2023-06-02 08:09 | disposition home or self-care (01) ==
LOC: ANHWOC 07:50
PROVIDERS: PCP Family Medicine; Visit Provider Family Medicine
DX: L89.109 Pressure ulcer of unspecified part of back, unspecified stage (principal)
CPT/HCPCS: 99212; 99213; G0463

== ENCOUNTER 2023-05-25 10:50 | Emergency (ER) | payer MEDICARE, SELFPAY ==
[2023-05-25 11:04] VITALS: BP 138/67; PULSE 58; RESP 16; TEMP 36.3; O2SAT 96
--- NOTE | 2023-05-25 11:09 | ED.URI ---
HPI - URI/Sore Throat General Chief Complaint: Upper Respiratory Infection Stated Complaint: cough Time Seen by Provider: 05/25/23 11:09 Source: patient Mode of arrival: ambulatory Limitations: no limitations History of Present Illness HPI Narrative: 82 y/o male with hx COPD, CHF presented for c/o cough for 2 weeks. Endorses sob with exertion, Cough is productive. Not taking anything for symptoms. is sick with cough as well. Denies fatigue, cp, palpitations, wheezing, increased swelling, n/v/d/f/c. Related Data Home Medications Medication Instructions Recorded Confirmed finasteride 5 mg tablet 5 mg PO DAILY 05/02/22 05/06/23 ascorbic acid (vitamin C) 500 mg 500 mg PO DAILY 11/04/22 05/06/23 capsule losartan 100 mg tablet 100 mg PO DAILY 11/04/22 05/06/23 furosemide 40 mg tablet 40 mg PO QAM 03/18/23 05/06/23 Allergies Allergy/AdvReac Type Severity Reaction Status Date / Time adhesive tape Allergy Intermediate Blisters Verified 05/25/23 11:12 iodine Allergy Mild Unknown Verified 05/25/23 11:12 shellfish derived Allergy Other Verified 05/25/23 11:12 Review of Systems Review of Systems: CONSTITUTIONAL: Denies body aches, fever, chills, or sweats. EYES: Denies visual changes, redness, or discharge. ENT: Denies rhinorrhea, congestion, sore throat, or otalgia. CARDIOVASCULAR: Denies chest pain, palpitations, or edema. RESPIRATORY: Reports cough,denies sob, wheezing. GASTROINTESTINAL: Denies abdominal pain, nausea, vomiting, or diarrhea. GENITOURINARY: Denies dysuria or hematuria. SKIN: Denies rash, itching, or wounds. MUSCULOSKELETAL: Denies back pain, joint pain, or myalgia. NEUROLOGIC: Denies headache, numbness, tingling, or weakness. All systems reviewed & are unremarkable except as noted in HPI and below [facility] Past Medical History Medical History AAA (abdominal aortic aneurysm) CTA of abdomen pelvis 08/23/2021: Aortoiliac ectasias with increased size the distal aortic aneurysm 5 cm, mild renal atrophy, small umbilical hernia, mild colonic diverticulosis Aspiration pneumonia (~10/2022) BPH (benign prostatic hyperplasia) Chronic low back pain CKD (chronic kidney disease), stage III COPD (chronic obstructive pulmonary disease) Dyslipidemia Erectile dysfunction Gout Lumbar spinal stenosis Severe central canal stenosis L3-L4 MRI May 2021 Lumbar spinal stenosis Nervousness Varicocele (~1976) Vitamin D deficiency Surgical History Surgical History H/O knee surgery (~1958) left knee when in high school History of AAA (abdominal aortic aneurysm) repair (~07/2022) July 2022 Endovascular AAA repair History of gastrostomy tube placement (~2021) removed in May 2022 History of repair of left rotator cuff (~2008) History of tracheostomy (~10/2021) Hx of cholecystectomy (~1990) Family History Family History Father , 56 Appendicitis Pulmonary embolism Mother , 66--Choked to on peanuts Choking due to food (regurgitated) Sibling Diabetes mellitus Social History Social History Social History: He and his live at home alone. He smoked heavily starting as a teenager but quit smoking approximately 2014. He drinks 2-3 cups of coffee a day. Code status: Full code Years smoked: 50 Smoking status: Former smoker Tobacco type: cigarettes Smoking end date: 12/01/14 Alcohol intake: never Alcohol use details: Patient drinks alcohol once to twice yearly Substance use: never Substance use type: does not use Lack of Transportation: No Lack of Food: Sometimes True Current Housing: I Have Housing Concerned About Future Housing: No Difficulty Paying Gas/Electric Bills: No Difficulty Paying for Meds: No Currently U
== END 2023-05-25 12:18 | disposition home or self-care (01) ==
PROVIDERS: Emergency Provider Nurse Practitioner Family; PCP Family Medicine
DX: J06.9 Acute upper respiratory infection, unspecified (principal); Z87.891 Personal history of nicotine dependence; N40.0 Benign prostatic hyperplasia without lower urinary tract symptoms; J44.9 Chronic obstructive pulmonary disease, unspecified; E78.5 Hyperlipidemia, unspecified; M10.9 Gout, unspecified; M48.061 Spinal stenosis, lumbar region without neurogenic claudication; N18.2 Chronic kidney disease, stage 2 (mild)
CPT/HCPCS: 99213; G0463

== ENCOUNTER 2023-09-24 08:29 | Outpatient (CLI) | payer MEDICARE, SELFPAY ==
--- NOTE | 2023-10-13 13:57 | WPDSLEEPSTUD ---
Sleep Study Date of Study: 09/24/23 Ordering Provider: Jose Luis Talbot APRN Interpreting Physician: Sharlene Mercado DO Sleep Study Type: Split Polysomnogram Height: 1.68 m Weight: 128.82 kg Body Mass Index: 45.8 Neck Circumference (inches): 19 [place]: 6 Reason for Sleep Study Previous diagnosis of CRISTOFER but never started CPAP. Sleep History The patient is an 82-year-old male with hypertension, BPH, CKD, abdominal aortic aneurysm s/p aortic stent graft, congestive heart failure, dyslipidemia, gout, lumbar spinal stenosis, COPD, and history of tobacco use and history of sleep apnea that had a sleep study ordered by the pulmonary group for evaluation of sleep apnea. He rarely awakens from sleep short of breath. He rarely awakens at night with heartburn, belching or cough. He denies snoring. He rarely has trouble sleeping when he has a cold. He denies waking up gasping for air throughout the night. He rarely has breathing problems at night observed by himself or others. He denies sweating excessively at night. He denies having heart palpitations or irregular heartbeats during the night. He occasionally falls asleep during the day but never while driving. He denies sleep paralysis, cataplexy and hypnagogic / hypnopompic hallucinations. He denies feeling afraid of going to sleep. He denies having nightmares. He denies remembering his dreams. He denies having thoughts racing through his mind. He denies feeling sad, depressed or anxious. He denies having muscular tension. He rarely notices parts of his body jerk. He denies kicking during the night. He denies having crawling and aching feelings in his legs and denies having leg pain during the night. He denies grinding his teeth during sleep and denies awakening with morning jaw pain. He denies being bothered by pain during the day and denies being awakened by pain during the night. He denies waking up feeling stiff in the morning. He occasionally wakes up with sore or achy muscles. He occasionally wakes up with pain in the neck, spine and other joints. He goes to bed between 9-11 p.m. on both weekdays and weekends. It takes him a few minutes to fall asleep. He wakes up few times throughout the night and ends up watching television. He will stay awake for an hour and then go back to bed. He wakes up between 5:30-6 a.m. on both weekdays and weekends. He typically gets 5-6 hours of sleep per night. He will stay in bed for 3 hours after waking up in the morning. He currently lives with his , adult children and teenage grandchildren. He denies consuming any caffeinated beverages within 2 hours of bedtime. He denies engaging in physical exercise before bedtime. He will watch television before falling asleep. He will take naps in the afternoon or the evening and they are refreshing. He consumes 2 cups of caffeinated beverage per day. He quit smoking 10 years ago. He denies alcohol and recreational drug use. [facility] Past Medical History Medical History AAA (abdominal aortic aneurysm) CTA of abdomen pelvis 08/23/2021: Aortoiliac ectasias with increased size the distal aortic aneurysm 5 cm, mild renal atrophy, small umbilical hernia, mild colonic diverticulosis Aspiration pneumonia (~10/2022) BPH (benign prostatic hyperplasia) Chronic low back pain CKD (chronic kidney disease), stage III COPD (chronic obstructive pulmonary disease) Dyslipidemia Erectile dysfunction Gout Lumbar spinal stenosis Severe central canal stenosis L3-L4 MRI May 2021 Lumbar spinal stenosis Nervousness Varicocele (~1976) Vitamin D deficiency Surgical History Surgical History H/O knee surgery (~1958) left knee when in high school History of AAA (abdominal aortic aneurysm) repair (~07/2022) July 2022 Endovascular AAA repair History of gastrostomy tube placement (~2021) removed
[2023-10-13 14:01] VITALS: BMI 45.8
== END 2023-09-25 07:22 | disposition home or self-care (01) ==
LOC: ANHCSM 08:30
PROVIDERS: PCP Family Medicine; Visit Provider Nurse Practitioner Family
DX: G47.30 Sleep apnea, unspecified (principal); G47.33 Obstructive sleep apnea (adult) (pediatric)
CPT/HCPCS: 95811

== ENCOUNTER 2023-10-06 12:36 | Outpatient (CLI) | payer MEDICARE, SELFPAY ==
[2023-10-06 12:50] VITALS: PULSE 62; O2SAT 92
[2023-10-06 12:55] VITALS: PULSE 70; O2SAT 87
[2023-10-06 13:00] VITALS: PULSE 69; O2SAT 91
[2023-10-06 13:15] VITALS: PULSE 57; O2SAT 93
--- NOTE | 2023-10-06 13:19 | HOMEO2EVAL ---
Evaluation was performed at [facility] Home Oxygen Evaluation RC: Home Oxygen (O2) Evaluation Start: 10/06/23 13:16 Freq: Status: Active Protocol: RPE Activity Type Activity Date Activity User E-sign Co-sign Detail Recorded Client Recorded Date Recorded By Document 10/06/23 12:50 [facility] [email or web address] 10/06/23 13:18 [facility] Document 10/06/23 12:55 [facility] [email or web address] 10/06/23 13:18 [facility] Document 10/06/23 13:00 [facility] [email or web address] 10/06/23 13:18 [facility] Document 10/06/23 13:15 [facility] [email or web address] 10/06/23 13:18 [facility] 10/06/23 10/06/23 10/06/23 12:50 12:55 13:00 Home O2 Evaluation [Oxygen] -Test Phase Resting Exercise Exercise -Oxygen Delivery Room Air Room Air Nasal Cannula -Oxygen Flow Rate (L/min) 1 [Pulse Oximetry] -Pulse Oximetry (90-100 %) 92 87 L 91 [Pulse Rate] -Pulse Rate (60-100 beats/min) 62 70 69 [Evaluation] -Activity Tolerance Good [Charges] -Treatment Charges O2 Evaluation - Outpatient 10/06/23 13:15 Home O2 Evaluation [Oxygen] -Test Phase Resting -Oxygen Delivery Room Air -Oxygen Flow Rate (L/min) [Pulse Oximetry] -Pulse Oximetry (90-100 %) 93 [Pulse Rate] -Pulse Rate (60-100 beats/min) 57 L [Evaluation] -Activity Tolerance [Charges] -Treatment Charges
== END 2023-10-06 12:37 | disposition home or self-care (01) ==
LOC: ANHPFT 12:36
PROVIDERS: PCP Family Medicine; Visit Provider Nurse Practitioner Family
DX: R06.09 Other forms of dyspnea (principal)
CPT/HCPCS: 94618

== ENCOUNTER 2024-02-09 09:47 | Outpatient (RCR) | payer MEDICARE, SELFPAY ==
[2024-02-09 09:30] VITALS: BMI 44.3
--- NOTE | 2024-02-23 07:58 | PCWOUND ---
WOCN NOTE Patient's daughter called to cancel appointment for today due to being overwhelmed with other appointments. States she will call back at a later time to reschedule. .
--- NOTE | 2024-05-03 11:49 | PCWOUND ---
WOCN NOTE Daughter for patient called office stating she would not be able to get patient to his scheduled 12:00pm appointment due to her son having to take a parenting class so he can graduate from it and now he has to take a test and that's going to take a while . Daughter states she is the only one who can get her father into the car and to his appointment(she did not bring him to his last appointment), she states she will call back at a later time to reschedule.
== END 2024-05-09 23:59 | disposition home or self-care (01) ==
LOC: ANHWOC 09:47
PROVIDERS: PCP Family Medicine; Visit Provider Family Medicine
DX: L89.109 Pressure ulcer of unspecified part of back, unspecified stage (principal)
CPT/HCPCS: 99213; G0463